=== PATIENT | male | born 1960 | race Caucasian/White ===

== ENCOUNTER → 2019-07-14 | Outpatient (CLI) | payer MEDICARE ==
[~2019-07-14] MED LIST: ACET325T38 PO; CALC667C; DIAZ1KIT4 RC; DIAZ5SOL3 PO; DIPH25TA82; DIVA-20; DIVA250T2; DVL250TEC; FERR-57; FLUT16SP22 NSEACH; LACO100T2 PO; LACO150T2 PO; LACO200T2 PO; LACO50TA2 PO; LAMO100T69 PO; LAMO150T2 PO; LAMO150T3 PO; LEVE100015 PO; LEVE500T6; LEVE500T6 PO; LEVE500T99; LMT25T; LMT25T PO; LORA1TAB PO; MIRT15TA6 PO; MULT1CAP27 PO; ND-PRIM50T; OMEP10CA2
== END | disposition home or self-care (01) ==
LOC: PREOP 05:35
PROVIDERS: ATTEND Surgery
DX: Z01.818 Encounter for other preprocedural examination (principal)

== ENCOUNTER 2019-08-28 08:24 | Outpatient (RCR) | payer MEDICARE ==
[~2019-08-28] VITALS: Ht 180 cm; Wt 79.5 kg
[~2019-08-28 08:24] MED LIST changes: +DOCU-238 PO; +LEVE500T99 PO
== END 2019-08-28 16:25 | disposition home or self-care (01) ==
LOC: PREOP 08:24
PROVIDERS: ATTEND Surgery
DX: Z01.818 Encounter for other preprocedural examination (principal); Z01.812 Encounter for preprocedural laboratory examination; Z12.11 Encounter for screening for malignant neoplasm of colon
CPT/HCPCS: 87635

== ENCOUNTER 2019-09-01 08:22 | Day surgery (SDC) | payer MEDICARE ==
[2019-09-01] VITALS (7 sets, daily range): BP systolic 100–116; BP diastolic 61–84
[~2019-09-01] VITALS: Ht 180 cm; Wt 73.1 kg
[2019-09-01] MEDS ORDERED: LACTATED RINGERS 1,000 ML IV ONE (08:28)
[2019-09-01] MEDS ORDERED: LACTATED RINGERS 1,000 ML IV STA (08:31)
[2019-09-01] MEDS ORDERED: MIDAZOLAM 2 MG/2 ML (VERSED) VIAL ONE (09:50)
[2019-09-01] MEDS ORDERED: PROPOFOL INJECTION 50 ML IV ONE (09:50)
[2019-09-01] MEDS ORDERED: proPOfol 200 MG/20 ML (DIPRIVAN) VIAL IV ONE (10:17)
--- NOTE | 2019-09-01 10:41 | Progress Note-Post Operative ---
Post-Operative Progess Note Surgeon (s)/Brine Maker (s) Surgeon RIKKI BOOTHE DO Brine Maker: none Pre-Operative Diagnosis +Cologuard Post-Operative Diagnosis Colon polyps internal hemorrhoids Procedure & Operative Findings Date of Procedure 09/01/19 Procedure Performed/Findings colon with snare Anesthesia Type IV sedation by CORE WINDER MACHINE OPERATOR Estimated Blood Loss Estimated blood loss (mL): scant Specimens/Packing Specimens Removed transverse cecum descending colon RIKKI BOOTHE DO September 01, 2019 10:41
--- NOTE | 2019-09-01 10:42 | Endoscopy Discharge Instruct ---
Endo Procedure/Findings Findings 1.: Polyp 2.: Internal Hemorrhoids Discharge Instructions - Activity: You might feel a little sleepy until tomorrow. This is due to the medicine you received to relax you. Until tomorrow, you should: NOT drive a car, operate machinery or power tools. NOT drink any alcoholic beverages. NOT make any important decisions or sign importortant papers. Do not return to work until tomorrow, unless otherwise instructed. Resume previous activities tomorrow. Diet: Start by taking liquids. If you tolerate liquids, advance to solid food. make an appointment for one week 1.: Colonoscopy in 1 year Notify Physician - If you experience excessive bleeding, unusual abdominal pain, fever, or chest pain, contact your doctor immediately. RIKKI BOOTHE DO September 01, 2019 10:42
--- NOTE | 2019-09-01 14:00 | Anesthesia-General Post-Op ---
MAC Patient Condition Mental Status/LOC: Same as Preop Cardiovascular: Satisfactory Nausea/Vomiting: Absent Respiratory: Satisfactory Pain: Controlled Complications: Absent Post Op Complications Complications None Follow Up Care/Instructions Patient Instructions None needed. Anesthesiology Discharge Order Discharge Order Patient is doing well, no complaints, stable vital signs, no apparent adverse anesthesia problems. No complications reported per nursing. TAVON MEIER CRNA September 01, 2019 14:00
--- NOTE | 2019-09-01 19:43 | OPERATIVE REPORT ---
DATE OF SERVICE: 09/01/2019 PREOPERATIVE DIAGNOSIS: Positive Cologuard. POSTOPERATIVE DIAGNOSES: Colon polyps and internal hemorrhoids. PROCEDURE: Colonoscopy with snare polypectomy. SURGEON: Noman Khalil DO LEATHER CASE FINISHER: None. ANESTHESIA: IV sedation by the MANAGER RELATIONSHIP. SPECIMEN: Polyps from the transverse colon, cecum and descending colon. BLOOD LOSS: Scant. FLUIDS: Per anesthesia. POSTOPERATIVE CONDITION: Stable. INDICATION FOR PROCEDURE: The patient is a 59-year-old male who had a positive Cologuard and needed a workup. FINDINGS: The patient had multiple polyps, one in the transverse colon, one in the descending colon, but the largest one within the cecum. He also had some internal hemorrhoids. PROCEDURE NOTE: After informed consent was obtained, the patient was brought to the endoscopy suite, placed in bed in the left lateral decubitus position. He was administered IV sedation by the MANAGER RELATIONSHIP who then monitored his vitals the entire time, heart rate, blood pressure and pulse ox. Scope was inserted. On the way in, noted a polyp in the transverse colon, did snare polypectomy, continued all the way to the cecum, pushed in about 150 cm, able to visualize the appendiceal orifice and took a picture and then right next we saw a large polyp. Had to take this polyp in pieces to be able remove it. Able to suction some of these up and then got a Potter Net down there. Placed the polyp in the Potter Net and had to pull the scope all the way out to get the polyp and then placed the scope back in, all the way to the cecum and then slowly withdrew the scope insufflating to look circumferentially at the gutierrez looking the cecum, up the ascending colon to the hepatic flexure, then down the transverse colon, the splenic flexure, into the descending colon, saw another flat polyp, did another snare polypectomy of this and then continued down in the sigmoid and finally into the rectum, retroflexed in rectal vault, saw some minimal internal hemorrhoids, took a picture of these and then removed the scope. The patient tolerated the procedure and he was recovered in endoscopy suite. Job ID: [id number] DocumentID: [id number] Dictated Date: 09/01/2019 15:13:03 Insurance Claims Examiner Date: 09/01/2019 19:42:41 Dictated By: NOMAN KHALIL DO
== END 2019-09-01 11:35 | disposition home or self-care (01) ==
LOC: ENDO 08:22
PROVIDERS: ATTEND Surgery
DX: C18.0 Malignant neoplasm of cecum (principal); D12.3 Benign neoplasm of transverse colon; K63.89 Other specified diseases of intestine; K64.8 Other hemorrhoids; G40.909 Epilepsy, unspecified, not intractable, without status epilepticus; K21.9 Gastro-esophageal reflux disease without esophagitis; Z79.899 Other long term (current) drug therapy

== ENCOUNTER 2019-09-11 08:35 | Outpatient (RCR) | payer MEDICARE ==
[~2019-09-11] VITALS: Ht 180 cm; Wt 73.1 kg
[2019-09-11 08:13] VITALS: BP 121/75
[2019-09-11 08:59] LABS: BASOPHILS % (AUTO) 0 % (0-10); EOSINOPHILS # (AUTO) 0.1 10^3/uL (0.0-0.3); EOSINOPHILS % (AUTO) 1 % (0-10); HEMATOCRIT 45 % (40-54); HEMOGLOBIN 15.6 G/DL (13.3-17.7); LYMPHOCYTES # (AUTO) 1.2 X 10^3 (1.0-4.0); LYMPHOCYTES % (AUTO) 25 % (12-44); MEAN CORPUSCULAR HEMOGLOBIN 30 PG (25-34); MEAN CORPUSCULAR HGB CONC 35 G/DL (32-36); MEAN CORPUSCULAR VOLUME 88 FL (80-99); MEAN PLATELET VOLUME 9.5 FL (7.4-10.4); MONOCYTES # (AUTO) 0.5 X 10^3 (0.0-1.0); MONOCYTES % (AUTO) 9 % (0-12); NEUTROPHILS # (AUTO) 3.1 X 10^3 (1.8-7.8); NEUTROPHILS % (AUTO) 64 % (42-75); PLATELET COUNT 238 10^3/uL (130-400); RED CELL DISTRIBUTION WIDTH 12.5 % (10.0-14.5); WHITE BLOOD COUNT 4.9 10^3/uL (4.3-11.0)
[2019-09-19] MEDS ORDERED: HYDR-4226 PO (11:59)
== END 2019-09-12 14:33 | disposition home or self-care (01) ==
LOC: PREOP 08:35
PROVIDERS: ATTEND Surgery
DX: Z01.812 Encounter for preprocedural laboratory examination (principal); Z11.59 Encounter for screening for other viral diseases; C18.9 Malignant neoplasm of colon, unspecified
CPT/HCPCS: 85025; 86850; 86900; 86901; 87081; U0002; 36415; 87635

== ENCOUNTER 2019-09-17 07:33 | Inpatient (IN) | payer MEDICARE ==
[2019-09-17] VITALS (12 sets, daily range): BP systolic 105–126; BP diastolic 63–83
[~2019-09-17] VITALS: Ht 180 cm; Wt 73.1 kg
[2019-09-17] MEDS ORDERED: ceFAZolin 2 GM IV Premixed 50 ML IV ONE (07:45)
[2019-09-17] MEDS ORDERED: CATHETER FLUSH 10 ML SYR IV PRN (08:00)
--- NOTE | 2019-09-17 08:05 | Progress Note-Pre Operative ---
Pre-Operative Progress Note H&P Reviewed The H&P was reviewed, patient examined and no changes noted. Time Seen by Provider: 08:00 Date H&P Reviewed: Sep 17, 2019 Time H&P Reviewed: 08:01 Pre-Operative Diagnosis: Colon Cancer - Cecum RIKKI BOOTHE DO Sep 17, 2019 08:05
[2019-09-17] MEDS: LACTATED RINGERS 1,000 ML IV PRN ×2 (08:07→09:37)
[2019-09-17] MEDS ORDERED: MIDAZOLAM 2 MG/2 ML (VERSED) VIAL ONE ×2 (08:09→08:33)
[2019-09-17] MEDS ORDERED: MIDAZOLAM 2 MG/2 ML (VERSED) VIAL IV ONE (08:15)
[2019-09-17] MEDS ORDERED: proPOfol 200 MG/20 ML (DIPRIVAN) VIAL IV ONE (08:33)
[2019-09-17] MEDS ORDERED: LIDOCAINE PF 2% 5 ML (XYLOCAINE) VIAL ONE (08:33)
[2019-09-17] MEDS ORDERED: SEVOFLURANE (ULTANE) 15 ML INHAL SOLN ONE ×5 (08:33→10:47)
[2019-09-17] MEDS ORDERED: fentaNYL INJECTION 100 MCG/2 ML AMP ONE ×2 (08:33→10:45)
[2019-09-17] MEDS ORDERED: ROCURONIUM 10 MG/ML 5 ML SYRINGE IV ONE (08:33)
[2019-09-17] MEDS ORDERED: ONDANSETRON 4 MG/2 ML (SDV) Z0FRAN ONE (08:34)
[2019-09-17] MEDS ORDERED: BUPIVACAINE 0.5% 30 ML (SENSORCAINE) VIAL ONE (08:34)
[2019-09-17] MEDS ORDERED: DEXAMETHASONE 10 MG/ML (DECADRON) 1 ML VIAL ONE (08:34)
[2019-09-17] MEDS ORDERED: BUP/EPI 0.5% 1:200,000 (SENSORCAINE) 30 ML VIAL ONE (09:12)
--- NOTE | 2019-09-17 10:33 | Progress Note-Post Operative ---
Post-Operative Progess Note Surgeon (s)/Continuous Mining Machine Coal Miner (s) Surgeon RIKKI BOOTHE DO Continuous Mining Machine Coal Miner: Servando Pre-Operative Diagnosis Colon Cancer - Cecum Post-Operative Diagnosis same pending path Procedure & Operative Findings Date of Procedure 09/17/19 Procedure Performed/Findings Lap hand assisted Right colon resection with primary enterocolonic anastomosis Anesthesia Type GET Estimated Blood Loss Estimated blood loss (mL): minimal Specimens/Packing Specimens Removed portion of TI, appy and right colon RIKKI BOOTHE DO Sep 17, 2019 10:33
[2019-09-17] MEDS ORDERED: ONDANSETRON 4 MG/2 ML (SDV) Z0FRAN IVP PRN ×2 (10:45→11:00)
[2019-09-17] MEDS ORDERED: NON-FORMULARY MEDICATION 1 EA EA (Mirtazapine 15 MG) PO PRN (10:45)
[2019-09-17] MEDS ORDERED: PATIENT MAY USE OWN MEDS, ALL MC SCH (11:00)
[2019-09-17] MEDS ORDERED: morphine INJ 10 MG/ML 1ML (SYR OR VIAL) IVP ONE (11:00)
[2019-09-17] MEDS ORDERED: MEPERIDINE (DEMEROL) INJ 50 MG/ML IVP ONE (11:00)
[2019-09-17] MEDS ORDERED: HYDROmorphone 2 MG/ML VIAL (DILAUDID) IV ONE (11:00)
[2019-09-17] MEDS ORDERED: KETOROLAC 30 MG/ML VIAL ONE (11:07)
[2019-09-17] MEDS: KETOROLAC 30 MG/ML VIAL IVP SCH ×3 (11:09→23:29)
--- NOTE | 2019-09-17 11:55 | NUR ---
CUAUHTEMOC MARY admitted to room 427, with an admitting diagnosis of COLON RESECTION, on 09/17/19 from via BED, accompanied by STAFF. CUAUHTEMOC MARY introduced to surroundings, call light, bed controls, phone, TV, temperature control, lights, meal times, smoking policy, visitor policy, side rail policy, bathrooms and showers. Patient Rights given to patient in the handbook. CUAUHTEMOC MARY verbalizes understanding that [facility] is not responsible for the loss or damage to any personal effects or valuables that are kept in the patients posession during their hospitalization. CUAUHTEMOC MARY verbalizes understanding of Interdisciplinary Patient Education. Patient and/or family were informed about the Rapid Response Team and its purpose.
--- NOTE | 2019-09-17 11:55 | NUR ---
REPORT RECEIVED FROM JOSEFINA LÓPEZ
[2019-09-17] MEDS: LACTATED RINGERS 1,000 ML IV SCH ×2 (12:45→18:23)
--- NOTE | 2019-09-17 13:39 | NUR ---
PT'S WILL BRING HOME MEDS THIS AFTERNOON
--- NOTE | 2019-09-17 13:57 | NUR ---
DR BOOTHE NOTIFIED FOR PRN PAIN MEDS
[2019-09-17] MEDS: ACETAMINOPHEN 500 MG TAB (TYLENOL) PO SCH ×2 (14:06→19:42)
--- NOTE | 2019-09-17 15:04 | OPERATIVE REPORT ---
DATE OF SERVICE: PREOPERATIVE DIAGNOSIS: Cecal cancer. POSTOPERATIVE DIAGNOSIS: Cecal cancer, pending pathology. PROCEDURE: Laparoscopic hand-assisted right colon resection. SURGEON: Noman Khalil DO CANVAS BASTER JUMPBASTING: Stalin Al DO ANESTHESIA: General endotracheal tube. SPECIMEN: Portion of terminal ileum, appendix and the right colon. BLOOD LOSS: Less than 20 mL. FLUIDS: Basically minimal. FLUIDS: Per anesthesia. POSTOPERATIVE CONDITION: Stable. INDICATION FOR PROCEDURE: The patient is a 59-year-old male who had a colonoscopy with biopsy performed and polyp removed, which turned out to have adenocarcinoma and it needed a colon resection. FINDINGS: The patient had a right colon resection. All sent to pathology. PROCEDURE NOTE: After informed consent was obtained, the patient was brought to the operating room, placed on the table in supine position, sterilely prepped and draped in normal fashion. I made the incision with #15 blade from just above the umbilicus to just below it. Approximately 6 cm incision, carried down through the skin into subcutaneous tissue, then deepened down to subcutaneous tissue with Bovie electrocautery, going through the fascia, and then bluntly entered and placed in the hand and then protecting the bowel and then opening this incision superiorly and inferiorly protecting with the hand. I then placed a 5 mm port in the subxiphoid area with local lidocaine, 11 blade for stab incision and VersaStep system, all done under direct visualization, placed the GelPort and then placed another port in the midline just suprapubically using again local lidocaine, 11 blade for stab incision and Versed system, all done under direct visualization, pneumoperitoneum was created. There were some adhesions. These were carefully taken down with Bovie electrocautery, then came along the pericolic gutter with the Bovie electrocautery along the white line of Toldt, freeing this up, so that we could pull the colon medial, going all the way up to the hepatic flexure, coming across to bring this medially and this was easily brought medially with hand dissection, took some of the omentum down from the liver to get it out of the way. There are also some adhesions down in the terminal ileum. These were taken down so that I could bring all the intestine into the midline. Once this was done, then pulled the colon and terminal ileum through the midline incision, used a MARTA-75 to clamp across the terminal ileum, clamped and fired, thereby transecting. Then used the LigaSure to come across the mesentery and then freed up the right colon, then made a defect in the right colon with Bovie electrocautery, placed a MARTA through here and then made a defect in the antimesenteric border of the terminal ileum. Pushed in the other side of the MARTA in here, clamped them together and then held for 30 seconds, then fired, then used another MARTA to come across the bottom to close this enterocolotomy, clamped and then transected thereby removing this portion and then coming across the mesentery in a stepwise fashion, clamping, coagulating and transecting with the LigaSure to remove this portion of colon. Once this was removed, passed off the table. I went below, I went to the table and opened this, could see the old scar from polypectomy site, everything looked good, this was passed off and then sent to pathology. At this point, copiously irrigated with normal saline, suctioned this out and then elected to close the midline incision with #1 double stranded PDS suture running from the inferior portioto the superior portion tying to itself, recreated pneumoperitoneum and looked inside, everything looked good. I had suctioned out all the fluid. At this point, the patient who had been slightly rotated to the left, was placed supine and then removed all ports and allowed pneumoperitoneum to escape and then closed the two small 5 mm incisions with urszula. I then closed the midline incision with urszula. Area was cleaned and dried, dressing placed. The patient tolerated the procedure. Sponge, instrument and needle counts correct at the end of the case. Dr. Al assisted in this case helping to make incisions, close incisions as well as help identify anatomy and hold anatomy out of the way. Job ID: [id number] DocumentID: [id number] Dictated Date: 09/17/2019 10:52:59 Home Care Consultant Date: 09/17/2019 15:04:18 Dictated By: DO MARBIN BURCH
[2019-09-17] MEDS: ceFAZolin 2 GM IV Premixed 50 ML IV SCH (17:59)
[2019-09-17] MEDS: metroNIDAZOLE 500MG/100ML IVPB 100 ML IV SCH ×2 (18:02→19:42)
[2019-09-17] MEDS ORDERED: MIRTAZAPINE 15 MG (REMERON) TAB PO PRN (18:15)
[2019-09-17] MEDS: LEVETIRACETAM 500 MG (KEPPRA) TAB PO SCH (20:32)
[2019-09-17] MEDS: VIMPAT 50 MG PO SCH (20:33)
[2019-09-17] MEDS: VIMPAT 200 MG TABLET PO SCH (20:34)
[2019-09-17] MEDS: LAMICTAL 150 MG PO SCH (20:35)
--- NOTE | 2019-09-17 23:35 | NUR ---
2333-pt requesting prn Remeron from insomnia-medication given see mar
[2019-09-18] MEDS: ceFAZolin 2 GM IV Premixed 50 ML IV SCH (01:23)
--- NOTE | 2019-09-18 01:57 | NUR ---
0045-pt informs this rn that he feels like he is not urinating enough bladder scan preformed resulting 746ml 0054-this rn contacted dr. lopez prn straight cath order obtained (straight cath for bladder scan greater than 500ml) 0100-straight cath preformed using aseptic technique-pt tolerated well-700ml of clear yellow urine pt stated "That feels better. I think I can rest now."
[2019-09-18 04:11] VITALS: BP 111/71
[2019-09-18] MEDS: ACETAMINOPHEN 500 MG TAB (TYLENOL) PO SCH ×3 (04:28→18:26)
[2019-09-18] MEDS: KETOROLAC 30 MG/ML VIAL IVP SCH ×4 (04:29→21:54)
[2019-09-18 08:00] VITALS: BP 116/76
[2019-09-18] MEDS: LAMICTAL 150 MG PO SCH ×2 (09:23→21:52)
[2019-09-18] MEDS: LEVETIRACETAM 500 MG (KEPPRA) TAB PO SCH ×2 (09:25→21:54)
[2019-09-18] MEDS: VIMPAT 200 MG TABLET PO SCH ×2 (09:25→21:53)
[2019-09-18] MEDS: VIMPAT 50 MG PO SCH ×2 (09:26→21:52)
[2019-09-18] MEDS: ENOXAPARIN 40 MG/0.4 ML (LOVENOX) SYR SC SCH (09:27)
[2019-09-18] MEDS: PANTOPRAZOLE 40 MG (PROTONIX) VIAL IVP SCH (09:34)
[2019-09-18 11:00] VITALS: BP 110/71
--- NOTE | 2019-09-18 12:23 | Progress Note - Surgery ---
Subjective Time Seen by a Provider: 12:11 Subjective/Events-last exam Pt seen and examined, states he had 9 out of 10 pain this am; but after walking it is a 6 and tolerable. He is having trouble urinating. Denies flatus or BM. Review of Systems Pulmonary: No Dyspnea, No Cough Cardiovascular: No: Chest Pain, Palpitations Gastrointestinal: Abdominal Pain; No: Nausea, Vomiting Objective Exam Vital Signs Date Time Temp Pulse Resp B/P (MAP) Pulse Ox O2 Delivery O2 Flow Rate FiO2 09/18/19 11:00 36.6 65 16 110/71 (84) 97 Room Air 09/18/19 09:00 100 Room Air 2.00 09/18/19 08:00 36.6 64 16 116/76 (89) 100 Room Air 09/18/19 04:11 37.0 68 18 111/71 (84) 99 Room Air 09/17/19 23:32 37.2 71 20 121/74 (90) 98 Room Air 09/17/19 20:30 Room Air 09/17/19 20:12 36.5 87 18 126/69 (88) 100 Room Air 09/17/19 15:30 36.8 66 18 111/70 (84) 98 Room Air 09/17/19 14:54 96 Room Air I & O 09/18/19 07:00 Intake Total 3570 ml Output Total 1200 ml Balance 2370 ml Capillary Refill : NONE General Appearance: No Apparent Distress, WD/WN Respiratory: Lungs Clear, Normal Breath Sounds, No Accessory Muscle Use, No Respiratory Distress Cardiovascular: Regular Rate, Rhythm, No Murmur Gastrointestinal: soft; No distended; tenderness (at incisions), other (inc c/d/i) Results Lab Laboratory Tests 09/18/19 08:05: Creatinine 1.09 Assessment/Plan Assessment/Plan Assessment/Plan S/P Right Colon Resection Urinary Retention Pt encouraged to ambulate more and use IS. He had to be straight cathed twice, but finally is starting to urinate; will start some Flomax. Continue pain meds as needed. Clinical Quality Measures DVT/VTE Risk/Contraindication: Risk Factor Score Per Nursin RFS Level Per Nursing on Admit: 4+=Very High RIKKI BOOTHE DO Sep 18, 2019 12:22
--- NOTE | 2019-09-18 12:35 | Anesthesia-General Post-Op ---
General Patient Condition Mental Status/LOC: Same as Preop Cardiovascular: Satisfactory Nausea/Vomiting: Absent Respiratory: Satisfactory Pain: Controlled Complications: Absent Post Op Complications Complications None Follow Up Care/Instructions Patient Instructions None needed. Anesthesia/Patient Condition Patient Condition Patient is doing well, no complaints, stable vital signs, no apparent adverse anesthesia problems. No complications reported per nursing. CRISSY WAGNER CRNA Sep 18, 2019 12:35
--- NOTE | 2019-09-18 14:04 | NUR ---
MR. MARY UP IN HALLS WALKING WITHOUT ANY ASSISTANCE, PATIENT WAS ALSO TAKEN TO THE STAIR CASE AND WAS ABLE TO GO UP AND DOWN THE STAIRS WITH MINIMAL DIFFICULTIES. PATIENT WILL RETURN TO ROOM AND AND TAKEN TO TOILET AND WILL TRY TO VOID AND THEN PCT'S WILL BLADDER SCAN AT THIS TIME. SEE INTERVENTIONS FOR DETAILS.
--- NOTE | 2019-09-18 14:05 | NUR ---
THROUGHOUT THE DAY THIS PATIENT HAS BEEN TAKEN TO THE TOILET TO VOID AND AFTER EACH VOID THE PATIENT WAS BLADDER SCANNED. EACH TIME HE WAS BLADDER SCAN HE FAILED TO HAVE >500 MLS IN HIS BLADDER AFTER VOIDING. THIS RN WILL CONT. TO MONITOR THIS PATIENT FOR URINE RETENTION WITH EACH AND EVERY TIME HE TOILETS. FIRST BLADDER SCAN READ >222 MLS. SECOND TIME HE WAS BLADDER SCANNED HIS RESIDUAL AFTER VOIDING WAS [address] BOOTHE NOTIFIED OF THIS, NO NEW ORDERS TO PLACE [facility] CATH AT THIS TIME.
--- NOTE | 2019-09-18 14:09 | NUR ---
NEW ORDERS RECEIVED TO START COLACE 100 MG PO NOW THEN DAILY. SEE EMAR FOR DETAILS.
--- NOTE | 2019-09-18 14:10 | NUR ---
PATIENT HAD NO DIFFICULTIES WHILE CLIMBING STAIR WITH STAFF.
[2019-09-18] MEDS ORDERED: DOCUSATE SODIUM 100 MG (COLACE) CAP PO PRN (14:15)
--- NOTE | 2019-09-18 15:40 | NUR ---
Pastoral care visit.
[2019-09-18 16:00] VITALS: BP 126/85
[2019-09-18] MEDS ORDERED: DOCUSATE SODIUM 100 MG (COLACE) CAP PO NR (16:00)
[2019-09-18] MEDS: TAMSULOSIN 0.4 MG (FLOMAX) CAP PO SCH (17:47)
[2019-09-18 20:00] VITALS: BP 122/72
[2019-09-19 00:45] VITALS: BP 114/60
[2019-09-19] MEDS: ACETAMINOPHEN 500 MG TAB (TYLENOL) PO SCH ×3 (03:34→18:19)
[2019-09-19 04:00] VITALS: BP 108/53
[2019-09-19] MEDS: KETOROLAC 30 MG/ML VIAL IVP SCH ×4 (04:12→23:29)
[2019-09-19] MEDS: LAMICTAL 150 MG PO SCH ×2 (07:53→21:02)
[2019-09-19] MEDS: PANTOPRAZOLE 40 MG (PROTONIX) VIAL IVP SCH (07:53)
[2019-09-19] MEDS: VIMPAT 200 MG TABLET PO SCH ×2 (07:54→21:03)
[2019-09-19] MEDS: VIMPAT 50 MG PO SCH ×2 (07:55→21:03)
[2019-09-19] MEDS: LEVETIRACETAM 500 MG (KEPPRA) TAB PO SCH ×2 (07:55→21:00)
[2019-09-19] MEDS: ENOXAPARIN 40 MG/0.4 ML (LOVENOX) SYR SC SCH (07:59)
[2019-09-19 08:30] VITALS: BP 159/62
--- NOTE | 2019-09-19 11:57 | Progress Note - Surgery ---
Subjective Time Seen by a Provider: 10:53 Subjective/Events-last exam Pt seen and examined, states his pain was great this am but got a little worse after he walked. He did have a BM, but states he isn't eating much; I get full quick. He is worried about pain control when he gets home. States he is urinating better. Review of Systems General: No Chills, No Night Sweats Pulmonary: No Dyspnea, No Cough Cardiovascular: No: Chest Pain, Palpitations Gastrointestinal: Abdominal Pain; No: Nausea, Vomiting Objective Exam Vital Signs Date Time Temp Pulse Resp B/P (MAP) Pulse Ox O2 Delivery O2 Flow Rate FiO2 09/19/19 08:49 Room Air 09/19/19 08:30 36.3 76 19 159/62 (94) 96 Room Air 09/19/19 04:00 37.0 64 18 108/53 (71) 95 Room Air 09/19/19 00:45 36.4 63 17 114/60 (78) 92 Room Air 09/18/19 21:00 Room Air 09/18/19 20:00 36.8 67 18 122/72 (89) 99 Room Air 09/18/19 16:00 36.6 63 20 126/85 (99) 97 Room Air I & O 09/19/19 07:00 Intake Total 1968 ml Output Total 650 ml Balance 1318 ml Capillary Refill : NONE General Appearance: No Apparent Distress, WD/WN Respiratory: Lungs Clear, Normal Breath Sounds, No Accessory Muscle Use, No Respiratory Distress Cardiovascular: Regular Rate, Rhythm, No Murmur Gastrointestinal: soft, tenderness, other (inc c/d/i) Assessment/Plan Assessment/Plan Assessment/Plan S/P Right Colon Resection Urinary Retention -resolved Pt told he has to ambulate 5-6 times today and use IS 10 times every hour while awake. Will continue Flomax. Plan to d/c home tomorrow. Clinical Quality Measures DVT/VTE Risk/Contraindication: Risk Factor Score Per Nursin RFS Level Per Nursing on Admit: 4+=Very High RIKKI BOOTHE DO Sep 19, 2019 11:57
[2019-09-19] MEDS ORDERED: HYDR-4226 PO (11:59)
--- NOTE | 2019-09-19 12:00 | Discharge Inst-Surgical ---
Discharge Inst-Surgical Depart Medication/Instructions New, Converted or Re-Newed RX: RX Given to Pt/Family Patient Instructions Follow up Appt: Make appointment for 1 week. [phone] Instructions: No lifting greater than 20 pounds. No strenuous activity. May shower in 24 hours, no tub bath or soaking. Use incentive spirometer at home as directed. No Smoking Skin/Wound Care: May remove bandages in am. You need to leave the urszula in place and come to the clinic to have them removed. Symptoms to Report: Appetite Changes, Extremity Discoloration, Numbness/Tingling, Swelling Increased, Bleeding Excessive, Eyesight Changes, Pain Increased, Urine Color Change, Constipation(Persistent), Fever over 101 degree F, Pain/Pressure in chest, Urinating Difficulty, Cough Up/Vomit Blood, Heart Beat Irreg/Pounding, Pain/Pressure in jaw, Cramps in feet or legs, Lightheadedness, Pain/Pressure in shoulder, Diarrhea(Persistent), Memory Changes Suddenly, Questions/Concerns, Weight gain consecutive days, Dizziness/Fainting, Nausea/Vomiting, Shortness of Breath, Weight gain over 2 pounds If questions or concerns contact your physician Or seek help at emergency department. Activity Activity as Tolerated: Yes Activity Instructions: Avoid Stress to Incision Driving Instructions: No Driving/Refer to Dr. Mercer Discharge Diet: No Restrictions Diet After 24 Hours: Clear Liquid if Nauseous If Any Problems/Questions/Issu: Contact Your Physician, Go to Emergency Room Skin/Wound Care Infection Signs and Symptoms: Increased Redness, Foul Odor of Wound, Increased Drainage, Skin Itchy or Has a Rash, Increased Swelling, Temperature Above 101 F Bathing Instructions: Shower Stitches/[place]/Dermabond Dis: Care of RIKKI [place] DO Sep 19, 2019 12:00
[2019-09-19 12:59] VITALS: BP 119/74
--- NOTE | 2019-09-19 13:55 | NUR ---
"RD ASSESSMENT PMHx: s/p colon resection; GERD; chronic constipation; seizure disorder PT INTERACTION: Pt was awake and pleasant during nutrition assessment. Pt states current appetite is not good, and has been this way for a few days. Note avg PO intake 67% x2d, per chart review. Pt states following a regular diet at home, and has some issues with swallowing food. Pt states no recent issues with nausea or vomiting. Pt states some issues with diarrhea. Note last BM was 6/5, and pt currently on bowel regimen of colace PRN, per chart review. Pt states some recent wt changes, with a recent wt of 175#, per pt's . did not recall timeframe of this wt loss. Note current wt of 161#, per chart review. ABNORMAL NUTRITION-RELATED LAB VALUES No labs drawn at this time Est. kcal needs: 8257-1936 kcal | 25-30 kcal/kg Est. Pro needs: 88-120 g Pro | 0.8-1.0 g Pro/kg PES STATEMENT: Inadequate oral intake (NI-2.1) related to loss of appetite | diarrhea as evidenced by pt interview | avg PO intake 67% x2d Inadequate protein intake (NI-5.6.1) related to increased protein needs as evidenced by pt s/p colon resection INTERVENTION: Continue with current diet order of DYS2 Mechanically Altered diet. Would recommend diet advancement when medically able and as tolerated. Add Ensure HP (vary) to meals TID, for increased protein and kcal intake. Provides 160 kcal and 16 g Pro per serving. Will continue to follow and reassess as pt needs, intake, and status change. MONITOR/EVALUATE: PO Intake; Plan of Care; Hydration Status; Weight Status; Lab Values Marium Angel, MS, RD, LD"
[2019-09-19 16:15] VITALS: BP 104/71
[2019-09-19] MEDS: TAMSULOSIN 0.4 MG (FLOMAX) CAP PO SCH (18:05)
[2019-09-19 19:44] VITALS: BP 111/74
[2019-09-20] VITALS: BP 128/78
[2019-09-20] MEDS: ACETAMINOPHEN 500 MG TAB (TYLENOL) PO SCH ×2 (03:01→11:09)
[2019-09-20 04:00] VITALS: BP 125/79
[2019-09-20] MEDS: KETOROLAC 30 MG/ML VIAL IVP SCH ×2 (05:02→11:09)
[2019-09-20 08:00] VITALS: BP 124/74
[2019-09-20] MEDS: PANTOPRAZOLE 40 MG (PROTONIX) VIAL IVP SCH (08:19)
[2019-09-20] MEDS: VIMPAT 50 MG PO SCH (08:20)
[2019-09-20] MEDS: ENOXAPARIN 40 MG/0.4 ML (LOVENOX) SYR SC SCH (08:20)
[2019-09-20] MEDS: VIMPAT 200 MG TABLET PO SCH (08:21)
[2019-09-20] MEDS: LAMICTAL 150 MG PO SCH (08:21)
[2019-09-20] MEDS: LEVETIRACETAM 500 MG (KEPPRA) TAB PO SCH (08:22)
--- NOTE | 2019-09-20 11:47 | NUR ---
DR BOOTHE PUT IN D/C ORDERS YESTERDAY AND DR HYDE OFFICIALLY DISCHARGED PT THIS AM. PCT STAFF TOOK PT VIA W/C TO PRIVATE VEHICLE. PT HAD ALL PERSONAL BELONGINGS, DISCHARGE PAPERS, SCRIPT FOR LORTAB AND MEDICATION HE BROUGHT WITH HIM.
--- NOTE | 2019-09-20 15:55 | Progress Note - Surgery ---
Subjective Date Seen by a Provider: Sep 20, 2019 Time Seen by a Provider: 10:08 Subjective/Events-last exam Patient feeling good. Pain control. Passing flatus and having bowel movement. Tolerating diet. Wanting to go home. Denies nausea vomiting fever sweats chills shortness of breath or chest pain. Objective Exam Vital Signs Date Time Temp Pulse Resp B/P (MAP) Pulse Ox O2 Delivery O2 Flow Rate FiO2 09/20/19 08:41 98 Room Air 09/20/19 08:00 36.6 72 16 124/74 (91) 98 Room Air 09/20/19 04:00 36.8 61 20 125/79 (94) 97 Room Air 09/20/19 00:00 36.7 61 19 128/78 (95) 98 Room Air 09/19/19 21:00 98 Room Air 09/19/19 19:44 36.7 72 16 111/74 (86) 99 Room Air 09/19/19 16:15 36.6 66 18 104/71 (82) 98 Room Air I & O 09/20/19 07:00 Intake Total 2330 ml Output Total 1150 ml Balance 1180 ml Capillary Refill : NONE General Appearance: No Apparent Distress, WD/WN HEENT: PERRL/EOMI Respiratory: Chest Non Tender, No Accessory Muscle Use, No Respiratory Distress Cardiovascular: Regular Rate, Rhythm, No Edema Gastrointestinal: soft, tenderness (Minimal incisional), other (inc c/d/i) Extremity: Non Tender Neurologic/Psychiatric: Alert, Oriented x3 Skin: Normal Color, Warm/Dry Lymphatic: No Adenopathy Assessment/Plan Assessment/Plan Assessment/Plan S/P Right Colon Resection Urinary Retention -resolved Pt told he has to ambulate 5-6 times today and use IS 10 times every hour while awake. Okay to DC home as patient is wanting to be discharged home as well. Clinical Quality Measures DVT/VTE Risk/Contraindication: Risk Factor Score Per Nursin RFS Level Per Nursing on Admit: 4+=Very High SRINIVASA HYDE DO Sep 20, 2019 15:55
== END 2019-09-20 11:56 | disposition home or self-care (01) | DRG 331 ==
LOC: 4TH 07:33 → SURG 07:34 → 4TH 12:00
PROVIDERS: ADMIT Surgery; ATTEND Surgery
PROC: 0DTF0ZZ Resection of Right Large Intestine, Open Approach (ICD-10-PCS; principal; 2019-09-17 09:06)
DX: C18.0 Malignant neoplasm of cecum (principal); K64.0 First degree hemorrhoids; R56.9 Unspecified convulsions; R33.9 Retention of urine, unspecified
CPT/HCPCS: 36415; 82565; 86850; 86900; 86901; 94664

== ENCOUNTER 2019-09-30 13:49 | Inpatient (IN) | payer MEDICARE ==
[~2019-09-30] VITALS: Ht 180 cm; Wt 78.9 kg
[~2019-09-30 13:49] MED LIST changes: +HYDR-4226 PO
[2019-09-30] MEDS ORDERED: LACTATED RINGERS 1,000 ML IV ONE (14:00)
[2019-09-30] MEDS ORDERED: ONDANSETRON 4 MG/2 ML (SDV) Z0FRAN IVP ONE (14:00)
--- NOTE | 2019-09-30 14:14 | ED General ---
General Chief Complaint: Neurological Problems Stated Complaint: SEIZURE;VOMITING Nursing Triage Note: pt brought in by [facility] from home with compalint of seizure adn vomting. pt had a colon resection for colon cancer on september 16. pt states he has had a cough since then. denies fever or soa. Nursing Sepsis Screen: No Definite Risk Source of Information: Patient, EMS History of Present Illness Date Seen by Provider: Sep 30, 2019 Time Seen by Provider: 13:58 Initial Comments PT ARRIVES VIA EMS FROM HOME NO TREATMENT BY EMS PT HAS LONGSTANDING HISTORY OF SEIZURES SINCE CHILDHOOD THINKS LAST SEIZURE WAS ABOUT 6 MONTHS AGO--TAKES KEPPRA, VIMPAT, LAMICTAL. DENIES ANY MISSED OR CHANGED DOSES STATES HE HAD AN UNWITNESSED SEIZURE THIS MORNING BETWEEN 10 AND 11 AM. STATES HE WAS LAYING ON THE COUCH WHEN HE HAD THE SEIZURE AND WAS STILL ON THE COUCH WHEN HE WOKE UP PT DENIES ANY INJURIES PT HAS HAD VOMITING SINCE THE SEIZURE, WHICH IS NORMAL FOR HIM, BUT USUALLY DOES NOT LAST THIS LONG PT STATES HE HAS HAD A CONSTANT COUGH AND SOME SHORTNESS OF BREATH SINCE HE WOKE UP FROM THE SEIZURE PT IS ADAMANT THAT HE DID NOT HAVE ANY COUGH OR DIFFICULTY BREATHING PRIOR TO THE SEIZURE--ONLY SINCE HE FIRST WOKE UP FROM THE SEIZURE STATES HE FELT FINE PRIOR TO THE SEIZURE PT HAD RIGHT HEMICOLECTOMY BY DR. BOOTHE 09/17/19 FOR CANCER PT HAD AN APPOINTMENT TODAY FOR FOLLOW UP, BUT CAME HERE INSTEAD NO CHEST PAIN NO FEVER PCP: TIFF-Mary Allergies and Home Medications Allergies Coded Allergies: No Known Drug Allergies (Unverified , 09/11/19) Home Medications Diazepam 1 Each Kit, 1 EACH RC PRN PRN for SEIZURE ACTIVITY Prescribed by: AGUILAR PERES on 09/30/19 1840 Docusate Sodium 100 Mg Capsule, 100 MG PO DAILY, (Reported) Lacosamide 200 Mg Tablet, 200 MG PO BID, (Reported) Lacosamide 50 Mg Tablet, 50 MG PO BID, (Reported) Lamotrigine 150 Mg Tablet, 150 MG PO DAILY, (Reported) Lamotrigine 150 Mg Tablet, 225 MG PO HS, (Reported) Levetiracetam 500 Mg Tablet, 1,500 MG PO BID, (Reported) Mirtazapine 15 Mg Tablet, 15 MG PO HS PRN for INSOMNIA, (Reported) Patient Home Medication List Home Medication List Reviewed: Yes Review of Systems Review of Systems Constitutional: malaise, weakness EENTM: no symptoms reported Respiratory: see HPI, cough, short of breath Cardiovascular: no symptoms reported; No chest pain Gastrointestinal: see HPI; No abdominal pain; nausea, vomiting Genitourinary: no symptoms reported Musculoskeletal: no symptoms reported Skin: no symptoms reported Psychiatric/Neurological: See HPI, Seizure Hematologic/Lymphatic: No Symptoms Reported Immunological/Allergic: no symptoms reported Past Lvgtcul-Pnrwzu-Zwuvxg Hx Past Med/Social Hx: Reviewed and Corrections made Patient Social History Alcohol Use: Denies Use Recreational Drug Use: No Smoking Status: Never a Smoker 2nd Hand Smoke Exposure: No Recent Foreign Travel: No Contact w/Someone Who Travel: No Recent Infectious Disease Expo: No Recent Hopitalizations: No Immunizations Up To Date Tetanus Booster (TDap): Unknown PED Vaccines UTD: Yes Date of Pneumonia Vaccine: Apr 16, 2010 Date of Influenza Vaccine: Jan 20, 2019 Seasonal Allergies Seasonal Allergies: No Past Medical History Surgeries: Yes (LEFT TEMPORAL LOBECTOMY-2010; COLONOSCOPY; RIGHT HEMICOLECTOMY 09/17/19) Abdominal, Bowel Surgery, Neurological, Tonsillectomy Respiratory: No Currently Using CPAP: No Currently Using BIPAP: No Cardiac: No Neurological: Yes Seizure Disorder Reproductive Disorders: No Sexually Transmitted Disease: No HIV/AIDS: No Genitourinary: No Gastrointestinal: Yes (MILD REFLUX; DX COLON CANCER 09/17/19--S/P RIGHT HEMICOLECTOMY) Gastroesophageal Reflux, Chronic Constipation Musculoskeletal: No Endocrine: No HEENT: Yes (READING GLASSES) Loss of Vision: Denies Hearing Impairment: Denies Cancer: Yes (COLON CANCER -RIGHT HEMICOLECTOMY 09/17/19) Colon Did You Recieve Any Treatments: Yes What Type of Treatment Did You: Surgical Intervention Psychosocial: Yes Sleep Difficulties, Anxiety Integumentary: No Blood Disorders: No Adverse Reaction/Blood Tranf: No (N/A) Family Medical History Cardiovascular disease 19 MOTHER Cataracts 19 MOTHER Completed stroke 19 FATHER Dementia 19 MOTHER Hypertension 19 MOTHER Seizure disorder (cousin) Physical Exam Vital Signs Vital Signs - First Documented 09/30/19 13:50 Temp 36.3 Pulse 79 Resp 20 B/P (MAP) 115/69 (84) Pulse Ox 92 O2 Delivery Room Air Capillary Refill : Less Than 3 Seconds Height, Weight, BMI Height: 5'10" Weight: 180lbs. 2.0oz. 81.998843ca; 23.00 BMI Method:Actual General Appearance: No Apparent Distress, WD/WN, Other (NO VOMITIUS NOTED ON PT. PT FREQUENTLY CLEARING THROAT AND LIGHT UPPER AIRWAY COUGH; SOMEWHAT LETHARGIC, KEEPS EYES CLOSED. ) HEENT: PERRL/EOMI, Other (POOR DENTITION) Neck: Normal Inspection Respiratory: Normal Breath Sounds, No Accessory Muscle Use, No Respiratory Distress, Other (VERY MILDLY DYSPNEIC--RESPIRATIONS MILDLY SHALLOW AND MILDLY ELEVATED RATE. ) Cardiovascular: Regular Rate, Rhythm, No Edema, No JVD, No Murmur, Normal Peripheral Pulses Gastrointestinal: Non Tender, Soft, Other (MID ABDOMINAL INCISION IS CLEAN/DRY/INTACT WITH NO SIGNS OF INFECTION) Back: No CVA Tenderness Extremity: Normal Capillary Refill, Normal Inspection, Normal Range of Motion, Non Tender, No Calf Tenderness, No Pedal Edema Neurologic/Psychiatric: Alert, Oriented x3, No Motor/Sensory Deficits, credit card associate II- XII Norm as Tested Skin: Normal Color, Warm/Dry Progress/Results/Core Measures Suspected Sepsis Recent Fever Within 48 Hours: No Infection Criteria Present: None New/Unexplained Altered Menta: No Sepsis Screen: No Definite Risk SIRS Temperature: Pulse: 79 Respiratory Rate: 20 Laboratory Tests 09/30/19 14:15: White Blood Count 3.8L Blood Pressure 115 /69 Mean: 84 Laboratory Tests 09/30/19 14:15: INR Comment 0.9, Platelet Count 279 Results/Orders Lab Results Laboratory Tests Test 09/30/19 14:15 Range/Units White Blood Count 3.8 L 4.3-11.0 10^3/uL Red Blood Count 5.14 4.35-5.85 10^6/uL Hemoglobin 15.6 13.3-17.7 G/DL Hematocrit 46 40-54 % Mean Corpuscular Volume 90 80-99 FL Mean Corpuscular Hemoglobin 30 25-34 PG Mean Corpuscular Hemoglobin Concent 34 32-36 G/DL Red Cell Distribution Width 13.2 10.0-14.5 % Platelet Count 279 130-400 10^3/uL Mean Platelet Volume 8.6 7.4-10.4 FL Neutrophils (%) (Auto) 78 H 42-75 % Lymphocytes (%) (Auto) 12 12-44 % Monocytes (%) (Auto) 10 0-12 % Eosinophils (%) (Auto) 0 0-10 % Basophils (%) (Auto) 0 0-10 % Neutrophils # (Auto) 2.9 1.8-7.8 X 10^3 Lymphocytes # (Auto) 0.5 L 1.0-4.0 X 10^3 Monocytes # (Auto) 0.4 0.0-1.0 X 10^3 Eosinophils # (Auto) 0.0 0.0-0.3 10^3/uL Basophils # (Auto) 0.0 0.0-0.1 10^3/uL Prothrombin Time 12.7 12.2-14.7 SEC INR Comment 0.9 0.8-1.4 Activated Partial Thromboplast Time 25 24-35 SEC My Orders Orders - ARTHUR TOURE DO Ed Iv/Invasive Line Start (09/30/19 14:00) Monitor-Rhythm Ecg Trace Only (09/30/19 14:00) Cbc With Automated Diff (09/30/19 14:00) Comprehensive Metabolic Panel (09/30/19 14:00) Creatine Kinase (09/30/19 14:00) Creatine Kinase Mb (09/30/19 14:00) Magnesium (09/30/19 14:00) Protime With Inr (09/30/19 14:00) Partial Thromboplastin Time (09/30/19 14:00) Ua Culture If Indicated (09/30/19 14:00) Myoglobin Serum (09/30/19 14:00) Ed Iv/Invasive Line Start (09/30/19 14:00) Lactated Ringers (Lr 1000 Ml Iv Solution (09/30/19 14:00) Ondansetron Injection (Zofran Injectio (09/30/19 14:00) Chest 1 View, Ap/Pa Only (09/30/19 14:04) Alcohol (09/30/19 14:04) Drug Screen Stat (Urine) (09/30/19 14:04) Medications Given in ED Current Medications Medications Dose Ordered Sig/Josiah Route Start Time Stop Time Status Last Admin Dose Admin Lactated Ringer's 1,000 ml @ 0 mls/hr Q0M ONCE IV 09/30/19 14:00 09/30/19 14:01 DC 09/30/19 14:08 1,000 MLS/HR Ondansetron HCl 4 mg ONCE ONCE IVP 09/30/19 14:00 09/30/19 14:01 DC 09/30/19 14:08 4 MG Vital Signs/I&O 09/30/19 13:50 Temp 36.3 Pulse 79 Resp 20 B/P (MAP) 115/69 (84) Pulse Ox 92 O2 Delivery Room Air Capillary Refill : Less Than 3 Seconds Blood Pressure Mean: 84 Progress Note : Progress Note NO DETERIORATION IN PT'S CONDITION DURING ER STAY PT STATES HE FEELS BETTER AT TIME OF ADMIT--NO LONGER NAUSEATED, BREATHING EASIER, COUGHING LESS Diagnostic Imaging Comments CXR--PER RADIOLOGIST REPORT AT 1442 IMPRESSION: Development of acute infiltrate, consistent with pneumonia, in the right lower lobe. Reviewed: Reviewed by Me Departure Communication (Admissions) Family Conversation 1500--SPOKE WITH PT'S AND INFORMED HER OF PT'S CONDITION AND NEED FOR ADMIT. 1447--SPOKE WITH DR. GARSIA, ACCEPTS PT FOR ADMIT 1452--SPOKE WITH [facility], PULMONARY CONSULT 1503--SPOKE WITH DR. BOOTHE AND INFORMED HIM THAT PT CAME HERE INSTEAD OF HIS OFFICE APPOINTMENT Impression Primary Impression: RLL PNEUMONIA--SUSPECTED ASPIRATION Additional Impressions: Seizure disorder POST SEIZURE VOMITING S/P RECENT RIGHT HEMICOLECTOMY FOR CANCER Disposition: ADMITTED INPATIENT Condition: Improved Admissions Decision to Admit Reason: Admit from ER (General) Decision to Admit/Date: Sep 30, 2019 Time/Decision to Admit Time: 14:45 Departure-Patient Inst. Referrals: [facility] (PCP/Family) Primary Care Physician Scripts Diazepam (Diastat Acudial) 1 Each Kit 1 EACH RC PRN PRN for SEIZURE ACTIVITY for 30 Days, #1 KIT Prov: BRICE GARSIA DO 09/30/19 ARTHUR TOURE DO Sep 30, 2019 14:14
[2019-09-30 14:23] LABS: BASOPHILS % (AUTO) 0 % (0-10); EOSINOPHILS % (AUTO) 0 % (0-10); HEMATOCRIT 46 % (40-54); HEMOGLOBIN 15.6 G/DL (13.3-17.7); LYMPHOCYTES # (AUTO) 0.5 X 10^3 (1.0-4.0); LYMPHOCYTES % (AUTO) 12 % (12-44); MEAN CORPUSCULAR HEMOGLOBIN 30 PG (25-34); MEAN CORPUSCULAR HGB CONC 34 G/DL (32-36); MEAN CORPUSCULAR VOLUME 90 FL (80-99); MEAN PLATELET VOLUME 8.6 FL (7.4-10.4); MONOCYTES # (AUTO) 0.4 X 10^3 (0.0-1.0); MONOCYTES % (AUTO) 10 % (0-12); NEUTROPHILS # (AUTO) 2.9 X 10^3 (1.8-7.8); NEUTROPHILS % (AUTO) 78 % (42-75); PLATELET COUNT 279 10^3/uL (130-400); RED CELL DISTRIBUTION WIDTH 13.2 % (10.0-14.5); WHITE BLOOD COUNT 3.8 10^3/uL (4.3-11.0)
--- NOTE | 2019-09-30 14:37 | Diagnostic Imaging Report ---
INDICATION: Seizure. Vomiting. History of colon resection for colon cancer September 16. Cough and fever. COMPARISON: 02/02/2011. FINDINGS: There is alveolar infiltrate that has developed medially in the right lower lung. The right upper lung is clear. The left lung is well-aerated and clear. The heart is not enlarged. No pneumothorax or pleural effusion. No bony abnormalities. IMPRESSION: Development of acute infiltrate, consistent with pneumonia, in the right lower lobe. Dictated by: Dictated on workstation # [id number]
[2019-09-30 14:39] LABS: INR 0.9 (0.8-1.4); PROTHROMBIN TIME PATIENT 12.7 SEC (12.2-14.7)
[2019-09-30 14:48] LABS: ALANINE AMINOTRANSFERASE 70 U/L (0-55); ALBUMIN 4.2 GM/DL (3.2-4.5); ALKALINE PHOSPHATASE 72 U/L (40-136); BILIRUBIN,TOTAL 0.2 MG/DL (0.1-1.0); BUN/CREATININE RATIO 20; CALCIUM 10.1 MG/DL (8.5-10.1); CARBON DIOXIDE 23 MMOL/L (21-32); CHLORIDE 105 MMOL/L (98-107); CREATINE KINASE 186 U/L (30-200); CREATININE SERUM 1.67 MG/DL (0.60-1.30); GFR ESTIMATED 42; GLUCOSE 119 MG/DL (70-105); MAGNESIUM 2.4 MG/DL (1.6-2.4); POTASSIUM 5.1 MMOL/L (3.6-5.0); SODIUM 140 MMOL/L (135-145); TOTAL PROTEIN 6.9 GM/DL (6.4-8.2)
[2019-09-30 14:55] LABS: CREATINE KINASE MB 2.7 NG/ML (<6.6)
[2019-09-30] MEDS ORDERED: PIPERACILLIN SODIUM/TAZOBACTAM 4.5 GM in NS (IVPB) 100 ML IV ONE (15:00)
--- NOTE | 2019-09-30 15:12 | NUR ---
2.[address] TOURE
[2019-09-30] MEDS: VANCOMYCIN INJECTION 750 MG in NS (IVPB) 250 ML IV SCH ×2 (15:16→18:48)
[2019-09-30] MEDS ORDERED: NS IV 1000 ML 1,000 ML IV SCH (15:20)
[2019-09-30 16:15] VITALS: BP 116/72
--- OUTSIDE RECORDS SUMMARY | 2019-09-30 16:18 | XMS REPORT | Encounter Summary ---
Author Author [facility] Address Unknown Phone Unavailable Care Team Providers Care Works Manager Name Role Phone PCP Unavailable Encounter Details Care Team Description Date Type Department [facility], Historical 05/01/2011 PracPart Note [facility] Social History Date Tobacco Use Types Packs/Day Years Used Never Assessed Sex Assigned at Date Recorded Not on file Industry Job Start Date Occupation Not on file Not on file Not on file Travel End Travel History Travel Start No recent travel history available. 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 :10:07AM .T:JEC RX DENIED - PT MUST MAKE A FOLLOW UP APPT FOR REFILLS - LAST FILLED 09/10/10 From: Ya Waller (SASHA) Originated by: Ya Waller (SASHA) Sent: 012 at 10:07AM To: Tamara Isbell ([place]) Type: RX Priority: 3 Attachment: INVALID LINK:Ilia Maldonado [id number].tif - [id number]|[id number]\\T:\\ppart\\Guero es\\[id number]\\LEVJ0 [id number]\\[id number]\\QOVE200\\ASFH012\\YNEV712\\BGFS339\\LEVT0 21\\[id number] Subject: JEC RX PHARMACY REFILL REQUEST Pharmacy Name: Pharmacy Phone: Pharmacy Fax: Please refill the following medication for the above named patient Current Medications: Rx: VIMPAT 150mg 1 twice daily The last visit information is Link of original fax request: documented in this encounter Plan of Treatment Not on filedocumented as of this encounter Visit Diagnoses Not on filedocumented in this encounter"
--- OUTSIDE RECORDS SUMMARY | 2019-09-30 16:18 | XMS REPORT | Clinical Summary ---
Author Author [facility] Organization [facility] Address Unknown Phone Unavailable Care Team Providers Care Trade Mark Examiner Name Role Phone PCP Unavailable Allergies Not on File Medications Not on file Active Problems Not on file Social History Date Tobacco Use Types Packs/Day Years Used Never Assessed Sex Assigned at Date Recorded Not on file Industry Job Start Date Occupation Not on file Not on file Not on file Travel End Travel History Travel Start No recent travel history available. Last Filed Vital Signs Not on file Plan of Treatment Not on file Results Not on filefrom Last 3 Months
--- OUTSIDE RECORDS SUMMARY | 2019-09-30 16:18 | XMS REPORT | Clinical Summary ---
Author Author [facility] Organization [facility] Address Unknown Phone Unavailable Care Team Providers Care Motion Picture Scene Builder Name Role Phone Self, Referral PCP Unavailable Anton Cruz MD Unavailable Unavailable Source Comments Some departments are not documenting in the electronic medical record. If you d o not see the information that you expected, contact Release of Information in [facility] [id number] Information Management department at [phone] for further assistan suraj in locating additional records.[facility] Allergies No Known Allergies Medications End Date Status Medication Sig Dispensed Refills Start Date Active clorazepate (TRANXENE) Take 1 Tab by 14 0 0 12/03/200 3.75 mg tablet mouth Twice 9 Daily. Active divalproex (DEPAKOTE) 250 Take 3 Tabs 180 1 12/03/200 mg tablet by mouth 9 Twice Daily. Active levetiracetam (KEPPRA) Take 2 Tabs 160 1 /200 750 mg tablet by mouth 9 Twice Daily. Active primidone (MYSOLINE) 50 Take 1 Tab by 90 1 12/03/200 mg tablet mouth Three 9 Times Daily. Active Problems Problem Noted Date Seizures 12/03/2008 Family History Medical History Relation Name Comments Other Father Stroke Father Heart Failure Mother Relation Name Status Comments Father Mother Social History Date Tobacco Use Types Packs/Day Years Used Never Smoker Drinks/Week oz/Week Comments Alcohol Use No Sex Assigned at Date Recorded Not on file Industry Job Start Date Occupation Not on file Not on file Not on file Travel End Travel History Travel Start No recent travel history available. Last Filed Vital Signs Reading Time Taken Comments Vital Sign 109/78 12/04/2008 7:00 AM CDT Blood Pressure 59 12/04/2008 7:00 AM CDT Pulse 36.1 C (97 F) 12/04/2008 7:00 AM CDT Temperature - - Respiratory Rate 98% 12/04/2008 7:00 AM CDT Oxygen Saturation - - Inhaled Oxygen Concentration 100.4 kg (221 lb 5.5 oz) 11/30/2008 6:54 PM CDT Weight 180.3 cm (5' 11") 11/30/2008 6:54 PM CDT Height 30.87 11/30/2008 6:54 PM CDT Body Mass Index Plan of Treatment Health Maintenance Due Date Last Done Comments HIV SCREENING 01/07/1976 DTAP/TDAP VACCINES (1 - 1979 Tdap) HEPATITIS C SCREENING 1979 PHYSICAL (COMPREHENSIVE) 1979 EXAM COLORECTAL CANCER 2011 SCREENING SHINGLES RECOMBINANT 2011 VACCINE (1 of 2) INFLUENZA VACCINE 01/15/2020 Results Not on filefrom Last 3 Months
--- OUTSIDE RECORDS SUMMARY | 2019-09-30 16:18 | XMS REPORT | Encounter Summary ---
Author Author [facility] Organization [facility] Address Unknown Phone Unavailable Care Team Providers Care Computer Engineering Technician Name Role Phone PCP Unavailable Encounter Details Care Team Description Date Type Department Randy Corcoran MD No Forwarding Address 06/28/2011 PracPart Note [facility] [address] [place] [address] Social History Date Tobacco Use Types Packs/Day Years Used Never Assessed Sex Assigned at Date Recorded Not on file Industry Job Start Date Occupation Not on file Not on file Not on file Travel End Travel History Travel Start No recent travel history available. documented as of this encounter Progress Notes * Randy Corcoran MD - 06/28/2011 1:39 PM CDT . :01:39PM .T:JEC AP Refilled with #180 no refills, needs an appt. before more refills [id number] jf From: Ya Waller (SASHA) Originated by: Ya Waller (SASHA) Sent: 012 at 01:39PM To: Tamara Isbell ([place]) Type: RX Priority: 3 Attachment: INVALID LINK:Ilia Maldonado [id number].tif - [id number]|[id number]\\T:\\ppart\\Guero es\\JYTH278\\[id number]\\[id number]\\CGTG614\\UPUB611\\VUIW900\\JSRF942\\KBXY493\\LEVJ0 01\\BHST160\\EJST594\\VYHE266\\JJPG444\\RZTP329\\RZUU842\\RGFX063\\WUSM136\\FEBL683\\LEVT1 23\\[id number].tif Subject: JEC AP PHARMACY REFILL REQUEST Pharmacy Name: Pharmacy Phone: Pharmacy Fax: Please refill the following medication for the above named patient Current Medications: Rx: KEPPRA 500mg 3 twice daily The last visit information is Link of original fax request: documented in this encounter Plan of Treatment Not on filedocumented as of this encounter Visit Diagnoses Not on filedocumented in this encounter"
--- OUTSIDE RECORDS SUMMARY | 2019-09-30 16:18 | XMS REPORT | Encounter Summary ---
Author Author [facility] Organization [facility] Address Unknown Phone Unavailable Care Team Providers Care Research Program Intern Name Role Phone PCP Unavailable Encounter Details Care Team Description Date Type Department [facility], Historical 03/27/2011 PracPart Note [facility] Social History Date Tobacco Use Types Packs/Day Years Used Never Assessed Sex Assigned at Date Recorded Not on file Industry Job Start Date Occupation Not on file Not on file Not on file Travel End Travel History Travel Start No recent travel history available. 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 :11:05AM .T:C RX denied- patient needs appt-co From: Ya Waller (SASHA) Originated by: Ya Waller (SASHA) Sent: 011 at 11:05AM To: Tamara Isbell ([place]) Type: RX Priority: 3 Attachment: INVALID LINK:Ilia Maldonado [id number].tif - [id number]|[id number]\\T:\\ppart\\Guero es\\BIPX954\\EQUA471\\[id number]\\JNTW988\\PHKP066\\GCXQ166\\ADRT674\\YXQE708\\EOSC588\\LEVJ0 01\\VFAN987\\YMSS678\\RLYD581\\[id number]\\QIYD911\\[id number]\\JFRZ653\\[id number]\\FXCD975\\LEVT4 66\\[id number].tif Subject: JEC RX PHARMACY REFILL REQUEST Pharmacy Name: Pharmacy Phone: Pharmacy Fax: Please refill the following medication for the above named patient Current Medications: Rx: VIMPAT 200mg 1 twice daily The last visit information is Link of original fax request: documented in this encounter Plan of Treatment Not on filedocumented as of this encounter Visit Diagnoses Not on filedocumented in this encounter"
--- OUTSIDE RECORDS SUMMARY | 2019-09-30 16:18 | XMS REPORT | Encounter Summary ---
Author Author [facility] Organization [facility] Address Unknown Phone Unavailable Care Team Providers Care Quality Engineer Name Role Phone PCP Unavailable Encounter Details Care Team Description Date Type Department [facility], Historical 05/08/2011 PracPart Note [facility] Social History Date Tobacco Use Types Packs/Day Years Used Never Assessed Sex Assigned at Date Recorded Not on file Industry Job Start Date Occupation Not on file Not on file Not on file Travel End Travel History Travel Start No recent travel history available. 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 :09:12AM .T:Message denied- see previous msg-co From: Ya Waller (SASHA) Originated by: Ya Waller (SASHA) Sent: 012 at 09:12AM To: Tamara Isbell ([place]) Type: RX Priority: 3 Attachment: INVALID LINK:Ilia Maldonado [id number].tif - [id number]|[id number]\\T:\\ppart\\Guero es\\GNXG073\\VWQH957\\RCNC304\\VBWK086\\ZLEV555\\GTLQ154\\YQEJ840\\ZTHY048\\QRWC449\\LEVJ0 01\\WWLP701\\ZHXF141\\CHMK255\\BWAO751\\HODU446\\WDWC063\\ZTDC318\\ICBC697\\QCFN418\\LEVT0 32\\[id number].tif Subject: PHARMACY REFILL REQUEST Pharmacy Name: Pharmacy Phone: Pharmacy Fax: Please refill the following medication for the above named patient Current Medications: Rx: VIMPAT The last visit information is Link of original fax request: documented in this encounter Plan of Treatment Not on filedocumented as of this encounter Visit Diagnoses Not on filedocumented in this encounter"
--- OUTSIDE RECORDS SUMMARY | 2019-09-30 16:19 | XMS REPORT | Encounter Summary ---
Author Author [facility] Organization [facility] Address Unknown Phone Unavailable Care Team Providers Care Research Geologist Name Role Phone PCP Unavailable Encounter Details Care Team Description Date Type Department [facility], Historical 07/28/2010 PracPart Note [facility] Social History Date Tobacco Use Types Packs/Day Years Used Never Assessed Sex Assigned at Date Recorded Not on file Industry Job Start Date Occupation Not on file Not on file Not on file Travel End Travel History Travel Start No recent travel history available. documented as of this encounter Progress Notes * [facility], Historical - 07/28/2010 10:03 AM CDT . :10:03AM .T:RKF Rx zetafaxed rx-co From: Katja Wilson ([place]) Originated by: Katja Wilson ([place]) Sent: 07/28/2010 at 10:03 AM To: Tamara Isbell ([place]) Type: RX Priority: 3 Attachment: INVALID LINK:Ilia Maldonado [id number].tif - [id number]|[id number]\\M:\\ppart\\Guero es\\XBBQ729\\IAZK872\\XTAG136\\FHHT717\\VWDY204\\MSFR481\\JEUJ289\\GZRG396\\NHAL058\\LEVJ0 01\\XNUW631\\FTXW135\\AXCR272\\QHFP119\\AHLX876\\IVUJ994\\YUSK075\\DMRN668\\VEWW919\\LEVT0 58\\[id number].tif Subject: RKF Rx PHARMACY REFILL REQUEST Pharmacy Name: Pharmacy Phone: Pharmacy Fax: Please refill the following medication for the above named patient Current Medications: Rx: VIMPAT 275 twice daily The last visit information is Link of original fax request: documented in this encounter Plan of Treatment Not on filedocumented as of this encounter Visit Diagnoses Not on filedocumented in this encounter"
--- OUTSIDE RECORDS SUMMARY | 2019-09-30 16:19 | XMS REPORT | Encounter Summary ---
Author Author [facility] Organization [facility] Address Unknown Phone Unavailable Care Team Providers Care Assembly Machine Tool Setter Name Role Phone PCP Unavailable Encounter Details Care Team Description Date Type Department [facility] Provider, MD Yesenia 05/02/2010 [facility] [place] C Social History Date Tobacco Use Types Packs/Day Years Used Never Assessed Sex Assigned at Date Recorded Not on file Industry Job Start Date Occupation Not on file Not on file Not on file Travel End Travel History Travel Start No recent travel history available. documented as of this encounter Plan of Treatment Not on filedocumented as of this encounter Procedures Comments Procedure Name Priority Date/Time Associated Diag nosis ECHO EJECTION FRACTION Routine 05/02/2010 HISTORICAL 8:27 AM WAIST FITTER documented in this encounter Results * Echo Ejection Fraction historical (05/02/2010 8:27 AM WAIST FITTER) Ejection 60Comment: Echo PROSOLV Fraction Specimen Performing Organization Address City/State/Zipcosd Ph one Number PROSOLV documented in this encounter Visit Diagnoses Not on filedocumented in this encounter
--- OUTSIDE RECORDS SUMMARY | 2019-09-30 16:19 | XMS REPORT | Encounter Summary ---
Author Author [facility] Address Unknown Phone Unavailable Care Team Providers Care Business Account Specialist Name Role Phone PCP Unavailable Encounter Details Care Team Description Date Type Department Nikos Florian MD [address] [place] [address] [phone] 07/12/2010 PracPart Note [facility] Neurol o[facility] [address] [place] [address] Social History Date Tobacco Use Types Packs/Day Years Used Never Assessed Sex Assigned at Date Recorded Not on file Industry Job Start Date Occupation Not on file Not on file Not on file Travel End Travel History Travel Start No recent travel history available. documented as of this encounter Progress Notes * Nikos Florian MD - 07/12/2010 2:40 PM CDT . : 02:40pm .T: called [id number] Miguelina called. Patient is wanting to change from taking Lamictal 4 25 mg tabs bid at a time to 1 100mg tab bid. I sent changed srcipt to [facility] per her request. MA for [place] documented in this encounter Plan of Treatment Not on filedocumented as of this encounter Visit Diagnoses Not on filedocumented in this encounter
--- OUTSIDE RECORDS SUMMARY | 2019-09-30 16:19 | XMS REPORT | Encounter Summary ---
Author Author [facility] Address Unknown Phone Unavailable Care Team Providers Care Box Loader Name Role Phone PCP Unavailable Encounter Details Care Team Description Date Type Department Nikos Florian MD [address] [place] [address] [phone] 09/15/2010 PracPart Note [facility] Neurol o[facility] [address] [place] [address] Social History Date Tobacco Use Types Packs/Day Years Used Never Assessed Sex Assigned at Date Recorded Not on file Industry Job Start Date Occupation Not on file Not on file Not on file Travel End Travel History Travel Start No recent travel history available. documented as of this encounter Progress Notes * Nikos Florian MD - 09/15/2010 9:33 AM CDT . :09:33AM .T:patient call From: Nikos Florian ([facility]) Originated by: Nikos Florian ([facility]) Sent: 09/15/2010 at 09:33AM To: Lizeth Isbell () Type: CHART Priority: 3 Subject: patient call relayed [facility] response to the patient - po PLease have him increase the Lamictal to 150 mg bid. Nikos Richardson Original Message: From: PO To: [facility] Subject: patient call Priority: 3 Date: 09/14/2010 Nurse Note: PO Providers: : Physician Response: Patient Last Visit 06/28/10 Next Visit 10/04/10 Reason for Call: of this 50 year old male reported yesterday by phone that the patient had a cluster of seizures Sunday into Sunday that led him to the [facility] ED. She states he felt as if "waves were going through his head". He had tonic clonic mo vements that lasted 30 seconds to a minute occuring every 15 minutes. Your last dictation states that if he has additional seizures he was to increase Vimpat fr om 275mg b.i.d. to 300mg b.i.d. which he did last night and this morning. His wi fe had [facility] send the ED records which are linked to chart but became v gerald tearful that the increase "may not be enough and this whole thing is very sc norma". I spoke to the patient and he is quite frustrated as they are to go on a f amily vacation on September 23 to the [facility] that his kids planned for them and would really like his seizures to be under better control. Any thoughts? - po 06/28/10 Baldo Garces MD [address] [place] [address] RE: Ilia Maldonado : [address] Garces, I had the pleasure today of seeing Ilia Maldonado in our [facility] for follow-up of his refractory epilepsy. As you know, he is a 50-year-old right-handed man with a history of refractory epilepsy since 15 years of age. He also has a history of febrile seizures. MRIs and EEGs in the past have been apparently unremarkable. His seizures can typically be triggered by certain vis ual stimuli particularly of the color purple. He will then stare and have a vis ual hallucination where he will see some pages from a nursery rhyme book that he read when he was a child. This lasts just a few seconds. He can then have loss of awareness and can have some associated anxiety and fear that can last up to one day. In the past, these episodes could occur approximately 2 or 3 times per month. He has undergone inpatient video EEG monitoring in October, to characterize hi s seizures in better detail. In addition, because he was having some side effec ts to his regimen, I instituted a medication adjustment. We tapered him off of his anticonvulsant medication and captured several seizures that appeared to hav e a possible left temporal focus. Unfortunately, he went into status epilepticu s. He was admitted to our neuro- ICU for a few days. We were able to discontin ue permanently the Depakote and the primidone and added Vimpat instead. Since his last visit with me on April 05, 2010, he had been doing quite well overall but unfortunately had a cluster of 5 to 6 generalized tonic-clonic seizu res on a single day on April 30 that appeared to be related to stress from a n auction relating to his father's estate. When he was in the hospital, his Vim pat was increased from 200 mg p.o. b.i.d. to 250 mg p.o. b.i.d. His Lamictal wa s increased from 75 mg p.o. b.i.d. to 100 mg p.o. b.i.d. After his discharge fr om the hospital, he has done quite well but did have a mild complex partial seiz ure on Sunday. His Vimpat was increased to 275 mg p.o. b.i.d. He is tolerati ng his currentregimen without any significant side effects and is otherwise doin g well. Allergies: No known drug allergies Medications: 1. Vimpat 275 mg p.o. b.i.d. 2. Lamictal 100 mg p.o. b.i.d. 3. Keppra 1500 mg p.o. b.i.d. He has not been able to tolerate higher doses in the past 4. Calcium with vitamin D 5. Aspirin 81 mg p.o. once daily 6. Protonix 40 mg p.o. once daily On examination, he was well-appearing andin no acute distress. His speech was f luent and articulate. He was alert and able to relate reasonable details of his interval medical history. His pupils were equal round and reactive to light and his extraocular movements were full with no significant nystagmus. His face mo abigail symmetrically. His palate elevated symmetrically and his tongue was midline . He had no drift and no asterixis. His xfunvh-xn-mxme, mezm-xi-amkf, and rapi d alternating movements were intact. His gait was normal and narrow based with a n intact tandem gait. The majority of this 25 minute visit was spent counseling the patient. 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 His seizures appear to have a left temporal focus that is seen in a fairly broad fashion as confirmed by video EEG monitoring. He is now on higher doses of Vimpat and Lamictal due to a recent epi sode of status epilepticus in April. If he has additional seizures in the fut ure, he will increase the Vimpat from 275 mg p.o. b.i.d. to a maximum dose of 30 0 mg p.o. b.i.d. If he continues to have seizures after that, then we will try to increase his Lamictal. If this is ineffective, then we may need to consider if he might be a candidate for resective surgery although I am suspicious that aniceto moran may have a posterior temporal focus and this may not be as amenable to surgica l resection. Alternatively, we could consider implantation of a vagal nerve sti mulator. I would like to see him back in 3 months to see how he is doing but he knows that if any issues should arise, he should contact my office to schedule a sooner appointment. In the meantime, if you have any questions or concerns, luci figueredo do not hesitate to contact me. Sincerely, Nikos Florian M.D., Ph.D. Director, [facility] [place], [place] documented in this encounter Plan of Treatment Not on filedocumented as of this encounter Visit Diagnoses Not on filedocumented in this encounter
--- OUTSIDE RECORDS SUMMARY | 2019-09-30 16:19 | XMS REPORT | Encounter Summary ---
Author Author [facility] Address Unknown Phone Unavailable Care Team Providers Care Cable Systems Installer Name Role Phone PCP Unavailable Encounter Details Care Team Description Date Type Department Nikos Florian MD [address] [place] [address] [phone] 10/25/2010 PracPart Note [facility] Neurol ogy [address] [place] [address] Social History Date Tobacco Use Types Packs/Day Years Used Never Assessed Sex Assigned at Date Recorded Not on file Industry Job Start Date Occupation Not on file Not on file Not on file Travel End Travel History Travel Start No recent travel history available. documented as of this encounter Progress Notes * Nikos Florian MD - 10/25/2010 9:38 AM CDT . :09:38AM .T:Phone call from patient From: Nikos Florian ([facility]) Originated by: Nikos Florian ([facility]) Sent: 10/25/2010 at 09:38AM To: Nan Churchill () Type: CHART Priority: 3 Subject: Phone call from patient It probably is his medicince. Since his seizures are better, If he can tolerate it, let's continue for now and see if it settles down with time. Nikos Richardson 10/25/10 9:53am I spoke with Ilia and gave him the above message. He will call if he has any further questions or concerns. Nan mooney Original Message: From: To: [facility] Subject: Phone call from patient Priority: 3 Date: 10/25/2010 Nurse Note: 10/25/10 Providers: : Physician Response: Reason for Call: Next Visit: 01/06/11 - This 50 years old male reports by phone for several weeks he has had a feeling as if someone has hit him on the back of his head but does n't feel pain on the outside of his head, just kind of feels like his brain or t he inside of his head is going forward. He is also having dizziness when he move s his head to one side or the other and feels like his brain lags behind. This a lways happens about an hour after he takes his medicine and last for about an ho ur. Ilia feels this is starting to get worse. He is not sure if it's from the increased medicine but since he has been doing so well hopes this is not the jacob e as he has been reluctant to report it. He also reports one episode about one month ago of severe double vision while driving but stated this only occurred on e time. Ilia just wants to make sure this is not something he shouldn't be over ly concerned about. Please advise. Thanks! Nan t Call this patient at Home yes Cell __[phone] yes Other Contact Name and Number 10/04/10 Baldo Garces MD [address] [place] [address] RE: Ilia Maldonado : [address] [...] epilepticu s. He was admitted to our neuroICU for a few days. We were able to discontinue permanently the Depakote and the primidone and added Vimpat instead. Since his last visit with me on June 28, 2010, he reports that he has done well overall but did have a cluster of 5 generalized seizures on September 11. After that, his Vimpat was increased from 275 mg p.o. b.i.d. to 300 mg p.o. b.i.d. Shortly thereafter, he noticed increasing auras but no seizures. He called my office and we increased his Lamictal from 100 mg p.o. b.i.d. to 150 mg p.o. b.i.d. Sin ce then, he has not had any significant seizures and no significant clusters of auras. He is tolerating his current regimen without any significant side effect s that he may be near maximal tolerable doses. Allergies: No known drug allergies Medications: 1. Vimpat 300 mg p.o. b.i.d. 2. Lamictal 150 mg p.o. b.i.d. 3. Keppra 1500 mg p.o. b.i.d. He has not been able to tolerate higher doses in the past 4. Calcium with vitamin D 5. Aspirin 81 mg p.o. once daily 6. Protonix 40 mg p.o. once daily On examination, he was well-appearing and in no acute distress. His speech was fluent and articulate. He was alert and able to relate reasonable details of his interval medical history. His pupils were equal round and reactive to light and his extraocular movements were full with no significant nystagmus. His face m micheal symmetrically. His palate elevated symmetrically and his tongue was midlin e. He had no drift and no asterixis. His bzsnpu-rs-xabi, hcqw-mo-ezeb, and rap id alternating movements were intact. His gait was normal and narrow based with an intact tandem gait. The majority of this 25 minute visit was spent counselin g the patient. 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 His seizures appear to have a left temporal focus that is seen in a fairly broad fashion as confirmed by video EEG monitoring. He is now on higher doses of Vimpat and Lamictal which he is tolerat ing well but he may be near maximal tolerable doses. For now he will continue h is current regimen without any changes. If he has additional seizures, we will try to increase his Lamictal further if he is able to tolerate it. Iwould like to see him back in 3 months to see how he is doing. In the meantime, if you have any questions or concerns, please do not hesitate to contact me. Sincerely, Nikos Florian M.D., Ph.D. Director, [facility] Stroke [place], [place] documented in this encounter Plan of Treatment Not on filedocumented as of this encounter Visit Diagnoses Not on filedocumented in this encounter
--- OUTSIDE RECORDS SUMMARY | 2019-09-30 16:19 | XMS REPORT | Encounter Summary ---
Author Author [facility] Organization [facility] Address Unknown Phone Unavailable Care Team Providers Care Welt Rander Name Role Phone PCP Unavailable Encounter Details Care Team Description Date Type Department [facility], Historical 10/24/2010 PracPart Note [facility] Social History Date Tobacco Use Types Packs/Day Years Used Never Assessed Sex Assigned at Date Recorded Not on file Industry Job Start Date Occupation Not on file Not on file Not on file Travel End Travel History Travel Start No recent travel history available. documented as of this encounter Progress Notes * [facility], Historical - 10/24/2010 2:33 PM CDT . : 02:33pm .T: Chart Note Mr. Maldonado left a message on the after hours voicemail on October 23 stati ng for several weeks he has had a feeling as if someone has hit him on the back of his head but doesn't feel pain on the outside of his head just kind of feeli ng like his brain or the inside of his head is going forward. He is also having dizziness when he moves his head to one side or the other and feels like his bra in lags behind. This always happens after he takes his medicine and last for abo ut an hour. He is not sure if it's from the increased medicine but since he has been doing so well hopes this is not the case. He also reports one episode abou t one month ago of severe double vision while driving but stated this only occur red one time. I have tried to call him back to couple of times and there is no a nswer or answering machine. Callback number: [phone] Nan mooney documented in this encounter Plan of Treatment Not on filedocumented as of this encounter Visit Diagnoses Not on filedocumented in this encounter
--- OUTSIDE RECORDS SUMMARY | 2019-09-30 16:19 | XMS REPORT | Encounter Summary ---
Author Author [facility] Address Unknown Phone Unavailable Care Team Providers Care Mortgage Loan Reviewer Name Role Phone PCP Unavailable Encounter Details Care Team Description Date Type Department Judy Kaur MD [address] [place] [address] [phone] 05/01/2010 PracPart Note [facility] Neurol ogy [address] [place] [address] Social History Date Tobacco Use Types Packs/Day Years Used Never Assessed Sex Assigned at Date Recorded Not on file Industry Job Start Date Occupation Not on file Not on file Not on file Travel End Travel History Travel Start No recent travel history available. documented as of this encounter Progress Notes * Judy Kaur MD - 05/01/2010 6:45 AM MERCHANT BANKER . : 06:45am .T: DX CHEST SINGLE VIEW .PV: MALLORIE REPORT Patient: CUAUHTEMOC MALDONADO Phone #: [facility] Rec#: [id number] Sex: M : 1960 Júnior#: [id number] Location: [place] [address] Check-in#: [id number] Procedure Requested: [id number] DX CHEST SINGLE VIEW Reason For Exam: PNEUMONIA Exam Ordered: 05/01/2010 0800 Exam Date/Time: 05/01/2010 0650 Check-in Date/Time: 05/01/2010 0404 Attendin JUDY KAUR Requestin JUDY KAUR Referrin SHANT, REFERRING Primary Care: [id number] JUDY KING These images and this report have been reviewed and edited by the Staff Radiologist. DX CHEST SINGLE VIEW INDICATION: Pneumonia. Respiratory failure. DATE: May 01, 2010 06:50:00 AM COMPARISON STUDY: April 30, 2010 at 1848 hours. FINDINGS: Life Support Devices: Life-support devices are stable. Lungs: Stable lung volume. Slightly progressed right basilar airspace disease. Stable pulmonary vasculature. Pleura: No pleural effusion or pneumothorax. Heart and Mediastinum: The cardiomediastinal silhouette and great vessels are stable. IMPRESSION: 1. Life-support devices are stable. 2. Progressed right basilar airspace disease, suspicious for aspiration. Signed (Authenticated, Released) Date-Time: 05/01/2010 1054 Eight Arm Operator- COLEEN FINNEY D.O., Radiologist Dictated By- BENOIT GOMEZ D.O., Resident Staff Physician- COLEEN FINNEY D.O., Radiologist Authenticated By- COLEEN FINNEY D.O., Radiologist -- RELEASED BY [id number] Accession Number: [id number] Ordering Physician: JUDY KAUR # SIGNED BY Judy Kaur MD ([facility]) 05/04/2010 02:21PM HANT BANKER documented in this encounter Plan of Treatment Not on filedocumented as of this encounter Visit Diagnoses Not on filedocumented in this encounter
--- OUTSIDE RECORDS SUMMARY | 2019-09-30 16:19 | XMS REPORT | Encounter Summary ---
Author Author [facility] Address Unknown Phone Unavailable Care Team Providers Care Turntable Worker Name Role Phone PCP Unavailable Encounter Details Care Team Description Date Type Department Nikos Florian MD [address] [facility] [address] [place] [address] [phone] 10/04/2010 Hist-Visit [facility] Social History Date Tobacco Use Types Packs/Day Years Used Never Assessed Sex Assigned at Date Recorded Not on file Industry Job Start Date Occupation Not on file Not on file Not on file Travel End Travel History Travel Start No recent travel history available. documented as of this encounter Progress Notes * Nikos Florian MD - 10/04/2010 1:00 PM CDT . : 01:00pm .T: Return Patient [facility] Rachel Corcoran M.D. [address] [facility] Randy Corcoran M.D. [address] [place] [address] [place], [place] [address] [address] [place] [address] [place] [address] Candida Spencer M.D. Cammie Ross D.O. Elayne Michael M.D. Mae Calvetr M.D. F ax: Jd Meehan D.O. Dudley Luna M.D. [facility] Nikos Florian M.D., Ph.D. Jas Graham M.D. 10/04/10 Baldo Garces MD [address] [facility] [address] [place] [address] RE: Ilia Maldonado : [address] [...] had no drift and no asterixis. His jkzcek-hv-kimr, mpxg-fa-somq, and rap id alternating movements were intact. His gait was normal and narrow based with an intact tandem gait. The majority of this 25 minute visit was spent counselin g the patient. 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 His seizures appear to have a leftt emporal focus that is seen in a fairly broad fashion as confirmed by video EEG m onitoring. He is now on higher doses of Vimpat and Lamictal which he is tolerati ng well but he may be near maximal tolerable doses. For now he will continue hi s current regimen without any changes. If he has additional seizures, we will t ry to increase his Lamictal further if he is able to tolerate it. I would like to see him back in 3 months to see how he is doing. In the meantime, if you have any questions or concerns, please do not hesitate to contact me. Sincerely, Nikos Florian M.D., Ph.D. Director, Comprehensive Ep[facility]psy [facility] St[facility] [place], [place] # SIGNED BY Nikos Florian MD Phd ([facility]) 10/04/2010 01:07PM documented in this encounter Plan of Treatment Not on filedocumented as of this encounter Visit Diagnoses Not on filedocumented in this encounter
--- OUTSIDE RECORDS SUMMARY | 2019-09-30 16:19 | XMS REPORT | Encounter Summary ---
Author Author [facility] Address Unknown Phone Unavailable Care Team Providers Care Council Member Name Role Phone PCP Unavailable Encounter Details Care Team Description Date Type Department Jas Graham MD [address] [facility] [address] [place] [address] [phone] 12/12/2010 PracPart Note [facility] Neurol ogy [address] [place] [address] Social History Date Tobacco Use Types Packs/Day Years Used Never Assessed Sex Assigned at Date Recorded Not on file Industry Job Start Date Occupation Not on file Not on file Not on file Travel End Travel History Travel Start No recent travel history available. documented as of this encounter Progress Notes * Jas Graham MD - 12/12/2010 1:12 PM CDT . : 01:12pm .T: prescription request e-faxed rx for Keppra to [facility] per electronic request-co documented in this encounter Plan of Treatment Not on filedocumented as of this encounter Visit Diagnoses Not on filedocumented in this encounter
--- OUTSIDE RECORDS SUMMARY | 2019-09-30 16:19 | XMS REPORT | Encounter Summary ---
Author Author [facility] Address Unknown Phone Unavailable Care Team Providers Care Direct Care Provider Name Role Phone PCP Unavailable Encounter Details Care Team Description Date Type Department Judy Kaur MD [address] [place] [address] [phone] 05/04/2010 PracPart Note [facility] Neurol ogy [address] [place] [address] Social History Date Tobacco Use Types Packs/Day Years Used Never Assessed Sex Assigned at Date Recorded Not on file Industry Job Start Date Occupation Not on file Not on file Not on file Travel End Travel History Travel Start No recent travel history available. documented as of this encounter Progress Notes * Judy Kaur MD - 05/04/2010 8:55 AM [employer]AT ASSEMBLER . : 08:55am .T: DX CHEST 2 VIEWS .PV: [place] REPORT Patient: CUAUHTEMOC MALDONADO Phone #: [facility] Rec#: [id number] Sex: M : 1960 Júnior#: [id number] Location: [place] [address] Check-in#: [id number] Procedure Requested: [id number] DX CHEST 2 VIEWS Reason For Exam: SOB Exam Ordered: 05/04/2010 0700 Exam Date/Time: 05/04/2010 0403 Check-in Date/Time: 05/04/2010 040 Attendin JUDY KAUR Requestin JUDY KAUR Referrin SHANT, REFERRING Primary Care: [id number] JUDY KING These images and this report have been reviewed and edited by the Staff Radiologist. DX CHEST 2 VIEWS INDICATION: SOB. COMPARISON STUDY: May 02, 2010. FINDINGS: Lateral radiograph is compromised by superimposition of the upper extremities over the anterior chest. Lungs: Normal lung volume. Significantly improving right lower lobe airspace disease. No new consolidation. Pleura: No pleural effusion or pneumothorax. Heart and Mediastinum: The cardiomediastinal silhouette is normal. The great vessels of the thorax are normal. Bones: The skeletal structures are within normal limits. IMPRESSION: Significantly improving right lower lobe airspace disease. No new consolidation. Signed (Authenticated, Released) Date-Time: 05/04/2010923 Crabbing Machine Operator- COLEEN FINNEY D.O., Radiologist Dictated By- COLEEN FINNEY D.O., Radiologist Staff Physician- COLEEN FINNEY D.O., Radiologist Authenticated By- COLEEN FINNEY D.O., Radiologist -- RELEASED BY [id number] Accession Number: [id number] Ordering Physician: JUDY KAUR # SIGNED BY Judy Kaur MD (RKF) 05/06/2010 09:52AM ASSEMBLER documented in this encounter Plan of Treatment Not on filedocumented as of this encounter Visit Diagnoses Not on filedocumented in this encounter
--- OUTSIDE RECORDS SUMMARY | 2019-09-30 16:19 | XMS REPORT | Encounter Summary ---
Author Author [facility] Organization [facility] Address Unknown Phone Unavailable Care Team Providers Care Door To Door Salesperson Name Role Phone PCP Unavailable Encounter Details Care Team Description Date Type Department Judy Kaur MD [address] [facility] [address] [place] [address] [phone] Epileptic grand mal status (HCC) 04/30/2010 [facility] - Encounter 05/05/2010 Social History Date Tobacco Use Types Packs/Day Years Used Never Assessed Sex Assigned at Date Recorded Not on file Industry Job Start Date Occupation Not on file Not on file Not on file Travel End Travel History Travel Start No recent travel history available. documented as of this encounter Discharge Summaries * Gagan Stearns, - 06/14/2013 3:05 AM FLOW MACHINE OPERATOR REPORT Name: CUAUHTEMOC MALDONADO MRN/Unit #: [id number] Attending Physician: JUDY KAUR Date of : 1960 DATE OF ADMISSION: 04/30/2010 DATE OF DISCHARGE: PRIMARY CARE PHYSICIAN: Dr. Judy Davis. FINAL DIAGNOSES: 1. Status epilepticus. 2. Mechanical ventilation secondary to airway protection given status epilepticus. 3. Methicillin-resistant Staphylococcus aureus pneumonia. 4. Hypertension. HOSPITAL COURSE: 1. Status epilepticus. The patient was intubated for airway protection and did quite well on the mechanical ventilator. He was followed by the epilepsy team here at [facility]. We have increased his Lamictal dose and his Vimpat dose. We kept his Keppra at the same dose. He also had video EEG monitoring while he was in the ICU and he did quite well. It should be noted that he had an echocardiogram done that was done on May 02, 2010, which showed an ejection fraction of 60% with normal valvular structure and function. The patient was extubated on May 02, 2010. He was seizure-free for more than 48 hours. The patient was transferred to the floor and did quite well with Physical Therapy. He was briefly on tube feeds for nutrition and tolerated his diet. He was evaluated for swallow and passed and did not show any signs of dysphagia. 2. MRSA pneumonia. On the chest films, he had a right lower lobe infiltrate, which responded well to IV vancomycin. Sputum culture came back positive for MRSA that was sensitive to clindamycin and doxycyline. He will be discharged to home on doxycycline to complete a 14-day course. He has 11 more days of treatment. 3. Hypertension. He was started on metoprolol p.o He has been tolerating this medication well. DISCHARGE MEDICATIONS: 1. Aspirin 81 mg p.o. daily. 2. Ativan 1 mg p.o. as needed. 3. Keppra 1,500 mg p.o. twice daily. 4. Lamictal 100 mg p.o. twice daily. This is an increase from 75 mg. 5. Vimpat 250 mg p.o. twice daily. This is a dose increase. The patient used to take 200 mg in the morning and 250 mg at night. 6. Metoprolol 12.5 mg p.o. twice daily. This is a new medication for the patient. 7. Doxycycline 100 mg p.o. twice daily for the next 100 days. FOLLOW-UP: The patient is to follow up with primary care physician in 1 weeks' time. I am discharging him with home health and physical therapy and occupational therapy to ensure that he is safe at home. He is also to follow up with Angeles Pratt MD in about 3 weeks to 4 weeks. I have spoken with the seizure team prior to discharge and also Pulmonology are all okay with this discharge. CONSULTATIONS: 1. Pulmonology. 2. Epilepsy Team. DISCHARGE DIET: Simply healthy diet. ACTIVITY: Is as tolerated. No driving for the next 4 weeks to 6 weeks. Discharge planning took 40 minutes. Gagan Stearns DO Dictated By: cc: MD Judy Guzman MD Authenticated and Edited by Gagan Stearns DO On 05/06/10 1:02:40 PM MACHINE OPERATOR documented in this encounter H&P Notes * Carolyn Beasley MD - 06/14/2013 3:08 AM FLOW MACHINE OPERATOR REPORT Name: CUAUHTEMOC MALDONADO MRN/Unit #: [id number] Attending Physician: JUDY KAUR Date of : 1960 DATE OF ADMISSION: 04/30/2010 ADMISSION HISTORY AND PHYSICAL EXAMINATION DATE OF ADMISSION: 04/30/2010. PRIMARY CARE PHYSICIAN: Alexus King M.D. REASON FOR ADMISSION: Transfer from [facility] emergency room for status epilepticus. HISTORY OF PRESENT ILLNESS: The history is obtained from Dr. Kaur as the patient is intubated. Previous records in the computer have also been reviewed. The patient is a 50-year-old right-handed male with onset of epilepsy at age 15. He was hospitalized at [facility] in October 2009. Since that time he has had one complex partial seizure approximately per month. The patient had been under some increased stress, but was doing well until approximately 1:30 p.m. today when he had a 30-second generalized tonic-clonic seizure without any warning. He has 3 more subsequent seizures en route to the hospital and 1 or 2 more at [facility] emergency room. The patient received diazepam 5 mg and lorazepam 2 mg and required intubation for airway protection. There may have been some component of aspiration. Apparently some light soliman to brownish color secretions have been suctioned from the endotracheal tube. PAST MEDICAL HISTORY: 1. Epilepsy. 2. Type 2 demand ischemia with elevated troponin in October 2009. Echocardiogram at that time showed LVef 55%. PAST SURGICAL HISTORY: None. MEDICATION ALLERGIES: NONE. HOME MEDICATIONS: 1. Vimpat 200 mg q.a.m. and 250 mg q.p.m. 2. Lamictal 75 mg b.i.d. 3. Keppra 1500 mg b.i.d. SOCIAL HISTORY: The patient is . He is disabled. No tobacco, alcohol or illicit drug use. FAMILY HISTORY: Noncontributory to present illness. REVIEW OF SYSTEMS: Not obtainable. PHYSICAL EXAMINATION: GENERAL: Well-nourished middle-aged male who is intubated and on propofol. VITAL SIGNS: Temperature 97.7, blood pressure 160/111, heart rate 117, respiratory rate 14. SKIN: Warm and dry. There are occasional telangiectasias. HEENT: Sclerae are anicteric. Endotracheal tube and orogastric tube are in place. LUNGS: Coarse breath sounds with scattered rhonchi. CARDIOVASCULAR: Tachycardic. Normal S1, S2. ABDOMEN: Moderately distended. Hypoactive bowel sounds. No organomegaly or mass appreciated. GENITOURINARY: Hobbs catheter in place. EXTREMITIES: No clubbing, cyanosis, or edema. LABORATORY STUDIES: Initial laboratory studies - WBC 17.3, hemoglobin 17.7, hematocrit 50, platelet count 401,000, MCV 86. Serum sodium 139, potassium 5.1, chloride 105, CO2 7, BUN 22, creatinine 1.5 (baseline 1.0), calcium 9.3, glucose 175, AST 57, ALT 46. ABG - initial pH 7.18, pCO2 47, pO2 80 on 100% FiO2. Followup ABG performed at 1820 on 100% FiO2 pH 7.33, pCO2 41, pO2 396. Lactate 4.8, ionized calcium 4.8. IMPRESSIONS: 1. Status epilepticus in patient with epilepsy. 2. Mechanical ventilation for airway protection. 3. Leukocytosis likely secondary to demargination. (See addendum below.) 4. Probable hemoconcentration with hemoglobin 17.7. PLAN: 1. The patient is being admitted to the neurosurgical intensive care unit. 2. Dr. Thomas aKur has been consulted. He plans to perform video electroencephalogram (EEG) to assess for nonconvulsive status. Lamictal has been increased to 100 mg b.i.d., Keppra to 1500 mg b.i.d. and Vimpat 250 mg b.i.d. 3. Seizure precautions. 4. Ativan 1 mg IV every 5 minutes up to 5 mg in 24 hours p.r.n. breakthrough seizures. 5. Obtain KUB for tube placement. 6. culture with leukocytosis. 7. 12-lead electrocardiogram. 8. Famotidine 40 mg IV daily for gastrointestinal prophylaxis. 9. Sequential compression devices (SCDs) for deep venous thrombosis prophylaxis. 10. D5 half-normal saline at 120 mL per hour hydration. 11. Consult pulmonary critical care medicine for ventilator management. 12. Followup CBC and basic metabolic profile in the morning. ADDENDUM DICTATED BY CAROLYN BEASLEY MD, ON 04/30/2010 Review of repeat chest x-ray shows significant right-sided infiltrate which may represent either the upper segment of the lower lobe or lower segment of the upper lobe. Given this is most likely aspiration, we will treat him with ceftriaxone and moxifloxacin according to the severe community-acquired pneumonia protocol for now until initial cultures are back or per pulmonary recommendations. Carolyn Beasley MD Dictated By: cc: Alexus King M.D. Addendum/#[id number]/[email or web address]/de Authenticated and Edited by Carolyn Beasley MD On 05/03/10 7:52:47 AM MACHINE OPERATOR documented in this encounter Procedure Notes * Judy Kaur MD - 06/14/2013 3:08 AM FLOW MACHINE OPERATOR Associated Order(s): EEG ROUTINE (UP TO 40 MIN) [id number]Unit #: [id number] Attending Physician: JUDY KAUR Date of : 1960 AGE: 50Y DATE OF ADMISSION: 04/30/2010 FOUR-HOUR VIDEO EEG TELEMETRY DATE OF STUDY: 04/30/2010 ATTENDING PHYSICIAN: Carolyn Beasley MD INTERPRETING PHYSICIAN: Judy Kaur MD OBJECT: A 50-year-old man with a history of intractable epilepsy, admitted with status epilepticus. Evaluate for seizures. FINDINGS: At the start of the recording, the background rhythm is slow with superimposed intermittent 12 Hz alpha frequency rhythm. Occasional generalized 0.5 Hz delta frequency slowing is seen. Occasional sharp waves are seen across the right frontocentral region (F4/C4). Occasional sharp theta frequency activity is also seen over the left anterior quadrant. At times, this activity is in an alpha frequency range. No clear seizures are identified in the recording. TUCKING MACHINE OPERATOR: Shows a generally regular rhythm. IMPRESSION: This is a 4 hour video EEG telemetry from 04/30/2010 with no pushbutton activations and no electrographic evidence of seizure. Occasional sharp waves are seen over the right frontocentral region and slowing is noted over the left anterior quadrant at times with sharp features. Judy Kaur MD Dictated By: cc: MACHINE OPERATOR * Judy Kaur MD - 06/14/2013 3:06 AM FLOW MACHINE OPERATOR Associated Order(s): EEG ROUTINE (UP TO 40 MIN) REPORT Name: CUAUHTEMOC MALDONADO MRN/Unit #: [id number] Attending Physician: JUDY KAUR Date of : 1960 AGE: 50Y 24-HOUR VIDEO EEG DATE OF STUDY: 05/01/2010 ATTENDING PHYSICIAN: Carolyn Beasley MD INTERPRETING PHYSICIAN: Judy Kaur MD OBJECT: A 50-year-old man with a history of intractable epilepsy presenting with status epilepticus. Evaluate for seizures. FINDINGS: No pushbutton activations occurred in the recording. The record shows predominantly sleep morphologies with scattered beta frequency activity and low amplitude slowing. Higher amplitude slowing is also noted across the midline. Occasionally, bifrontally predominant theta frequency activity with sharp features is seen, more so over the left anterior quadrant. No clear seizures are identified in the recording. There is little change to the recording to suggest arousal. TUCKING MACHINE OPERATOR: Shows a generally regular rhythm. IMPRESSION: This is a 24-hour video EEG telemetry from 05/01/2010 with no pushbutton activations and no electrographic evidence of seizure. The majority of the recording shows slow background rhythm with sleep morphologies that likely represents excessive drowsiness from encephalopathy. Occasional mild slowing with sharp features were noted bifrontally, more so to the left. No clear epileptiform discharges or seizure activity is identified in the recording. Judy Kaur MD Dictated By: cc: Carolyn Beasley MD MACHINE OPERATOR * Judy Kaur MD - 06/14/2013 3:06 AM FLOW MACHINE OPERATOR Associated Order(s): EEG ROUTINE (UP TO 40 MIN) REPORT Name: CUAUHTEMOC MALDONADO MRN/Unit #: [id number] Attending Physician: JUDY KAUR Date of : 1960 AGE: 50Y DATE OF ADMISSION: 04/30/2010 STUDY: A 13-hour video EEG telemetry. DATE OF STUDY: 05/02/2010 ATTENDING PHYSICIAN: Dr. Beasley. INTERPRETING PHYSICIAN: Judy Kaur MD OBJECT: A 50-year-old man with a history of intractable epilepsy and recent status epilepticus. Evaluate for seizures. FINDINGS: No push button activations occurred in the recording. The record shows generalized mixed frequency slowing with superimposed beta frequency activity. Occasional bifrontally predominant alpha frequency activity is seen more so to the left. Towards the end of the recording, occasional delta frequency slowing appears as more prominent over the left hemisphere. Acid Tank Cleaner: Shows a generally regular rhythm. IMPRESSION: This is a 13-hour video EEG telemetry from May 02, 2010 with no push button activations and electrographic evidence of seizure. Portions of the recording do show an increase in mixed frequency slowing over the left hemisphere. This finding suggests subcortical dysfunction involving this region. Other aspects of the recording continue to show generalized mixed frequency slowing to suggest deep, midline subcortical dysfunction that likely corresponds to encephalopathy. No clear seizures are identified in the recording. Judy Kaur MD Dictated By: cc: MACHINE OPERATOR documented in this encounter Consult Notes * Judy Kaur MD - 06/14/2013 3:08 AM FLOW MACHINE OPERATOR REPORT Name: CUAUHTEMOC MALDONADO MRN/Unit #: [id number] Attending Physician: JUDY KAUR Consulting Physician: Judy Kaur MD Date of : 1960 DATE OF CONSULTATION: 04/30/2010 ATTENDING PHYSICIAN: Dr. Carolyn Beasley. CHIEF COMPLAINT: Status epilepticus. HISTORY: History was provided by the records and the patient's . The patient is a 50-year-old right-handed man with a history of epilepsy since age 15 who is followed by my colleague, Dr. rPatt. His seizures tend to be simple partial seizures with secondary generalization, often triggered by visual stimuli such as the color purple. Occasionally, he will still have generalized tonic-clonic seizures without warning. He typically has approximately one simpler complex partial seizure per month. He has a history of status epilepticus when he underwent Phase I video EEG telemetry in October of this year, and his medications were tapered. According to his , he has been under increased stress. His mother has had worsening health and has moved to assisted living, and today they were having an auction to sell her belongings. His brother is in town from the [facility], and there has been increased tension regarding the sale of her belongings. He also had awoken early this morning to travel to the auction. He awake at approximately 4 to 5 a.m. He was doing well today until approximately 1:30 p.m. when he had a 30-second generalized tonic-clonic seizure without warning. He began to arouse from this, and approximately 30 minutes later had a second seizure followed by a third. His called 911, and en route to the hospital, he had a fourth seizure. Once arriving at [facility] Emergency Room, he had one or two additional seizures. Valium 5 mg and Ativan 2 mg were given. He was developing worsened pulmonary status and also began having episodes of eye deviation towards one side, which his described as occurring with some of his seizures. He required intubation and was transferred for further care. He has not had any additional obvious clinical seizures at this point. With regard to his antiseizure medication regimen, he has taken Depakote, primidone, and possibly Tegretol in the past. Prior to the hospitalization, he was taking Vimpat 200 mg in the morning, 250 mg in the evening, Lamictal 75 mg twice daily, and Keppra 1500 mg twice daily. Prior records indicated that he had been intolerant to increases in Keppra, but according to his , this occurred while he was taking Depakote and primidone, and they were unsure if it was related to one of the other medications. He has not tried higher doses of Vimpat or Lamictal. PAST MEDICAL HISTORY: Epilepsy with prior status epilepticus, November 02, 2009, as above. ALLERGIES: None. MEDICATIONS: Seizure medications, as above. SOCIAL HISTORY: He is . He does not drink alcohol, smoke cigarettes or abuse drugs. He is disabled because of epilepsy. FAMILY HISTORY: There is no history of seizures. REVIEW OF SYSTEMS: The patient is unable to provide a review of systems, but according to his , he had been feeling well. PHYSICAL EXAMINATION: VITAL SIGNS: Blood pressure 124/91, pulse 92, respirations 14, temperature 97.7, oxygen saturation 95% on room air. GENERAL: The patient is intubated and sedated (propofol GTT). He coughs spontaneously. HEENT: Sclerae are white and oropharynx appears clear but intubated. No obvious lesions or bleeding. His neck is supple, and there are no carotid bruits. LUNGS: Clear to auscultation with vented breath sounds bilaterally. HEART: Heart sounds are regular without murmurs, gallops, or rubs. ABDOMEN: His abdomen is distended but soft, nontender, and decreased bowel sounds. EXTREMITIES: Show no clubbing, cyanosis, or edema. NEUROLOGICAL: On neurological examination, the patient does not open his eyes to stimulation but does grimace and cough intermittently. With his eyes held open, his gaze is forward, but he will occasionally look towards either side briefly. Pupils are equal and reactive directly and consensually. The face appears symmetric. He spontaneously moves the lower extremities easily against gravity. He is in wrist restraints currently but grimaces and localizes pain briskly in all four extremities. He does not open his eyes to stimulation. Reflexes are normal and symmetric in the upper and lower extremities. The plantar response on the right is extensor. The left is flexor. STUDIES: ABG at the outside facility was 7.18 pH, CO2 of 47, O2 of 80. The chemistries were significant for a creatinine of 1.5, glucose 175, AST 57 with normal ALT of 46. WBC is elevated at 17.3, and platelets are elevated at 401,000. My review of the head CT showed no acute abnormalities, but there is evidence of cerebellar atrophy. Chest x-ray appears normal. Official reports are pending. IMPRESSION: 1. A patient with a history of partial onset seizures with secondary generalization who presented with status epilepticus and is now intubated for respiratory failure and airway production and who has been transferred for continued management of status epilepticus. Currently, the patient does not appear to be actively seizing based on his neurological exam. However, he did receive paralytics for intubation. 2. Status epilepticus, video EEG to help explore the possibility of non-convulsive status epilepticus. Increase his Lamictal to 100 mg twice daily and continue Keppra 1500 mg twice daily. If he continues to have seizures, further increases in Lamictal and Keppra will be considered. Also, increase Vimpat to 250 mg twice daily. Seizure precautions are warranted. Ativan 1 mg as needed for breakthrough seizures. Judy Kaur MD Dictated By: cc: MACHINE OPERATOR * Kimberley Small MD - 06/14/2013 3:08 AM FLOW MACHINE OPERATOR REPORT Name: CUAUHTEMOC MALDONADO [facility] #: [id number] MRN/Unit #: [id number] Attending Physician: JUDY KAUR Consulting Physician: Kimberley Small MD Date of : 1960 DATE OF CONSULTATION: April 30, 2010 REQUESTING PHYSICIAN: Judy Kaur MD REASON FOR CONSULTATION: Respiratory failure for ventilator management. HISTORY OF PRESENT ILLNESS: This is a 50-year-old male who has a known history of epilepsy. The patient is currently intubated and sedated on the ventilator, so history is not obtainable. His current History of the Present Illness was obtained from records. Per records, he has been under some stress today and was doing fine until 1:30 p.m. when he had generalized tonic-clonic seizure that lasted around 30 seconds. He was sent to [facility] emergency room and during that transportation he had a few more episodes of generalized tonic-clonic seizures followed by two more episodes at the emergency room. He received doses of diazepam and lorazepam to suppress his seizure and was intubated and ventilated to support his breathing. He is currently sedated on a propofol drip as well. PAST MEDICAL HISTORY: 1. Epilepsy. 2. Type 2 demand ischemia with elevated troponin in October 2009. PAST SURGICAL HISTORY: None, per records. ALLERGIES: None per records. SOCIAL HISTORY: He is and disabled due to his uncontrolled epilepsy. No tobacco, alcohol, or illicit drugs per past records. FAMILY HISTORY: Noncontributory. REVIEW OF SYSTEMS: Unobtainable. CURRENT MEDICATIONS: 1. Keppra 1500 mg IV q.12 h. 2. Lamictal 100 mg per NG twice daily. 3. Vimpat 250 mg per NG twice daily. 4. Pepcid 40 mg IV daily. 5. Propofol drip. 6. Rocephin 2 gram IV daily. 7. Avelox 400 mg IV daily. PHYSICAL EXAMINATION: VITAL SIGNS: Temperature 99.9 degrees, heart rate 120, respiratory rate 16, blood pressure 138/106, saturation 99% on the ventilator. GENERAL: The patient is intubated on the ventilator. HEENT: Sclerae are not icteric. Normal conjunctivae. NECK: No JVD. No palpable lymphadenopathy. Thyroid not palpable. CHEST: Coarse breath sounds bilaterally. CARDIOVASCULAR: Tachycardia with no murmur. ABDOMEN: Nontender. Positive bowel sounds. Obese abdomen. EXTREMITIES: No clubbing, cyanosis or edema bilaterally. NEURO: sedated DIAGNOSTIC DATA: White blood cell count 12.13, hemoglobin 18.7, hematocrit 51, platelets 246. Sodium 137, potassium 4.3, chloride 102, bicarbonate 24, BUN 24, creatinine 1.7, glucose 119. Arterial blood gas shows pH 7.35, PCO2 33, PO2 123, bicarbonate 18, base excess -6.1. The patient was done with the patient on the current settings which are AC mode, with respiratory rate 14, tidal volume 650, FiO2 40%, and PEEP 5. Chest x-ray shows right lower lobe infiltrate. ASSESSMENT: 1. Respiratory failure type 4. The patient is currently sedated on the ventilator. We would recommend continuing ventilatory support until his SHEEP STICKER insults resolve. Based on his current arterial blood gas, we would recommend decreasing his FiO2 to 35% and repeating arterial blood gas as well as chest x-ray in the morning. 2. Aspiration pneumonia. We would recommend discontinuing Rocephin and continue Avelox 400 mg IV daily. We would repeat another chest x-ray in the morning. Thank you for the consultation and allowing us to participate in this patient's care. We will continue to follow the patient. Kimberley Small MD Dictated By: Ian Soliz MD cc: Authenticated and Edited by Kimberley Small MD On 05/03/10 10:00:51 AM MACHINE OPERATOR documented in this encounter Plan of Treatment Not on filedocumented as of this encounter Procedures Comments Procedure Name Priority Date/Time Associated Diag nosis MAGNESIUM Routine 05/05/2010 12:44 AM FLOW MACHINE OPERATOR XR CHEST 2 VIEWS (PA AND Routine 05/04/2010 LATERAL) 8:55 AM FLOW MACHINE OPERATOR VANCOMYCIN TROUGH Routine 05/04/2010 6:33 AM FLOW MACHINE OPERATOR MAGNESIUM Routine 05/04/2010 12:27 AM FLOW MACHINE OPERATOR COMPLETE BLOOD COUNT Routine 05/04/2010 12:27 AM FLOW MACHINE OPERATOR EEG ROUTINE (UP TO 40 05/03/2010 MIN) 4:00 PM FLOW MACHINE OPERATOR EEG ROUTINE (UP TO 40 05/03/2010 MIN) 3:47 PM FLOW MACHINE OPERATOR PHOSPHORUS Routine 05/03/2010 12:34 AM FLOW MACHINE OPERATOR MAGNESIUM Routine 05/03/2010 12:34 AM FLOW MACHINE OPERATOR COMPREHENSIVE METABOLIC Routine 05/03/2010 PANEL 12:34 AM FLOW MACHINE OPERATOR COMPLETE BLOOD COUNT Routine 05/03/2010 12:34 AM FLOW MACHINE OPERATOR GLUCOSE POINT OF CARE Routine 05/02/2010 12:03 PM FLOW MACHINE OPERATOR ARTERIAL BLOOD GAS Routine 05/02/2010 9:30 AM FLOW MACHINE OPERATOR ECHO TRANSTHORACIC Routine 05/02/2010 8:27 AM FLOW MACHINE OPERATOR XR CHEST SINGLE VIEW Routine 05/02/2010 FRONTAL 6:35 AM FLOW MACHINE OPERATOR GLUCOSE POINT OF CARE Routine 05/02/2010 5:36 AM FLOW MACHINE OPERATOR ARTERIAL BLOOD GAS Routine 05/02/2010 2:30 AM FLOW MACHINE OPERATOR CULTURE, SPUTUM WITH GRAM Routine 05/02/2010 STAIN 1:47 AM FLOW MACHINE OPERATOR HEMOGLOBIN A1C Routine 05/02/2010 1:00 AM FLOW MACHINE OPERATOR COMPLETE BLOOD COUNT Routine 05/02/2010 1:00 AM FLOW MACHINE OPERATOR BASIC METABOLIC PANEL Routine 05/02/2010 1:00 AM FLOW MACHINE OPERATOR GLUCOSE POINT OF CARE Routine 05/01/2010 11:49 PM FLOW MACHINE OPERATOR GLUCOSE POINT OF CARE Routine 05/01/2010 6:12 PM FLOW MACHINE OPERATOR EEG ROUTINE (UP TO 40 05/01/2010 MIN) 12:54 PM FLOW MACHINE OPERATOR GLUCOSE POINT OF CARE Routine 05/01/2010 11:37 AM FLOW MACHINE OPERATOR XR CHEST SINGLE VIEW Routine 05/01/2010 FRONTAL 6:45 AM FLOW MACHINE OPERATOR GLUCOSE POINT OF CARE Routine 05/01/2010 6:22 AM FLOW MACHINE OPERATOR ARTERIAL BLOOD GAS Routine 05/01/2010 5:05 AM FLOW MACHINE OPERATOR COMPLETE BLOOD COUNT Routine 05/01/2010 3:10 AM FLOW MACHINE OPERATOR BASIC METABOLIC PANEL Routine 05/01/2010 3:10 AM FLOW MACHINE OPERATOR ARTERIAL BLOOD GAS Routine 05/01/2010 12:05 AM FLOW MACHINE OPERATOR CULTURE, BLOOD Routine 04/30/2010 8:21 PM FLOW MACHINE OPERATOR URINE NITRITE Routine 04/30/2010 8:20 PM FLOW MACHINE OPERATOR URINALYSIS MICROSCOPIC Routine 04/30/2010 ONLY 8:20 PM FLOW MACHINE OPERATOR URINALYSIS (INCLUDES Routine 04/30/2010 MICROSCOPIC REVIEW, IF 8:20 PM FLOW MACHINE OPERATOR INDICATED) CULTURE, URINE Routine 04/30/2010 8:20 PM FLOW MACHINE OPERATOR CULTURE, SPUTUM WITH GRAM Routine 04/30/2010 STAIN 8:20 PM FLOW MACHINE OPERATOR CULTURE, BLOOD Routine 04/30/2010 8:20 PM FLOW MACHINE OPERATOR CBC AND DIFF (MANUAL DIFF Routine 04/30/2010 IF NECESSARY) 8:20 PM FLOW MACHINE OPERATOR BASIC METABOLIC PANEL Routine 04/30/2010 8:20 PM FLOW MACHINE OPERATOR XR CHEST SINGLE VIEW Routine 04/30/2010 FRONTAL 6:35 PM FLOW MACHINE OPERATOR XR ABDOMEN SINGLE VIEW AP Routine 04/30/2010 6:35 PM FLOW MACHINE OPERATOR SHOCK PROFILE, ARTERIAL Routine 04/30/2010 6:20 PM FLOW MACHINE OPERATOR documented in this encounter Results * Magnesium (05/05/2010 12:44 AM FLOW MACHINE OPERATOR) Only the most recent of 3 results within the time period is included. Magnesium 1.7 1.4 - 2.0 MEQ/L SUNQUEST Specimen Blood Performing Organization Address City/State/[facility] Ph one Number [address]RL [id number] [place], [place] [address] SUNQUEST * XR Chest 2 views (PA and lateral) (05/04/2010 8:55 AM FLOW MACHINE OPERATOR) Specimen Narrative Performed At [facility] Patient: CUAUHTEMOC MALDONADO Phone #: Med Rec#: [id number] Sex: M : 1960 Júnior#: [id number] Location: [place] [address] Check-in#: [id number] Procedure Requested: [id number] DX CHEST 2 V IEWS Reason For Exam: SOB Exam Ordered: 05/04/2010 070 0 Exam Date/Time: 05/04/2010402 Check-in Date/Time: 05/04/2010402 Attendin JUDY KAUR Requestin JUDY KAUR Referrin NO, REFERRING DR Primary Care: [id number] JUDY KING These images and this report have been reviewed and edited by the Staff Radiologist. DX CHEST 2 VIEWS INDICATION: SOB. COMPARISON STUDY: May 02, 2010. FINDINGS: Lateral radiograph is comprom ised by superimposition of the upper extremities over the anterior liz[address] st. Lungs: Normal lung volume. Significantl y improving right lower lobe airspace disease. No new consolidation. Pleura: No pleural effusion or pneumoth orax. Heart and Mediastinum: The cardiomedias tinal silhouette is normal. The great vessels of the thorax are normal. Bones: The skeletal structures are with in normal limits. IMPRESSION: Significantly improving r ight lower lobe airspace disease. No new consolidation. Signed (Authenticated, Released) Date-T malia: 05/04/2010923 Head Of Art- COLEEN FINNEY D.O., Radiologist Dictated By- COLEEN Recinos, Radiologist Staff Physician- COLEEN FINNEY D.O., Radiologist Authenticated By- COLEEN FINNEY D.O., Radiologist Procedure Note Interface, Rad Conversion - 06/14/2013 5:33 PM FLOW MACHINE OPERATOR REPORT Patient: CUAUHTEMOC MALDONADO Phone #: Med Rec#: [id number] Sex: M : 1960 Júnior#: [id number] Location: [place] [address] Check-in#: [id number] Procedure Requested: [id number] DX CHEST 2 VIEWS Reason For Exam: SOB Exam Ordered: 05/04/2010 0700 Exam Date/Time: 05/04/2010402 Check-in Date/Time: 05/04/2010402 Attendin JUDY KAUR Requestin JUDY KAUR Referrin NO, REFERRING DR Primary Care: [id number] JUDY KING These images and this report [...] No new consolidation. Signed (Authenticated, Released) Date-Time: 05/04/2010 0924 Head Of Art- COLEEN FINNEY D.O., Radiologist Dictated By- COLEEN FINNEY D.O., Radiologist Staff Physician- COLEEN FINNEY D.O., Radiologist Authenticated By- COLEEN FINNEY D.O., Radiologist Performing Organization Address City/[facility] Ph one Number [email or web address] * Vancomycin Trough (05/04/2010 6:33 AM FLOW MACHINE OPERATOR) VANCOMYCIN 13 10 - 20 UG/ML SUNQUEST TROUGH Specimen Blood Performing Organization Address [facility] Ph one Number [address]RL [id number] [place], [place] [address] SUNQUEST * Complete Blood Count (05/04/2010 12:27 AM FLOW MACHINE OPERATOR) Only the most recent of 4 results within the time period is included. WBC 8.04 4.00 - 11.00 TH/UL SUNQUEST RBC 4.65 4.31 - 5.84 MIL/UL SUNQUEST Hemoglobin 14.1 13.0 - 17.0 G/DL SUNQUEST Hematocrit 40 40 - 50 % SUNQUEST MCV 87 80 - 99 FL SUNQUEST MCH 30 27 - 34 PG SUNQUEST MCHC 35 32 - 36 % SUNQUEST RDW 12.1 9.0 - 14.5 % SUNQUEST Platelet Count 220 140 - 400 TH/UL SUNQUEST MPV 10.2 9.4 - 12.3 FL SUNQUEST Specimen Blood Performing Organization Address City/State/Zipcode Ph one Number [address]RL [address] [place], [place] [address] SUNQUEST * EEG ROUTINE (UP TO 40 MIN) (05/03/2010 4:00 PM FLOW MACHINE OPERATOR) Specimen Transcriptions Judy Kaur MD - 06/14/2013 3:06 AM FLOW MACHINE OPERATOR REPORT Name: CUAUHTEMOC MALDONADO MRN/Unit #: [id number] Attending Physician: JUDY KAUR Date of : 1960 AGE: 50Y DATE OF ADMISSION: 04/30/2010 STUDY: A 13-hour video EEG telemetry. DATE OF STUDY: 05/02/2010 ATTENDING PHYSICIAN: Dr. Beasley. INTERPRETING PHYSICIAN: Judy Kaur MD OBJECT: A 50-year-old man with a history of intractable epilepsy and recent status epilepticus. Evaluate for seizures. FINDINGS: No push button activations occurred in the recording. The record shows generalized mixed frequency slowing with superimposed beta frequency activity. Occasional bifrontally predominant alpha frequency activity is seen more so to the left. Towards the end of the recording, occasional delta frequency slowing appears as more prominent over the left hemisphere. Acid Tank Cleaner: Shows a generally regular rhythm. IMPRESSION: This is a 13-hour video EEG telemetry from May 02, 2010 with no push button activations and electrographic evidence of seizure. Portions of the recording do show an increase in mixed frequency slowing over the left hemisphere. This finding suggests subcortical dysfunction involving this region. Other aspects of the recording continue to show generalized mixed frequency slowing to suggest deep, midline subcortical dysfunction that likely corresponds to encephalopathy. No clear seizures are identified in the recording. Judy Kaur MD Dictated By: cc: * EEG ROUTINE (UP TO 40 MIN) (05/03/2010 3:47 PM FLOW MACHINE OPERATOR) Specimen Transcriptions Judy Kaur MD - 06/14/2013 3:06 AM FLOW MACHINE OPERATOR REPORT Name: CUAUHTEMOC MALDONADO [facility] #: [id number] MRN/Unit #: [id number] Attending Physician: JUDY KAUR Date of : 1960 AGE: 50Y 24-HOUR VIDEO EEG DATE OF STUDY: 05/01/2010 ATTENDING PHYSICIAN: Carolyn Beasley MD INTERPRETING PHYSICIAN: Judy Kaur MD OBJECT: A 50-year-old man with a history of intractable epilepsy presenting with status epilepticus. Evaluate for seizures. FINDINGS: No pushbutton activations occurred in the recording. The record shows predominantly sleep morphologies with scattered beta frequency activity and low amplitude slowing. Higher amplitude slowing is also noted across the midline. Occasionally, bifrontally predominant theta frequency activity with sharp features is seen, more so over the left anterior quadrant. No clear seizures are identified in the recording. There is little change to the recording to suggest arousal. TUCKING MACHINE OPERATOR: Shows a generally regular rhythm. IMPRESSION: This is a 24-hour video EEG telemetry from 05/01/2010 with no pushbutton activations and no electrographic evidence of seizure. The majority of the recording shows slow background rhythm with sleep morphologies that likely represents excessive drowsiness from encephalopathy. Occasional mild slowing with sharp features were noted bifrontally, more so to the left. No clear epileptiform discharges or seizure activity is identified in the recording. Judy Kaur MD Dictated By: cc: Carolyn Beasley MD * Comprehensive Metabolic Panel (05/03/2010 12:34 AM FLOW MACHINE OPERATOR) Albumin 3.0 (L) 3.5 - 5.0 G/DL SUNQUEST Aspartate 20 15 - 41 IU/L SUNQUEST Aminotransferas e Bilirubin Total 1.7 (H) 0.3 - 1.4 MG/DL SUNQUEST Protein Total 5.0 (L) 6.0 - 8.0 G/DL SUNQUEST Serum Calcium 8.2 (L) 8.8 - 10.5 MG/DL SUNQUEST Creatinine 1.1 0.6 - 1.3 MG/DL SUNQUEST Glucose 77 65 - 100 MG/DL SUNQUEST Alkaline 58 42 - 128 IU/L SUNQUEST Phosphatase Sodium 139 134 - 144 MEQ/L SUNQUEST Potassium 3.9 3.5 - 5.1 MEQ/L SUNQUEST Chloride 107 101 - 111 MEQ/L SUNQUEST Carbon Dioxide 25 23 - 32 MEQ/L SUNQUEST Blood Urea 13 8 - 26 MG/DL SUNQUEST Nitrogen Anion Gap 7 3 - 15 SUNQUEST Alanine 26 14 - 63 IU/L SUNQUEST Aminotransferas e eGFR Male 71 SUNQUEST Non-AA Comment: Chronic Kidney Disease less than 60 mL/min/1.73 sq.m Kidney failure less than 15 mL/min/1.73 sq.m eGFR Male AA 86 SUNQUEST Comment: Chronic Kidney Disease less than 60 mL/min/1.73 sq.m Kidney failure less than 15 mL/min/1.73 sq.m Specimen Blood Performing Organization Address [facility] one Number [address] [place] [phone] SUNQUEST * Phosphorus (05/03/2010 12:34 AM FLOW MACHINE OPERATOR) Phosphorus 3.8 2.5 - 4.5 MG/DL SUNQUEST Specimen Blood Performing Organization Address [facility] [place] Ph one Number [address]RL [id number] [place] [phone] SUNQUEST * Glucose Point of Care (05/02/2010 12:03 PM FLOW MACHINE OPERATOR) Only the most recent of 6 results within the time period is included. Glucose 99 65 - 100 MG/DL SUNQUEST Specimen Blood Performing Organization Address [facility] Ph one Number [address] [place] [phone] SUNQUEST * Arterial Blood Gas (05/02/2010 9:30 AM FLOW MACHINE OPERATOR) Only the most recent of 4 results within the time period is included. pH Arterial 7.39 7.35 - 7.45 UNITS SUNQUEST pCO2 Arterial 38 35 - 45 MM HG SUNQUEST PO2 Arterial 95 75 - 100 MM HG SUNQUEST Base Excess -1.3 -3.0 - 3.0 MEQ/L SUNQUEST Bicarbonate 22.8 19.0 - 29.0 MEQ/L SUNQUEST Patient Temp 37.0 C SUNQUEST Celsius Sample Site Radial right SUNQUEST Device CPAP SUNQUEST Fraction of 0.30 SUNQUEST Inspired Oxygen PEEP/CPAP 5.0 CMH20 SUNQUEST PSV/PIP 5.0 CMH20 SUNQUEST Specimen Arterial Performing Organization Address City/State/Zipcode Ph one Number [address]RL [address] [place], [place] [address] SUNQUEST * ECHO TRANSTHORACIC (05/02/2010 8:27 AM FLOW MACHINE OPERATOR) Specimen Narrative Performed At [facility] RAD ECHOCARDIOGRAM REPORT [facility] Name: CUAUHTEMOC MALDONADO Date: 05/02/2010 08:27 Chart #: [id number] : 1960 Location: [facility] Sono: johan Age: 50 Gender: M Referring: JUDY KAUR Room #: NSICU-11 Indication Murmur BP: 124 / 85 HR: 84 Ht: 71 Wt: 211 BSA: 2.2 2D ECHO MEASUREMENTS LV Diastolic Diameter Bas 4.2 cm 3.6-5.4 LVPW Diastolic Thickness 0.81 cm 0.6-1.1 LV Systolic Diameter Base 2.5 cm 2.3-4.0 Aorta at Sinuses Diameter 3.4 cm 2.1-3.5 LA Systolic Diameter LX 2.5 cm 2.3-3.8 Ascending Aorta Diameter 2.5 cm 2.1-3.4 IVS Diastolic Thickness 0.91 cm 0.6-1.1 AORTIC VALVE DOPPLER AV Peak Velocity 139 cm/ s LVOT AV Jose Ratio 0.77 AV Peak Gradient 7.7 mmH g MITRAL VALVE DOPPLER Mitral E Point Velocity 86 cm/s Mitral E to A Ratio 1.3 Mitral A Point Velocity 66.9 cm/s MV Deceleration Time 202 ms WALL SEGMENT ANALYSIS: ROUTINE LVSI : 1 %FM : 100 LAD : 1 LCX : 1 RCA : 1 FINDINGS LV Ejection Fraction: 60 Technically difficult echo study. Normal left ventricular systolic functi on, with an estimated ejection fraction of 60%. Normal wall thickness. Normal wall motion. Normal left ventricular chamber dimensi ons. Normal right ventricular size and systo lic function. Normal right and left atrial size. Normal diastolic function. Aortic valve is suboptimally visualized , but Doppler data are normal without regurgitation. Normal mitral valve with trivial regurg itation. Normal pulmonic valve with trivial regu rgitation. Normal tricuspid valve with trivial reg urgitation. Unable to accurately estimate pulmonary artery pressure No pericardial effusion. IVC is not responsive to inspiration th ough patient is mechanically ventilated. Normal ascending aorta. No obvious intracardiac masses or throm bi. PV Acceleration time 160 ms CONCLUSIONS: 1. Poor acoustic windows in a mechani jurgen ventilated patient, but overall, normal LV & RV size and systolic functi on. 2. Normal diastolic function. 3. No significant valvular abnormalit ies. 4. IVC unresponsive with ventilation, but tissue Doppler suggests low-normal LAP. 5. Inadequate TR jet to quantify syst olic PA pressures, but PV acceleration time suggests that mean PAP is normal Dr Vanita Soliz (Electronically Signed) Final Date: 02 May 2010 09:41 Procedure Note Interface, Rad Conversion - 06/24/2013 1:42 PM CDT RESULT ECHOCARDIOGRAM REPORT [facility] Name: CUAUHTEMOC MALDONADO Date: 05/02/2010 08:27 Chart #: [id number] : 1960 Location: [facility] Sono: johan Age: 50 Gender: M Referring: JUDY KAUR Room #: NSICU-11 Indication Murmur BP: 124 / 85 HR: 84 Ht: 71 Wt: 211 BSA: 2.2 2D ECHO MEASUREMENTS LV Diastolic Diameter Bas 4.2 cm 3.6-5.4 LVPW Diastolic Thickness 0.81 cm 0.6-1.1 LV Systolic Diameter Base 2.5 cm 2.3-4.0 Aorta at Sinuses Diameter 3.4 cm 2.1-3.5 LA Systolic Diameter LX 2.5 cm 2.3-3.8 Ascending Aorta Diameter 2.5 cm 2.1-3.4 IVS Diastolic Thickness 0.91 cm 0.6-1.1 AORTIC VALVE DOPPLER AV Peak Velocity 139 cm/s LVOT AV Jose Ratio 0.77 AV Peak Gradient 7.7 mmHg MITRAL VALVE DOPPLER Mitral E Point Velocity 86 cm/s Mitral E to A Ratio 1.3 Mitral A Point Velocity 66.9 cm/s MV Deceleration Time 202 ms WALL SEGMENT ANALYSIS: ROUTINE LVSI : 1 %FM : 100 LAD : 1 LCX : 1 RCA : 1 FINDINGS LV Ejection Fraction: 60 Technically difficult echo study. Normal left ventricular systolic function, with an estimated ejection fraction of 60%. Normal wall thickness. Normal wall motion. Normal left ventricular chamber dimensions. Normal right ventricular size and systolic function. Normal right and left atrial size. Normal diastolic function. Aortic valve is suboptimally visualized, but Doppler data are normal without regurgitation. Normal mitral valve with trivial regurgitation. Normal pulmonic valve with trivial regurgitation. Normal tricuspid valve with trivial regurgitation. Unable to accurately estimate pulmonary artery pressure No pericardial effusion. IVC is not responsive to inspiration though patient is mechanically ventilated. Normal ascending aorta. No obvious intracardiac masses or thrombi. PV Acceleration time 160 ms CONCLUSIONS: 1. Poor acoustic windows in a mechanica lly ventilated patient, but overall, normal LV & RV size and systolic function. 2. Normal diastolic function. 3. No significant valvular abnormalitie s. 4. IVC unresponsive with ventilation, b ut tissue Doppler suggests low-normal LAP. 5. Inadequate TR jet to quantify systol ic PA pressures, but PV acceleration time suggests that mean PAP is normal Dr Vanita Soliz (Electronically Signed) Final Date: 02 May 2010 09:41 Performing Organization Address City/State/Zipcode Ph one Number [facility] RAD [address] [place] [address] * XR Chest single view frontal (05/02/2010 6:35 AM FLOW MACHINE OPERATOR) Only the most recent of 3 results within the time period is included. Specimen Narrative Performed At [facility] [place] Patient: CUAUHTEMOC MALDONADO Phone #: [facility] Rec#: [id number] Sex: M : 1960 Júnior#: [id number] Location: [place] [address] Check-in#: [id number] Procedure Requested: [id number] DX CHEST SIN GLE VIEW Reason For Exam: RESPIRATORY FAIL URE Exam Ordered: 05/02/2010 060 0 Exam Date/Time: 05/02/2010 0640 Check-in Date/Time: 05/02/2010 0426 Attendin JUDY KAUR Requestin KIMBERLEY SMALL Referrin NO, REFERRING Primary Care: [id number] JUDY KING These images and this report have been reviewed and edited by the Staff Radiologist. DX CHEST SINGLE VIEW INDICATION: RESPIRATORY FAILURE. COMPARISON STUDY: 05/01/2010. FINDINGS: Life Support Devices: life support d evices are stable>]. Lungs: Decreasing right lung volume. Un changed right lower lobe airspace disease. Normal pulmonary vasculature. Pleura: No pleural effusion or pneumoth orax. Heart and Mediastinum: The cardiomedias tinal silhouette and great vessels are stable. IMPRESSION: 1. Unchanged right lower lobe airspace disease. This could represent aspiration pneumonitis or pneumonia . Signed (Authenticated, Released) Date-T malia: 05/02/2010 0954 Head Of Art- ARGELIA BRISENO M.D., Staff Radiologist Dictated By- DENIA COPELAND M.D., Resid ent Staff Physician- ARGELIA BRISENO M.D., Staff Radiologist Authenticated By- ARGELIA BRISENO M.D., Staff Radiologist Procedure Note Interface, Rad Conversion - 06/14/2013 5:37 PM FLOW MACHINE OPERATOR REPORT Patient: CUAUHTEMOC MALDONADO Phone #: Med Rec#: [id number] Sex: M : 1960 Júnior#: [id number] Location: [place] [address] Check-in#: [id number] Procedure Requested: [id number] DX CHEST SINGLE VIEW Reason For Exam: RESPIRATORY FAILURE Exam Ordered: 05/02/2010 0600 Exam Date/Time: 05/02/2010 0640 Check-in Date/Time: 05/02/2010 0426 Attendin JUDY KAUR Requestin KIMBERLEY SMALL Referrin NO, REFERRING DR Primary Care: [id number] JUDY KING These images and this report have been reviewed and edited by the Staff Radiologist. DX CHEST SINGLE VIEW INDICATION: RESPIRATORY FAILURE. COMPARISON STUDY: 05/01/2010. FINDINGS: Life Support Devices: life support devices are stable>]. Lungs: Decreasing right lung volume. Unchanged right lower lobe airspace disease. Normal pulmonary vasculature. Pleura: No pleural effusion or pneumothorax. Heart and Mediastinum: The cardiomediastinal silhouette and great vessels are stable. IMPRESSION: 1. Unchanged right lower lobe airspace d isease. This could represent aspiration pneumonitis or pneumonia . Signed (Authenticated, Released) Date-Time: 05/02/2010 0954 Head Of Art- ARGELIA BRISENO M.D., Staff Radiologist Dictated By- DENIA COPELAND M.D., Resident Staff Physician- ARGELIA BRISENO M.D., Staff Radiologist Authenticated By- ARGELIA BRISENO M.D., Staff Radiologist Performing Organization Address [facility] one Number [email or web address] * Culture, Sputum with Gram Stain (05/02/2010 1:47 AM FLOW MACHINE OPERATOR) Only the most recent of 2 results within the time period is included. Specimen Sputum Narrative Performed At [facility] Specimen/Source: SPUTUM/SPUTUM Collected: 05/02/2010 01:47 Status: Final Last Updated: 10:15 Gram Stain (Final) Greater than 25 WBC per low power field Less than 10 epithelial cells per low power field Rare Gram Positive Cocci In Pairs Rare Yeast Culture result (Final) Few mixed upper respiratory emanuel isolated Isolate 1 (Final) Methicillin Resistant Staphylococc us aureus If this is an inpatient, contact p recautions until hospital discharge are required with this organism. Refer to previously reported chelsea ptibility Source: SPUTUM Date: 04/30/2010 Performing Organization Address [facility] one Number SLRL [address] [place], [place] [address] [facility] * Basic Metabolic Panel (05/02/2010 1:00 AM FLOW MACHINE OPERATOR) Only the most recent of 3 results within the time period is included. Sodium 139 134 - 144 MEQ/L SUNQUEST Potassium 4.3 3.5 - 5.1 MEQ/L SUNQUEST Chloride 110 101 - 111 MEQ/L SUNQUEST Carbon Dioxide 24 23 - 32 MEQ/L SUNQUEST Anion Gap 5 3 - 15 SUNQUEST Creatinine 1.4 (H) 0.6 - 1.3 MG/DL SUNQUEST Blood Urea 15 8 - 26 MG/DL SUNQUEST Nitrogen Glucose 124 (H) 65 - 100 MG/DL SUNQUEST Calcium 8.5 (L) 8.8 - 10.5 MG/DL SUNQUEST eGFR Male 54 SUNQUEST Non-AA Comment: Chronic Kidney Disease less than 60 mL/min/1.73 sq.m Kidney failure less than 15 mL/min/1.73 sq.m eGFR Male AA 65 SUNQUEST Comment: Chronic Kidney Disease less than 60 mL/min/1.73 sq.m Kidney failure less than 15 mL/min/1.73 sq.m Specimen Blood Performing Organization Address [facility] one Number [address] [place] [address] SUNQUEST * Hemoglobin A1C (05/02/2010 1:00 AM FLOW MACHINE OPERATOR) HEMOGLOBIN A1C 5.3 % SUNQUEST Comment: Non-diabetic: 4.0 - 6.0 % Very Good Control: < 7.0 % Suboptimal Control: 7.1 - 8.0 % Poor Control: >8.0 % Specimen Blood Performing Organization Address [facility] one Number [address] [place] [address] SUNQUEST * EEG ROUTINE (UP TO 40 MIN) (05/01/2010 12:54 PM FLOW MACHINE OPERATOR) Specimen Transcriptions Judy Kaur MD - 06/14/2013 3:08 AM FLOW MACHINE OPERATOR REPORT Name: CUAUHTEMOC MALDONADO MRN/Unit #: [id number] Attending Physician: JUDY KAUR Date of : 1960 AGE: 50Y DATE OF ADMISSION: 04/30/2010 FOUR-HOUR VIDEO EEG TELEMETRY DATE OF STUDY: 04/30/2010 ATTENDING PHYSICIAN: Carolyn Beasley MD INTERPRETING PHYSICIAN: Judy Kaur MD OBJECT: A 50-year-old man with a history of intractable epilepsy, admitted with status epilepticus. Evaluate for seizures. FINDINGS: At the start of the recording, the background rhythm is slow with superimposed intermittent 12 Hz alpha frequency rhythm. Occasional generalized 0.5 Hz delta frequency slowing is seen. Occasional sharp waves are seen across the right frontocentral region (F4/C4). Occasional sharp theta frequency activity is also seen over the left anterior quadrant. At times, this activity is in an alpha frequency range. No clear seizures are identified in the recording. TUCKING MACHINE OPERATOR: Shows a generally regular rhythm. IMPRESSION: This is a 4 hour video EEG telemetry from 04/30/2010 with no pushbutton activations and no electrographic evidence of seizure. Occasional sharp waves are seen over the right frontocentral region and slowing is noted over the left anterior quadrant at times with sharp features. Judy Kaur MD Dictated By: cc: * Culture, Blood (04/30/2010 8:21 PM FLOW MACHINE OPERATOR) Only the most recent of 2 results within the time period is included. Specimen Blood Narrative Performed At [facility] Specimen/Source: BLOOD/BLOOD Collected: 04/30/2010 20:20 Status: Final Last Updated: 23:14 Culture result (Final) No Growth at 5 days Performing Organization Address [facility] Ph one Number [facility]RL [address] [place] [phone] [facility] * Culture, Urine (04/30/2010 8:20 PM FLOW MACHINE OPERATOR) Specimen Urine Narrative Performed At [facility] Specimen/Source: URINE/CATHETER URINE Collected: 04/30/2010 20:20 Status: Final Last Updated: 22:47 Culture result (Final) No growth at 1 day Performing Organization Address [facility] one Number [address] [place] [phone] [facility] * CBC and Diff (manual diff if necessary) (04/30/2010 8:20 PM FLOW MACHINE OPERATOR) WBC 12.13 (H) 4.00 - 11.00 TH/UL SUNQUEST RBC 6.04 (H) 4.31 - 5.84 MIL/UL SUNQUEST Hemoglobin 18.7 (H) 13.0 - 17.0 G/DL SUNQUEST Hematocrit 51 (H) 40 - 50 % SUNQUEST MCV 84 80 - 99 FL SUNQUEST MCH 31 27 - 34 PG SUNQUEST MCHC 37 (H) 32 - 36 % SUNQUEST RDW 12.6 9.0 - 14.5 % SUNQUEST Platelet Count 246 140 - 400 TH/UL SUNQUEST MPV 10.3 9.4 - 12.3 FL SUNQUEST % Neutrophils 88 (H) 45 - 78 % SUNQUEST %Lymphocytes 6 (L) 15 - 47 % SUNQUEST %Monocytes 6 0 - 12 % SUNQUEST %Eosinophils 0 0 - 7 % SUNQUEST # Basophils 0.01 0.00 - 0.10 TH/UL SUNQUEST # Eosinophils 0.01 0.00 - 0.40 TH/UL SUNQUEST %Basophils 0 0 - 2 % SUNQUEST # Monocytes 0.75 0.20 - 0.90 TH/UL SUNQUEST # Lymphocytes 0.74 (L) 1.00 - 3.30 TH/UL SUNQUEST # Granulocytes 10.62 (H) 1.70 - 6.80 TH/UL SUNQUEST Specimen Blood Performing Organization Address [facility] one Number SLRL [id number] [place] [phone] SUNQUEST * Urine Nitrite (04/30/2010 8:20 PM FLOW MACHINE OPERATOR) Nitrite Urine Negative Negative SUNQUEST Specimen Urine Performing Organization Address [facility] one Number SLRL [id number] [phone] SUNQUEST * Urinalysis (04/30/2010 8:20 PM FLOW MACHINE OPERATOR) Appearance, Yellow SUNQUEST Urine Specific 1.015 1.001 - 1.030 SUNQUEST [place], UA PH Urine 6.0 5.0 - 8.0 SUNQUEST Hemoglobin Trace (A) Negative SUNQUEST Urine Ketones Urine Negative Negative SUNQUEST Glucose Urine Negative Negative SUNQUEST Protein Urine 30 (A) Negative SUNQUEST Qual Leukocyte Negative Negative SUNQUEST Esterase Urobilinogen Negative Negative SUNQUEST Urine Bilirubin Urine Negative Negative SUNQUEST Specimen Urine Performing Organization [facility] one Number [facility]RL [address] [place] [phone] SUNQUEST * Urinalysis Microscopic Only (04/30/2010 8:20 PM FLOW MACHINE OPERATOR) MICROSCOPIC Done SUNQUEST Mucus Small (A) Absent SUNQUEST Microscopic RBC 6 - 10 (A) 1 - 5 SUNQUEST Urine Specimen Urine Performing Organization Address [facility] one Number SLRL [address] [place], [place] [address] SUNQUEST * XR Abdomen single view AP (04/30/2010 6:35 PM FLOW MACHINE OPERATOR) Specimen Narrative Performed At [facility] Patient: CUAUHTEMOC MALDONADO Phone #: [employer] Rec#: [id number] Sex: M : 1960 Júnior#: [id number] Location: [address] 11 Check-in#: [id number] Procedure Requested: [id number] DX ABDOMEN S MADHAVI VIEW Reason For Exam: TUBE PLACEMENT Exam Ordered: 04/30/2010 185 0 Exam Date/Time: 04/30/2010 1850 Check-in Date/Time: 04/30/2010 185 Attendin JUDY KAUR Requestin JUDY KAUR Referrin NO, REFERRING DR Primary Care: [id number] JUDY KING These images and this report have been reviewed and edited by the Staff Radiologist. DX ABDOMEN SINGLE VIEW Apr 30, 2010 06:50:00 PM Reason for exam: TUBE PLACEMENT Comparison study: Abdominal radiograp h from October 25, 2009. Findings: Single view of the abdomen was obtained . The lower abdomen is excluded from this exam. An enteric tube is seen terminating wit hin the mid stomach. Right basilar airspace disease. No gaseous distention or signs of obstruction are noted. Impression: 1. Enteric tube terminates within the m id stomach. 2. Right basilar airspace disease. Signed (Authenticated, Released) Date-T malia: 05/01/2010 0854 Head Of Art- COLEEN FINNEY D.O., Radiologist Dictated By- ALEJANDRO HERRERA M.D., Res ident Staff Physician- COLEEN FINNEY D.O., Radiologist Authenticated By- COLEEN FINNEY D.O., Radiologist Procedure Note Interface, Rad Conversion - 06/14/2013 5:38 PM FLOW MACHINE OPERATOR REPORT Patient: CUAUHTEMOC MALDONADO Phone #: [facility] Rec#: [id number] Sex: M : 1960 Júnior#: [id number] Location: [place] [address] 11 Check-in#: [id number] Procedure Requested: [id number] DX ABDOMEN SINGLE VIEW Reason For Exam: TUBE PLACEMENT Exam Ordered: 04/30/20101849 Exam Date/Time: 04/30/20101849 Check-in Date/Time: 04/30/20101850 Attendin JUDY KAUR Requestin JUDY KAUR Referrin NO, REFERRING DR Primary Care: [id number] JUDY KING These images and this report have been reviewed and edited by the Staff Radiologist. DX ABDOMEN SINGLE VIEW Apr 30, 2010 06:50:00 PM Reason for exam: TUBE PLACEMENT Comparison study: Abdominal radiograph from October 25, 2009. Findings: Single view of the abdomen was obtained. The lower abdomen is excluded from this exam. An enteric tube is seen terminating within the mid stomach. Right basilar airspace disease. No gaseous distention or signs of obstruction are noted. Impression: 1. Enteric tube terminates within the mi d stomach. 2. Right basilar airspace disease. Signed (Authenticated, Released) Date-Time: 05/01/2010 0854 Head Of Art- COLEEN FINNEY D.O., Radiologist Dictated By- ALEJANDRO HERRERA M.D., Resident Staff Physician- COLEEN FINNEY D.O., Radiologist Authenticated By- COLEEN FINNEY D.O., Radiologist Performing Organization Address City/State/Zipcode Ph one Number [place] * Shock Profile (04/30/2010 6:20 PM FLOW MACHINE OPERATOR) pH Arterial 7.33 (L) 7.35 - 7.45 UNITS SUNQUEST pCO2 Arterial 41 35 - 45 MM HG SUNQUEST PO2 Arterial 396 (H) 75 - 100 MM HG SUNQUEST Base Excess -4.1 (L) -3.0 - 3.0 MEQ/L SUNQUEST Bicarbonate 21.3 19.0 - 29.0 MEQ/L SUNQUEST Hemoglobin 19.4 (H) 13.0 - 17.0 G/DL SUNQUEST Whole Blood Carboxyhemoglob 0.2 0.0 - 1.5 % THB SUNQUEST in Oxyhemoglobin 98.5 95.0 - 100.0 % THB SUNQUEST Methemoglobin 1.0 0.0 - 1.5 % THB SUNQUEST O2 Content 27.7 17.0 - 100.0 ML/DL SUNQUEST Arterial Patient Temp 37.0 C SUNQUEST Celsius Sample Site Radial left SUNQUEST Device A/C SUNQUEST Mode MV SUNQUEST Fraction of 1.00 SUNQUEST Inspired Oxygen Tidal Volume 650.0 ML SUNQUEST Set Rate 14 BPM SUNQUEST Total Rate 25 BPM SUNQUEST PEEP/CPAP 5.0 CMH20 SUNQUEST Sodium 134 134 - 144 MEQ/L SUNQUEST Potassium 4.0 3.5 - 5.2 MEQ/L SUNQUEST Chloride 110 (H) 98 - 107 MEQ/L SUNQUEST Ionized Calcium 4.8 4.5 - 5.3 MG/DL SUNQUEST Glucose 149 (H) 65 - 100 MG/DL SUNQUEST Lactate 2.3 (H) 0.0 - 0.8 MMOL/L SUNQUEST Arterial Specimen Arterial Performing Organization Address City/State/Zipcode Ph one Number SLRL [address] [place], [place] [address] SUNQUEST documented in this encounter Visit Diagnoses Diagnosis Epileptic grand mal status (HCC) Epileptic grand mal status documented in this encounter
--- OUTSIDE RECORDS SUMMARY | 2019-09-30 16:19 | XMS REPORT | Encounter Summary ---
Author Author [facility] Address Unknown Phone Unavailable Care Team Providers Care Slaughterer Religious Ritual Name Role Phone PCP Unavailable Encounter Details Care Team Description Date Type Department Nikos Florian MD [address] [place] [address] [phone] 08/18/2010 PracPart Note [facility] [address] [place] [address] Social History Date Tobacco Use Types Packs/Day Years Used Never Assessed Sex Assigned at Date Recorded Not on file Industry Job Start Date Occupation Not on file Not on file Not on file Travel End Travel History Travel Start No recent travel history available. documented as of this encounter Progress Notes * Nikos Florian MD - 08/18/2010 9:08 AM CDT . : 09:08am .T: refill request [facility] rx for Vimpat 150mg - 1/2 tab bid per patient's request. Insurance danni l not cover Vimpat 50mg 1 & 1/2 tabs bid-co documented in this encounter Plan of Treatment Not on filedocumented as of this encounter Visit Diagnoses Not on filedocumented in this encounter
--- OUTSIDE RECORDS SUMMARY | 2019-09-30 16:19 | XMS REPORT | Encounter Summary ---
Author Author [facility] Organization [facility] Address Unknown Phone Unavailable Care Team Providers Care Mini Shifter Name Role Phone PCP Unavailable Encounter Details Care Team Description Date Type Department Judy Kaur MD [address] [place] [address] [phone] 05/02/2010 PracPart Note [facility] Neurol [facility] [address] [place] [address] Social History Date Tobacco Use Types Packs/Day Years Used Never Assessed Sex Assigned at Date Recorded Not on file Industry Job Start Date Occupation Not on file Not on file Not on file Travel End Travel History Travel Start No recent travel history available. documented as of this encounter Progress Notes * Judy Kaur MD - 05/02/2010 6:35 AM MOMD TEACHER . : 06:35am .T: DX CHEST SINGLE VIEW .PV: M[place]ORIE REPORT Patient: CUAUHTEMOC MALDONADO Phone #: [facility] Rec#: [id number] Sex: M : 1960 Júnior#: [id number] Location: [place] [address] Check-in#: [id number] Procedure Requested: [id number] DX CHEST SINGLE VIEW Reason For Exam: RESPIRATORY FAILURE Exam Ordered: 05/02/2010 0600 Exam Date/Time: 05/02/2010 0640 Check-in Date/Time: 05/02/2010 0426 Attendin JUDY KAUR Requestin KIMBERLEY ALEXANDRA Referrin NO, REFERRING DR Primary Care: [id number] JUDY KING * PRELIMINARY PRELIMINARY PRELIMINARY * DX CHEST SINGLE VIEW INDICATION: RESPIRATORY FAILURE. [...] could represent aspiration pneumonitis or pneumonia . * PRELIMINARY PRELIMINARY PRELIMINARY * * This is an unsigned PRELIMINARY REPORT, and does not reflect * * corrections, additions, and/or subtractions to the information * * contained in this report. * Signed (Authenticated, Released) Date-Time: // Auto Wash Buffer- ARGELIA BRISENO M.D., Staff Radiologist Dictated By- DENIA COPELAND M.D., Resident Staff Physician- ARGELIA BRISENO M.D., Staff Radiologist Authenticated By- ARGELIA BRISENO M.D., Staff Radiologist -- RELEASED BY [id number] Accession Number: [id number] Ordering Physician: JUDY KAUR # SIGNED BY Judy Kaur MD ([facility]) 05/04/2010 02:21PM TEACHER documented in this encounter Plan of Treatment Not on filedocumented as of this encounter Visit Diagnoses Not on filedocumented in this encounter
--- OUTSIDE RECORDS SUMMARY | 2019-09-30 16:19 | XMS REPORT | Encounter Summary ---
Author Author [facility] Address Unknown Phone Unavailable Care Team Providers Care Concrete Conveyor Operator Name Role Phone PCP Unavailable Encounter Details Care Team Description Date Type Department [facility] ProviderYesenia MD 05/02/2010 [facility]Hist [facility] HISTORIC CLINI C Result Social History Date Tobacco Use Types Packs/Day [...] Name Priority Date/Time Associated Diag nosis ECHO HISTORICAL Routine 05/02/2010 documented in this encounter Results * Echo historical (05/02/2010) Specimen Narrative Performed At Procedure Category: ECHO NEXTGEN Procedure: Echocardiogram Procedure Summary: 1. Poor acoustic w indows in a mechanically ventilated patient, but overall, normal LV & RV si ze and systolic function. 2. Normal diastolic function. 3. No significant valvular abnormalit ies. 4. IVC unresponsive with ventilation, but tissue Doppler suggests low-normal LAP. 5. Inadequate TR jet to quantify syst olic PA pressures, but PV acceleration time suggests that mean PAP is normal Procedure Note Interface, Rad Conversion - 11/04/2014 12:44 AM CDT Procedure Category: ECHO Procedure: Echocardiogram Procedure Summary: 1. Poor acoustic windows in a mechanically ventilated patient, but overall, normal LV & RV size and systolic function. 2. Normal diastolic function. 3. No significant valvular abnormalitie s. 4. IVC unresponsive with ventilation, b ut tissue Doppler suggests low-normal LAP. 5. Inadequate TR jet to quantify systol ic PA pressures, but PV acceleration time suggests that mean PAP is normal Performing Organization Address City/State/Zipcode Ph one Number NEXTGEN documented in this encounter Visit Diagnoses Not on filedocumented in this encounter
--- OUTSIDE RECORDS SUMMARY | 2019-09-30 16:19 | XMS REPORT | Encounter Summary ---
Author Author [facility] Address Unknown Phone Unavailable Care Team Providers Care Wanigan Clerk Name Role Phone PCP Unavailable Encounter Details Care Team Description Date Type Department Nikos Florian MD [address] [facility] [address] [place] [address] [phone] 06/28/2010 Hist-Visit [facility] Social History Date Tobacco Use Types Packs/Day Years Used Never Assessed Sex Assigned at Date Recorded Not on file Industry Job Start Date Occupation Not on file Not on file Not on file Travel End Travel History Travel Start No recent travel history available. documented as of this encounter Progress Notes * Nikos Florian MD - 06/28/2010 1:05 PM CDT . : 01:05pm .T: Return Patient [facility] Rachel Corcoran M.D. [address] [facility] Randy Corcoran M.D. [address] [place] [address] [place], [place] [address] [place] [address] [place] [address] Candida Spencer M.D. Cammie Ross D.O. Elayne Michael M.D. Mae Calvert M.D. F ax: Jd Meehan D.O. Dudley Luna M.D. [facility] Nikos Florian M.D., Ph.D. Jas Graham M.D. 06/28/[address] [facility] [address] [place] [address] RE: Ilia Maldonado : [address] [...] p.o. b.i.d. He is tolerati ng his current regimen without any significant side effects and is otherwise doi ng well. Allergies: No known drug allergies Medications: [...] had no drift and no asterixis. His wtporm-ih-dqhg, swkx-ys-mahq, and rap id alternating movements were intact. [...] Florian M.D., Ph.D. Director, [facility] [place], [place] # SIGNED BY Nikos Florian MD Phd ([facility]) 06/28/2010 01:11PM documented in this encounter Plan of Treatment Not on filedocumented as of this encounter Visit Diagnoses Not on filedocumented in this encounter
--- OUTSIDE RECORDS SUMMARY | 2019-09-30 16:19 | XMS REPORT | Encounter Summary ---
Author Author [facility] Address Unknown Phone Unavailable Care Team Providers Care Charter School Executive Director Name Role Phone PCP Unavailable Encounter Details Care Team Description Date Type Department [facility], Historical 08/22/2010 PracPart Note [facility] Social History Date Tobacco Use Types Packs/Day Years Used Never Assessed Sex Assigned at Date Recorded Not on file Industry Job Start Date Occupation Not on file Not on file Not on file Travel End Travel History Travel Start No recent travel history available. documented as of this encounter Progress Notes * [facility], Historical - 08/22/2010 9:05 AM CDT . :09:05AM .T:[facility] Rx--PA Denied PA no longer needed. Vimpat rx for 150mg was sent to pharmacy instead of the 50m g. Patient picked up the 150mg tabs on 08/19/10 and 200mg tabs on 08/21/10 per Catina at [facility]-co From: Marcela Isbell ([place]) Originated by: Marcela Isbell ([place]) Sent: 08/22/2010 at 09:05AM To: Tamara Isbell ([place]) Type: RX Priority: 3 Attachment: INVALID LINK:Ilia Maldonado [id number] HO.tif - [id number]|[id number]\\M:\\ppart\\Guero es\\YWHC265\\NWFD570\\OUSS794\\KRRY504\\WBND704\\POUM049\\IIYI437\\BHKU087\\BKGX246\\LEVJ0 01\\YAMF803\\JAPQ138\\LYLT010\\WEOJ807\\OMUH368\\FDGK924\\ZDXK122\\LHZJ722\\SEGE167\\LEVT1 00\\[id number] INVALID LINK:Ilia Maldonado [id number] HO--2.tif - [id number]|[id number]\\M:\\ppart\\ Files\\KZQJ407\\RODE245\\COPA409\\SHEP182\\ZQRW482\\PRAP209\\KFWD473\\ZWXA860\\NDND067\\LE VJ001\\GDQN127\\QNSL377\\GHCZ388\\GUHM841\\GOZH926\\ZLRZ926\\YWMQ517\\WARU542\\AJHO597\\LE VT100\\[id number].tif Subject: [facility] Rx--PA Denied Rx:VIMPAT documented in this encounter Plan of Treatment Not on filedocumented as of this encounter Visit Diagnoses Not on filedocumented in this encounter"
--- OUTSIDE RECORDS SUMMARY | 2019-09-30 16:19 | XMS REPORT | Encounter Summary ---
Author Author [facility] Address Unknown Phone Unavailable Care Team Providers Care Registered Pharmacy Technician Name Role Phone PCP Unavailable Encounter Details Care Team Description Date Type Department Judy Kaur MD [address] [place] [address] [phone] 05/01/2010 PracPart Note [facility]rol [facility] [address] [place] [address] Social History Date Tobacco Use Types Packs/Day Years Used Never Assessed Sex Assigned at Date Recorded Not on file Industry Job Start Date Occupation Not on file Not on file Not on file Travel End Travel History Travel Start No recent travel history available. documented as of this encounter Progress Notes * Judy Kaur MD - 05/01/2010 12:54 PM PAYROLL SUPERVISOR . : 12:54pm .T: 4 hr VEEG 04/30/10 .PV: RKF Name: MALDONADOCUAUHTEMOC MRN/Unit #: [id number] Attending Physician: JUDY KAUR Date of : [...] clear seizures are identified in the recording. VINEYARDIST: Shows a generally regular rhythm. IMPRESSION: This is a 4 hour video EEG telemetry from 04/30/2010 with no pushbutton activations and no electrographic evidence of seizure. Occasional sharp waves are seen over the right frontocentral region and slowing is noted over the left anterior quadrant at times with sharp features. Judy Kaur MD Dictated By: cc: Ordering Physician: JUDY KING # SIGNED BY Judy Kaur MD ([facility]) 05/06/2010 01:15PM OLL SUPERVISOR documented in this encounter Plan of Treatment Not on filedocumented as of this encounter Visit Diagnoses Not on filedocumented in this encounter
--- OUTSIDE RECORDS SUMMARY | 2019-09-30 16:19 | XMS REPORT | Encounter Summary ---
Author Author [facility] Address Unknown Phone Unavailable Care Team Providers Care Radiological Defense Officer Name Role Phone PCP Unavailable Encounter Details Care Team Description Date Type Department Judy Kaur MD [address] [place] [address] [phone] 05/03/2010 PracPart Note [facility] Neurol [facility] [address] [place] [address] Social History Date Tobacco Use Types Packs/Day Years Used Never Assessed Sex Assigned at Date Recorded Not on file Industry Job Start Date Occupation Not on file Not on file Not on file Travel End Travel History Travel Start No recent travel history available. documented as of this encounter Progress Notes * Judy Kaur MD - 05/03/2010 3:47 PM CAISSON WORKER . : 3:47pm .T: 24 hr Veeg 05/01/10 .PV: RKF Name: TYRACUAUHTEMOC MRN/Unit #: [id number] Attending Physician: JUDY KAUR Date of : [...] change to the recording to suggest arousal. ROAD FREIGHT CONDUCTOR: Shows a generally regular rhythm. IMPRESSION: This [...] MD Dictated By: cc: Carolyn Beasley MD Ordering Physician: JUDY KING # SIGNED BY Judy Kaur MD ([facility]) 05/06/2010 09:52AM SON WORKER documented in this encounter Plan of Treatment Not on filedocumented as of this encounter Visit Diagnoses Not on filedocumented in this encounter
--- OUTSIDE RECORDS SUMMARY | 2019-09-30 16:20 | XMS REPORT | Encounter Summary ---
Author Author [facility] Organization [facility] Address Unknown Phone Unavailable Care Team Providers Care Machine Set Up Technician Name Role Phone PCP Unavailable Encounter Details Care Team Description Date Type Department [facility], Historical 11/16/2009 PracPart Note [facility] Social History Date Tobacco Use Types Packs/Day Years Used Never Assessed Sex Assigned at Date Recorded Not on file Industry Job Start Date Occupation Not on file Not on file Not on file Travel End Travel History Travel Start No recent travel history available. documented as of this encounter Progress Notes * [facility], Historical - 11/16/2009 9:14 AM CDT . :09:14AM .T:[facility] Rx From: Ida Hodge ([place]) Originated by: Ida Hodge ([place]) Sent: 11/16 at 09:14AM To: Thea Salmon (DAVID) Type: RX Priority: 3 Attachment: INVALID LINK:Ilia Maldonado [id number] mp.tif - [id number]|[id number]\\M:\\ppart\\Guero es\\DHFQ727\\WCTE200\\HEXT705\\GASH611\\YIBA406\\OUYL963\\NUWM541\\DRBI508\\HPVF022\\LEVJ0 01\\YBHJ771\\PKOJ359\\DNRK603\\WZEL076\\DEGN397\\ROWL763\\NOWJ102\\ZLJR682\\VRHR477\\LEVT1 35\\[id number].tif Subject: [facility] Rx PHARMACY REFILL REQUEST Pharmacy Name: Pharmacy [...]
--- OUTSIDE RECORDS SUMMARY | 2019-09-30 16:20 | XMS REPORT | Encounter Summary ---
Author Author [facility] Address Unknown Phone Unavailable Care Team Providers Care Sheet Cutter Name Role Phone PCP Unavailable Encounter Details Care Team Description Date Type Department Nikos Florian MD [address] [place] [address] [phone] 11/10/2009 PracPart Note [facility]rol [facility] [address] [place] [address] Social History Date Tobacco Use Types Packs/Day Years Used Never Assessed Sex Assigned at Date Recorded Not on file Industry Job Start Date Occupation Not on file Not on file Not on file Travel End Travel History Travel Start No recent travel history available. documented as of this encounter Progress Notes * Nikos Florian MD - 11/10/2009 10:56 AM CDT . : 10:56am .T: Return call back to Mrs. Maldonado from her message she left at 9:01 a.m. on regarding a seizure patient had. Message asking she return my call. SG documented in this encounter Plan of Treatment Not on filedocumented as of this encounter Visit Diagnoses Not on filedocumented in this encounter
--- OUTSIDE RECORDS SUMMARY | 2019-09-30 16:20 | XMS REPORT | Encounter Summary ---
Author Author [facility] Address Unknown Phone Unavailable Care Team Providers Care Security Infrastructure Engineer Name Role Phone PCP Unavailable Encounter Details Care Team Description Date Type Department Nikos Florian MD [address] [place] [address] [phone] 01/20/2010 PracPart Note [facility] [address] [place] [address] Social History Date Tobacco Use Types Packs/Day Years Used Never Assessed Sex Assigned at Date Recorded Not on file Industry Job Start Date Occupation Not on file Not on file Not on file Travel End Travel History Travel Start No recent travel history available. documented as of this encounter Progress Notes * Nikos Florian MD - 01/20/2010 9:18 AM CDT . :09:18AM .T:Had a petit mal From: Nikos Florian ([facility]) Originated by: Nikos Florian ([facility]) Sent: 01/20/2010 at 09:18AM To: Thea Salmon ([facility]) Type: CHART Priority: 3 Subject: Had a petit mal Let's leave things alone for now and see how he does as he recovers from the col dNikos Dial Original Message: From: DAVID To: [facility] Subject: Had a petit mal Priority: 3 Date: 01/20/2010 Patient had a petit mal seizure, on Sunday morning, and a recurrence on evening going into postictal state for a few hours. Ativan was administere d. However maybe this a causative factor from a cold with fever. For the cold patient has used benadryl and acetaminophen. Patient has an appt with his primary care physician today Patient is on vimpat 200 mg b.i.d. Lamictal 75 mg p.o. b.i.d. Keppra 1500 mg p. o. b.i.d. Are you wanting to make med adjustments at this time, or have him see if PCP sina st? sg 12/30/09 Baldo Garces MD [address] [place] [address] RE: Ilia Maldonado : [address] Garces, I had the pleasure today of seeing Ilia Maldonado in our [facility] for follow-up of his refractory epilepsy. As you know, he is a 49-year-old right-handed man with a history of refractory [...] have some associated anxiety and fear that canlast up to one day. In the past, [...] a few days. We were able to control h is seizures and he was discharged home. At discharge, we were able to discontin ue permanently the Depakote and the primidone. We added Vimpat instead. Since his last visit with me on December 07, he has noticed that his cognition and speec h has improved. Therefore these cognitive symptoms seem to be related to side e ffects from the Depakote and the permit done. With the Vimpat he has been doing better. He has only had two seizures since December 07 with one of the seizures occurring in the setting of medication noncompliance. However, he did have a se izure approximately 2 days ago. He had been compliant with his medicine recentl y. Both of his seizures were generalized tonic-clonic seizures preceded by an a ura of fear. He is otherwise doing well and reports no other new symptoms. Allergies: No known drug allergies Medications: 1. Vimpat 150 mg p.o. b.i.d. 2. Lamictal 75 mg p.o. b.i.d. 3. Keppra 1500 mg p.o. b.i.d. He has not been able to tolerate higher doses in the past 4. Calcium with vitamin D 5. Aspirin 81 mg p.o. once daily 6. Protonic 40 mg p.o. once daily On examination, [...] had no drift and no asterixis. His bcpdtv-uz-fgkv, wvip-uv-ebys, and rap id alternating movements were intact. His gait was normal and narrow based with an intact tandem gait. The majority of this 25 minute visit was spent counselin g the patient. 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 His seizures appear to have a left temporal focus that is seen in a fairly broad fashion as confirmed by video EEG monitoring. He is doing much better from a side effect standpoint now that he is off of Depakote and primidone. His seizure frequency seems to be improving with the increased dose of Vimpat but he did have a recent seizure two days ago. T herefore I recommended that he increase the Vimpat to 150/200 mg p.o. b.i.d. If after one week he has an additional seizure then he will increase further to 200 mg p.o. b.i.d. He will observe for side effects and if this occurs he will then decrease his medication back to the last tolerable dose. Now that he has a c lear aura preceding his seizures I recommended that he try taking either one or 2 mg of Ativan when he has an aura to see if this can abort the generalized qi c-clonic seizure. I would like to see him back in 3 months to see how he is doi ng. In the meantime, if you have any questions or concerns, please do not hesita te to contact me. Sincerely, Nikos Florian M.D., Ph.D. Director, [facility] [place], [place] # SIGNED BY Nikos Florian MD Phd ([facility]) 12/30/2009 10:21AM documented in this encounter Plan of Treatment Not on filedocumented as of this encounter Visit Diagnoses Not on filedocumented in this encounter
--- OUTSIDE RECORDS SUMMARY | 2019-09-30 16:20 | XMS REPORT | Encounter Summary ---
Author Author [facility] Address Unknown Phone Unavailable Care Team Providers Care Blood Bank Assistant Name Role Phone PCP Unavailable Encounter Details Care Team Description Date Type Department Elayne Michael MD [address] [place] [address] [phone] 12/03/2009 PracPart Note [facility] [address] [place] [address] Social History Date Tobacco Use Types Packs/Day Years Used Never Assessed Sex Assigned at Date Recorded Not on file Industry Job Start Date Occupation Not on file Not on file Not on file Travel End Travel History Travel Start No recent travel history available. documented as of this encounter Progress Notes * Elayne Michael MD - 12/03/2009 10:37 AM CDT .D:10:10:37AM .T:Message From: Nikos Florian ([facility]) Originated by: Nikos Florian ([facility]) Sent: 12/03/2009 at 10:27AM To: Thea Salmon ([facility]) Type: CHART Priority: 3 Subject: Nikos Richardson Original Message: From: DAVID To: Cc: [facility] Subject: Priority: 3 Date: 12/03/2009 Patient admitted to [facility] in [place] for seizures. Patient is s table and would be coming in for a follow-up appt on 12/07. Thank you, DAVID 09/28/09 Baldo Garces MD [address] [place] [address] RE: Ilia Joel : [address] Garces, Thank you for requesting me to see your patient, Ilia Maldonado, in our [facility] for consultation regarding his history of epilepsy. As you know, he is a 49-year-old right-handed man who has had a history of epilepsy sin ce 15 years of age but he does also have a history of febrile seizures. Over years, MRIs and EEGs have been done but he thinks that these have been unremar kable. His seizures typically can be triggered by certain visual stimuli partic ularly of the color purple. He will then stare off and have a visual hallucinat ion where he will see some pages from a nursery rhyme book that he read when he was a child. This will last just a few seconds. He can have some loss of aware ness and can have associated anxiety and fear that can last for up to one day. In the past, these episodes occurred occur two or 3 times per month. But more r ecently Lamictal has been added to his regimen and these episodes have resolved. However, despite being on Lamictal, he had 4 generalized tonic-clonic seizures in one day in July. These were the first generalized tonic-clonic convulsions that he has had since 2002. In the past, he has tried Dilantin and Tegretol. On review of systems, he reports that he has a tremor due to the Depakote. He a lso reports some insomnia. His review of systems is otherwise per patient quest ionnaire placed in the office chart which I reviewed. Past medical history: None other than described above. Allergies: No known drug allergies Medications: 1. Keppra 1500 mg p.o. b.i.d. 2. Depakote 750 mg p.o. b.i.d. 3. Lamictal 75 mg p.o. b.i.d. 4. Primidone 50 mg p.o. t.i.d. Family history: There is no family history of seizures. Social history: He lives in [place], [place] with his . He does not smoke cigarettes, drink alcohol, or use illicit drugs. 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 On examination, he was well-appearing and in no acute distress. His blood press ure was 118/84 with a pulse of 84 beats per minute and a respiratory rate of 18 breaths per minute. His lungs were clear bilaterally and his heart demonstrated a regular rhythm without murmurs. On neurological examination, his speech was f luent and articulate. He was alert and oriented and was able to give good detai ls of the history. His pupils were equal round and reactive to light and the dis cs were sharp bilaterally. His visual mccoy were full to confrontation and his extraocular movements were full with no nystagmus. His face moved symmetrically and his facial sensation was intact to light touch and temperature. His palate elevated symmetrically and his tongue protruded in the midline. There was no dr ift and no asterixis but he did have a prominent postural tremor present. He corbett d 5/5 strength throughout all major muscle groups. Tone was normal. Sensation was intact to light touch and temperature throughout. Hudyra-cy-yhzt, heel-to-s hin, and rapid alternating movements were intact. The reflexes were 1-2+ and sy mmetrical with downgoing toes bilaterally. His gait was normal and narrow based with a fairly intact tandem gait. In summary, Ilia Maldonado is a 49-year-old right-handed man with a long history o f refractory epilepsy. Since the addition of Lamictal, he has noticed an improv ement in his seizure frequency but still had 4 generalized tonic-clonic seizures in a single day in July which is the first generalized tonic clonic seizures t hat he has had since 2002. The seizures typically consist of complex partial se izures. Given that he continues to have some seizures on his current regimen an d has side effects particularly with tremulousness which is a side effect of Dep akote, I recommended that he undergo inpatient video EEG monitoring to see if we can characterize and localize the seizure focus in better detail to see if he m ight be a candidate for surgical resection. While he is in the hospital, I will also see if we can adjust his medications to try to limit his side effect profi le. I will try to get him off of the Depakote and primidone to see if he will t olerate the combination of Keppra and Lamictal better than his current regimen. I anticipate that we may need to increase his dose of Lamictal further to make up for the fact that the Depakote and primidone will be discontinued. We will p nisa on admitting him in October. Thank you again for allowing me the opportunity to participate in Ilia Maldonado's neurological care and please do not hesitate to contact me if you have any ques tions or concerns. Sincerely, Nikos Florian M.D., Ph.D. Director, [facility] [place] [facility], [place] # SIGNED BY Nikos Florian MD Phd ([facility]) 09/28/2009 02:11PM documented in this encounter Plan of Treatment Not on filedocumented as of this encounter Visit Diagnoses Not on filedocumented in this encounter
--- OUTSIDE RECORDS SUMMARY | 2019-09-30 16:20 | XMS REPORT | Encounter Summary ---
Author Author [facility] Address Unknown Phone Unavailable Care Team Providers Care Watch Parts Grinder Name Role Phone PCP Unavailable Encounter Details Care Team Description Date Type Department Nikos Florian MD [address] [place] [address] [phone] 11/16/2009 PracPart Note [facility] o[facility] [address] [place] [address] Social History Date Tobacco Use Types Packs/Day Years Used Never Assessed Sex Assigned at Date Recorded Not on file Industry Job Start Date Occupation Not on file Not on file Not on file Travel End Travel History Travel Start No recent travel history available. documented as of this encounter Progress Notes * Nikos Florian MD - 11/16/2009 10:15 AM CDT .D:10:10:15AM .T:[facility] Rx [id number] sent refills MA for SG From: Ida Hodge () Originated by: Ida Hodge ([facility]) Sent: 11/16 at 09:14AM To: Thea Salmon ([facility]) Type: RX Priority: 3 Attachment: INVALID LINK:Ilia Maldonado [id number] .tif - [id number]|[id number]\\M:\\ppart\\Guero [id number]\\[id number]\\[id number]\\[id number]\\[id number]\\[id number]\\[id number]\\[id number]\\[id number]\\[id number]\\[id number]\\[id number]\\[id number]\\[id number]\\[id number]\\[id number]\\[id number]\\[id number]\\[id number] Subject: [facility] Rx PHARMACY REFILL REQUEST Pharmacy Name: Pharmacy [...]
--- OUTSIDE RECORDS SUMMARY | 2019-09-30 16:20 | XMS REPORT | Encounter Summary ---
Author Author [facility] Address Unknown Phone Unavailable Care Team Providers Care Perfect Binder Operator Name Role Phone PCP Unavailable Encounter Details Care Team Description Date Type Department Nikos Florian MD [address] [facility] [address] [place] [address] [phone] 04/05/2010 Hist-Visit [facility] Social History Date Tobacco Use Types Packs/Day Years Used Never Assessed Sex Assigned at Date Recorded Not on file Industry Job Start Date Occupation Not on file Not on file Not on file Travel End Travel History Travel Start No recent travel history available. documented as of this encounter Progress Notes * Nikos Florian MD - 04/05/2010 3:51 PM BAR HOST/HOSTESS . : 03:51pm .T: Return Patient [facility] Rachel Corcoran M.D. [address] [facility] Randy Corcoran M.D. [address] [place] [address] [place], [place] [address] [place] [address] [place] [address] Candida Spencer M.D. Cammie Ross D.O. Elayne Michael M.D. Mae Calvert M.D. F ax: Jd Meehan D.O. Dudley Luna M.D. [facility] Nikos Florian M.D., Ph.D. Jas Graham M.D. 04/05/10 Baldo Garces MD [place] [facility] [address] [place] [address] RE: Ilia Maldonado : [address] [...] his last visit with me on December 30, 2009, he has had one generalized tonic-c lonic seizure and one complex partial seizure. He has increased his dose of Vim pat to 200 mg p.o. b.i.d. He is tolerating this medication without any signific ant side effects. He is noticing some occasional auras that are somewhat prolon ged and this is causing him some distress. He is otherwise doing well reports n o other new symptoms. Allergies: No known drug allergies Medications: 1. Vimpat 200 mg p.o. b.i.d. 2. Lamictal 75 mg [...] had no drift and no asterixis. His xaajqg-as-mvpc, uemq-mo-bcbp, and rap id alternating movements were intact. His gait was normal and narrow based with an intact tandem gait. The majority of this 45 minute visit was spent counselin g the [...] the increased dose of Vimpat but he continues to have occasional seizures as w ell as auras. He seems to be tolerating the Vimpat well so I recommended that h e gradually increase it by 50 mg every one to two weeks until his seizures are b yulisa or until he reaches a maximum dose of 300 mg p.o. b.i.d. I would like to see him back in 3 months to see how he is doing. I provided him with prescripti on refills for the Vimpat and lorazepam. If he is continuing to have seizures t hen we made consider trying to increase the Lamictal to see if this helps with h is seizure frequency. In the meantime, if you have any questions or concerns, pl ease do not hesitate to contact me. Sincerely, Nikos Florian M.D., Ph.D. Director, [facility] [place], [place] # SIGNED BY Nikos Florian MD Phd ([facility]) 04/05/2010 03:53PM # REVISED BY Nikos Florian MD Phd ([facility]) 04/05/2010 03:54PM HOST/HOSTESS documented in this encounter Plan of Treatment Not on filedocumented as of this encounter Visit Diagnoses Not on filedocumented in this encounter
--- OUTSIDE RECORDS SUMMARY | 2019-09-30 16:20 | XMS REPORT | Encounter Summary ---
Author Author [facility] Address Unknown Phone Unavailable Care Team Providers Care Operator Command Support Systems Name Role Phone PCP Unavailable Encounter Details Care Team Description Date Type Department Oswaldo Massey MD [address] [facility] Emergency Dept [place], [place] [id number] Emergency, PhysicianMD Unspecified epilepsy without mention of intractable epilepsy (HCC) 04/30/2010 [facility] [address] [place] [address] Social History Date Tobacco Use Types Packs/Day [...] Procedure Name Priority Date/Time Associated Diag nosis CT HEAD WO CONTRAST Routine 04/30/2010 4:10 PM GREIGE GOODS INSPECTOR ARTERIAL BLOOD GAS Routine 04/30/2010 4:00 PM GREIGE GOODS INSPECTOR XR CHEST SINGLE VIEW Routine 04/30/2010 FRONTAL 3:51 PM GREIGE GOODS INSPECTOR XR CHEST SINGLE VIEW Routine 04/30/2010 FRONTAL 3:30 PM GREIGE GOODS INSPECTOR COMPREHENSIVE METABOLIC Routine 04/30/2010 PANEL 3:05 PM GREIGE GOODS INSPECTOR CBC AND DIFF (MANUAL DIFF Routine 04/30/2010 IF NECESSARY) 3:05 PM GREIGE GOODS INSPECTOR documented in this encounter Results * CT Head wo contrast (04/30/2010 4:10 PM GREIGE GOODS INSPECTOR) Specimen Narrative Performed At [facility] Patient: CUAUHTEMOC MALDONADO Phone #: Med Rec#: [id number] Sex: M : 1960 Júnior#: [id number] Location: ES Check-in#: [id number] Procedure Requested: [id number] CT HEAD WO C ONTRAST Reason For Exam: MENTAL STATUS CH JOSHUA Exam Ordered: 04/30/2010 152 8 Exam Date/Time: 04/30/2010 1613 Check-in Date/Time: 04/30/2010 1528 Attendin EMERGENCY, PHYSI NELY "" Requestin OSWALDO MASSEY Referrin NO, REFERRING DR Primary Care: [id number] JUDY KING These images and this report have been reviewed and edited by the Staff Radiologist. CT of the head w/o contrast: Apr 30, 2010 04:13:09 PM Clinical Indication: Multiple Seizures. Comparison: None 5 mm axial tomographic images were obta ined to the head without contrast. These were viewed on brain an d bone windows. Findings: Mild cerebellar atrophy. There is no mi dline shift. No intra or extra-axial mass or hemorrhage is ident ified. The coley-white matter junction is normal. The ventricles are normal in size shape and location. Prominent anterior dural base d calcifications. No soft tissue abnormality seen. Bilate ral maxillary sinus mucosal retention cysts. Other visible sinuses are normal. The bilateral mastoid air cells are well pneumatized. Impression: 1. No evidence of intracranial hemorrha ge or mass. 2. Mild ethmoid sinus disease. Bilatera l maxillary sinus mucosal retention cysts. Signed (Authenticated, Released) Date-T malia: 05/01/2010 1031 Mill Set Up- RADHA BRITTON M.D., Staff Radiologist Dictated By- ALEJANDRO HERRERA M.D., Res ident Staff Physician- RADHA Rodriguez, Staff Radiologist Authenticated By- RADHA BRITTON M.D., Staff Radiologist Procedure Note Interface, Rad Conversion - 06/14/2013 5:38 PM GREIGE GOODS INSPECTOR REPORT Patient: CUAUHTEMOC MALDONADO Phone #: [facility] Rec#: [id number] Sex: M : 1960 [facility]#: [id number] Location: Check-in#: [id number] Procedure Requested: [id number] CT HEAD WO CONTRAST Reason For Exam: MENTAL STATUS CHANGE Exam Ordered: 04/30/2010 1528 Exam Date/Time: 04/30/2010 1613 Check-in Date/Time: 04/30/2010 1528 Attendin EMERGENCY, PHYSICIAN "" Requestin OSWALDO MASSEY Referrin SHANT, REFERRING DR Primary Care: [id number] JUDY KING These images and this report have been reviewed and edited by the Staff Radiologist. CT of the head w/o contrast: Apr 30, 2010 04:13:09 PM Clinical Indication: Multiple Seizures. Comparison: None 5 mm axial tomographic images were obtai gideon to the head without contrast. These were viewed on brain and bone windows. Findings: Mild cerebellar atrophy. There is no midline shift. No intra or extra-axial mass or hemorrhage is identified. The coley-white matter junction is normal. The ventricles are normal in size shape and location. Prominent anterior dural based calcifications. No soft tissue abnormality seen. Bilateral maxillary sinus mucosal retention cysts. Other visible sinuses are normal. The bilateral mastoid air cells are well pneumatized. Impression: 1. No evidence of intracranial hemorrhag e or mass. 2. Mild ethmoid sinus disease. Bilateral maxillary sinus mucosal retention cysts. Signed (Authenticated, Released) Date-Time: 05/01/2010 1031 Mill Set Up- RADHA BRITTON M.D., Staff Radiologist Dictated By- ALEJANDRO HERRERA M.D., Resident Staff Physician- RADHA BRITTON M.D., Staff Radiologist Authenticated By- RADHA BRITTON M.D., Staff Radiologist Performing Organization Address City/State/[facility] Ph one Number [facility] * Arterial Blood Gas (04/30/2010 4:00 PM GREIGE GOODS INSPECTOR) pH Arterial 7.18 (AA) 7.35 - 7.45 UNITS SUNQUEST pCO2 Arterial 47 (H) 35 - 45 MM HG SUNQUEST PO2 Arterial 80 75 - 100 MM HG SUNQUEST Base Excess -12.0 (L) -3.0 - 3.0 MEQ/L SUNQUEST Bicarbonate 16.8 (L) 19.0 - 29.0 MEQ/L SUNQUEST Sample Site Radial left SUNQUEST Device CMV SUNQUEST Mode MV SUNQUEST Fraction of 1.00 SUNQUEST Inspired Oxygen Tidal Volume 550.0 ML SUNQUEST Set Rate 12 BPM SUNQUEST Total Rate 18 BPM SUNQUEST PEEP/CPAP 5.0 CMH20 SUNQUEST Specimen Arterial Performing Organization Address City/State/[facility] Ph one Number SLRL [address] [place], [place] [address] SUNQUEST * XR Chest single view frontal (04/30/2010 3:51 PM GREIGE GOODS INSPECTOR) Only the most recent of 2 results within the time period is included. Specimen Narrative Performed At REPORT MAGALIS Patient: CUAUHTEMOC MALDONADO Phone #: Med Rec#: [id number] Sex: M : 1960 Júnior#: [id number] Location: Check-in#: [id number] Procedure Requested: [id number] DX CHEST SIN GLE VIEW Reason For Exam: INTUBATION Exam Ordered: 04/30/2010 155 2 Exam Date/Time: 04/30/2010 1556 Check-in Date/Time: 04/30/2010 1552 Attendin EMERGENCY, PHYSI NELY "" Requestin OSWALDO MASSEY Referrin NO, REFERRING Primary Care: [id number] JUDY KING These images and this report have been reviewed and edited by the Staff Radiologist. DX CHEST SINGLE VIEW INDICATION: INTUBATION. COMPARISON STUDY: Portable chest radiog raph from 20 minutes prior. FINDINGS: Life Support Devices: Interval placemen t of an endotracheal tube with tip terminating 4 cm proximal to the ca cameron. Lungs: Stable lung volume. No focal air space disease. Stable pulmonary vasculature. Pleura: No pleural effusion or pneumoth orax. Heart and Mediastinum: The cardiomedias tinal silhouette and great vessels are stable. IMPRESSION: 1. Interval placement of endotracheal t ube with tip 4 cm proximal to the husam. 2. No consolidation. Signed (Authenticated, Released) Date-T malia: 05/01/2010 0854 Mill Set Up- COLEEN FINNEY D.O., Radiologist Dictated By- ALEJANDRO HERRERA M.D., Res ident Staff Physician- COLEEN FINNEY D.O., Radiologist Authenticated By- COLEEN FINNEY D.O., Radiologist Procedure Note Interface, Rad Conversion - 06/14/2013 5:38 PM GREIGE GOODS INSPECTOR REPORT Patient: CUAUHTEMOC MALDONADO Phone #: Med Rec#: [id number] Sex: M : 1960 Júnior#: [id number] Location: Check-in#: [id number] Procedure Requested: [id number] DX CHEST SINGLE VIEW Reason For Exam: INTUBATION Exam Ordered: 04/30/2010 1552 Exam Date/Time: 04/30/2010 1556 Check-in Date/Time: 04/30/2010 155 Attendin EMERGENCY, PHYSICIAN "" Requestin OSWALDO MASSEY Referrin NO, REFERRING Primary Care: [id number] JUDY KING These images and this report have been reviewed and edited by the Staff Radiologist. DX CHEST SINGLE VIEW INDICATION: INTUBATION. COMPARISON STUDY: Portable chest radiograph from 20 minutes prior. FINDINGS: Life Support Devices: Interval placement of an endotracheal tube with tip terminating 4 cm proximal to the husam. Lungs: Stable lung volume. No focal airspace disease. Stable pulmonary vasculature. Pleura: No pleural effusion or pneumothorax. Heart and Mediastinum: The cardiomediastinal silhouette and great vessels are stable. IMPRESSION: 1. Interval placement of endotracheal tu be with tip 4 cm proximal to the husam. 2. No consolidation. Signed (Authenticated, Released) Date-Time: 05/01/2010 0854 Mill Set Up- COLEEN FINNEY D.O., Radiologist Dictated By- ALEJANDRO HERRERA M.D., Resident Staff Physician- COLEEN FINNEY D.O., Radiologist Authenticated By- COLEEN FINNEY D.O., Radiologist Performing Organization Address [facility] one Number MCKESSON * CBC and Diff (manual diff if necessary) (04/30/2010 3:05 PM GREIGE GOODS INSPECTOR) WBC 17.25 (H) 4.00 - 11.00 TH/UL SUNQUEST RBC 5.84 4.31 - 5.84 MIL/UL SUNQUEST Hemoglobin 17.7 (H) 13.0 - 17.0 G/DL SUNQUEST Hematocrit 50 40 - 50 % SUNQUEST MCV 86 80 - 99 FL SUNQUEST MCH 30 27 - 34 PG SUNQUEST MCHC 35 32 - 36 % SUNQUEST RDW 12.6 9.0 - 14.5 % SUNQUEST Platelet Count 401 (H) 140 - 400 TH/UL SUNQUEST MPV 10.4 9.4 - 12.3 FL SUNQUEST % Neutrophils 64 45 - 78 % SUNQUEST %Lymphocytes 24 15 - 47 % SUNQUEST %Monocytes 10 0 - 12 % SUNQUEST %Eosinophils 0 0 - 7 % SUNQUEST %Basophils 1 0 - 2 % SUNQUEST # Granulocytes 11.04 (H) 1.7 - 6.8 TH/UL SUNQUEST # Lymphocytes 4.14 (H) 1.0 - 3.3 TH/UL SUNQUEST # Monocytes 1.73 (H) 0.2 - 0.9 TH/UL SUNQUEST # Eosinophils 0.05 0.0 - 0.4 TH/UL SUNQUEST # Basophils 0.17 (H) 0.0 - 0.1 TH/UL SUNQUEST RBC Morphology Normal Normal SUNQUEST Specimen Blood Performing Organization Address [facility]/Zipcode Ph one Number SLRL [address] [place], [place] [address] SUNQUEST * Comprehensive Metabolic Panel (04/30/2010 3:05 PM GREIGE GOODS INSPECTOR) Albumin 5.0 3.5 - 5.0 G/DL SUNQUEST Aspartate 57 (H) 15 - 41 IU/L SUNQUEST Aminotransferas e Alanine 46 14 - 63 IU/L SUNQUEST Aminotransferas e Bilirubin Total 0.8 0.3 - 1.4 MG/DL SUNQUEST Protein Total 7.8 6.0 - 8.0 G/DL SUNQUEST Serum Calcium 9.3 8.8 - 10.5 MG/DL SUNQUEST Creatinine 1.5 (H) 0.6 - 1.3 MG/DL SUNQUEST Glucose 175 (H) 65 - 100 MG/DL SUNQUEST Alkaline 92 42 - 128 IU/L SUNQUEST Phosphatase Sodium 139 134 - 144 MEQ/L SUNQUEST Potassium 5.1 3.5 - 5.1 MEQ/L SUNQUEST Chloride 105 101 - 111 MEQ/L SUNQUEST Carbon Dioxide 7 (AA) 23 - 32 MEQ/L SUNQUEST Anion Gap 27 (H) 3 - 15 SUNQUEST Blood Urea 22 8 - 26 MG/DL SUNQUEST Nitrogen eGFR Male AA 60 SUNQUEST Comment: Chronic Kidney Disease less than 60 mL/min/1.73 sq.m Kidney failure less than 15 mL/min/1.73 sq.m eGFR Male 50 SUNQUEST Non-AA Comment: Chronic Kidney Disease less than 60 mL/min/1.73 sq.m Kidney failure less than 15 mL/min/1.73 sq.m Specimen Blood Performing Organization Address City/State/[facility] Ph one Number SLRL [address] [place], [place] [address] SUNQUEST documented in this encounter Visit Diagnoses Diagnosis Unspecified epilepsy without mention of intractable epilepsy documented in this encounter
--- OUTSIDE RECORDS SUMMARY | 2019-09-30 16:20 | XMS REPORT | Encounter Summary ---
Author Author [facility] Address Unknown Phone Unavailable Care Team Providers Care Director Of Global Talent Name Role Phone PCP Unavailable Encounter Details Care Team Description Date Type Department Nikos Florian MD [address] [facility] [address] [place] [address] [phone] 12/30/2009 Hist-Visit [facility] Social History Date Tobacco Use Types Packs/Day Years Used Never Assessed Sex Assigned at Date Recorded Not on file Industry Job Start Date Occupation Not on file Not on file Not on file Travel End Travel History Travel Start No recent travel history available. documented as of this encounter Progress Notes * Nikos Florian MD - 12/30/2009 10:10 AM CDT . : 10:10am .T: Return Patient [facility] Rachel Corcoran M.D. [address] [facility] Randy Corcoran M.D. [address] [place] [address] [place], [place] [address] [place] [address] [place] [address] Candida Spencer M.D. Cammie Ross D.O. Elayne Michael M.D. Mae Calvert M.D. F ax: Jd Meehan D.O. Dudley Luna M.D. [facility] Nikos Florian M.D., Ph.D. Jas Graham M.D. 12/30/09 Baldo Garces MD [facility] [address] [place] [address] RE: Ilia Maldonado : [address] [...] had no drift and no asterixis. His rugstq-ki-xjtr, mvoz-bq-xygb, and rap id alternating movements were intact. [...] Florian M.D., Ph.D. Director, Comprehensive Epilepsy Center [facility] Stroke [facility], [place] # SIGNED BY Nikos Florian MD Phd ([facility]) 12/30/2009 10:21AM documented in this encounter Plan of Treatment Not on filedocumented as of this encounter Visit Diagnoses Not on filedocumented in this encounter
--- OUTSIDE RECORDS SUMMARY | 2019-09-30 16:20 | XMS REPORT | Encounter Summary ---
Author Author [facility] Address Unknown Phone Unavailable Care Team Providers Care Conveyancer Name Role Phone PCP Unavailable Encounter Details Care Team Description Date Type Department Judy Kaur MD [address] [place] [address] [phone] 04/30/2010 PracPart Note [facility] Neurol ogy [address] [place] [address] Social History Date Tobacco Use Types Packs/Day Years Used Never Assessed Sex Assigned at Date Recorded Not on file Industry Job Start Date Occupation Not on file Not on file Not on file Travel End Travel History Travel Start No recent travel history available. documented as of this encounter Progress Notes * Judy Kaur MD - 04/30/2010 6:35 PM AIRCRAFT PARTS ASSEMBLER . : 6:35pm .T: DX CHEST SINGLE VIEW .PV: MALLORIE REPORT Patient: CUAUHTEMOC MALDONADO Phone #: [facility] Rec#: [id number] Sex: M : 1960 Júnior#: [id number] Location: [place] [address] Check-in#: [id number] Procedure Requested: [id number] DX CHEST SINGLE VIEW Reason For Exam: LINE PLACEMENT Exam Ordered: 04/30/2010 1830 Exam Date/Time: 04/30/2010 1850 Check-in Date/Time: 04/30/2010 183 Attendin JUDY KAUR Requestin JUDY KAUR Referrin NO, REFERRING Primary Care: [id number] JUDY KING These images and this report have been reviewed and edited by the Staff Radiologist. DX CHEST SINGLE VIEW INDICATION: LINE PLACEMENT. COMPARISON STUDY: Portable chest radiograph from 3 hours prior. FINDINGS: Life Support Devices: Endotracheal tube is stable. Interval placement of an enteric tube seen coursing towards the stomach and off the peege-pm-oujm. Lungs: Stable lung volume. Increasing right basilar airspace disease. Stable pulmonary vasculature. Pleura: No pleural effusion or pneumothorax. Heart and Mediastinum: The cardiomediastinal silhouette and great vessels are stable. IMPRESSION: 1. Interval placement of an enteric tube seen coursing towards the stomach and off the fkcut-nu-jhre. Endotracheal tube is stable. 2. Increasing right basilar airspace disease. Signed (Authenticated, Released) Date-Time: 05/01/2010 0854 Artificial Stone Applicator- COLEEN FINNEY D.O., Radiologist Dictated By- ALEJANDRO HERRERA M.D., Resident Staff Physician- COLEEN FINNEY D.O., Radiologist Authenticated By- COLEEN FINNEY D.O., Radiologist -- RELEASED BY [id number] Accession Number: [id number] Ordering Physician: JUDY KAUR # SIGNED BY Judy Kaur MD (RKF) 05/04/2010 02:21PM RAFT PARTS ASSEMBLER documented in this encounter Plan of Treatment Not on filedocumented as of this encounter Visit Diagnoses Not on filedocumented in this encounter
--- OUTSIDE RECORDS SUMMARY | 2019-09-30 16:20 | XMS REPORT | Encounter Summary ---
Author Author [facility] Address Unknown Phone Unavailable Care Team Providers Care Police And Fire Dispatcher Name Role Phone PCP Unavailable Encounter Details Care Team Description Date Type Department Judy Kaur MD [address] [place] [address] [phone] 04/30/2010 PracPart Note [facility] Neurol ogy [address] [place] [address] Social History Date Tobacco Use Types Packs/Day Years Used Never Assessed Sex Assigned at Date Recorded Not on file Industry Job Start Date Occupation Not on file Not on file Not on file Travel End Travel History Travel Start No recent travel history available. documented as of this encounter Progress Notes * Judy Kaur MD - 04/30/2010 6:35 PM MASH PREPARATORY OPERATOR . : 6:35pm .T: DX ABDOMEN SINGLE VIEW .PV: MALLORIE REPORT Patient: CUAUHTEMOC MALDONADO Phone #: [facility] Rec#: [id number] Sex: M : 1960 Júnior#: [id number] Location: [place] [address] Check-in#: [id number] Procedure Requested: [id number] DX ABDOMEN SINGLE VIEW Reason For Exam: TUBE PLACEMENT Exam Ordered: 04/30/2010 1850 Exam Date/Time: 04/30/2010 185 Check-in Date/Time: 04/30/2010 185 Attendin JUDY KAUR Requestin JUDY KAUR Referrin NO, REFERRING Primary Care: [id number] JUDY KING These images and this report [...] Impression: 1. Enteric tube terminates within the mid stomach. 2. Right basilar airspace disease. Signed (Authenticated, Released) Date-Time: 05/01/2010 0854 Gathering Machine Setter- COLEEN FINNEY D.O., Radiologist Dictated By- ALEJANDRO HERRERA M.D., Resident Staff Physician- COLEEN FINNEY D.O., Radiologist Authenticated By- COLEEN FINNEY D.O., Radiologist -- RELEASED BY [id number] Accession Number: [id number] Ordering Physician: JUDY KAUR # SIGNED BY Judy Kaur MD (RKF) 05/04/2010 02:21PM PREPARATORY OPERATOR documented in this encounter Plan of Treatment Not on filedocumented as of this encounter Visit Diagnoses Not on filedocumented in this encounter
--- OUTSIDE RECORDS SUMMARY | 2019-09-30 16:20 | XMS REPORT | Encounter Summary ---
Author Author [facility] Address Unknown Phone Unavailable Care Team Providers Care Press Feeder Name Role Phone PCP Unavailable Encounter Details Care Team Description Date Type Department Jas Graham MD [address] [place] [address] [phone] 12/08/2009 PracPart Note [facility] ogy [address] [place] [address] Social History Date Tobacco Use Types Packs/Day Years Used Never Assessed Sex Assigned at Date Recorded Not on file Industry Job Start Date Occupation Not on file Not on file Not on file Travel End Travel History Travel Start No recent travel history available. documented as of this encounter Progress Notes * Jas Graham MD - 12/08/2009 10:03 AM CDT .D:10:10:03AM .T:SHAYNEC Rx CELINE Renee, with prescription solutions has taken the claim, and would submit an usman roval determination via fax to our office. SG From: Ida Hodge (BROOKE) Originated by: Ida Hodge (BROOKE) Sent: 12/07 at 03:41PM To: Thea Salmon (DAVID) Type: RX Priority: 3 Attachment: INVALID LINK:Ilia Maldonado [id number] .tif - [id number].tif|[id number]\\M:\\ppart\\Guero es\\LLVQ109\\[id number]\\JNMQ546\\YIVY798\\JLKH690\\JSRR609\\RZYT093\\WVGS332\\UHNL317\\LEVJ0 01\\DJUJ658\\IEWQ886\\PYVI943\\MSDD080\\FIGA090\\FOUJ287\\GEVP524\\POED619\\LMFF656\\LEVT1 75\\[id number].tif Subject: JEC Rx PA VIMPAT documented in this encounter Plan of Treatment Not on filedocumented as of this encounter Visit Diagnoses Not on filedocumented in this encounter"
--- OUTSIDE RECORDS SUMMARY | 2019-09-30 16:20 | XMS REPORT | Encounter Summary ---
Author Author [facility] Address Unknown Phone Unavailable Care Team Providers Care Concrete Laborer Name Role Phone PCP Unavailable Encounter Details Care Team Description Date Type Department Elayne Michael MD [address] [place] [address] [phone] 12/28/2009 PracPart Note [facility] Neurol ogy [address] [place] [address] Social History Date Tobacco Use Types Packs/Day Years Used Never Assessed Sex Assigned at Date Recorded Not on file Industry Job Start Date Occupation Not on file Not on file Not on file Travel End Travel History Travel Start No recent travel history available. documented as of this encounter Progress Notes * Elayne Michael MD - 12/28/2009 10:36 AM CDT .D:10:10:36AM .T:Message From: Marina Boggs () Originated by: Marina Boggs () Sent: 0 at 10:36AM To: Nikos Florian ([facility]) Type: Priority: 3 Subject: ok, that's what I thought. Thanks I will call her now- Original Message:Time 10:47 a.m. Marie Eddy called for an appt today. I did let nurse know, Dr. Flroian would like patient seen at the office on his next evaristo ilable day which is 01/17 at 3:30 p.m[address] on the pla. She will let family know t his appt day. sg 12-28-09 Time 11:[address] Florian ok to see patient on 12/30 at 9:30 [address] the plaza. Called Marina, to let her know which she will call the family. sg From: [facility] To: Subject: Priority: 3 Date: 12/28/2009 No, I said that he should make a f/u but nothing was said about today. Let's heber ng him in at my next f/u opening whenever that is. ThanksNikos Original Message: From: MINI To: MINA Subject: Priority: 3 Date: 12/28/2009 Pt called today stating the pt is in the hospital due to a seizure and that you had spoken with the sanitation manager dr about working him in today? Did you want him worked in today and if so what time? Let me know and I will call the [facility] at the hospital # -thanks CALL EVELYN @ [phone] documented in this encounter Plan of Treatment Not on filedocumented as of this encounter Visit Diagnoses Not on filedocumented in this encounter
--- OUTSIDE RECORDS SUMMARY | 2019-09-30 16:20 | XMS REPORT | Encounter Summary ---
Author Author [facility] Address Unknown Phone Unavailable Care Team Providers Care Food Or Baggage Handling Rampman Name Role Phone PCP Unavailable Encounter Details Care Team Description Date Type Department Nikos Florian MD [address] [place] [address] [phone] 01/20/2010 PracPart Note [facility] Neurol ogy [address] [place] [address] Social History Date Tobacco Use Types Packs/Day Years Used Never Assessed Sex Assigned at Date Recorded Not on file Industry Job Start Date Occupation Not on file Not on file Not on file Travel End Travel History Travel Start No recent travel history available. documented as of this encounter Progress Notes * Nikos Florian MD - 01/20/2010 9:20 AM CDT . :09:20AM .T:Had a petit mal From: Nikos Florian ([facility]) Originated by: Nikos Florian ([facility]) Sent: 01/20/2010 at 09:18AM To: Thea Salmon (DAVID) Type: CHART Priority: 3 Subject: Had a petit mal Let's leave things alone for now and see how he does as he recovers from the col dNikos Dial Original Message: Dr. Pinzon relayed to Mr. Maldonado From: To: [facility] Subject: Had a petit mal Priority: 3 [...] time, or have him see if PCP fir st? sg 12/30/09 Baldo Garces MD [address] [place] [address] RE: Ilia Maldonado : [address] [...] have loss of awareness and can have someassociated anxiety and fear that can last up [...] had no drift and no asterixis. His zsrqth-en-ahoa, gnla-rv-mgxa, and rap id alternating movements were intact. [...] Florian M.D., Ph.D. Director, Comprehensive Epilepsy Center [facility] Brain [facility] St[facility], [place] # SIGNED BY Nikos Florian MD Phd ([facility]) 12/30/2009 10:21AM documented in this encounter Plan of Treatment Not on filedocumented as of this encounter Visit Diagnoses Not on filedocumented in this encounter
--- OUTSIDE RECORDS SUMMARY | 2019-09-30 16:20 | XMS REPORT | Encounter Summary ---
Author Author [facility] Address Unknown Phone Unavailable Care Team Providers Care Rail Detector Car Operator Name Role Phone PCP Unavailable Encounter Details Care Team Description Date Type Department Nikos Florian MD [address] [facility] [address] [place] [address] [phone] 12/07/2009 Hist-Visit [facility] Social History Date Tobacco Use Types Packs/Day Years Used Never Assessed Sex Assigned at Date Recorded Not on file Industry Job Start Date Occupation Not on file Not on file Not on file Travel End Travel History Travel Start No recent travel history available. documented as of this encounter Progress Notes * Nikos Florian MD - 12/07/2009 3:07 PM CDT . : 03:07pm .T: Return Patient [facility], [facility] Rachel Corcoran M.D. [address] 20 [facility] Randy Corcoran M.D. [address] [place] [address] [place], [place] [address] [address] [place] [address] [place] [address] Candida Spencer M.D. Cammie Ross D.O. Elayne Michael M.D. Mae Calvert M.D. F ax: Jd Meehan D.O. Dudley Luna M.D. [facility] Ep[facility]psy Center Nikos Florian M.D., Ph.D. Jas Graham M.D. 12/07/09 Baldo Garces MD [facility] [place] [address] [place] [address] RE: Ilia Maldonado : [address] [...] approximately 2 or 3 times per month. After his first visit with nm on September 28, he underwent inpatient [facility] to characterize his seizures in better detail. In addition, because he wa s having some side effects to his regimen, I instituted a medication adjustment. We tapered him off of his anticonvulsant medication and captured several seizu res that appeared to have a possible left temporal focus. Unfortunately, he anita t into status epilepticus. He was admitted to our neuro- ICU for a few days. W e were able to control his seizures and he was discharged home. At discharge, w e were able to discontinue permanently the Depakote and the primidone. We added Vimpat instead. Since his hospitalization, he notes that he is much clearer in his thinking and less tired and these are improvements since he got off of the Depakote and primidone. His seizure frequency also seems better overall but he did have a mild complex partial seizure on November 09 and had a cluster of mild com plex partial seizures approximately 1 week ago. He is otherwise doing well and reports no other new symptoms and has completely recovered from his recent hospi talization. Allergies: No known drug allergies Medications: 1. Vimpat 100 mg p.o. b.i.d. 2. Lamictal 75 mg p.o. b.i.d. 3. Keppra 1500 mg p.o. b.i.d. He has not been able to tolerate higher doses in the past 4. Calcium with vitamin D 5. Aspirin 81 mg p.o. once daily 6. Protonic 40 mg p.o. once daily On examination, she was well-appearing and in no acute distress. Her speech was fluent and articulate. She was alert and able to relate reasonable details of h er interval medical history. Her pupils were equal round and reactive to light and her extraocular movements were full with no significant nystagmus. Her face moved symmetrically. Her palate elevated symmetrically and her tongue was midl ine. She had no drift and no asterixis. Her aikjjn-fc-axgc, tefs-ox-bfqa, and rapid alternating movements were intact. Her gait was normal and narrow based wi th an intact tandem gait. The majority of this 25 minute visit was spent counse ling the patient. 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 His seizures appear to have a left temporal focus that is seen in a fairly broad fashion as confirmed by video EEG monitoring. He is doing much better from a side effect standpoint now that he is off of Depakote and primidone. However, he continues to have some seizures. T herefore I recommended that he gradually increase his Vimpat to 150 mg p.o. b.i. d. If he continues to have seizures then I will gradually increase the Vimpat u p to 200 mg p.o. b.i.d. if he is able to tolerate this dose. At that point, if he continues to have seizures then I will try to increase the Lamictal further. He has never been on higher doses of Lamictal but was on Depakote in the past w hich does boost the Lamictal level. If these changes do not work, given that it appears that he has a focal onset to his seizures, we could then consider possi ble surgical resection. I would like to see him back in two months to see how aniceto moran is doing. In the meantime, if you have any questions or concerns, please do n ot hesitate to contact me. Sincerely, Nikos Florian M.D., Ph.D. Director, [facility] Brain and Stroke [place], [place] # SIGNED BY Nikos Florian MD Phd ([facility]) 12/07/2009 03:16PM documented in this encounter Plan of Treatment Not on filedocumented as of this encounter Visit Diagnoses Not on filedocumented in this encounter
--- OUTSIDE RECORDS SUMMARY | 2019-09-30 16:20 | XMS REPORT | Encounter Summary ---
Author Author [facility] Address Unknown Phone Unavailable Care Team Providers Care Package Delivery Driver Name Role Phone PCP Unavailable Encounter Details Care Team Description Date Type Department Jd Meehan DO [address] [place] [address] [phone] 12/03/2009 PracPart Note [facility] Neurol ogy [address] [place] [address] Social History Date Tobacco Use Types Packs/Day Years Used Never Assessed Sex Assigned at Date Recorded Not on file Industry Job Start Date Occupation Not on file Not on file Not on file Travel End Travel History Travel Start No recent travel history available. documented as of this encounter Progress Notes * Jd Meehan DO - 12/03/2009 10:15 AM CDT . :10:15AM .T:Message From: Thea Salmon () Originated by: Thea Salmon () Sent: 12/03/2009 at 10:14AM To: Thea Salmon ([facility]) Nikos Florian ([facility]) Type: CHART Priority: 3 Subject: Patient admitted to [facility] in [place] for seizures. Patient is s table and would be coming in for a follow-up appt on 12/07. Thank you, SG 09/28/09 Baldo Garces MD [address] [place] [address] RE: Ilia Maldonado : [address] Garces, Thank you for requesting me to see your patient, Ilia Maldonado, in our [facility] Epilepsy Center for consultation regarding his history of epilepsy. As you know, he is a 49-year-old right-handed man who has had a history of epilepsy sin ce 15 years of age but he does also have a history of febrile seizures. Over th e years, MRIs and EEGs have been done [...] of systems is otherwise per patient quest anastasiya placed in the office chart which I reviewed. Past medical history: None other than described above. Allergies: No known drug allergies Medications: 1. Keppra 1500 mg p.o. b.i.d. 2. Depakote 750 mg p.o. b.i.d. 3. Lamictal 75 mg p.o. b.i.d. 4. Primidone 50 mg p.o. t.i.d. Family history: There is no family history of seizures. Social history: He lives in [place], [place] with his . He does not smoke cigarettes, drink alcohol, or use illicit drugs. 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 Vvmcpg-vs-jyad, heel-to-s hin, and rapid alternating movements were [...] Florian M.D., Ph.D. Director, [facility] Brain and Stroke [place], [place] # SIGNED BY Nikos Florian MD Phd ([facility]) 09/28/2009 02:11PM documented in this encounter Plan of Treatment Not on filedocumented as of this encounter Visit Diagnoses Not on filedocumented in this encounter
--- OUTSIDE RECORDS SUMMARY | 2019-09-30 16:20 | XMS REPORT | Encounter Summary ---
Author Author [facility] Address Unknown Phone Unavailable Care Team Providers Care Enamel Drier Name Role Phone PCP Unavailable Encounter Details Care Team Description Date Type Department Elayne Michael MD [address] [place] [address] [phone] 12/28/2009 PracPart Note [facility] Neurol ogy [address] [place] [address] Social History Date Tobacco Use Types Packs/Day Years Used Never Assessed Sex Assigned at Date Recorded Not on file Industry Job Start Date Occupation Not on file Not on file Not on file Travel End Travel History Travel Start No recent travel history available. documented as of this encounter Progress Notes * Elayne Michael MD - 12/28/2009 9:39 AM CDT . :09:39AM .T:Message From: Marina Boggs () Originated by: Marina Boggs () Sent: 0 at 09:39AM To: Nikos Florian ([facility]) Type: Priority: 3 Subject: Pt called today stating the pt is in the hospital due to a seizure and that you had spoken with the front office coordinator dr about working him in today? Did you want him worked in today and if so what time? Let me know and I will call the [facility] # -thanks CALL EVELYN @ [phone] RM 480 documented in this encounter Plan of Treatment Not on filedocumented as of this encounter Visit Diagnoses Not on filedocumented in this encounter
--- OUTSIDE RECORDS SUMMARY | 2019-09-30 16:21 | XMS REPORT | Encounter Summary ---
Author Author [facility] Organization [facility] Address Unknown Phone Unavailable Care Team Providers Care Emt Name Role Phone PCP Unavailable Encounter Details Care Team Description Date Type Department 10/26/2009 [facility] Visit Social History Date Tobacco Use Types Packs/Day [...]
--- OUTSIDE RECORDS SUMMARY | 2019-09-30 16:21 | XMS REPORT | Encounter Summary ---
Author Author [facility] Organization [facility] Address Unknown Phone Unavailable Care Team Providers Care Special Inspector Name Role Phone PCP Unavailable Encounter Details Care Team Description Date Type Department Nikos Florian MD [address] [facility] [address] [place] [address] [phone] 09/28/2009 Hist-Visit [facility]IST [facility] Social History Date Tobacco Use Types Packs/Day Years Used Never Assessed Sex Assigned at Date Recorded Not on file Industry Job Start Date Occupation Not on file Not on file Not on file Travel End Travel History Travel Start No recent travel history available. documented as of this encounter Progress Notes * Nikos Florian MD - 09/28/2009 2:01 PM CDT . : 02:01pm .T: New Patient [facility], [facility] Rachel Corcoran M.D. [address] 20 [facility] Randy Corcoran M.D. [address] [place] [address] [place], [place] [address] [address] [place] [address] [place] [address] Candida Spencer M.D. Cammie Ross D.O. Elayne Michael M.D. Mae Calvert M.D. F ax: Jd Meehan D.O. Dudley Luna M.D. [facility] Epilepsy Center Nikos Florian M.D., Ph.D. Jas Graham M.D. . 09/28/09 Baldo Garces MD [address] [place] [address] RE: Ilia Maldonado : [address] Garces, Thank you for requesting me to see your patient, Ilia Maldonado, in our [facility] Epilepsy Center for consultation regarding his [...] of seizures. Social history: He lives in [place], [place] with his . He does not smoke cigarettes, drink alcohol, or use illicit drugs. 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 His visual graham were full to confrontation and his extraocular [...] intact to light touch and temperature throughout. Lxlhaq-cz-ndjy, heel-to-s hin, and rapid alternating movements were [...] to try to limit his side effect adina larkin. I will try to get him off [...] Florian M.D., Ph.D. Director, Comprehensive Ep[facility]psy [facility] Brain and Stroke [facility], [place] # SIGNED BY Nikos Florian MD Phd ([facility]) 09/28/2009 02:11PM documented in this encounter Plan of Treatment Not on filedocumented as of this encounter Visit Diagnoses Not on filedocumented in this encounter
--- OUTSIDE RECORDS SUMMARY | 2019-09-30 16:21 | XMS REPORT | Encounter Summary ---
Author Author [facility] Address Unknown Phone Unavailable Care Team Providers Care Dam Tender Assistant Name Role Phone PCP Unavailable Encounter Details Care Team Description Date Type Department [facility], Historical 09/28/2009 PracPart Note [facility] Social History Date Tobacco Use Types Packs/Day Years Used Never Assessed Sex Assigned at Date Recorded Not on file Industry Job Start Date Occupation Not on file Not on file Not on file Travel End Travel History Travel Start No recent travel history available. documented as of this encounter Progress Notes * [facility], Historical - 09/28/2009 11:58 AM CDT . 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 no where now was joints & eyes Staying the same or getting worse? Same What do you take for the pain? did nothing Skin-0 Eyes / Ears / Sinuses Loss of vision no Wear Glass yes reading Cataracts no Glaucoma no Lost hearing no Ringing in your ears no Sinus trouble yes Nosebleeds no Mouth / Neck Dental problems yes Wear Dentures no Swollen glands no Laryngitis no Hoarseness no Lungs-0 Heart / Blood Vessels -0 Gastrointestinal Loss appetite no Recent weight change no Excess saliva no Swallowing Problems no Heartburn yes under control Ulcer no Endoscopy no Nausea Vomiting no Vomiting Blood no Diarrhea no Upset Stomach no Constipation yes Black Bowel Movements no Bloody bowel movements no Yellow or jaundiced no Hepatitis no Gall bladder problems no Cirrhosis no Neurological and Spine Back Dominant Left Hand no Dominant Right Hand no Headaches no Seizure yes Double Vision no Blurred Vision no Weakness in extremity no Numbness no Stroke no Migraine headaches no Forgetfulness yes Confusion yes Arthritis no Back pain no broken bones no Swollen joints no Endocrine / Glands-0 Input flaker operator LM INVALID LINK:[id number]\Ilia Maldonado updated x [id number] INVALID LINK:[id number]\Ilia Maldonado updated x [id number] INVALID LINK:[id number]\Ilia Maldonado R x [id number] documented in this encounter Plan of Treatment Not on filedocumented as of this encounter Visit Diagnoses Not on filedocumented in this encounter
--- OUTSIDE RECORDS SUMMARY | 2019-09-30 16:21 | XMS REPORT | Encounter Summary ---
Author Author [facility] Organization [facility] Address Unknown Phone Unavailable Care Team Providers Care Sliver Cutter Name Role Phone PCP Unavailable Encounter Details Care Team Description Date Type Department [facility], Historical 09/28/2009 PracPart Note [facility] Social History Date Tobacco Use Types Packs/Day Years Used Never Assessed Sex Assigned at Date Recorded Not on file Industry Job Start Date Occupation Not on file Not on file Not on file Travel End Travel History Travel Start No recent travel history available. documented as of this encounter Progress Notes * [facility], Historical - 09/28/2009 12:02 PM CDT . 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 documented in this encounter Plan of Treatment Not on filedocumented as of this encounter Visit Diagnoses Not on filedocumented in this encounter
--- OUTSIDE RECORDS SUMMARY | 2019-09-30 16:21 | XMS REPORT | Encounter Summary ---
Author Author [facility] Address Unknown Phone Unavailable Care Team Providers Care Landscape Manager Name Role Phone PCP Unavailable Encounter Details Care Team Description Date Type Department Samson Florian MD [address] [facility] [address] [place] [address] [phone] Part epil w imp consc [facility] Social History Date Tobacco Use Types Packs/Day Years Used Never Assessed Sex Assigned at Date Recorded Not on file Industry Job Start Date Occupation Not on file Not on file Not on file Travel End Travel History Travel Start No recent travel history available. documented as of this encounter Discharge Summaries * Samson Florian MD - 06/14/2013 4:53 AM DEVELOPMENT EDUCATOR REPORT Name: CUAUHTEMOC MALDONADO MRN/Unit #: [id number] Attending Physician: SAMSON FLORIAN Date of : 1960 DATE OF ADMISSION: 10/21/2009 DATE OF DISCHARGE: 11/03/2009 DISCHARGE DIAGNOSIS: Partial onset intractable epilepsy. SECONDARY DIAGNOSES: 1. Status epilepticus. 2. Aspiration pneumonia. PROCEDURE PERFORMED: Continuous video EEG telemetry - CPT code 74495 - on 10/21/2009 through 11/03/2009. CONSULTS: 1. Pulmonary. 2. Cardiology. HISTORY: For complete details of the patient's history, please see the H&P dictated for this admission. In summary, Cuauhtemoc Maldonado is a 41-year-old right-handed man with a long history of refractory epilepsy. He was admitted for video EEG telemetry to try to localize his seizure focus and in the process try to simplify his anti-epileptic medication regimen as he had seen an improvement in his seizure frequency with the addition of Lamictal. However, he was also on Depakote and primidone and we hoped to work on getting him off of the Depakote and primidone to see if he could tolerate a higher dose of the Lamictal in the hopes that this would result in an improvement in his side effects without a sacrifice in his level of seizure control. HOSPITAL COURSE: Mr. Maldonado was maintained with continuous video EEG telemetry throughout his stay. We initially tapered his anticonvulsants gradually over a period of days without any symptoms of seizure initially. He did not experience any auras, complex partial seizures or convulsions and interictally his EEGs showed no epileptiform abnormality. On October 25, the patient experienced six generalized tonic-clonic seizures over a 1-1/2 hour period. These seizures lasted 1 to 2 minutes each, but the patient did not regain baseline in between the seizures. He was given 4 mg of Ativan and his oxygen desaturated, so he was intubated and transferred to medical intensive care. Keppra 1500 mg b.i.d. was restarted and Vimpat 100 mg b.i.d. was restarted and Vimpat 100 mg b.i.d. was added for seizure control. He did develop pneumonia thought likely secondary to aspiration which occurred during the repetitive seizures. He was followed by Pulmonary, who treated him with vancomycin and a course of Augmentin. He additionally was treated with steroids, aerosol treatments and a Combivent inhaler which was discontinued because it was thought to be contributing to throat pain after extubation. Cardiology was consulted to evaluate the patient for elevated troponins and tachycardia. He had a cardiac echo and EKG. The echo was normal with an EF of 55%. EKG showed sinus tachycardia. There was no evidence of acute coronary syndrome and it was felt that his elevated troponins were likely related to demand ischemia in the face of recurrent seizures, hypoxia and tachycardia. The troponins were improved upon recheck and Cardiology recommended myocardial perfusion imaging as an outpatient and in the meantime continue aspirin and metoprolol until this outpatient evaluation. A CT angio of the chest was completed and found to be negative for pulmonary embolism. With regard to seizures, since the initial cluster of 6 seizures that resulted in the ICU admission, the patient had only 2 brief mild complex partial seizures on 10/29/2009. At this point we added Lamictal 75 mg b.i.d. which he had been on as an outpatient and since that time he has had no further auras, complex partial seizures or generalized tonic-clonic seizures. He has been tolerating these seizure medications without complaints of side effects and states that on this current regimen he and his both notice that he feels much brighter and his thinking is clear and his speech is clearer and quicker than on his previous outpatient regimen. We did discuss the findings of video EEG and per Dr. Florian's review, all of these seizures demonstrated the earliest electrographic changes over the left temporal region, seen in a relatively broad fashion. We will plan to continue the patient on his current dosage of Keppra 1500 mg p.o. b.i.d., Vimpat 100 mg p.o. b.i.d. and Lamictal 75 mg p.o. b.i.d. Additionally we will give the patient a prescription for lorazepam p.o. and Diastat rectal suppository that they can use in the event of a seizure emergency at home. We did discuss at length the emergency plan and they understand and agree with this plan. With regard to his pulmonary status, he has completed the course of antibiotics. He will continue a steroid taper as directed. He did have some bronchiolitic changes on his chest x-ray and Pulmonary would like for him to follow up with them in 6 weeks for a repeat followup CT scan. He did have a nocturnal oxygenation study overnight which was reviewed by Dr. Ramos. There was no evidence that the patient needed supplemental oxygen. With regard to his cardiovascular status, Cardiology did recommend that he follow up with them and they would recommend an MPI as an outpatient. DIET: As tolerated, Simply Healthy. ACTIVITY: As tolerated with seizure precautions to include no driving as per [place] and [facility] law. The patient understands he is not able to drive until he has been without seizures for a period of 6 months or greater. DISPOSITION: Home with outpatient physical therapy for strengthening. DISCHARGE CONDITION: Good. MEDICATIONS: 1. Aspirin 81 mg p.o. daily. 2. Calcium with D one p.o. daily. 3. Vimpat 100 mg p.o. b.i.d. 4. Lamictal 75 mg p.o. b.i.d. 5. Keppra 1500 mg p.o. b.i.d. 6. Lopressor 12.5 mg p.o. b.i.d. 7. Protonix 40 mg p.o. daily. 8. Prednisone 40 mg p.o. x1 more day, then 30 mg p.o. daily x3 days, then 20 mg p.o. daily x2 days, then 10 mg x1 day, then discontinue. 9. Calcium carbonate, Tums chews as needed. 10. Lorazepam 1 mg p.o. as needed for seizures. 11. Diastat rectal gel, 20 mg p.r. p.r.n. repetitive seizures. FOLLOWUP: The patient will follow up with Dr. Florian in 2 months, p.r.n. sooner, and will call [phone] to arrange for an appointment. He will follow up with Dr. Carolynn Ramos of [facility] in 6 weeks and will call for an appointment at [phone]. Additionally, we will make a followup appointment with Cardiology as an outpatient for MPI testing. Samson Florian MD Dictated By: Andreea Bosch OPERATIONS SCHEDULER-BC cc: Alexus King M.D. LOPMENT EDUCATOR documented in this encounter H&P Notes * Samson Florian MD - 06/14/2013 5:00 AM DEVELOPMENT EDUCATOR REPORT Name: CUAUHTEMOC MALDONADO MRN/Unit #: [id number] Attending Physician: SAMSON FLORIAN Date of : 1960 DATE OF ADMISSION: 10/21/2009 HISTORY OF PRESENT ILLNESS: Cuauhtemoc Maldonado is a 49-year-old right-handed man who has had a history of epilepsy since 15 years of age. He also has a history of febrile seizures when he was a child. Over the years, his workup has included MRIs and EEGs of the brain. He thinks that these have been unremarkable. His seizures typically can be triggered by certain visual stimuli particularly of the color purple. He will then stare off and have a visual hallucination where he will see some pages from a nursery rhyme book that he read when he was a child. This lasts just a few seconds. He can then have some loss of awareness and can have some associated anxiety and fear. These symptoms can last for up to one day afterwards. In the past, these episodes could occur 2 or 3 times per month. More recently, Lamictal has been added to his regimen and these episodes have improved. However, he then went on to have 4 generalized tonic-clonic seizures in one day in July. These were the first generalized tonic-clonic seizures that he has had since 2002. REVIEW OF SYSTEMS: On review of systems, he reports that he has a tremor that appears to be due to the Depakote. He also has some insomnia. His review of systems is otherwise unremarkable. PAST MEDICAL HISTORY: None other than described above. ALLERGIES: NO KNOWN DRUG ALLERGIES. MEDICATIONS: 1. Keppra 1500 mg p.o. b.i.d. 2. Depakote 750 mg p.o. b.i.d. 3. Lamictal 75 mg p.o. b.i.d. 4. Primidone 50 mg p.o. t.i.d. In the past, he has tried Dilantin and Tegretol. FAMILY HISTORY: There is no family history of epilepsy. SOCIAL HISTORY: He lives in [place], [place] with his . He does not smoke cigarettes, drink alcohol, or use illicit drugs. 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 PHYSICAL EXAMINATION: On examination, he was well-appearing and in no acute distress. His temperature was 97.7 with a pulse of 73 beats per minute and respiratory rate of 18 breaths per minute. His blood pressure was 121/82. His oxygen saturation was 94% on room air. His lungs were clear bilaterally and his heart demonstrated a regular rhythm without murmurs. On neurological examination, his speech was fluent and articulate. He was alert and oriented and was able to give good details of his medical history. His pupils were equal, round, and reactive to light. His visual mccoy were full to confrontation and his extraocular movements were full with no nystagmus. His face moved symmetrically and his facial sensation was intact to light touch. His palate elevated symmetrically and his tongue was midline. He had no drift and no asterixis but he did have a prominent postural tremor present. He had full strength throughout. His sensation was intact to light touch and temperature throughout. His grxybq-ga-vaib, twus-vf-txfv, and rapid alternating movements were intact. His reflexes were 1 to 2+ and symmetrical with downgoing toes bilaterally. His gait was normal and narrow based with intact tandem gait. IN SUMMARY: In summary, Cuauhtemoc Maldonado is a 41-year-old right-handed man with a long history of refractory epilepsy. Since the addition of Lamictal, there has been an improvement in his seizure frequency but he did have 4 generalized tonic-clonic seizures in a single day in July which is the first generalized tonic-clonic seizures that he has had since 2002. In addition, his anticonvulsant regimen has resulted in some side effects. He is being admitted for inpatient video EEG monitoring in order to characterize his epilepsy in better detail in order to clarify what his options might be for treatment in the future including possible surgical options. In addition, we will work on trying to get him off of the Depakote and primidone to see if he could then tolerate a higher dose of Lamictal. It is my hope that this would result in an improvement in his side effects without a sacrifice in his level of seizure control. He will be monitored with full seizure precautions and IV access will be obtained in the event that rescue medication needs to be given. Samson Florian MD Dictated By: cc: LOPMENT EDUCATOR documented in this encounter Procedure Notes * Samson Florian MD - 06/14/2013 5:00 AM DEVELOPMENT EDUCATOR Associated Order(s): EEG ROUTINE (UP TO 40 MIN) REPORT Name: CUAUHTEMOC MALDONADO [facility] #: [id number] MRN/Unit #: [id number] Attending Physician: SAMSON FLORIAN Date of : 1960 AGE: 49Y DATE OF ADMISSION: 10/21/2009 EEG NUMBER: [id number] DATE OF STUDY: 10/21/2009. OBJECT: Evaluate for epilepsy using 19-channel continuous video EEG monitoring. FINDINGS: The background consisted of a normal symmetric posterior predominant alpha frequency rhythm seen symmetrically during wakefulness. There was progression into sleep with normal symmetric sleep morphologies. 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 PUSH BUTTON EVENTS: There were no push button events recorded. IMPRESSION: This video EEG telemetry was recorded for approximately 13 hours and captured no push button events and no electrographic seizures. There were no clear focal or epileptiform features seen. Samson Florian MD Dictated By: cc: LOPMENT EDUCATOR * Samson Florian MD - 06/14/2013 4:59 AM DEVELOPMENT EDUCATOR Associated Order(s): EEG ROUTINE (UP TO 40 MIN) REPORT Name: CUAUHTEMOC MALDONADO MRN/Unit #: [id number] Attending Physician: SAMSON FLORIAN Date of : 1960 AGE: 49Y DATE OF ADMISSION: 10/21/2009 VIDEO ELECTROENCEPHALOGRAM REPORT EEG #: [id number] DATE OF THE STUDY October 22, 2009 OBJECT Evaluate for epilepsy using 19-channel continuous video EEG monitoring. FINDINGS The background consisted of a normal symmetric posterior predominant alpha frequency rhythm seen symmetrically during wakefulness. There was progression into sleep with normal symmetric sleep morphology. 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 PUSH BUTTON EVENTS: There were no push button events recorded. IMPRESSION This 24-hour video EEG telemetry captured no push button events and no electrographic seizures. There were no clear focal or epileptiform features seen. Samson Florian MD Dictated By: cc: LOPMENT EDUCATOR * Samson Florian MD - 06/14/2013 4:59 AM DEVELOPMENT EDUCATOR Associated Order(s): EEG ROUTINE (UP TO 40 MIN) REPORT Name: CUAUHTEMOC MALDONADO MRN/Unit #: [id number] Attending Physician: SAMSON FLORIAN Date of : 1960 AGE: 49Y DATE OF ADMISSION: 10/21/2009 VIDEO ELECTROENCEPHALOGRAM REPORT EEG #: [id number] DATE OF THE STUDY October 23, 2009 OBJECT Evaluate for epilepsy using 19-channel continuous video EEG monitoring. FINDINGS The background consisted of a normal symmetric posterior predominant alpha frequency rhythm seen symmetrically during wakefulness. There was progression into sleep with normal symmetric sleep morphologies. 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 PUSH BUTTON EVENTS: There was one push button event recorded at approximately 6:30 p.m. The patient could be heard talking to his that he felt strange. The nurse came in to check on him. There was no clear clinical behavioral change noted and the patient could be heard talking to the nurse and stating that he felt somewhat shaky and a little nervous. He specifically states that this is not his typical aura. There were no clear electrographic changes seen with this push button event. IMPRESSION This 24-hour video EEG telemetry captured one push button event for a sensation where the patient felt somewhat nervous and tremulous. There was no obvious outward clinical behavioral change noted with this push button event and the patient specifically states on video with that this is not his typical aura. This appeared to be nonepileptic in nature given that there were no changes seen on the EEG. Interictally, there were no clear focal or epileptiform features seen. Samson Florian MD Dictated By: cc: LOPMENT EDUCATOR * Samson Florian MD - 06/14/2013 4:59 AM DEVELOPMENT EDUCATOR Associated Order(s): EEG ROUTINE (UP TO 40 MIN) REPORT Name: CUAUHTEMOC MALDONADO MRN/Unit #: [id number] Attending Physician: SAMSON FLORIAN Date of : 1960 AGE: 49Y DATE OF ADMISSION: 10/21/2009 PROCEDURE: Video EEG. EEG NUMBER: [id number] DATE OF STUDY: 10/24/2009 OBJECT: Evaluate for epilepsy using 19-channel continuous video EEG monitoring. FINDINGS: The background consisted of a normal, symmetric, posterior predominant, alpha frequency rhythm seen symmetrically during wakefulness. There was progression into sleep with normal symmetric sleep morphologies. 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 Push-button events: There were no push-button events recorded. IMPRESSION: This 24-hour video EEG telemetry captured no push-button events and no electrographic seizures. There were no clear focal or epileptiform features seen. Samson Florian MD Dictated By: cc: LOPMENT EDUCATOR * Samson Florian MD - 06/14/2013 4:58 AM DEVELOPMENT EDUCATOR Associated Order(s): EEG ROUTINE (UP TO 40 MIN) REPORT Name: CUAUHTEMOC MALDONADO MRN/Unit #: [id number] Attending Physician: SAMSON FLORIAN Date of : 1960 AGE: 49Y DATE OF ADMISSION: 10/21/2009 PROCEDURE PERFORMED: Video EEG number [id number] DATE OF STUDY: 10/25/2009 OBJECT: Evaluate for epilepsy using 19-channel continuous video EEG monitoring. FINDINGS: The background consisted of a normal symmetric posterior predominant alpha frequency rhythm seen symmetrically during wakefulness. There was progression into sleep with normal symmetric sleep morphologies. 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 PUSHBUTTON EVENTS: There were a total of 5 electrographic seizures recorded over the course of 2 hours in the early evening. All of these seizures demonstrated the earliest electrographic changes over the left temporal region seen in a relatively broad fashion. This consisted of high-voltage semi rhythmic theta frequency slowing. The patient would then demonstrate head deviation towards the right. There would then be some low amplitude clonic movements particularly of the arms. The EEG would generally show high-voltage rhythmic slowing in a fairly generalized fashion, but this was typically most prominent over the left hemisphere. At the cessation of the seizure, generalized delta frequency slowing could be seen afterwards. With the fourth and fifth seizure recorded, these were longer in duration than the early seizures which lasted no more than 1 minute. The last 2 seizures lasted several minutes. IMPRESSION: This 24-hour video EEG telemetry captured 5 electrographic seizures as described above. These seizures appeared to have a left temporal onset. There was evidence for status epilepticus during this recording given that the patient's seizures became progressively longer and he had 5 electrographic seizures within a 2 hour period with no clear return to his baseline during the seizures. The medical team was aware of these findings at the time that they occurred. Samson Florian MD Dictated By: cc: LOPMENT EDUCATOR * Samson Florian MD - 06/14/2013 4:57 AM DEVELOPMENT EDUCATOR Associated Order(s): EEG ROUTINE (UP TO 40 MIN) REPORT Name: CUAUHTEMOC MALDONADO MRN/Unit #: [id number] Attending Physician: SAMSON FLORIAN Date of : 1960 AGE: 49Y DATE OF ADMISSION: 10/21/2009 EEG #: [id number]. DATE OF STUDY: 10/26/2009. OBJECT: Evaluate for epilepsy using 19-channel continuous video EEG monitoring. FINDINGS: The background consisted typically of a low voltage fast frequency rhythm with generalized delta frequency slowing seen. There were no clear wake or sleep stages observed. 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 PUSH BUTTON EVENTS: There were no push button events recorded. IMPRESSION: This video EEG telemetry was recorded for approximately 24 hours and captured no push button events and no electrographic seizures. The background was slow with no evidence for wake or sleep stages with superimposed fast frequency activity. This indicates widespread cortical dysfunction as can be seen with encephalopathy. The fast activity indicates that at least part of this effect is due to medication effect and is consistent with the patient's history of being sedated in the intensive care unit. There were no clear focal or epileptiform features seen. Samson Florian MD Dictated By: cc: LOPMENT EDUCATOR * Samson Florian MD - 06/14/2013 4:57 AM DEVELOPMENT EDUCATOR Associated Order(s): EEG ROUTINE (UP TO 40 MIN) REPORT Name: CUAUHTEMOC MALDONADO MRN/Unit #: [id number] Attending Physician: SAMSON FLORIAN Date of : 1960 AGE: 49Y DATE OF ADMISSION: 10/21/2009 PROCEDURE PERFORMED: Video EEG number [id number]. DATE OF STUDY: 10/27/2009 OBJECT: Evaluate for epilepsy and subclinical seizure activity using 19-channel continuous video EEG monitoring. FINDINGS: The background consisted of a fast frequency rhythm with superimposed mixed theta and delta frequency slowing. There were no discernible wake or sleep transitions seen during this recording. 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 PUSHBUTTON EVENTS: There were no pushbutton events recorded. IMPRESSION: This 24-hour video EEG telemetry captured no pushbutton events and no electrographic seizures. The background frequency consisted of admixed fast frequency activity with theta and delta frequency slowing. This indicates widespread cortical dysfunction as can be seen with an encephalopathy. Due to the presence of the fast frequency activity, this suggests that at least part of this encephalopathy is due to a medication effect. There was no evidence for status epilepticus during this recording period. Samson Florian MD Dictated By: cc: LOPMENT EDUCATOR * Samson Florian MD - 06/14/2013 4:56 AM DEVELOPMENT EDUCATOR Associated Order(s): EEG ROUTINE (UP TO 40 MIN) REPORT Name: CUAUHTEMOC MALDONADO MRN/Unit #: [id number] Attending Physician: SAMSON FLORIAN Date of : 1960 AGE: 49Y DATE OF ADMISSION: 10/21/2009 PROCEDURE: Video EEG. EEG NUMBER: [id number] DATE OF STUDY: 10/28/2009 OBJECT: Evaluate for epilepsy using 19-channel continuous video EEG monitoring. FINDINGS: The background consisted of a theta frequency rhythm seen symmetrically. As the day progressed, there was more alpha frequency rhythm seen. There were wake and sleep transitions noted. 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 Push-button events: There were no push-button events recorded. IMPRESSION: This 24-hour video EEG telemetry captured no push-button events and no electrographic seizures. The background was mildly slow, particularly in the early stages of this recording, but there was some improvement as the day progressed. This indicates widespread cortical dysfunction as can be seen with an encephalopathy. There appeared to be some improvement as the day progressed and this is consistent with the patient's history that his sedation was decreased. Samson Florian MD Dictated By: cc: LOPMENT EDUCATOR * Samson Florian MD - 06/14/2013 4:56 AM DEVELOPMENT EDUCATOR Associated Order(s): EEG ROUTINE (UP TO 40 MIN) REPORT Name: CUAUHTEMOC MALDONADO MRN/Unit #: [id number] Attending Physician: SAMSON FLORIAN Date of : 1960 AGE: 49Y DATE OF ADMISSION: 10/21/2009 DATE OF STUDY: 10/29/2009 TYPE OF EEG: Video EEG. EEG #: [id number] INTERPRETING DOCTOR: Dr. Samson Florian OBJECTIVE: Evaluate for epilepsy using 19-channel continuous video EEG monitoring. FINDINGS: BACKGROUND: The background consisted of a normal symmetric posterior predominant alpha frequency rhythm seen symmetrically during wakefulness. There was progression to sleep with normal symmetric sleep morphologies. 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 PUSHBUTTON EVENTS: There were 2 pushbutton events recorded in the early afternoon. Both of these captured very brief and mild complex partial seizures. One of the pushbutton events, the patient had some mild head deviation towards the right. The other pushbutton event, the patient seemed to have some confusion and was not able to converse with his normally. These episodes lasted approximately 20 seconds. There was some buildup of disorganized high voltage theta frequency rhythm that was somewhat sharp in appearance, seen primarily over the left temporal region but was seen fairly broadly over all of the electrodes. IMPRESSION: This is 24-hour video EEG telemetry captured 2 mild complex partial seizures that appeared to have a left temporal onset, but the electrographic changes were somewhat broad, so this localization is not definitive. Interictally, there were no clear focal or epileptiform features seen. Samson Florian MD Dictated By: cc: LOPMENT EDUCATOR * Samson Florian MD - 06/14/2013 4:56 AM DEVELOPMENT EDUCATOR Associated Order(s): EEG ROUTINE (UP TO 40 MIN) REPORT Name: CUAUHTEMOC MALDONADO MRN/Unit #: [id number] Attending Physician: SAMSON FLORIAN Date of : 1960 AGE: 49Y DATE OF ADMISSION: 10/21/2009 VIDEO ELECTROENCEPHALOGRAM EEG #: [id number] DATE OF STUDY: 10/30/2009 OBJECTIVE: Evaluate for epilepsy using 19-channel continuous video EEG monitoring. FINDINGS: The background consisted of a normal symmetric posterior predominant alpha frequency rhythm seen symmetrically during wakefulness. There was progression into sleep with normal symmetric sleep morphologies. 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 PUSHBUTTON EVENTS: There were two accidental pushbutton events recorded that were not associated with any clinical behavioral change or any electrographic changes. IMPRESSION: This 24-hour video EEG telemetry captured two accidental pushbutton events but there were no electrographic seizures recorded. Interictally, there were no clear focal or epileptiform features seen. Samson Florian MD Dictated By: cc: LOPMENT EDUCATOR * Samson Florian MD - 06/14/2013 4:55 AM DEVELOPMENT EDUCATOR Associated Order(s): EEG ROUTINE (UP TO 40 MIN) REPORT Name: CUAUHTEMOC MALDONADO [facility] #: [id number] MRN/Unit #: [id number] Attending Physician: SAMSON FLORIAN Date of : 1960 AGE: 49Y DATE OF ADMISSION: 10/21/2009 EEG #: [id number] DATE OF STUDY: 10/31/2009 OBJECT: Evaluate for epilepsy using 19 channel continuous video EEG monitoring. FINDINGS: The background consisted of a normal symmetric posterior predominant, alpha frequency rhythm seen symmetrically during wakefulness. There was progression into sleep with normal symmetric sleep morphologies. 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 PUSH-BUTTON EVENTS: There were two push-button events recorded but these appear to be accidental with no clear electrocardiographic or clinical behavioral changes noted. . IMPRESSION: This 24 hour video electroencephalographic telemetry captured two accidental push-button events that were not associated any electrocardiographic or clinical behavioral changes. Interictally, there were no clear focal or epileptiform features seen. Samson Florian MD cc: LOPMENT EDUCATOR * Samson Florian MD - 06/14/2013 4:54 AM DEVELOPMENT EDUCATOR Associated Order(s): EEG ROUTINE (UP TO 40 MIN) REPORT Name: CUAUHTEMOC MALDONADO #: [id number] MRN/Unit #: [id number] Attending Physician: SAMSON FLORIAN Date of : 1960 AGE: 49Y DATE OF ADMISSION: 10/21/2009 EEG NUMBER: [id number] DATE OF STUDY: 11/01/2009 OBJECT: Evaluate for epilepsy using 19-channel continuous video EEG monitoring. FINDINGS: The background consisted of a normal, symmetric, posterior predominant, alpha frequency rhythm seem symmetrically during wakefulness. There was progression into sleep with normal symmetric sleep morphologies. 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 Push-button events: There were no push-button events recorded. IMPRESSION: This 24-hour video EEG telemetry captured no push-button events and no electrographic seizures. There were no clear focal or epileptiform features seen. Samson Florian MD Dictated By: cc: LOPMENT EDUCATOR * Samson Florian MD - 06/14/2013 4:54 AM DEVELOPMENT EDUCATOR Associated Order(s): EEG ROUTINE (UP TO 40 MIN) REPORT Name: CUAUHTEMOC MALDONADO MRN/Unit #: [id number] Attending Physician: SAMSON FLORIAN Date of : 1960 AGE: 49Y DATE OF ADMISSION: 10/21/2009 EEG NUMBER: [id number] DATE OF STUDY: 11/02/2009 OBJECT: Evaluate for epilepsy using 19-channel continuous video EEG monitoring. FINDINGS: The background consisted of a normal, symmetric, posterior predominant, alpha frequency rhythm seem symmetrically during wakefulness. There was some progression into sleep with normal symmetric sleep morphologies. 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 Push-button events: There were no push-button events recorded. IMPRESSION: This 24-hour video EEG telemetry captured no push-button events and no electrographic seizures. There were no clear focal or epileptiform features seen. Samson Florian MD Dictated By: cc: LOPMENT EDUCATOR * Samson Florian MD - 06/14/2013 4:53 AM DEVELOPMENT EDUCATOR Associated Order(s): EEG ROUTINE (UP TO 40 MIN) REPORT Name: CUAUHTEMOC MALDONADO MRN/Unit #: [id number] Attending Physician: SAMSON FLORIAN Date of : 1960 AGE: 49Y DATE OF ADMISSION: 10/21/2009 DATE OF STUDY: 11/03/2009 EEG#: [id number] OBJECT: Evaluate for epilepsy and subclinical seizure activity using 19 channel continuous video EEG monitoring. FINDINGS: The background consisted of a normal symmetric posterior predominant alpha frequency rhythm seen symmetrically during wakefulness. There was progression into sleep with normal symmetric sleep morphologies. 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 PUSH-BUTTON EVENTS: There were 2 accidental push-button events recorded within 1 minute of each other. There were no electrographic or clinical behavioral changes noted with these push-button events. IMPRESSION: This video EEG telemetry was recorded for nearly 15 hours and captured 2 accidental push-button events that were not associated with any clinical behavioral or electrographic changes. Interictally, there were no clear focal or epileptiform features seen. Samson Florian MD Dictated By: cc: LOPMENT EDUCATOR documented in this encounter Consult Notes * Boom Jones MD - 06/14/2013 4:58 AM DEVELOPMENT EDUCATOR REPORT Name: CUAUHTEMOC MALDONADO MRN/Unit #: [id number] Attending Physician: SAMSON FLORIAN Consulting Physician: Boom Jones MD Date of : 1960 DATE OF CONSULTATION: REQUESTING PHYSICIAN: Samson Florian MD TYPE OF REPORT: Stat pulmonary consult. REASON FOR CONSULTATION: Hypoxia, respiratory failure, ventilator management. HISTORY OF PRESENT ILLNESS: Mr. Maldonado is a 49-year-old right-handed gentleman with a long history of refractory epilepsy diagnosed 14 years ago. The patient usually gets generalized tonic-clonic convulsions precipitated by visual stimulations. The patient had recent breakthrough seizure control and admitted by Dr. Florian (neurologist) for inpatient video electroencephalogram to adjust seizure medications. He apparently developed some side effects secondary to seizure medications. The patient was admitted to the hospital on 10/21 for inpatient video electroencephalogram and to observe his seizure and gradually seizure medications started to taper down until today when he was off all of his seizure medications. Around 1700, he developed generalized tonic-clonic convulsions followed by the presence of 7 to 8 seizures without regaining consciousness in between. The patient has received a couple milligrams of Ativan and was unable to maintain his airway. The patient's oxygen saturations started to drop (oxygen saturation in the 80s). Rapid response team called and the patient was intubated for airway protection and was transferred to the intensive care unit. PAST MEDICAL HISTORY: Seizure. PAST SURGICAL HISTORY: None. MEDICATIONS: 1. Keppra. At home, he was on Keppra 1500 mg p.o. b.i.d. 2. Depakote 50 mg p.o. b.i.d. 3. Lamictal 75 mg p.o. b.i.d. 4. Primidone 50 mg p.o. t.i.d. FAMILY HISTORY: No family history of seizure. SOCIAL HISTORY: The patient lives in [place]. No smoking, alcohol, or drug abuse. REVIEW OF SYSTEMS: A 10-point review of systems was negative at the time of admission. PHYSICAL EXAMINATION: GENERAL: The patient is currently intubated and sedated, arousable to stimulation. VITAL SIGNS: Stable. Temperature 97, respiratory rate 14, blood pressure 130/80, heart rate 100, oxygen saturation 100% on FIO2 of 80. PEEP of 8, tidal volume of 600. CARDIOVASCULAR: S1, S2. No S3, S4, or murmur. CHEST: Equal bilateral air entry. No crepitation. No wheeze. ABDOMEN: Soft and laxed. Positive bowel sounds. No organomegaly. No superficial or deep tenderness. LOWER LIMBS: Palpable pulses bilaterally. NEUROLOGIC: The patient is currently sedated. LABORATORY/PERTINENT DATA: Arterial blood gases pre intubation on nonrebreather showed pH of 7.11, pCO2 of 49, pO2 of 69. Arterial blood gases post intubation showed pH of 7.3, pCO2 of 48, and pO2 of 231 on FIO2 of 100 and tidal volume 600. Chest x-ray post intubation was negative for infiltrate. Endotracheal tube is 2 cm above the husam. ASSESSMENT/PLAN: A 49-year-old gentleman with a history of seizure status post status epilepticus. 1. Respiratory failure secondary to status epilepticus/intubated to maintain airway protection. We will plan to keep the patient on CMV mode, tidal volume 6 to 8 mL/kg, rate of 12 to 14 per minute, PEEP of 5, FIO2 of 100%, and try to decrease it to keep oxygen saturations more than 94%. We will keep the patient on propofol for sedation, target of 0 to 2 with fentanyl for analgesia. We will continue the patient on Keppra to control seizure. We will plan for a.m. arterial blood gases and chest x-ray and likely extubation tomorrow. 2. Status epilepticus. Management by primary team. Boom Jones MD Dictated By: Mattie Sanchez MD cc: LOPMENT EDUCATOR * Kale Riley MD - 06/14/2013 4:58 AM DEVELOPMENT EDUCATOR REPORT Name: CUAUHTEMOC MALDONADO [facility] #: [id number] MRN/Unit #: [id number] Attending Physician: SAMSON FLORIAN Consulting Physician: Kale Riley MD Date of : 1960 DATE OF CONSULTATION: 10/26/2009 REQUESTING PHYSICIAN: Dr. Norris Cook REASON FOR CONSULTATION: Tachycardia and elevated troponins. HISTORY OF PRESENT ILLNESS: Mr. Maldonado is a 49-year-old male with a lifelong history of epilepsy, who was admitted to the hospital on October 21 for EEG monitoring due to breakthrough seizures. Initially, he had no seizure activity during this monitoring. Eventually, his antiepileptic medications were stopped so that these seizures could be better characterized. Yesterday, his first day off all antiepileptic medications, he began having multiple seizures with minimal recovery in between. Per notes, he had approximately 6 seizures in a matter of 1-1/2 hours. He did receive 4 mg of Ativan for these seizures and then became hypoxic. He was eventually intubated for hypoxic respiratory failure and airway protection. Since his arrival in the Medical Intensive Care Unit, he has had tachycardia noted to the 140's. Additionally, troponins that were checked showed mild elevation. He has received a large amount of fluids due to presumed hypovolemia and continues to have heart rates in the low 100's. He did receive a one time dose of metoprolol 5 mg early this morning for his tachycardia. The patient is currently intubated and sedated. His is here with him, who denies any history of anginal type chest pain, dyspnea with routine activities, or other concerns outside of general fatigue, associated with his antiepileptic medications. He does also have a history of seizures as mentioned above. PAST MEDICAL/SURGICAL HISTORY: Epilepsy. CARDIOVASCULAR HISTORY: None. SOCIAL HISTORY: The patient is and lives in [place], [place] with his . He is a lifelong nonsmoker and does not use significant amounts of alcohol and has never been a substance abuser. FAMILY HISTORY: The patient's mother has had open heart surgery, reportedly having a valve replacement in her 70's. The patient's father from a stroke at the age of 78. There is no known family history of premature coronary disease. REVIEW OF SYSTEMS: Unobtainable. ALLERGIES: THE PATIENT HAS NO KNOWN DRUG ALLERGIES. MEDICATIONS: 1. NovoLog sliding scale insulin. 2. Propofol drip. 3. Os-Tony 500 +D, one tablet daily. 4. Keppra 1500 mg twice daily (has not been started yet). 5. Electrolyte replacement protocol. PHYSICAL EXAMINATION: GENERAL: The patient is currently intubated and sedated. VITAL SIGNS: Maximum temperature overnight was 101.6. This is also his current temperature. Heart rate is currently 115, but has gone as high as mid 140's. Respiratory rate in the mid 20's. Blood pressure is 107/74. Oxygen saturation is 95% on 50% FIO2 on the ventilator. He has a PEEP of 5. HEENT: Pupils are equal. Sclerae nonicteric. Nasal and oral mucosal membranes are pink and moist. NECK: Supple and soft with no jugular venous distention, thyromegaly or lymphadenopathy. HEART: Tachycardic with a regular rhythm and no murmurs appreciated. LUNGS: Noted to have bilateral rhonchi that clear with suctioning. ABDOMEN: Soft and with hypoactive bowel sounds. EXTREMITIES: Warm and well-perfused. No clubbing, cyanosis or edema is noted. The patient is noted to have 2+ pulses in all extremities. NEUROLOGIC: The patient is currently sedated. LABORATORY AND RADIOLOGY: EKG shows sinus tachycardia with possible evidence of right string pattern. Chest x-ray shows minimal bilateral interstitial opacities. INR is 1. Troponin is currently 0.25, up from 0.06 on initial check. CB-MB is 17.6, up from 8.4 on initial check. Total CK is 4664. Sodium is 140, potassium 4.5, chloride 104, CO2 26, BUN 28, creatinine 1.7, glucose 123, calcium 8.3 with an ionized calcium of 4.2 and magnesium of 1.9. White blood cell count is 9.77 with hemoglobin of 16.8, down from 19.1 on admission last night. His platelet count is 155. Lactate from last evening is 4. Current arterial blood gas shows pH of 7.35, with pCO2 of 43 and pO2 of 78. ASSESSMENT AND PLAN: 1. Elevated troponins. Nothing to show evidence of an acute coronary syndrome. This is likely secondary to demand ischemia in light of the patient's tachycardia and hypoxia related to his seizures. We will continue to follow troponins and follow their decreasing. In the interim, we will start aspirin 325 mg daily and metoprolol 12.5 mg twice daily. Additionally, echocardiogram has been ordered and is pending. We will follow this. 2. Sinus tachycardia. As mentioned above, there may be mild right string pattern on the EKG, but this is possibly due to lead placement based upon its appearance. We will repeat 12-lead EKG this afternoon. Also, agree with evaluation for pulmonary embolus as directed by the pulmonary service. I would not proceed with any other therapy at this time, as the patient's sinus tachycardia is likely related to his current underlying medical condition. Kale Riley MD Dictated By: Gina Kumar DO cc: LOPMENT EDUCATOR documented in this encounter Plan of Treatment Not on filedocumented as of this encounter Procedures Comments Procedure Name Priority Date/Time Associated Diag nosis EEG ROUTINE (UP TO 40 11/04/2009 MIN) 1:31 PM CDT EEG ROUTINE (UP TO 40 11/03/2009 MIN) 1:14 PM CDT GLUCOSE POINT OF CARE Routine 11/03/2009 12:19 PM CDT GLUCOSE POINT OF CARE Routine 11/03/2009 8:52 AM CDT GLUCOSE POINT OF CARE Routine 11/02/2009 9:09 PM CDT GLUCOSE POINT OF CARE Routine 11/02/2009 5:13 PM CDT EEG ROUTINE (UP TO 40 11/02/2009 MIN) 1:50 PM CDT GLUCOSE POINT OF CARE Routine 11/02/2009 12:08 PM CDT GLUCOSE POINT OF CARE Routine 11/02/2009 8:14 AM CDT XR CHEST SINGLE VIEW Routine 11/02/2009 FRONTAL 7:55 AM CDT GLUCOSE POINT OF CARE Routine 11/01/2009 8:32 PM CDT GLUCOSE POINT OF CARE Routine 11/01/2009 5:10 PM CDT EEG ROUTINE (UP TO 40 11/01/2009 MIN) 2:37 PM CDT GLUCOSE POINT OF CARE Routine 11/01/2009 1:06 PM CDT GLUCOSE POINT OF CARE Routine 11/01/2009 8:37 AM CDT GLUCOSE POINT OF CARE Routine 10/31/2009 8:58 PM CDT GLUCOSE POINT OF CARE Routine 10/31/2009 5:50 PM CDT GLUCOSE POINT OF CARE Routine 10/31/2009 12:53 PM CDT EEG ROUTINE (UP TO 40 10/31/2009 MIN) 10:04 AM CDT GLUCOSE POINT OF CARE Routine 10/31/2009 7:58 AM CDT GLUCOSE POINT OF CARE Routine 10/30/2009 9:22 PM CDT GLUCOSE POINT OF CARE Routine 10/30/2009 5:16 PM CDT EEG ROUTINE (UP TO 40 10/30/2009 MIN) 9:47 AM CDT XR CHEST SINGLE VIEW Routine 10/30/2009 FRONTAL 7:05 AM CDT GLUCOSE POINT OF CARE Routine 10/30/2009 5:54 AM CDT GLUCOSE POINT OF CARE Routine 10/29/2009 6:13 PM CDT EEG ROUTINE (UP TO 40 10/29/2009 MIN) 1:18 PM CDT GLUCOSE POINT OF CARE Routine 10/29/2009 12:04 PM CDT XR CHEST SINGLE VIEW Routine 10/29/2009 FRONTAL 8:10 AM CDT GLUCOSE POINT OF CARE Routine 10/29/2009 5:59 AM CDT CREATINE KINASE Routine 10/29/2009 12:14 AM CDT COMPLETE BLOOD COUNT Routine 10/29/2009 12:14 AM CDT BASIC METABOLIC PANEL Routine 10/29/2009 12:14 AM CDT GLUCOSE POINT OF CARE Routine 10/29/2009 12:13 AM CDT GLUCOSE POINT OF CARE Routine 10/28/2009 5:42 PM CDT EEG ROUTINE (UP TO 40 10/28/2009 MIN) 1:40 PM CDT GLUCOSE POINT OF CARE Routine 10/28/2009 11:47 AM CDT ARTERIAL BLOOD GAS Routine 10/28/2009 11:20 AM CDT XR CHEST SINGLE VIEW Routine 10/28/2009 FRONTAL 6:55 AM CDT GLUCOSE POINT OF CARE Routine 10/28/2009 6:50 AM CDT PHOSPHORUS Routine 10/28/2009 2:45 AM CDT MAGNESIUM Routine 10/28/2009 2:45 AM CDT CREATINE KINASE Routine 10/28/2009 2:45 AM CDT COMPREHENSIVE METABOLIC Routine 10/28/2009 PANEL 2:45 AM CDT CBC AND DIFF (MANUAL DIFF Routine 10/28/2009 IF NECESSARY) 2:45 AM CDT ARTERIAL BLOOD GAS Routine 10/28/2009 2:06 AM CDT GLUCOSE POINT OF CARE Routine 10/27/2009 11:29 PM CDT GLUCOSE POINT OF CARE Routine 10/27/2009 5:43 PM CDT EEG ROUTINE (UP TO 40 10/27/2009 MIN) 1:14 PM CDT US RETROPERITONEAL ORGANS Routine 10/27/2009 COMPLETE 12:45 PM CDT LACTATE Routine 10/27/2009 12:10 PM CDT CREATINE KINASE Routine 10/27/2009 12:10 PM CDT BASIC METABOLIC PANEL Routine 10/27/2009 12:10 PM CDT GLUCOSE POINT OF CARE Routine 10/27/2009 12:04 PM CDT XR CHEST SINGLE VIEW Routine 10/27/2009 FRONTAL 7:50 AM CDT GLUCOSE POINT OF CARE Routine 10/27/2009 6:01 AM CDT ARTERIAL BLOOD GAS Routine 10/27/2009 1:54 AM CDT PHOSPHORUS Routine 10/27/2009 12:30 AM CDT MAGNESIUM Routine 10/27/2009 12:30 AM CDT HEPATIC FUNCTION PANEL Routine 10/27/2009 12:30 AM CDT CREATINE KINASE Routine 10/27/2009 12:30 AM CDT COMPLETE BLOOD COUNT Routine 10/27/2009 12:30 AM CDT BASIC METABOLIC PANEL Routine 10/27/2009 12:30 AM CDT GLUCOSE POINT OF CARE Routine 10/27/2009 12:26 AM CDT XR CHEST POST PICC Routine 10/26/2009 PLACEMENT RPO 15 DEG 1 5:41 PM CDT VIEW GLUCOSE POINT OF CARE Routine 10/26/2009 5:40 PM CDT XR CHEST POST PICC Routine 10/26/2009 PLACEMENT RPO 15 DEG 1 5:16 PM CDT VIEW XR CHEST POST PICC Routine 10/26/2009 PLACEMENT RPO 15 DEG 1 4:49 PM CDT VIEW ECHO TRANSTHORACIC Routine 10/26/2009 3:21 PM CDT EEG ROUTINE (UP TO 40 10/26/2009 MIN) 2:[address] ANGIO CHEST Routine 10/26/2009 2:10 PM CDT BASIC METABOLIC PANEL Routine 10/26/2009 1:50 PM CDT US VENOUS DUPLEX LOWER Routine 10/26/2009 EXTREMITY BILAT 1:00 PM CDT ARTERIAL BLOOD GAS Routine 10/26/2009 12:45 PM CDT GLUCOSE POINT OF CARE Routine 10/26/2009 12:11 PM CDT CULTURE, SPUTUM WITH GRAM Routine 10/26/2009 STAIN 12:10 PM CDT TROPONIN Routine 10/26/2009 11:25 AM CDT LACTATE Routine 10/26/2009 11:25 AM CDT CK-MB Routine 10/26/2009 11:25 AM CDT IONIZED CALCIUM Routine 10/26/2009 10:45 AM CDT XR CHEST SINGLE VIEW Routine 10/26/2009 FRONTAL 7:15 AM CDT PHOSPHORUS Routine 10/26/2009 5:30 AM CDT MAGNESIUM Routine 10/26/2009 5:30 AM CDT IONIZED CALCIUM Routine 10/26/2009 5:30 AM CDT CREATINE KINASE Routine 10/26/2009 5:30 AM CDT COMPLETE BLOOD COUNT Routine 10/26/2009 5:30 AM CDT BASIC METABOLIC PANEL Routine 10/26/2009 5:30 AM CDT ALBUMIN Routine 10/26/2009 5:30 AM CDT TROPONIN Routine 10/26/2009 4:40 AM CDT CK-MB Routine 10/26/2009 4:40 AM CDT GLUCOSE POINT OF CARE Routine 10/26/2009 4:39 AM CDT TROPONIN Routine 10/26/2009 12:30 AM CDT CK-MB Routine 10/26/2009 12:30 AM CDT GLUCOSE POINT OF CARE Routine 10/26/2009 12:30 AM CDT ARTERIAL BLOOD GAS Routine 10/26/2009 12:19 AM CDT CULTURE, BLOOD WITH [place]ADISON Routine 10/26/2009 12:16 AM CDT CULTURE, BLOOD WITH MADISON Routine 10/26/2009 12:15 AM CDT CBC AND DIFF (MANUAL DIFF Routine 10/25/2009 IF NECESSARY) 10:19 PM CDT COAGULATION SCREEN Routine 10/25/2009 10:00 PM CDT CULTURE, URINE Routine 10/25/2009 10:00 PM CDT TROPONIN Routine 10/25/2009 10:00 PM CDT PHOSPHORUS Routine 10/25/2009 10:00 PM CDT MAGNESIUM Routine 10/25/2009 10:00 PM CDT IONIZED CALCIUM Routine 10/25/2009 10:00 PM CDT COMPREHENSIVE METABOLIC Routine 10/25/2009 PANEL 10:00 PM CDT CK-MB Routine 10/25/2009 10:00 PM CDT LACTATE ARTERIAL WB Routine 10/25/2009 9:14 PM CDT ARTERIAL BLOOD GAS Routine 10/25/2009 9:14 PM CDT XR CHEST SINGLE VIEW Routine 10/25/2009 FRONTAL 8:30 PM CDT XR ABDOMEN SINGLE VIEW AP Routine 10/25/2009 8:29 PM CDT SHOCK PROFILE, ARTERIAL Routine 10/25/2009 7:40 PM CDT EEG ROUTINE (UP TO 40 10/25/2009 MIN) 2:21 PM CDT EEG ROUTINE (UP TO 40 10/24/2009 MIN) 10:22 AM CDT EEG ROUTINE (UP TO 40 10/23/2009 MIN) 10:02 AM CDT EEG ROUTINE (UP TO 40 10/22/2009 MIN) 2:21 PM CDT documented in this encounter Results * EEG ROUTINE (UP TO 40 MIN) (11/04/2009 1:31 PM CDT) Specimen Transcriptions Samson Florian MD - 06/14/2013 4:53 AM DEVELOPMENT EDUCATOR REPORT Name: CUAUHTEMOC MALDONADO MRN/Unit #: [id number] Attending Physician: SAMSON FLORIAN Date of : 1960 AGE: 49Y DATE OF ADMISSION: 10/21/2009 DATE OF STUDY: 11/03/2009 EEG#: [id number] OBJECT: Evaluate for epilepsy and subclinical seizure activity using 19 channel continuous video EEG monitoring. FINDINGS: The background consisted of a normal symmetric posterior predominant alpha frequency rhythm seen symmetrically during wakefulness. There was progression into sleep with normal symmetric sleep morphologies. 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 PUSH-BUTTON EVENTS: There were 2 accidental push-button events recorded within 1 minute of each other. There were no electrographic or clinical behavioral changes noted with these push-button events. IMPRESSION: This video EEG telemetry was recorded for nearly 15 hours and captured 2 accidental push-button events that were not associated with any clinical behavioral or electrographic changes. Interictally, there were no clear focal or epileptiform features seen. Samson Florian MD Dictated By: cc: * EEG ROUTINE (UP TO 40 MIN) (11/03/2009 1:14 PM CDT) Specimen Transcriptions Samson Florian MD - 06/14/2013 4:54 AM DEVELOPMENT EDUCATOR REPORT Name: CUAUHTEMOC MALDONADO MRN/Unit #: [id number] Attending Physician: SAMSON FLORIAN Date of : 1960 AGE: 49Y DATE OF ADMISSION: 10/21/2009 EEG NUMBER: [id number] DATE OF STUDY: 11/02/2009 OBJECT: Evaluate for epilepsy using 19-channel continuous video EEG monitoring. FINDINGS: The background consisted of a normal, symmetric, posterior predominant, alpha frequency rhythm seem symmetrically during wakefulness. There was some progression into sleep with normal symmetric sleep morphologies. 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 Push-button events: There were no push-button events recorded. IMPRESSION: This 24-hour video EEG telemetry captured no push-button events and no electrographic seizures. There were no clear focal or epileptiform features seen. Samson Florian MD Dictated By: cc: * Glucose Point of Care (11/03/2009 12:19 PM CDT) Only the most recent of 33 results within the time period is included. Glucose 168 (H) 65 - 100 MG/DL [facility] Specimen Blood Performing Organization Address City/State/[facility] Ph one Number [id number] [address] [facility] * EEG ROUTINE (UP TO 40 MIN) (11/02/2009 1:50 PM CDT) Specimen Transcriptions Samson Florian MD - 06/14/2013 4:54 AM DEVELOPMENT EDUCATOR REPORT Name: CUAUHTEMOC MALDONADO Jeronimo MRN/Unit #: [id number] Attending Physician: SAMSON FLORIAN Date of : 1960 AGE: 49Y DATE OF ADMISSION: 10/21/2009 EEG NUMBER: [id number] DATE OF STUDY: 11/01/2009 OBJECT: Evaluate for epilepsy using 19-channel continuous video EEG monitoring. FINDINGS: The background consisted of a normal, symmetric, posterior predominant, alpha frequency rhythm seem symmetrically during wakefulness. There was progression into sleep with normal symmetric sleep morphologies. 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 Push-button events: There were no push-button events recorded. IMPRESSION: This 24-hour video EEG telemetry captured no push-button events and no electrographic seizures. There were no clear focal or epileptiform features seen. Samson Florian MD Dictated By: cc: * XR Chest single view frontal (11/02/2009 7:55 AM CDT) Only the most recent of 7 results within the time period is included. Specimen Narrative Performed At [facility] Patient: CUAUHTEMOC MALDONADO Phone #: Med Rec#: [id number] Sex: M : 1960 Júnior#: [id number] Location: [place] [address] 01 Check-in#: [id number] Procedure Requested: [id number] DX CHEST SIN GLE VIEW Reason For Exam: BREATHING DIFFIC ULTY Exam Ordered: 11/02/2009 070 0 Exam Date/Time: 11/02/2009 0800 Check-in Date/Time: 11/02/2009 0402 AttendinSAMSON TALBERT Requestin SAMSON FLORIAN Referrin NO, REFERRING DR Primary Care: [id number] JUDY KING These images and this report have been reviewed and edited by the Staff Radiologist. DX CHEST SINGLE VIEW INDICATION: BREATHING DIFFICULTY. COMPARISON STUDY: October 30, 2009. FINDINGS: Life Support Devices: The life support devices are stable. Lungs: Persistent low lung volumes. Imp roved interstitial edema, pulmonary venous hypertension. Pleura: No pleural effusion or pneumoth orax. Heart and Mediastinum: The cardiomedias tinal silhouette and great vessels are stable. IMPRESSION: Improved interstitial david ma and pulmonary venous hypertension. Signed (Authenticated, Released) Date-T malia: 11/02/2009 1209 Market Analysis Director- SYLWIA HIDALGO M.D., Staff Radiologist Dictated By- COLEEN Recinos Radiologist Staff Physician- SYLWIA GREEN M.D., Staff Radiologist Authenticated By- SYLWIA HIDALGO M.D., Staff Radiologist Procedure Note Interface, Rad Conversion - 06/14/2013 10:03 PM DEVELOPMENT EDUCATOR REPORT Patient: CUAUHTEMOC MALDONADO Phone #: Med Rec#: [id number] Sex: M : 1960 Júnior#: [id number] Location: [place] [address] Check-in#: [id number] Procedure Requested: [id number] DX CHEST SINGLE VIEW Reason For Exam: BREATHING DIFFICULTY Exam Ordered: 11/02/2009 07 Exam Date/Time: 11/02/2009799 Check-in Date/Time: 11/02/2009 0402 AttendinSAMSON FLOWER RequestinSAMSON TALBERT Referrin SHANT, REFERRING Primary Care: [id number] JUDY KING These images and this report have been reviewed and edited by the Staff Radiologist. DX CHEST SINGLE VIEW INDICATION: BREATHING DIFFICULTY. COMPARISON STUDY: October 30, 2009. FINDINGS: Life Support Devices: The life support devices are stable. Lungs: Persistent low lung volumes. Improved interstitial edema, pulmonary venous hypertension. Pleura: No pleural effusion or pneumothorax. Heart and Mediastinum: The cardiomediastinal silhouette and great vessels are stable. IMPRESSION: Improved interstitial edema and pulmonary venous hypertension. Signed (Authenticated, Released) Date-Time: 11/02/2009 1209 Market Analysis Director- SYLWIA SKINNER M.D., Staff Radiologist Dictated By- COLEEN FINNEY D.O. Radiologist Staff Physician- SYLWIA SKINNER M.D., Staff Radiologist Authenticated By- SYLWIA SKINNER M.D., Staff Radiologist Performing Organization Address City/State/Zipcode Ph one Number [place] * EEG ROUTINE (UP TO 40 MIN) (11/01/2009 2:37 PM CDT) Specimen Transcriptions Samson Florian MD - 06/14/2013 4:55 AM DEVELOPMENT EDUCATOR REPORT Name: CUAUHTEMOC MALDONADO [facility] #: [id number] MRN/Unit #: [id number] Attending Physician: SAMSON FLORIAN Date of : 1960 AGE: 49Y DATE OF ADMISSION: 10/21/2009 EEG #: [id number] DATE OF STUDY: 10/31/2009 OBJECT: Evaluate for epilepsy using 19 channel continuous video EEG monitoring. FINDINGS: The background consisted of a normal symmetric posterior predominant, alpha frequency rhythm seen symmetrically during wakefulness. There was progression into sleep with normal symmetric sleep morphologies. 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 PUSH-BUTTON EVENTS: There were two push-button events recorded but these appear to be accidental with no clear electrocardiographic or clinical behavioral changes noted. . IMPRESSION: This 24 hour video electroencephalographic telemetry captured two accidental push-button events that were not associated any electrocardiographic or clinical behavioral changes. Interictally, there were no clear focal or epileptiform features seen. Samson Florian MD cc: * EEG ROUTINE (UP TO 40 MIN) (10/31/2009 10:04 AM CDT) Specimen Transcriptions Samson Florian MD - 06/14/2013 4:56 AM DEVELOPMENT EDUCATOR REPORT Name: TYRACUAUHTEMOC [facility] #: [id number] MRN/Unit #: [id number] Attending Physician: SAMSON FLORIAN Date of : 1960 AGE: 49Y DATE OF ADMISSION: 10/21/2009 VIDEO ELECTROENCEPHALOGRAM EEG #: [id number] DATE OF STUDY: 10/30/2009 OBJECTIVE: Evaluate for epilepsy using 19-channel continuous video EEG monitoring. FINDINGS: The background consisted of a normal symmetric posterior predominant alpha frequency rhythm seen symmetrically during wakefulness. There was progression into sleep with normal symmetric sleep morphologies. 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 PUSHBUTTON EVENTS: There were two accidental pushbutton events recorded that were not associated with any clinical behavioral change or any electrographic changes. IMPRESSION: This 24-hour video EEG telemetry captured two accidental pushbutton events but there were no electrographic seizures recorded. Interictally, there were no clear focal or epileptiform features seen. Samson Florian MD Dictated By: cc: * EEG ROUTINE (UP TO 40 MIN) (10/30/2009 9:47 AM CDT) Specimen Transcriptions Samson Florian MD - 06/14/2013 4:56 AM DEVELOPMENT EDUCATOR REPORT Name: CUAUHTEMOC MALDONADO MRN/Unit #: [id number] Attending Physician: SAMSON FLORIAN Date of : 1960 AGE: 49Y DATE OF ADMISSION: 10/21/2009 DATE OF STUDY: 10/29/2009 TYPE OF EEG: Video EEG. EEG #: [id number] INTERPRETING DOCTOR: Dr. Samson Florian OBJECTIVE: Evaluate for epilepsy using 19-channel continuous video EEG monitoring. FINDINGS: BACKGROUND: The background consisted of a normal symmetric posterior predominant alpha frequency rhythm seen symmetrically during wakefulness. There was progression to sleep with normal symmetric sleep morphologies. 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 PUSHBUTTON EVENTS: There were 2 pushbutton events recorded in the early afternoon. Both of these captured very brief and mild complex partial seizures. One of the pushbutton events, the patient had some mild head deviation towards the right. The other pushbutton event, the patient seemed to have some confusion and was not able to converse with his normally. These episodes lasted approximately 20 seconds. There was some buildup of disorganized high voltage theta frequency rhythm that was somewhat sharp in appearance, seen primarily over the left temporal region but was seen fairly broadly over all of the electrodes. IMPRESSION: This is 24-hour video EEG telemetry captured 2 mild complex partial seizures that appeared to have a left temporal onset, but the electrographic changes were somewhat broad, so this localization is not definitive. Interictally, there were no clear focal or epileptiform features seen. Samson Florian MD Dictated By: cc: * EEG ROUTINE (UP TO 40 MIN) (10/29/2009 1:18 PM CDT) Specimen Transcriptions Samson Florian MD - 06/14/2013 4:56 AM DEVELOPMENT EDUCATOR REPORT Name: CUAUHTEMOC MALDONADO MRN/Unit #: [id number] Attending Physician: SAMSON FLORIAN Date of : 1960 AGE: 49Y DATE OF ADMISSION: 10/21/2009 PROCEDURE: Video EEG. EEG NUMBER: [id number] DATE OF STUDY: 10/28/2009 OBJECT: Evaluate for epilepsy using 19-channel continuous video EEG monitoring. FINDINGS: The background consisted of a theta frequency rhythm seen symmetrically. As the day progressed, there was more alpha frequency rhythm seen. There were wake and sleep transitions noted. 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 Push-button events: There were no push-button events recorded. IMPRESSION: This 24-hour video EEG telemetry captured no push-button events and no electrographic seizures. The background was mildly slow, particularly in the early stages of this recording, but there was some improvement as the day progressed. This indicates widespread cortical dysfunction as can be seen with an encephalopathy. There appeared to be some improvement as the day progressed and this is consistent with the patient's history that his sedation was decreased. Samson Florian MD Dictated By: cc: * Complete Blood Count (10/29/2009 12:14 AM CDT) Only the most recent of 3 results within the time period is included. WBC 6.60 4.00 - 11.00 TH/UL SUNQUEST RBC 3.62 (L) 4.31 - 5.84 MIL/UL SUNQUEST Hemoglobin 11.6 (L) 13.0 - 17.0 G/DL SUNQUEST Hematocrit 33 (L) 40 - 50 % SUNQUEST MCV 91 80 - 99 FL SUNQUEST MCH 32 27 - 34 PG SUNQUEST MCHC 35 32 - 36 % SUNQUEST RDW 12.0 9.0 - 14.5 % SUNQUEST Platelet Count 139 (L) 140 - 400 TH/UL SUNQUEST MPV 10.0 9.4 - 12.3 FL SUNQUEST Specimen Blood Performing Organization Address [facility] one Number [facility] [address] [place] [phone] SUNQUEST * Basic Metabolic Panel (10/29/2009 12:14 AM CDT) Only the most recent of 5 results within the time period is included. Sodium 139 134 - 144 MEQ/L SUNQUEST Potassium 3.8 3.5 - 5.1 MEQ/L SUNQUEST Chloride 107 101 - 111 MEQ/L SUNQUEST Carbon Dioxide 26 23 - 32 MEQ/L SUNQUEST Anion Gap 6 3 - 15 SUNQUEST Creatinine 1.0 0.6 - 1.3 MG/DL SUNQUEST Blood Urea 18 8 - 26 MG/DL SUNQUEST Nitrogen Glucose 160 (H) 65 - 100 MG/DL SUNQUEST Calcium 8.1 (L) 8.8 - 10.5 MG/DL SUNQUEST eGFR Male 80 SUNQUEST Non-AA Comment: Chronic Kidney Disease less than 60 mL/min/1.73 sq.m Kidney failure less than 15 mL/min/1.73 sq.m eGFR Male AA 97 SUNQUEST Comment: Chronic Kidney Disease less than 60 mL/min/1.73 sq.m Kidney failure less than 15 mL/min/1.73 sq.m Specimen Blood Performing Organization Address [facility] one Number [facility] [address] [place] [phone] SUNQUEST * Creatine Kinase (10/29/2009 12:14 AM CDT) Only the most recent of 5 results within the time period is included. Creatine Kinase 2,095 IU/L SUNQUEST Comment: White Female: 30 - 160 IU/L Black Female: 30 - 430 IU/L White Male: 40 - 425 IU/L Black Male: 50 - 850 IU/L Specimen Blood Performing Organization Address [facility] one Number [facility] [address] [place] [phone] SUNQUEST * EEG ROUTINE (UP TO 40 MIN) (10/28/2009 1:40 PM CDT) Specimen Transcriptions Samson Florian MD - 06/14/2013 4:57 AM DEVELOPMENT EDUCATOR REPORT Name: CUAUHTEMOC MALDONADO [facility] #: [id number] MRN/Unit #: [id number] Attending Physician: SAMSON FLORIAN Date of : 1960 AGE: 49Y DATE OF ADMISSION: 10/21/2009 PROCEDURE PERFORMED: Video EEG number [id number]. DATE OF STUDY: 10/27/2009 OBJECT: Evaluate for epilepsy and subclinical seizure activity using 19-channel continuous video EEG monitoring. FINDINGS: The background consisted of a fast frequency rhythm with superimposed mixed theta and delta frequency slowing. There were no discernible wake or sleep transitions seen during this recording. 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 PUSHBUTTON EVENTS: There were no pushbutton events recorded. IMPRESSION: This 24-hour video EEG telemetry captured no pushbutton events and no electrographic seizures. The background frequency consisted of admixed fast frequency activity with theta and delta frequency slowing. This indicates widespread cortical dysfunction as can be seen with an encephalopathy. Due to the presence of the fast frequency activity, this suggests that at least part of this encephalopathy is due to a medication effect. There was no evidence for status epilepticus during this recording period. Smason Florian MD Dictated By: cc: * Arterial Blood Gas (10/28/2009 11:20 AM CDT) Only the most recent of 6 results within the time period is included. pH Arterial 7.37 (L) 7.38 - 7.44 UNITS SUNQUEST pCO2 Arterial 40 35 - 45 MM HG SUNQUEST PO2 Arterial 90 75 - 100 MM HG SUNQUEST Base Excess -1.6 -3.0 - 3.0 MEQ/L SUNQUEST Bicarbonate 22.8 21.0 - 28.0 MEQ/L SUNQUEST Patient Temp 37.0 C SUNQUEST Celsius Sample Site Radial left SUNQUEST Device CPAP SUNQUEST Mode MV SUNQUEST Fraction of 0.40 SUNQUEST Inspired Oxygen PEEP/CPAP 5.0 CMH20 SUNQUEST Total Rate 31 BPM SUNQUEST Specimen Arterial Performing Organization Address City/State/Zipcode Ph one Number [facility] [address] [place], [place] [address] SUNQUEST * Comprehensive Metabolic Panel (10/28/2009 2:45 AM CDT) Only the most recent of 2 results within the time period is included. Albumin 2.3 (L) 3.5 - 5.0 G/DL SUNQUEST Aspartate 98 (H) 15 - 41 IU/L SUNQUEST Aminotransferas e Bilirubin Total 0.9 0.3 - 1.4 MG/DL SUNQUEST Protein Total 4.4 (L) 6.0 - 8.0 G/DL SUNQUEST Serum Calcium 7.7 (L) 8.8 - 10.5 MG/DL SUNQUEST Creatinine 1.0 0.6 - 1.3 MG/DL SUNQUEST Glucose 116 (H) 65 - 100 MG/DL SUNQUEST Alkaline 47 42 - 128 IU/L SUNQUEST Phosphatase Sodium 141 134 - 144 MEQ/L SUNQUEST Potassium 4.5 3.5 - 5.1 MEQ/L SUNQUEST Chloride 112 (H) 101 - 111 MEQ/L SUNQUEST Carbon Dioxide 25 23 - 32 MEQ/L SUNQUEST Blood Urea 17 8 - 26 MG/DL SUNQUEST Nitrogen Anion Gap 4 3 - 15 SUNQUEST Alanine 48 14 - 63 IU/L SUNQUEST Aminotransferas e eGFR Male 80 SUNQUEST Non-AA Comment: Chronic Kidney Disease less than 60 mL/min/1.73 sq.m Kidney failure less than 15 mL/min/1.73 sq.m eGFR Male AA 97 SUNQUEST Comment: Chronic Kidney Disease less than 60 mL/min/1.73 sq.m Kidney failure less than 15 mL/min/1.73 sq.m Specimen Blood Performing Organization Address [facility] Ph one Number [facility] [address] [place], [place] [address] SUNQUEST * Magnesium (10/28/2009 2:45 AM CDT) Only the most recent of 4 results within the time period is included. Magnesium 1.7 1.4 - 2.0 MEQ/L SUNQUEST Specimen Blood Performing Organization Address [facility] Ph one Number [facility] [address] [place], [place] [address] SUNQUEST * Phosphorus (10/28/2009 2:45 AM CDT) Only the most recent of 4 results within the time period is included. Phosphorus 2.6 2.5 - 4.5 MG/DL SUNQUEST Specimen Blood Performing Organization Address [facility] one Number [facility] [address] [place] [phone] SUNQUEST * CBC and Diff (manual diff if necessary) (10/28/2009 2:45 AM CDT) Only the most recent of 2 results within the time period is included. WBC 7.04 4.00 - 11.00 TH/UL SUNQUEST RBC 3.53 (L) 4.31 - 5.84 MIL/UL SUNQUEST Hemoglobin 11.1 (L) 13.0 - 17.0 G/DL SUNQUEST Hematocrit 32 (L) 40 - 50 % SUNQUEST MCV 91 80 - 99 FL SUNQUEST MCH 31 27 - 34 PG SUNQUEST MCHC 35 32 - 36 % SUNQUEST RDW 12.5 9.0 - 14.5 % SUNQUEST Platelet Count 117 (L) 140 - 400 TH/UL SUNQUEST MPV 10.1 9.4 - 12.3 FL SUNQUEST % Neutrophils 77 45 - 78 % SUNQUEST %Lymphocytes 10 (L) 15 - 47 % SUNQUEST %Monocytes 11 0 - 12 % SUNQUEST %Eosinophils 2 0 - 7 % SUNQUEST Left Shift Present (A) Absent SUNQUEST # Basophils 0.01 0.00 - 0.10 TH/UL SUNQUEST # Eosinophils 0.14 0.00 - 0.40 TH/UL SUNQUEST %Basophils 0 0 - 2 % SUNQUEST # Monocytes 0.77 0.20 - 0.90 TH/UL SUNQUEST # Lymphocytes 0.70 (L) 1.00 - 3.30 TH/UL SUNQUEST # Granulocytes 5.42 1.70 - 6.80 TH/UL SUNQUEST Specimen Blood Performing Organization Address [facility] Ph one Number [facility] [address] [place] [phone] SUNQUEST * EEG ROUTINE (UP TO 40 MIN) (10/27/2009 1:14 PM CDT) Specimen Transcriptions Samson Florian MD - 06/14/2013 4:57 AM DEVELOPMENT EDUCATOR REPORT Name: CUAUHTEMOC MALDONADO MRN/Unit #: [id number] Attending Physician: SAMSON FLORIAN Date of : 1960 AGE: 49Y DATE OF ADMISSION: 10/21/2009 EEG #: [id number]. DATE OF STUDY: 10/26/2009. OBJECT: Evaluate for epilepsy using 19-channel continuous video EEG monitoring. FINDINGS: The background consisted typically of a low voltage fast frequency rhythm with generalized delta frequency slowing seen. There were no clear wake or sleep stages observed. 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 PUSH BUTTON EVENTS: There were no push button events recorded. IMPRESSION: This video EEG telemetry was recorded for approximately 24 hours and captured no push button events and no electrographic seizures. The background was slow with no evidence for wake or sleep stages with superimposed fast frequency activity. This indicates widespread cortical dysfunction as can be seen with encephalopathy. The fast activity indicates that at least part of this effect is due to medication effect and is consistent with the patient's history of being sedated in the intensive care unit. There were no clear focal or epileptiform features seen. Samson Florian MD Dictated By: cc: * US Retroperitoneal organs complete (10/27/2009 12:45 PM CDT) Specimen Narrative Performed At [facility] Patient: CUAUHTEMOC MALDONADO Phone #: Med Rec#: [id number] Sex: M : 1960 Júnior#: [id number] Location: [place] [address] Check-in#: [id number] Procedure Requested: [id number] US RETROPERI TONEAL ORGANS COMPLET Reason For Exam: ARF Exam Ordered: 10/27/2009 081 2 Exam Date/Time: 10/27/2009 1315 Check-in Date/Time: 10/27/2009 0825 Attendin SAMSON FLORIAN Requestin MICH CLEARY "" Referrin NO, REFERRING Primary Care: [id number] JUDY KING These images and this report have been reviewed and edited by the Staff Radiologist. US RETROPERITONEAL ORGANS COMPLETE DATE: Oct 27, 2009 2:09:34 PM COMPARISON: None REASON FOR EXAM: Acute renal failure TECHNIQUE: Limited real-time transverse longitudinal grayscale images of the kidneys and urinary bladder with co william Doppler duplex was performed. FINDINGS: The kidneys are normal in size and echo genicity. Right kidney measures 13.1 cm. Left kid rylan measures 12.3 cm. No hydronephrosis, shadowing calculi or suspicious masses seen on either side. No ascites or fluid collections. Urinary bladder is decompressed with th e Hobbs catheter in place. The visualized aorta and IVC are normal in caliber. The aorta measures 1.9 cm. The bilateral common iliac suzie deepthi are not well visualized due to overlying bowel gas. IMPRESSION: Normal ultrasound appearance of the bladimir neys bilaterally. Signed (Authenticated, Released) Date-T malia: 10/27/2009 1622 Market Analysis Director- NAYA PATEL M.D., Staff Radiologist Dictated By- NILSA CHA M.D., Re sident Staff Physician- NAYA PATEL M.D., S [facility] Radiologist Authenticated By- NAYA PATEL M.D., Staff Radiologist Procedure Note Interface, Rad Conversion - 06/14/2013 10:11 PM DEVELOPMENT EDUCATOR REPORT Patient: CUAUHTEMOC MALDONADO Phone #: Med Rec#: [id number] Sex: M : 1960 Júnior#: [id number] [facility] Check-in#: [id number] Procedure Requested: [id number] US RETROPERITONEAL ORGANS COMPLET Reason For Exam: ARF Exam Ordered: 10/27/2009 0812 Exam Date/Time: 10/27/2009 1315 Check-in Date/Time: 10/27/2009 08 Attendin SAMSON FLORIAN Requestin MICH CLEARY "" Referrin NO, REFERRING DR Primary Care: [id number] JUDY KING These images and this report have been reviewed and edited by the Staff Radiologist. US RETROPERITONEAL ORGANS COMPLETE DATE: Oct 27, 2009 2:09:34 PM COMPARISON: None REASON FOR EXAM: Acute renal failure TECHNIQUE: Limited real-time transverse longitudinal grayscale images of the kidneys and urinary bladder with color Doppler duplex was performed. FINDINGS: The kidneys are normal in size and echogenicity. Right kidney measures 13.1 cm. Left kidney measures 12.3 cm. No hydronephrosis, shadowing calculi or suspicious masses seen on either side. No ascites or fluid collections. Urinary bladder is decompressed with the Hobbs catheter in place. The visualized aorta and IVC are normal in caliber. The aorta measures 1.9 cm. The bilateral common iliac arter ies are not well visualized due to overlying bowel gas. IMPRESSION: Normal ultrasound appearance of the kidneys bilaterally. Signed (Authenticated, Released) Date-Time: 10/27/2009 1622 Market Analysis Director- NAYA PATEL M.D., Staff Radiologist Dictated By- NISLA CHA M.D., Resident Staff Physician- NAYA PATEL M.D., Staff Radiologist Authenticated By- NAYA PATEL M.D., Staff Radiologist Performing Organization Address City/[facility] Ph one Number [facility] * Lactate (10/27/2009 12:10 PM CDT) Only the most recent of 2 results within the time period is included. Lactate 1.5 0.5 - 2.2 MEQ/L SUNQUEST Specimen Blood Performing Organization Address [facility] Ph one Number [facility] [address] [place], [place] [address] SUNQUEST * Hepatic Function Panel (10/27/2009 12:30 AM CDT) Albumin 2.9 (L) 3.5 - 5.0 G/DL SUNQUEST Bilirubin 0.8 (H) 0.1 - 0.5 MG/DL SUNQUEST Direct Bilirubin Total 1.9 (H) 0.3 - 1.4 MG/DL SUNQUEST Alkaline 54 42 - 128 IU/L SUNQUEST Phosphatase Alanine 63 14 - 63 IU/L SUNQUEST Aminotransferas e Aspartate 165 (H) 15 - 41 IU/L SUNQUEST Aminotransferas e Protein Total 5.1 (L) 6.0 - 8.0 G/DL SUNQUEST Serum Specimen Blood Performing Organization Address City/State/Zipcode Ph one Number [facility] [address] [place], [place] [address] SUNQUEST * XR Chest post PICC placement RPO 15 deg 1 view (10/26/2009 5:41 PM CDT) Only the most recent of 3 results within the time period is included. Specimen Narrative Performed At [facility] Patient: CUAUHTEMOC MALDONADO Phone #: [employer] Rec#: [id number] Sex: M : 1960 Júnior#: [id number] Location: [place] [address] Check-in#: [id number] Procedure Requested: [id number] DX CHEST POS T PICC RPO 15 DEG 1V Reason For Exam: LINE PLACEMENT Exam Ordered: 10/26/2009 172 8 Exam Date/Time: 10/26/2009 1747 Check-in Date/Time: 10/26/2009 1732 Attendin SAMSON FLORIAN Requestin SAMSON FLORIAN Referrin SHANT, REFERRING Primary Care: [id number] JUDY KING These images and this report have been reviewed and edited by the Staff Radiologist. DX CHEST POST PICC RPO 15 DEG 1V DATE: Oct 26, 2009 5:47:00 PM INDICATION: LINE PLACEMENT. COMPARISON STUDY: Earlier the same day at 1717 hours. FINDINGS: Readjustment of the right PIC C with the tip now terminating at the superior atriocaval junction. Remai rosa life-support devices are stable. Lungs: Stable lung volumes Persistent m ild reticulonodular opacities in both lung bases. Pulmonary vasculature is stable. Pleura: No pleural effusion or pneumoth orax. Heart and Mediastinum: The cardiomedias tinal silhouette and great vessels of the thorax are normal. . Bones: The skeletal structures are with in normal limits. IMPRESSION: 1. Readjustment of right PICC, now term inating at the superior atriocaval junction. 2. Otherwise, no significant interval c karishma. Signed (Authenticated, Released) Date-T malia: 10/27/2009 1219 Market Analysis Director- ARGELIA BRISENO M.D., Staff Radiologist Dictated By- RADHA ZAMORANO M.D., Resident Staff Physician- ARGELIA BRISENO M.D., Staff Radiologist Authenticated By- ARGELIA BRISENO M.D., Staff Radiologist Procedure Note Interface, Rad Conversion - 06/14/2013 10:12 PM DEVELOPMENT EDUCATOR REPORT Patient: CUAUHTEMOC MALDONADO Phone #: Med Rec#: [id number] Sex: M : 1960 Júnior#: [id number] Location: [place] [address] Check-in#: [id number] Procedure Requested: [id number] DX CHEST POST PICC RPO 15 DEG 1V Reason For Exam: LINE PLACEMENT Exam Ordered: 10/26/2009 1728 Exam Date/Time: 10/26/2009 1747 Check-in Date/Time: 10/26/2009 173 Attendin SAMSON FLORIAN Requestin SAMSON FLORIAN Referrin SHANT, REFERRING Primary Care: [id number] JUDY KING These images and this report have been reviewed and edited by the Staff Radiologist. DX CHEST POST PICC RPO 15 DEG 1V DATE: Oct 26, 2009 5:47:00 PM INDICATION: LINE PLACEMENT. COMPARISON STUDY: Earlier the same day at 1717 hours. FINDINGS: Readjustment of the right PICC with the tip now terminating at the superior atriocaval junction. Remaining life-support devices are stable. Lungs: Stable lung volumes Persistent mild reticulonodular opacities in both lung bases. Pulmonary vasculature is stable. Pleura: No pleural effusion or pneumothorax. Heart and Mediastinum: The cardiomediastinal silhouette and great vessels of the thorax are normal. . Bones: The skeletal structures are within normal limits. IMPRESSION: 1. Readjustment of right PICC, now laurii sam at the superior atriocaval junction. 2. Otherwise, no significant interval ch darby. Signed (Authenticated, Released) Date-Time: 10/27/2009 1219 Market Analysis Director- ARGELIA BRISENO M.D., Staff Radiologist Dictated By- RADHA ZAMORANO M.D., Resident Staff Physician- ARGELIA BRISENO M.D., Staff Radiologist Authenticated By- ARGELIA BRISENO M.D., Staff Radiologist Performing Organization Address City/State/[facility] Ph one Number [facility] * ECHO TRANSTHORACIC (10/26/2009 3:21 PM CDT) Specimen Narrative Performed At [facility] RAD ECHOCARDIOGRAM REPORT [facility] Name: CUAUHTEMOC MALDONADO Date: 10/26/2009 15:21 Chart #: [id number] : 1960 Location: [facility] IP Sono: [email or web address] Age: 49 Referring: SAMSON FLORIAN Room #: MICU-11 Indication Tachycardia BP: 106 / 71 HR: 95 Ht: 71 Wt: 211 BSA: 2.2 2D ECHO MEASUREMENTS LV Diastolic Diameter Bas 3.3 cm (3.6-5.4) IVS Diastolic Thickness 1 cm (0.6-1.1) LV Systolic Diameter Base 1.4 cm (2.3-4.0) LVPW Diastolic Thickness 1 cm (0.6-1.1) LA Systolic Diameter LX 3.4 cm (2.3-3.8) WALL SEGMENT ANALYSIS: ROUTINE LVSI : 1 %FM : 100 LAD : 1 LCX : 1 RCA : 1 FINDINGS LV Ejection Fraction: 65 Technically difficult study. Patient unable to sign consent for cont rast. Normal left ventricular systolic functi on, with an estimated ejection fraction of 65%. Normal wall thickness. Grossly normal wall motion. Normal left ventricular chamber dimensi ons. Normal right ventricular size and systo lic function. Normal right and left atrial size. Normal diastolic function. Aortic valve is not well visualized but Doppler data appears to be normal. Normal mitral valve without regurgitati on. Normal pulmonic valve with trivial regu rgitation. Normal tricuspid valve with trivial reg urgitation. Unable to accurately estimate pulmonary artery pressure. No pericardial effusion. IVC is dilated and not responsive to in spiration indicating markedly elevated RA pressure-patient mechanically ventil ated. Ascending aorta not well visualized. CONCLUSIONS: 1. Normal left ventricular systolic and diastolic function, estimated ejection fraction of 65%. 2. No significant valvular abnormalitie s. 3. No previous study available for blank brito. Reyes Cartwright M.D. Electronically Signed: Procedure Note Interface, Rad Conversion - 06/24/2013 2:12 PM CDT RESULT ECHOCARDIOGRAM REPORT [facility] Name: CUAUHTEMOC MALDONADO Date: 10/26/2009 15:21 Chart #: [id number] : 1960 Location: [facility] Sono: [email or web address] Age: 49 Referring: SAMSON FLORIAN Room #: MICU-11 Indication Tachycardia BP: 106 / 71 HR: 95 Ht: 71 Wt: 211 BSA: 2.2 2D ECHO MEASUREMENTS LV Diastolic Diameter Bas 3.3 cm (3.6-5.4) IVS Diastolic Thickness 1 cm (0.6-1.1) LV Systolic Diameter Base 1.4 cm (2.3-4.0) LVPW Diastolic Thickness 1 cm (0.6-1.1) LA Systolic Diameter LX 3.4 cm (2.3-3.8) WALL SEGMENT ANALYSIS: ROUTINE LVSI : 1 %FM : 100 LAD : 1 LCX : 1 RCA : 1 FINDINGS LV Ejection Fraction: 65 Technically difficult study. Patient unable to sign consent for contrast. Normal left ventricular systolic function, with an estimated ejection fraction of 65%. Normal wall thickness. Grossly normal wall motion. Normal left ventricular chamber dimensions. Normal right ventricular size and systolic function. Normal right and left atrial size. Normal diastolic function. Aortic valve is not well visualized but Doppler data appears to be normal. Normal mitral valve without regurgitation. Normal pulmonic valve with trivial regurgitation. Normal tricuspid valve with trivial regurgitation. Unable to accurately estimate pulmonary artery pressure. No pericardial effusion. IVC is dilated and not responsive to inspiration indicating markedly elevated RA pressure-patient mechanically ventilated. Ascending aorta not well visualized. CONCLUSIONS: 1. Normal left ventricular systolic and diastolic function, estimated ejection fraction of 65%. 2. No significant valvular abnormalities . 3. No previous study available for fred guaman. Reyes Cartwright M.D. Electronically Signed: Performing Organization Address City/State/Zipcode Ph one Number [facility] RAD [address] [place] [address] * EEG ROUTINE (UP TO 40 MIN) (10/26/2009 2:19 PM CDT) Specimen Transcriptions Samson Florian MD - 06/14/2013 4:58 AM DEVELOPMENT EDUCATOR REPORT Name: CUAUHTEMOC MALDONADO Jeronimo MRN/Unit #: [id number] Attending Physician: SAMSON FLORIAN Date of : 1960 AGE: 49Y DATE OF ADMISSION: 10/21/2009 PROCEDURE PERFORMED: Video EEG number [id number] DATE OF STUDY: 10/25/2009 OBJECT: Evaluate for epilepsy using 19-channel continuous video EEG monitoring. FINDINGS: The background consisted of a normal symmetric posterior predominant alpha frequency rhythm seen symmetrically during wakefulness. There was progression into sleep with normal symmetric sleep morphologies. 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 PUSHBUTTON EVENTS: There were a total of 5 electrographic seizures recorded over the course of 2 hours in the early evening. All of the se seizures demonstrated the earliest electrographic changes over the left temporal region seen in a relatively broad fashion. This consisted of high-voltage semi rhythmic theta frequency slowing. The patient would then demonstrate head deviation towards the right. There would then be some low amplitude clonic movements particularly of the arms. The EEG would generally show high-voltage rhythmic slowing in a fairly generalized fashion, but this was typically most prominent over the left hemisphere. At the cessation of the seizure, generalized delta frequency slowing could be seen afterwards. With the fourth and fifth seizure recorded, these were longer in duration than the early seizures which lasted no more than 1 minute. The last 2 seizures lasted several minutes. IMPRESSION: This 24-hour video EEG telemetry captured 5 electrographic seizures as described above. These seizures appeared to have a left temporal onset. There was evidence for status epilepticus during this recording given that the patient's seizures became progressively longer and he had 5 electrographic seizures within a 2 hour period with no clear return to his baseline during the seizures. The medical team was aware of these findings at the time that they occurred. Samson Florian MD Dictated By: cc: * CT Angio Chest (10/26/2009 2:10 PM CDT) Specimen Narrative Performed At [facility] Patient: CUAUHTEMOC MALDONADO Phone #: [facility] Rec#: [id number] Sex: M : 1960 Júnior#: [id number] Location: [place] [address] Check-in#: [id number] Procedure Requested: [id number] Reason For Exam: SOB Exam Ordered: 10/26/2009 131 7 Exam Date/Time: 10/26/2009 1420 Check-in Date/Time: 10/27/2009 0648 Attendin SAMSON FLORIAN Requestin MICH CLEARY "" Referrin NO, REFERRING DR Primary Care: [id number] JUDY KING These images and this report have been reviewed and edited by the Staff Radiologist. CT ANGIO CHEST. INDICATION: SOB. COMPARISON STUDY: None. TECHNIQUE: Following the uneventful a dministration of a bolus of intravenous contrast ( 100 cc Omnipaque 350 ), thin section axial CT images were obtained through the chest using the pulmonary embolus protocol. Bilateral oblique thin sectio n multiplanar reconstructions were obtained through the pulmonary art eries. Coronal MIP images were also obtained. FINDINGS: Endotracheal tube terminates above the husam. An enteric tube is visualized coursing into the stomach and off the [id number]. Pulmonary Arteries: No evidence of pulm onary thromboembolic disease. No pulmonary hypertension or right ventric ular strain. Heart and Mediastinum: The heart and pe ricardium are normal. The great vessels of the thorax are unremarkable. The visualized portions of the thyroid gland are of normal size and at tenuation. No axillary or supraclavicular lymphadenopathy. Mildly enlarged right paraesophageal lymph node measuring 17 x 9 mm on image 61, series 4. Mildly enlarged 10 x 13 mm right hilar lymph node on image 57, series 4. Lungs and Airways: Consolidation is vis ualized along the right bronchovascular bundles, particularly t he medial basal segment right lower lobe subsegmental bronchi. Multif ocal air space and ground glass within the basilar segments of the left lower lobe. Patchy groundglass opacities are also seen within the left upper lobe. Innumerable centrilobular nodules and tree-in-bud o pacities are seen throughout all lobes but are most numerous within the lower lobes. Multifocal bronchial wall thickening. Mucous plugging within a medial basal subsegmental bronchus of the right lower lobe on savannah ge 32, series 4. Pleura: The pleural spaces are normal. Abdomen: The visualized upper abdominal organs are unremarkable. Bones and soft tissues: Superior endpla te Schmorl's node deformity and mild loss of height of the T7 vertebral body. INCIDENTAL FINDINGS: 1. Schmorl's node deformity and mild lo ss of height of the T7 vertebral body. IMPRESSIONS: 1. No CT evidence of pulmonary thromboe mbolic disease, pulmonary hypertension, or right ventricular stra in. 2. Right perihilar and medial basal seg ment right lower lobe consolidation. Multifocal ground glass opacities and innumerable tree-in-bud opacities throughout all lo bes are most consistent with diffuse bronchiolitis. 3. Mucous plugging within a subsegmenta l right lower lobe bronchus. 4. Right hilar and mediastinal lymphade nopathy. Signed (Authenticated, Released) Date-T malia: 10/26/2009 1710 Market Analysis Director- ARGELIA BRISENO M.D., Staff Radiologist Dictated By- COLEEN Recinos Radiologist Staff Physician- ARGELIA BRISENO M.D., Staff Radiologist Authenticated By- ARGELIA BRISENO M.D., Staff Radiologist Procedure Note Interface, Rad Conversion - 06/14/2013 10:11 PM DEVELOPMENT EDUCATOR REPORT Patient: CUAUHTEMOC MALDONADO Phone #: [facility] Rec#: [id number] Sex: M : 1960 Júnior#: [id number] Location: [facility] 11 Check-in#: [id number] Procedure Requested: [id number] CT ANGIO CHEST. Reason For Exam: SOB Exam Ordered: 10/26/2009 1317 Exam Date/Time: 10/26/2009 1420 Check-in Date/Time: 10/27/2009 0648 Attendin SAMSON FLORIAN Requestin MICH CLEARY "" Referrin NO, REFERRING DR Primary Care: [id number] JUDY KING These images and this report have been reviewed and edited by the Staff Radiologist. CT ANGIO CHEST. INDICATION: SOB. COMPARISON STUDY: None. TECHNIQUE: Following the uneventful administration of a bolus of intravenous contrast ( 100 cc Omnipaque 350 ), thin section axial CT images were obtained through the chest using the pulmonary embolus protocol. Bilateral oblique thin section multiplanar reconstructions were obtained through the pulmonary arteries. Coronal MIP images were also obtained. FINDINGS: Endotracheal tube terminates above the husam. An enteric tube is visualized coursing into the stomach and off the [id number]. Pulmonary Arteries: No evidence of pulmonary thromboembolic disease. No pulmonary hypertension or right ventricular strain. Heart and Mediastinum: The heart and pericardium are normal. The great vessels of the thorax are unremarkable. The visualized portions of the thyroid gland are of normal size and attenuation. No axillary or supraclavicular lymphadenopathy. Mildly enlarged right paraesophageal lymph node measuring 17 x 9 mm on image 61, series 4. Mildly enlarged 10 x 13 mm right hilar lymph node on image 57, series 4. Lungs and Airways: Consolidation is visualized along the right bronchovascular bundles, particularly the medial basal segment right lower lobe subsegmental bronchi. Multifocal air space and ground glass within the basilar segments of the left lower lobe. Patchy groundglass opacities are also seen within the left upper lobe. Innumerable centrilobular nodules and tree-in-bud opacities are seen throughout all lobes but are most numerous within the lower lobes. Multifocal bronchial wall thickening. Mucous plugging within a medial basal subsegmental bronchus of the right lower lobe on image 32, series 4. Pleura: The pleural spaces are normal. Abdomen: The visualized upper abdominal organs are unremarkable. Bones and soft tissues: Superior endplate Schmorl's node deformity and mild loss of height of the T7 vertebral body. INCIDENTAL FINDINGS: 1. Schmorl's node deformity and mild los s of height of the T7 vertebral body. IMPRESSIONS: 1. No CT evidence of pulmonary thromboem bolic disease, pulmonary hypertension, or right ventricular strain. 2. Right perihilar and medial basal segm ent right lower lobe consolidation. Multifocal ground glass opacities and innumerable tree-in-bud opacities throughout all lobes are most consistent with diffuse bronchiolitis. 3. Mucous plugging within a subsegmental right lower lobe bronchus. 4. Right hilar and mediastinal lymphaden opathy. Signed (Authenticated, Released) Date-Time: 10/26/2009 1710 Market Analysis Director- ARGELIA BRISENO M.D., Staff Radiologist Dictated By- COLEEN FINNEY D.O., Radiologist Staff Physician- ARGELIA BRISENO M.D., Staff Radiologist Authenticated By- ARGELIA BRISENO M.D., Staff Radiologist Performing Organization Address City/State/Zipcode Ph one Number [facility] * US Venous Duplex Lower Extremity bilat (10/26/2009 1:00 PM CDT) Specimen Narrative Performed At REPORT [facility] Patient: CUAUHTEMOC MALDONADO Phone #: Med Rec#: [id number] Sex: M : 1960 Júnior#: [id number] Location: [facility] 11 Check-in#: [id number] Procedure Requested: [id number] US VENOUS DU PLEX BILAT LOWER EXT Reason For Exam: SWELLING OF LIMB Exam Ordered: 10/26/2009 063 0 Exam Date/Time: 10/26/2009 1330 Check-in Date/Time: 10/26/2009 0640 Attendin SAMSON FLORIAN Requestin [facility] "" Referrin NO, REFERRING DR Primary Care: [id number] JUDY KING These images and this report have been reviewed and edited by the Staff Radiologist. US VENOUS DUPLEX BILATERAL Indication: Pain Technique: Ultrasound duplex examinat ion of the bilateral lower extremity venous system was performed. Findings: All visualized segments of the common femoral, greater saphenous, superficial femoral, poplite al vein are patent with good compressibility and augmentation. The c care home veins are patent. Impression: No bilateral lower extremity DVT. Signed (Authenticated, Released) Date-T malia: 10/26/2009 1455 Market Analysis Director- NAYA PATLE M.D., Staff Radiologist Dictated By- NAYA PATEL M.D., Staff Radiologist Staff Physician- NAYA PATEL M.D., S krystal Radiologist Authenticated By- NAYA PATEL M.D., Staff Radiologist ADDENDUM-- Addendum: History: Limb Swelling. Duplex ultrasound of the bilateral lowe r extremity was obtained with visualization of the common femoral vei n, deep femoral vein, popliteal vein, and calf veins Signed (Authenticated, Released) Date-T malia: 11/09/2009 1010 Addendum Market Analysis Director- NAYA PATEL M.D., Staff Radiologist Addendum Dictated ByAyana Lindo, Staff Radiologist Addendum Staff Physician- NAYA PATEL M.D., Staff Radiologist Addendum Authenticated ByAyana PATEL M.D., Staff Radiologist Procedure Note Interface, Rad Conversion - 06/14/2013 9:54 PM DEVELOPMENT EDUCATOR REPORT Patient: CUAUHTEMOC MALDONADO Phone #: [facility] Rec#: [id number] Sex: M : 1960 Júnior#: [id number] Location: [facility] 11 Check-in#: [id number] Procedure Requested: [id number] US VENOUS DUPLEX BILAT LOWER EXT Reason For Exam: SWELLING OF LIMB Exam Ordered: 10/26/2009629 Exam Date/Time: 10/26/2009 1330 Check-in Date/Time: 10/26/2009 0640 Attendin SAMSON FLORIAN Requestin MATTIE SANCHEZ "" Referrin SHANT, REFERRING Primary Care: [id number] JUDY KING These images and this report have been reviewed and edited by the Staff Radiologist. US VENOUS DUPLEX BILATERAL Indication: Pain Technique: Ultrasound duplex examination of the bilateral lower extremity venous system was performed. Findings: All visualized segments of the common femoral, greater saphenous, superficial femoral, popliteal vein are patent with good compressibility and augmentation. The calf veins are patent. Impression: No bilateral lower extremity DVT. Signed (Authenticated, Released) Date-Time: 10/26/2009 0369 Market Analysis Director- NAYA PATEL M.D., Staff Radiologist Dictated By- NAYA PATEL M.D., Staff Radiologist Staff Physician- NAYA PATEL M.D., Staff Radiologist Authenticated By- NAYA PATEL M.D., Staff Radiologist ADDENDUM--- Addendum: History: Limb Swelling. Duplex ultrasound of the bilateral lower extremity was obtained with visualization of the common femoral vein, deep femoral vein, popliteal vein, and calf veins Signed (Authenticated, Released) Date-Time: 11/09/2009 1010 Addendum Market Analysis Director- NAYA PATEL M.D., Staff Radiologist Addendum Dictated By- NAYA PATEL M.D., Staff Radiologist Addendum Staff Physician- NAYA PATEL M.D., Staff Radiologist Addendum Authenticated By- NAYA PATEL M.D., Staff Radiologist Performing Organization Address [facility] one Number [facility] * Culture, Sputum with Gram Stain (10/26/2009 12:10 PM CDT) Specimen Sputum Narrative Performed At [facility] Specimen/Source: SPUTUM/SPUTUM Collected: 10/26/2009 12:10 Status: Final Last Updated: 11:56 Gram Stain (Final) Greater than 25 WBC per low power field Less than 10 epithelial cells per low power field Gram Positive Cocci In Pairs Culture result (Final) Few Mixed normal upper respiratory emanuel isolated Performing Organization Address [facility] one Number [facility] [address] [place], [place] [address] [facility] * CK-MB (10/26/2009 11:25 AM CDT) Only the most recent of 4 results within the time period is included. CK MB 32.6 (H) 0.0 - 6.3 NG/ML [facility] Specimen Blood Performing Organization Address [facility] one Number [facility] [address] [place] [phone] [facility] * Troponin (10/26/2009 11:25 AM CDT) Only the most recent of 4 results within the time period is included. Troponin 0.15 (H) 0.00 - 0.07 NG/ML [facility] Comment: Troponin Value Interpretation 0.00 - 0.07 Healthy 0.08 - 0.50 Increased Cardiac Risk >0.50 Myocardial Infarction Troponin may not become elevated until 6 to 8 hours after onset of symptoms. Specimen Blood Performing Organization Address [facility] Ph one Number [facility] [address] [place] [phone] [facility] * Ionized Calcium (10/26/2009 10:45 AM CDT) Only the most recent of 3 results within the time period is included. Ionized Calcium 4.2 (L) 4.5 - 5.3 MG/DL [facility] Specimen Blood Performing Organization [facility] Ph one Number [facility] [address] [place] [phone] [facility] * Albumin (10/26/2009 5:30 AM CDT) Albumin 3.8 3.5 - 5.0 G/DL [facility] Specimen Blood Performing Organization [facility] one Number [facility] [address] [place] [phone] [facility] * Culture, Blood with MADISON (10/26/2009 12:16 AM CDT) Only the most recent of 2 results within the time period is included. Specimen Blood Narrative Performed At [facility] Specimen/Source: BLOOD/BLOOD Collected: 10/26/2009 00:15 Status: Final Last Updated: 08:33 Culture result (Final) No Growth at 5 days Performing Organization Address [facility] Ph one Number [facility] [address] [place] [phone] [facility] * Culture, Urine (10/25/2009 10:00 PM CDT) Specimen Urine Narrative Performed At [facility] [employer] Specimen/Source: URINE/CATHETER URINE Collected: 10/25/2009 22:00 Status: Final Last Updated: 21:41 Culture result (Final) No growth at 1 day Performing Organization [facility] one Number [facility] [address] [place], [place] [address] [facility] * Coagulation Screen (10/25/2009 10:00 PM CDT) APTT 22 22 - 34 SEC [facility] Protime 13.1Comment: Protime reference 11.7 - 14.3 SEC [facility] range changed on 10/20/09. INR 1.0Comment: INR reference 0.9 - 1.1 SUNQ UEST range changed on 10/20/09. Platelet Count 193 140 - 400 TH/UL [facility] Fibrinogen 293 146 - 390 MG/DL [facility] Assay Specimen Blood Performing Organization Address [facility] Ph one Number [facility] [address] [place], [place] [address] [facility] * Lactate Arterial WB (10/25/2009 9:14 PM CDT) Lactate 4.0 (H) 0.0 - 0.8 MMOL/L [facility] Arterial Specimen Arterial Performing Organization Address [facility] Ph one Number [address] [place], [place] [address] [facility] * XR Abdomen single view AP (10/25/2009 8:29 PM CDT) Specimen Narrative Performed At [facility] Patient: CUAUHTEMOC MALDONADO Phone #: [facility] Rec#: [id number] Sex: M : 1960 Júnior#: [id number] Location: [place] [address] Check-in#: [id number] Procedure Requested: [id number] DX ABDOMEN S MADHAVI VIEW Reason For Exam: TUBE PLACEMENT Exam Ordered: 10/25/2009 201 6 Exam Date/Time: 10/25/20092033 Check-in Date/Time: 10/25/20092038 Attendin SAMSON FLORIAN Requestin NORRIS COOK Referrin NO, REFERRING DR Primary Care: [id number] JUDY KING These images and this report have been reviewed and edited by the Staff Radiologist. DX ABDOMEN SINGLE VIEW Indication: TUBE PLACEMENT Exam Date: Oct 25, 2009 8:34:00 PM Comparison: None. Findings: Limited supine view of the upper abdome n demonstrates an enteric tube tip overlying the expected location of the gastric body. No abnormally dilated loops of bowel ar e identified. No pneumoperitoneum on this limited supine view. There are no suspicious calcifications. Visualized osseous structures and the l floyd bases are unremarkable. Impression: Enteric tube tip terminates in the alejandra dayana body. Nonobstructive bowel gas pattern. Signed (Authenticated, Released) Date-T malia: 10/26/2009 0923 Market Analysis Director- MARVA COLÓN M.D. , Staff Radiologist Dictated By- RADHA ZAMORANO M.D., Resident Staff Physician- MARVA COLÓN M.D., Staff Radiologist Authenticated By- MARVA COLÓN M.D. , Staff Radiologist Procedure Note Interface, Rad Conversion - 06/14/2013 10:15 PM DEVELOPMENT EDUCATOR REPORT Patient: CUAUHTEMOC AMLDONADO Phone #: [facility] Rec#: [id number] Sex: M : 1960 Júnior#: [id number] Location: [facility] 11 Check-in#: [id number] Procedure Requested: [id number] DX ABDOMEN SINGLE VIEW Reason For Exam: TUBE PLACEMENT Exam Ordered: 10/25/20092015 Exam Date/Time: 10/25/20092033 Check-in Date/Time: 10/25/20092038 Attendin SAMSON FLORIAN Requestin NORRIS COOK Referrin SHANT, REFERRING Primary Care: [id number] JUDY KING These images and this report have been reviewed and edited by the Staff Radiologist. DX ABDOMEN SINGLE VIEW Indication: TUBE PLACEMENT Exam Date: Oct 25, 2009 8:34:00 PM Comparison: None. Findings: Limited supine view of the upper abdomen demonstrates an enteric tube tip overlying the expected location of the gastric body. No abnormally dilated loops of bowel are identified. No pneumoperitoneum on this limited supine view. There are no suspicious calcifications. Visualized osseous structures and the lung bases are unremarkable. Impression: Enteric tube tip terminates in the gastric body. Nonobstructive bowel gas pattern. Signed (Authenticated, Released) Date-Time: 10/26/2009922 Market Analysis Director- MARVA COLÓN M.D., Staff Radiologist Dictated By- RADHA ZAMORANO M.D., Resident Staff Physician- MARVA COLÓN M.D., Staff Radiologist Authenticated By- MARVA COLÓN M.D., Staff Radiologist Performing Organization Address [facility] Ph one Number MAGALIS * Shock Profile (10/25/2009 7:40 PM CDT) pH Arterial 7.11 (AA) 7.38 - 7.44 UNITS SUNQUEST pCO2 Arterial 49 (H) 35 - 45 MM HG SUNQUEST PO2 Arterial 69 (L) 75 - 100 MM HG SUNQUEST Base Excess -15.6 (L) -3.0 - 3.0 MEQ/L SUNQUEST Bicarbonate 14.7 (L) 21.0 - 28.0 MEQ/L SUNQUEST Hemoglobin 17.6 (H) 13.0 - 17.0 G/DL SUNQUEST Whole Blood Carboxyhemoglob 0.1 0.0 - 1.5 % THB SUNQUEST in Oxyhemoglobin 84.1 (L) 95.0 - 100.0 % THB SUNQUEST Methemoglobin 0.9 0.0 - 1.5 % THB SUNQUEST O2 Content 20.7 17.0 - 100.0 ML/DL SUNQUEST Arterial Patient Temp 37.0 C SUNQUEST Celsius Sample Site Radial right SUNQUEST Device NRB SUNQUEST LPM 15.00 L/MIN SUNQUEST Mode SV SUNQUEST Sodium 138 134 - 144 MEQ/L SUNQUEST Potassium 3.9 3.5 - 5.2 MEQ/L SUNQUEST Chloride 103 98 - 107 MEQ/L SUNQUEST Ionized Calcium 5.2 4.5 - 5.3 MG/DL SUNQUEST Glucose 221 (H) 65 - 100 MG/DL SUNQUEST Lactate 12.5 (H) 0.0 - 0.8 MMOL/L SUNQUEST Arterial Specimen Arterial Performing Organization Address [facility] Ph one Number [facility] [phone] [place], [place] [address] [place] [address] * EEG ROUTINE (UP TO 40 MIN) (10/25/2009 2:21 PM CDT) Specimen Transcriptions Samson Florian MD - 06/14/2013 4:59 AM DEVELOPMENT EDUCATOR REPORT Name: CUAUHTEMOC MALDONADO MRN/Unit #: [id number] Attending Physician: SAMSON FLORIAN Date of : 1960 AGE: 49Y DATE OF ADMISSION: 10/21/2009 PROCEDURE: Video EEG. EEG NUMBER: [id number] DATE OF STUDY: 10/24/2009 OBJECT: Evaluate for epilepsy using 19-channel continuous video EEG monitoring. FINDINGS: The background consisted of a normal, symmetric, posterior predominant, alpha frequency rhythm seen symmetrically during wakefulness. There was progression into sleep with normal symmetric sleep morphologies. 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 Push-button events: There were no push-button events recorded. IMPRESSION: This 24-hour video EEG telemetry captured no push-button events and no electrographic seizures. There were no clear focal or epileptiform features seen. Samson Florian MD Dictated By: cc: * EEG ROUTINE (UP TO 40 MIN) (10/24/2009 10:22 AM CDT) Specimen Transcriptions Samson Florian MD - 06/14/2013 4:59 AM DEVELOPMENT EDUCATOR REPORT Name: CUAUHTEMOC MALDONADO MRN/Unit #: [id number] Attending Physician: SAMSON FLORIAN Date of : 1960 AGE: 49Y DATE OF ADMISSION: 10/21/2009 VIDEO ELECTROENCEPHALOGRAM REPORT EEG #: [id number] DATE OF THE STUDY October 23, 2009 OBJECT Evaluate for epilepsy using 19-channel continuous video EEG monitoring. FINDINGS The background consisted of a normal symmetric posterior predominant alpha frequency rhythm seen symmetrically during wakefulness. There was progression into sleep with normal symmetric sleep morphologies. 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 PUSH BUTTON EVENTS: There was one push button event recorded at approximately 6:30 p.m. The patient could be heard talking to his that he felt strange. The nurse came in to check on him. There was no clear clinical behavioral change noted and the patient could be heard talking to the nurse and stating that he felt somewhat shaky and a little nervous. He specifically states that this is not his typical aura. There were no clear electrographic changes seen with this push button event. IMPRESSION This 24-hour video EEG telemetry captured one push button event for a sensation where the patient felt somewhat nervous and tremulous. There was no obvious outward clinical behavioral change noted with this push button event and the patient specifically states on video with that this is not his typical aura. This appeared to be nonepileptic in nature given that there were no changes seen on the EEG. Interictally, there were no clear focal or epileptiform features seen. Samson Florian MD Dictated By: cc: * EEG ROUTINE (UP TO 40 MIN) (10/23/2009 10:02 AM CDT) Specimen Transcriptions Samson Florian MD - 06/14/2013 4:59 AM DEVELOPMENT EDUCATOR REPORT Name: CUAUHTEMOC MALDONADO MRN/Unit #: [id number] Attending Physician: SAMSON FLORIAN Date of : 1960 AGE: 49Y DATE OF ADMISSION: 10/21/2009 VIDEO ELECTROENCEPHALOGRAM REPORT EEG #: [id number] DATE OF THE STUDY October 22, 2009 OBJECT Evaluate for epilepsy using 19-channel continuous video EEG monitoring. FINDINGS The background consisted of a normal symmetric posterior predominant alpha frequency rhythm seen symmetrically during wakefulness. There was progression into sleep with normal symmetric sleep morphology. 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 PUSH BUTTON EVENTS: There were no push button events recorded. IMPRESSION This 24-hour video EEG telemetry captured no push button events and no electrographic seizures. There were no clear focal or epileptiform features seen. Samson Florian MD Dictated By: cc: * EEG ROUTINE (UP TO 40 MIN) (10/22/2009 2:21 PM CDT) Specimen Transcriptions Samson Florian MD - 06/14/2013 5:00 AM DEVELOPMENT EDUCATOR REPORT Name: CUAUHTEMOC MALDONADO MRN/Unit #: [id number] Attending Physician: SAMSON FLORIAN Date of : 1960 AGE: 49Y DATE OF ADMISSION: 10/21/2009 EEG NUMBER: [id number] DATE OF STUDY: 10/21/2009. OBJECT: Evaluate for epilepsy using 19-channel continuous video EEG monitoring. FINDINGS: The background consisted of a normal symmetric posterior predominant alpha frequency rhythm seen symmetrically during wakefulness. There was progression into sleep with normal symmetric sleep morphologies. 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 PUSH BUTTON EVENTS: There were no push button events recorded. IMPRESSION: This video EEG telemetry was recorded for approximately 13 hours and captured no push button events and no electrographic seizures. There were no clear focal or epileptiform features seen. Samson Florian MD Dictated By: cc: documented in this encounter Visit Diagnoses Diagnosis Localization-related (focal) (partial) epilepsy and epileptic syndromes with complex partial seizures, with intractable epilepsy documented in this encounter
--- OUTSIDE RECORDS SUMMARY | 2019-09-30 16:21 | XMS REPORT | Encounter Summary ---
Author Author [facility] Organization [facility] Address Unknown Phone Unavailable Care Team Providers Care Shaft Sinker Name Role Phone PCP Unavailable Encounter Details Care Team Description Date Type Department [facility] Provider, MD Yesenia 10/26/2009 [facility] C Result Social [...] Date/Time Associated Diag nosis ECHO HISTORICAL Routine 10/26/2009 documented in this encounter Results * Echo historical (10/26/2009) Specimen Narrative Performed At Procedure Category: ECHO NEXTGEN Procedure: Echocardiogram Procedure Summary: 1. Normal left ventr icular systolic and diastolic function, estimated ejection fraction of 65%. 2. No significant valvular abnormalitie s. 3. No previous study available for comp alisha. Procedure Note Interface, Rad Conversion - 11/04/2014 2:19 AM CDT Procedure Category: ECHO Procedure: Echocardiogram Procedure Summary: 1. Normal left ventricular systolic and diastolic function, estimated ejection fraction of 65%. 2. No significant valvular abnormalities . 3. No previous study available for fredmariela guaman. Performing Organization Address City/State/Zipcode Ph one Number NEXTGEN documented in this encounter Visit Diagnoses Not on filedocumented in this encounter
--- OUTSIDE RECORDS SUMMARY | 2019-09-30 16:21 | XMS REPORT | Encounter Summary ---
Author Author [facility] Organization [facility] Address Unknown Phone Unavailable Care Team Providers Care Plastics Heat Welder Name Role Phone PCP Unavailable Encounter Details Care Team Description Date Type Department [facility], Historical 09/28/2009 PracPart Note [facility] Social History Date Tobacco Use Types Packs/Day Years Used Never Assessed Sex Assigned at Date Recorded Not on file Industry Job Start Date Occupation Not on file Not on file Not on file Travel End Travel History Travel Start No recent travel history available. documented as of this encounter Progress Notes * [facility], Historical - 09/28/2009 12:03 PM CDT . : 12:03pm Hypertension: no Hyperlipidemia: no Coronary heart disease: no Diabetes mellitus: no Migraines: no CVD / Stroke: yes father Cancer: no Parkinson Disease: no Multiple Sclerosis: no Alzheimers: no Alcoholism: no Epilepsy: no Mental illness: no Other: no documented in this encounter Plan of Treatment Not on filedocumented as of this encounter Visit Diagnoses Not on filedocumented in this encounter
--- OUTSIDE RECORDS SUMMARY | 2019-09-30 16:21 | XMS REPORT ---
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 [employer] [facility] [employer] [facility] [employer] Address [address] [address] Care Team Providers Care Heavy Equipment Supervisor Name Role Phone AGUILAR PHILLIPS Unavailable Unavailable SEGLIESABASYD R Unavailable SEGLELIA GABRIELLE R Unavailable RODRICK RUIZ Unavailable Unavailable CLARITA PICKARD Unavailable SHELBY SAHU Unavailable Unavailable TEE PICKARDNDA Unavailable Migration, Doctor Unavailable Unavailable Migration, Doctor Unavailable Unavailable Migration, Doctor Unavailable Unavailable Migration, Doctor Unavailable Unavailable CHRYSTAL VIVAS Unavailable SUZIE LEDEZMA Unavailable SARAH Brown Unavailable CLARITA PICKARD Unavailable Unavailable LETY DOHERTY MD Unavailable Unavailable GABRIELLE KING MD R Unavailable Unavailable REGULO AG DO Unavailable Unavailable RIKKI OBOTHE DO B Unavailable Unavailable SARAH Brown Unavailable Migration, Doctor Unavailable Unavailable RIKKI BOOTHE DO B Unavailable Unavailable ARTHUR TOURE DO K Unavailable Unavailable Unavailable Unavailable Unavailable Unavailable Unavailable Unavailable Unavailable Unavailable Unavailable Unavailable Allergies The data below is from unstructured sources Allergen Type Severity Reaction Status Last Updated No Known Drug Allergies Active 02/06/14 No Information Medications The data below is from unstructured sourcesNo Known Medications No Known Medications No Known Medications No Known Medications Unknown Medications Unknown Medications No Known Medications No Known Medications No Known Medications No Known Medications No Known Medications No Known Medications No Known Medications No Known Medications No Known Medications No Known Medications No Known Medications No Known Medications No Known Medications No Known Medications No Known Medications No Known Medications No Known Medications No Known Medications No Known Medications No Known Medications No Known Medications No Known Medications No Known Medications No Known Medications No Known Medications No Known Medications No Known Medications No Known Medications No Known Medications No Known Medications No Known Medications Problems Problem Normalized Date Last Normalized Normalized Provider Fa cility Classification Problem(s) Recorded Problem Problem Sta tus Duration Superficial Abrasion of 09-01-2019 - Episodic Active JOSE ODEN Via injury; other part of [facility] [place] contusion (4 head, initial Hospital - sources.) encounter [place] ([address]) External cause Bathroom of 09-01-2019 - Episodic Active JOSE HUNTER Via codes: Place single-family [facility] of occurrence (private) Hospital - (4 sources.) house as the [place] place of ([address]) occurrence of the external cause Other and Benign 09-04-2019 - Episodic Active JOSE BURCH Via unspecified neoplasm of [facility] benign transverse Hospital - neoplasm (5 colon [place] sources.) ([address]) Other Encounter for 09-01-2019 - Episodic Active [facility] screening for screening for [facility] [id number] [place] [address] suspected malignant (Other Phone: of [facility] conditions neoplasm of ) [place] ([address]) (not mental colon disorders or Translations: infectious [ - Screening disease) (6 for colon sources.) cancer Z12.11] Epilepsy; Epilepsy, 09-01-2019 - Chronic Active JOSE BOBO Via convulsions unspecified, [facility] (24 sources.) not Hospital - intractable, [place] without status ([address]) epilepticus Translations: [ GEN CONVULS EPILEPSY W/O MENT OF INTRACT, - Seizure disorder G40.909, - Epilepsy, unspecified, not intractable, without status epilepticus G40.909] External cause Fall on same 09-01-2019 - Episodic Active LETY DOHERTY VCPhuong Via codes: Fall (4 level from [facility] sources.) slipping, Hospital - tripping and [place] stumbling with ([address]18) subsequent striking against other object, initial encounter Esophageal Gastro-esophag 09-04-2019 - Chronic Active JOSE WRAY Via disorders (5 eal reflux [facility] sources.) disease Hospital - without [place] esophagitis (57648) Cancer of Malignant 09-04-2019 - Chronic Active JOSE BURCH Via colon (14 neoplasm of [facility] [place] sources.) cecum Hospital - Translations: [place] [ MALIGNANT (47347) NEOPLASM OF COLON, UNSPECIFIED] External cause Other external 09-01-2019 - Episodic Active FORTINO DOHERTY [facility] Via codes: cause status [facility] Unspecified (4 Hospital - sources.) [place] ([address]) Hemorrhoids Other 09-04-2019 - Episodic Active RIKKI BOOTHE , [facility] Via (11 sources.) hemorrhoids [facility] [place] Translations: Hospital - [ FIRST DEGREE [place] HEMORRHOIDS] (91284) Other Other long 09-01-2019 - Episodic Active LETY DOHERTY , [facility] Via aftercare (9 term (current) [facility] sources.) drug therapy Hospital - [place] ([address]) Other Other 09-04-2019 - Episodic Active RIKKI BOOTHE , [facility] Via gastrointestin specified [facility] al disorders diseases of Hospital - (5 sources.) intestine [place] (85323) Genitourinary Retention of 09-25-2019 - Episodic Active RIKKI SILVA [facility] Via symptoms and urine, [facility] ill-defined unspecified Hospital - conditions (6 [place] sources.) (64427) Other diseases Unspecified Episodic Active GABRIELLE CHRISTINE , [facility] Via of kidney and disorder of [facility] ureters (1 kidney and Hospital - source.) ureter [place] (14787) Procedures Procedure Normalized Procedure Procedure Result Performer Facility Date 09-17-2019 RESECTION OF RIGHT no information no name [facility] Via [place] LARGE INTESTINE, OPEN [facility] (28988) Immunizations Normalized Immunization Date Notes Care Provider [facility] Immunization influenza, 02-05-2018 no information CLARITALIANG PICKARD [address] [facility] injectable, [facility] quadrivalent, [place] (11721) preservative free influenza, seasonal, 01-20-2019 no information no name [facility] injectable [facility] (27677) influenza, seasonal, 02-05-2018 no information CLARITALIANG PICKARD 73016 [facility] injectable [facility] (29746) pneumococcal 05-19-2019 no information no name [facility] polysaccharide [facility] vaccine, 23 valent - [place] (48872) tetanus toxoid, 05-19-2019 no information no name [facility] reduced diphtheria [facility] toxoid, and - [place] (05054) acellular pertussis vaccine, adsorbed zoster vaccine 05-19-2019 no information no name [facility] [place] (96189) ADMN FLU VAC NO FEE 02-05-2018 - no information CLARITA PICKARD [id number] [facility] SAME DAY 02-05-2018 [facility] Translations: [ [place] ([address]65) FLULAVAL QUAD 0.5ML (6 MO ] SINGLE IMMUNIZATION 02-05-2018 no information CLARITA PICKARD [phone] [facility] ADMIN [facility] (94185) ADMN FLU VAC NO FEE 02-04-2013 no information Doctor Migration [facility] SAME DAY [facility] (95416) Results Test Name Value Interpretation Reference Range Date Time Fa cility (Normalized) (Normalized) (Medline Reference) laboratory on 2019-09-30 Albumin 4.2 g/dL (NEG) 3.4 - 5.4 g/dL 09-30-2019 PENDING LOCATION [Mass/Vol] 10:15-0 [facility] (96229) ALP [Catalytic 72 U/L (NEG) 44 - 147 U/L 09-30-2019 PEND ING LOCATION activity/Vol] 10:-0 [facility] (90978) ALT [Catalytic 70 U/L (H) 4 - 40 U/L 09-30-2019 PENDIN G LOCATION activity/Vol] 10:15-0 [facility] (39297) Anion gap 12 mmol/L (NEG) 3 - 11 mmol/L 09-30-2019 PENDING LOCATION [Moles/Vol] 10:-0 [facility] (39376) aPTT Coag (PPP) 25 s (NEG) 25 - 35 s 09-30-2019 PENDIN G LOCATION [Time] 10:-0400 [facility] (39041) AST [Catalytic 38 U/L (H) 10 - 34 U/L 09-30-2019 PENDI NG LOCATION activity/Vol] 10:15-0400 [facility] (60716) Basophils (Bld) 0.0 10*3/uL (NEG) 0 - 0.3 10*3/uL 09-30-2019 PENDING LOCATION [#/Vol] 10:0400 [facility] (55873) Basophils/100 0 % (NEG) 0.5 - 1 % 09-30-2019 PENDING LOCATION WBC (Bld) 10:-0 [facility] (92738) Bilirubin 0.2 mg/dL (NEG) 0.1 - 1.2 mg/dL 09-30-2019 PENDIN G LOCATION [Mass/Vol] 10:15-0400 [facility] (56394) Calcium 10.1 mg/dL (NEG) 8.5 - 10.2 mg/dL 09-30-2019 PEND ING LOCATION [Mass/Vol] 10:15-0400 [facility] (56937) Calcium 9.9 mg/dL (NEG) 8.5 - 10.2 mg/dL 09-30-2019 PENDI NG LOCATION [Mass/Vol] 10:15-0400 [facility] (50660) Chloride 105 mmol/L (NEG) 95 - 106 mmol/L 09-30-2019 PENDI NG LOCATION [Moles/Vol] 10:0400 [facility] (31110) CK [Catalytic 186 U/L (NEG) 09-30-2019 PENDING LOCA TION activity/Vol] 10:0400 [facility] (87725) CK.MB [Catalytic 2.7 (no code) 09-30-2019 PENDING L OCATION activity/Vol] 10:15-0400 [facility] (16043) CO2 [Moles/Vol] 23 mmol/L (NEG) 23 - 29 mmol/L 09-30-2019 P ENDING LOCATION 10:0400 [facility] (68133) Creatinine 1.67 mg/dL (H) 09-30-2019 PENDING LOCATI ON [Mass/Vol] 10:-0 [facility] (18044) Creatinine and 42 (no code) 09-30-2019 PENDING LOC ATION Glomerular 10:15-0400 [facility] (40726) filtration rate.predicted panel - Serum, Plasma or Blood Eosinophils 0.0 10*3/uL (NEG) 0.05 - 0.5 09-30-2019 PENDING LOCATION (Bld) [#/Vol] 10*3/uL 10:15-0400 [facility] (29565) Eosinophils/100 0 % (NEG) 1 - 4 % 09-30-2019 PENDIN G LOCATION WBC (Bld) 10:0 [facility] (66923) Erythrocyte 13.2 % (NEG) 11.6 - 14.6 % 09-30-2019 PENDIN G LOCATION distribution 10:15-0400 [facility] (07198) width (RBC) [Ratio] Ethanol mg/dL (NEG) 0 - 80 mg/dL 09-30-2019 PENDING L OCATION [Mass/Vol] 10:15-0400 [facility] (76999) Glucose 119 mg/dL (H) 60 - 125 mg/dL 09-30-2019 PENDING LOCATION [Mass/Vol] 10:15-0400 [facility] (47505) Hematocrit (Bld) 46 % (NEG) 36.1 - 50.3 % 09-30-2019 P ENDING LOCATION [Volume 10:15-0400 [facility] (14806) fraction] Hemoglobin (Bld) 15.6 g/dL (NEG) 12.1 - 17.2 g/dL 09-30-2019 PENDING LOCATION [Mass/Vol] 10:15-0400 [facility] (57465) INR Coag 0.9 (NEG) 09-30-2019 PENDING LOCATI ON (Platelet poor 10:15-0400 [facility] (56984) plasma or blood) [Relative time] Lactate 2.62 mmol/L (HH) 0.5 - 2.2 mmol/L 09-30-2019 PEN DING LOCATION [Moles/Vol] 10:15-0400 [facility] (45998) Lymphocytes 0.5 10*3/uL (L) 0.9 - 2.9 09-30-2019 PENDING LOCATION (Bld) [#/Vol] 10*3/uL 10:15-0400 [facility] (29919) Lymphocytes/100 12 % (NEG) 20 - 40 % 09-30-2019 PENDIN G LOCATION WBC (Bld) 10:15-0400 [facility] (08974) Magnesium 2.4 mg/dL (NEG) 1.7 - 2.2 mg/dL 09-30-2019 PENDIN G LOCATION [Mass/Vol] 10:15-0400 [facility] (52978) MCH (RBC) 30 pg (NEG) 27 - 31 pg 09-30-2019 PENDING LOC ATION [Entitic mass] 10:15-0400 [facility] (27911) MCHC (RBC) 34 g/dL (NEG) 32 - 36 g/dL 09-30-2019 PENDING LOCATION [Mass/Vol] 10:15-0400 [facility] (30535) MCV (RBC) 90 (NEG) 09-30-2019 PENDING LOCATI ON [Entitic vol] 10:15-0400 [facility] (28717) Monocytes (Bld) 0.4 10*3/uL (NEG) 0.3 - 0.9 09-30-2019 PEND ING LOCATION [#/Vol] 10*3/uL 10:15-0400 [facility] (65106) Monocytes/100 10 % (NEG) 2 - 8 % 09-30-2019 PENDING LOCATION WBC (Bld) 10:15-0400 [facility] (23322) Myoglobin 246.9 ng/mL (H) 09-30-2019 PENDING LOCATI ON [Mass/Vol] 10:15-0400 [facility] (97739) Neutrophils 2.9 10*3/uL (NEG) 1.7 - 7 10*3/uL 09-30-2019 PE NDING LOCATION (Bld) [#/Vol] 10:15-0400 [facility] (62961) Neutrophils/100 78 % (H) 40 - 60 % 09-30-2019 PENDIN G LOCATION WBC (Bld) 10:15-0400 [facility] (95692) Platelet mean 8.6 (NEG) 09-30-2019 PENDING LOCA TION volume (Bld) 10:15-0400 [facility] (03704) [Entitic vol] Platelets (Bld) 279 10*3/uL (NEG) 150 - 450 09-30-2019 PEND ING LOCATION [#/Vol] 10*3/uL 10:15-0400 [facility] (78123) Potassium 5.1 mmol/L (H) 3.7 - 5.2 mmol/L 09-30-2019 PEND ING LOCATION [Moles/Vol] 10:15-0400 [facility] (62686) Protein 6.9 g/dL (NEG) 6.4 - 8.3 g/dL 09-30-2019 PENDING LOCATION [Mass/Vol] 10:15-0400 [facility] (73972) PT Coag (PPP) 12.7 s (NEG) 9.4 - 12.5 s 09-30-2019 PENDI NG LOCATION [Time] 10:15-0400 [facility] (93863) RBC (Bld) 5.14 10*6/uL (NEG) 4.2 - 6.1 09-30-2019 PENDING L OCATION [#/Vol] 10*6/uL 10: [facility] (19129) Sodium 140 mmol/L (NEG) 135 - 145 mmol/L 09-30-2019 PEND ING LOCATION [Moles/Vol] 10: [facility] () Urea nitrogen 34 mg/dL (H) 7 - 20 mg/dL 09-30-2019 PENDI NG LOCATION [Mass/Vol] 10: [facility] () Urea 20 mg/mg (no code) 6 - 22 mg/mg 09-30-2019 PENDING L OCATION nitrogen/Creatin 10: [facility] () ine [Mass ratio] WBC (Bld) 3.8 10*3/uL (L) 3.5 - 10.5 09-30-2019 PENDING L OCATION [#/Vol] 10*3/uL 10: [facility] () not yet categorized on 2019-09-20 no information NAME: (no code) PENDING LOCATIO [facility] (19930) ~MED REC#: [id number] ~ ~PHYSICIAN: SRINIVASA HYDE DO ~Subjective ~Date Seen by a Provider: Sep 20, 2019 ~Time Seen by a Provider: 10:08 ~Subjective/Even ts-last exam ~Patient feeling good. Pain control. Passing flatus and having bowel movement. Tolerating diet. ~Wanting to go home. Denies nausea vomiting fever sweats chills shortness of breath or chest pain. ~ ~Objective ~Exam ~ ~Vital Signs ~ ~ ~ Date Time Temp Pulse Resp B/P (MAP) Pulse Ox O2 Delivery O2 Flow Rate FiO2 ~ ~09/20/19 08:41 98 Room Air ~ ~09/20/19 08:00 36.6 72 16 124/74 (91) 98 Room Air ~ ~09/20/19 04:00 36.8 61 20 125/79 (94) 97 Room Air ~ ~09/20/19 00:00 36.7 61 19 128/78 (95) 98 Room Air ~ ~09/19/19 21:00 98 Room Air ~ ~09/19/19 19:44 36.7 72 16 111/74 (86) 99 Room Air ~ ~09/19/19 16:15 36.6 66 18 104/71 (82) 98 Room Air ~ ~ ~ ~ ~I O ~ ~ 09/20/19 ~ ~ 07:00 ~ ~Intake Total 2330 ml ~ ~Output Total 1150 ml ~ ~Balance 1180 ml ~ ~Capillary Refill : NONE ~General Appearance: No Apparent Distress, WD/WN ~HEENT: PERRL/EOMI ~Respiratory: Chest Non Tender, No Accessory Muscle Use, No Respiratory Distress ~Cardiovascular: Regular Rate, Rhythm, No Edema ~Gastrointestina l: soft, tenderness (Minimal incisional), other (inc c/d/i) ~Extremity: Non Tender ~Neurologic/Psyc hiatric: Alert, Oriented x3 ~Skin: Normal Color, Warm/Dry ~Lymphatic: No Adenopathy ~ ~Assessment/Plan ~Assessment/Plan ~Assessment/Plan ~S/P Right Colon Resection ~Urinary Retention -resolved ~ ~Pt told he has to ambulate 5-6 times today and use IS 10 times every hour while awake. ~Okay to DC home as patient is wanting to be discharged home as well. ~ ~Clinical Quality Measures ~DVT/VTE Risk/Contraindic ation: ~Risk Factor Score Per Nursin ~RFS Level Per Nursing on Admit: 4+=Very High ~ ~ ~ ~SRINIVASA HYDE DO Sep 20, 2019 15:55 ~ ~ ~<Created by SRINIVASA HYDE DO> ~<Electronically signed by SRINIVASA HYDE DO> 09/20/19 5645 ~ ~ not yet categorized on 2019-09-19 no information NAME: (no code) PENDING LOCATIO [facility] ([id number]) ~MED REC#: [id number] ~ ~PHYSICIAN: RIKKI BOOTHE DO ~Subjective ~Time Seen by a Provider: 10:53 ~Subjective/Even ts-last exam ~Pt seen and examined, states his pain was great this am but got a little worse after he walked. He ~did have a BM, but states he isn't eating much; I get full quick. ~He is worried about pain control when he gets home. States he is urinating better. ~Review of Systems ~General: No Chills, No Night Sweats ~Pulmonary: No Dyspnea, No Cough ~Cardiovascular: No: Chest Pain, Palpitations ~Gastrointestina l: Abdominal Pain; No: Nausea, Vomiting ~ ~Objective ~Exam ~ ~Vital Signs ~ ~ ~ Date Time Temp Pulse Resp B/P (MAP) Pulse Ox O2 Delivery O2 Flow Rate FiO2 ~ ~09/19/19 08:49 Room Air ~ ~09/19/19 08:30 36.3 76 19 159/62 (94) 96 Room Air ~ ~09/19/19 04:00 37.0 64 18 108/53 (71) 95 Room Air ~ ~09/19/19 00:45 36.4 63 17 114/60 (78) 92 Room Air ~ ~09/18/19 21:00 Room Air ~ ~09/18/19 20:00 36.8 67 18 122/72 (89) 99 Room Air ~ ~09/18/19 16:00 36.6 63 20 126/85 (99) 97 Room Air ~ ~ ~ ~ ~I O ~ ~ 09/19/19 ~ ~ 07:00 ~ ~Intake Total 1968 ml ~ ~Output Total 650 ml ~ ~Balance 1318 ml ~ ~Capillary Refill : NONE ~General Appearance: No Apparent Distress, WD/WN ~Respiratory: Lungs Clear, Normal Breath Sounds, No Accessory Muscle Use, No Respiratory Distress ~Cardiovascular: Regular Rate, Rhythm, No Murmur ~Gastrointestina l: soft, tenderness, other (inc c/d/i) ~ ~Assessment/Plan ~Assessment/Plan ~Assessment/Plan ~S/P Right Colon Resection ~Urinary Retention -resolved ~ ~Pt told he has to ambulate 5-6 times today and use IS 10 times every hour while awake. Will ~continue Flomax. Plan to d/c home tomorrow. ~ ~Clinical Quality Measures ~DVT/VTE Risk/Contraindic ation: ~Risk Factor Score Per Nursin ~RFS Level Per Nursing on Admit: 4+=Very High ~ ~ ~ ~RIKKI BOOTHE DO Sep 19, 2019 11:57 ~ ~ ~<Created by RIKKI BOOTHE DO> ~<Electronically signed by RIKKI BOOTHE DO> 09/19/19 1157 ~ ~ not yet categorized on 2019-09-18 no information NAME: (no code) PENDING [facility] ([id number]) ~MED REC#: [id number] ~ ~PHYSICIAN: RIKKI BOOTHE DO ~Subjective ~Time Seen by a Provider: 12:11 ~Subjective/Even ts-last exam ~Pt seen and examined, states he had 9 out of 10 pain this am; but after walking it is a 6 and ~tolerable. He is having trouble urinating. Denies flatus or BM. ~Review of Systems ~Pulmonary: No Dyspnea, No Cough ~Cardiovascular: No: Chest Pain, Palpitations ~Gastrointestina l: Abdominal Pain; No: Nausea, Vomiting ~ ~Objective ~Exam ~ ~Vital Signs ~ ~ ~ Date Time Temp Pulse Resp B/P (MAP) Pulse Ox O2 Delivery O2 Flow Rate FiO2 ~ ~09/18/19 11:00 36.6 65 16 110/71 (84) 97 Room Air ~ ~09/18/19 09:00 100 Room Air 2.00 ~ ~09/18/19 08:00 36.6 64 16 116/76 (89) 100 Room Air ~ ~09/18/19 04:11 37.0 68 18 111/71 (84) 99 Room Air ~ ~09/17/19 23:32 37.2 71 20 121/74 (90) 98 Room Air ~ ~09/17/19 20:30 Room Air ~ ~09/17/19 20:12 36.5 87 18 126/69 (88) 100 Room Air ~ ~09/17/19 15:30 36.8 66 18 111/70 (84) 98 Room Air ~ ~09/17/19 14:54 96 Room Air ~ ~ ~ ~ ~I O ~ ~ 09/18/19 ~ ~ 07:00 ~ ~Intake Total 3570 ml ~ ~Output Total 1200 ml ~ ~Balance 2370 ml ~ ~Capillary Refill : NONE ~General Appearance: No Apparent Distress, WD/WN ~Respiratory: Lungs Clear, Normal Breath Sounds, No Accessory Muscle Use, No Respiratory Distress ~Cardiovascular: Regular Rate, Rhythm, No Murmur ~Gastrointestina l: soft; No distended; tenderness (at incisions), other (inc c/d/i) ~ ~Results ~Lab ~Laboratory Tests ~09/18/19 08:05: Creatinine 1.09 ~ ~Assessment/Plan ~Assessment/Plan ~Assessment/Plan ~S/P Right Colon Resection ~Urinary Retention ~ ~Pt encouraged to ambulate more and use IS. He had to be straight cathed twice, but finally is ~starting to urinate; will start some Flomax. Continue pain meds as needed. ~ ~Clinical Quality Measures ~DVT/VTE Risk/Contraindic ation: ~Risk Factor Score Per Nursin ~RFS Level Per Nursing on Admit: 4+=Very High ~ ~ ~ ~RIKKI BOOTHE DO Sep 18, 2019 12:22 ~ ~ ~<Created by RIKKI BOOTHE DO> ~<Electronically signed by RIKKI BOOTHE DO> 09/18/19 1223 ~ ~ no information NAME: (no code) PENDING [facility] ([id number]) ~MED REC#: [id number] ~ ~PHYSICIAN: CRISSY WAGNER CRNA ~General ~Patient Condition ~Mental Status/LOC: Same as Preop ~Cardiovascular: Satisfactory ~Nausea/Vomiting : Absent ~Respiratory: Satisfactory ~Pain: Controlled ~Complications: Absent ~ ~Post Op Complications ~Complications ~None ~ ~Follow Up Care/Instruction s ~Patient Instructions ~None needed. ~ ~Anesthesia/Madie ent Condition ~Patient Condition ~Patient is doing well, no complaints, stable vital signs, no apparent adverse anesthesia problems. ~ ~No complications reported per nursing. ~ ~ ~ ~CRISSY WAGNER CRNA Sep 18, 2019 12:35 ~ ~ ~<Created by CRISSY WAGNER CRNA> ~<Electronically signed by CRISSY WAGNER UNARMED SECURITY OFFICER> 09/18/19 1235 ~ ~ laboratory on 2019-09-18 Creatinine 1.09 mg/dL (NEG) 09-18-2019 PENDING LOCATI ON [Mass/Vol] 04:050400 [facility] (93918) not yet categorized on 2019-09-17 [employer] NUMBER [id number] (no code) 09-17-2019 PENDING L OCATION 04:38-0400 [facility] (93565) no information NAME: (no code) PENDING [facility] ([id number]) ~MED REC#: [id number] ~ ~PHYSICIAN: RIKKI BOOTHE DO ~Post-Operative Progess Note ~Surgeon (s)/Shower Enclosure Installer (s) ~Surgeon ~RIKKI BOOTHE DO ~Shower Enclosure Installer: Servando ~ ~Pre-Operative Diagnosis ~Colon Cancer - [facility] ~ ~Post-Operative Diagnosis ~ ~same pending path ~ ~Procedure Operative Findings ~Date of Procedure ~09/17/19 ~Procedure Performed/Findin gs ~Lap hand assisted Right colon resection with primary enterocolonic anastomosis ~Anesthesia Type ~GET ~ ~Estimated Blood Loss ~Estimated blood loss (mL): minimal ~ ~Specimens/Packi ng ~Specimens Removed ~portion of TI, appy and right colon ~ ~ ~ ~RIKKI BOOTHE DO Sep 17, 2019 10:33 ~ ~ ~<Created by RIKKI BOOTHE DO> ~<Electronically signed by RIKKI BOOTHE DO> 09/17/19 1033 ~ ~ laboratory on 2019-09-17 ABO and Rh group ABP (no code) 09-17-2019 PENDING L OCATION Nom (Bld) 04:54-0400 [facility] ([id number]) Blood group Negative (no code) 09-17-2019 PENDING LOCATI ON antibody screen 04:55-0400 [facility] ([id number]) Ql laboratory on 2019-09-12 Coronavirus Ab Negative (no code) 09-12-2019 PENDING LOC ATION Qn (S) 09:09-0400 [facility] ([id number]) laboratory on 2019-09-11 ABO and Rh group ABP (no code) 09-11-2019 PENDING L OCATION Nom (Bld) 05:26-0400 [facility] ([id number]) Basophils (Bld) 0.0 10*3/uL (NEG) 0 - 0.3 10*3/uL 09-11-2019 PENDING LOCATION [#/Vol] 04:40-0400 [facility] ([id number]) Basophils/100 0 % (NEG) 0.5 - 1 % 09-11-2019 PENDING LOCATION WBC (Bld) 04:40-0400 [facility] ([id number]) Blood group Negative (no code) 09-11-2019 PENDING LOCATI ON antibody screen 05:31-0400 [facility] ([id number]) Ql Eosinophils 0.1 10*3/uL (NEG) 0.05 - 0.5 09-11-2019 PENDING LOCATION (Bld) [#/Vol] 10*3/uL 04:40-0400 [facility] ([id number]) Eosinophils/100 1 % (NEG) 1 - 4 % 09-11-2019 [facility] LOCATION WBC (Bld) 04:40-0400 [facility] ([id number]) Erythrocyte 12.5 % (NEG) 11.6 - 14.6 % 09-11-2019 [facility] LOCATION distribution 04:40-0400 [facility] (64059) width (RBC) [Ratio] Hematocrit (Bld) 45 % (NEG) 36.1 - 50.3 % 09-11-2019 P ENDING LOCATION [Volume 04:40-0400 [facility] (03716) fraction] Hemoglobin (Bld) 15.6 g/dL (NEG) 12.1 - 17.2 g/dL 09-11-2019 PENDING LOCATION [Mass/Vol] 04:40-0400 [facility] (31842) Lymphocytes 1.2 10*3/uL (NEG) 0.9 - 2.9 09-11-2019 PENDING LOCATION (Bld) [#/Vol] 10*3/uL 04:40-0400 [facility] (36055) Lymphocytes/100 25 % (NEG) 20 - 40 % 09-11-2019 [facility] LOCATION WBC (Bld) 04:40-0400 [facility] (50332) MCH (RBC) 30 pg (NEG) 27 - 31 pg 09-11-2019 PENDING LOC ATION [Entitic mass] 04:40-0400 [facility] ([id number]) MCHC (RBC) 35 g/dL (NEG) 32 - 36 g/dL 09-11-2019 PENDING LOCATION [Mass/Vol] 04:40-0400 [facility] ([id number]) MCV (RBC) 88 (NEG) 09-11-2019 PENDING LOCATI ON [Entitic vol] 04:40-0400 [facility] ([id number]) Monocytes (Bld) 0.5 10*3/uL (NEG) 0.3 - 0.9 09-11-2019 PEND ING LOCATION [#/Vol] 10*3/uL 04:40-0400 [facility] ([id number]) Monocytes/100 9 % (NEG) 2 - 8 % 09-11-2019 PENDING LOCATION WBC (Bld) 04:40-0400 [facility] ([id number]) MRSA isol Org Negative (no code) 09-11-2019 PENDING LOCA TION specific cx Ql 04:40-0400 [facility] ([id number]) (Unsp spec) Neutrophils 3.1 10*3/uL (NEG) 1.7 - 7 10*3/uL 09-11-2019 [facility] LOCATION (Bld) [#/Vol] 04:40-0400 [facility] (69009) Neutrophils/100 64 % (NEG) 40 - 60 % 09-11-2019 PENDIN G LOCATION WBC (Bld) 04:40-0400 [facility] (72939) Platelet mean 9.5 (NEG) 09-11-2019 PENDING LOCA TION volume (Bld) 04:40-0400 [facility] ([id number]) [Entitic vol] Platelets (Bld) 238 10*3/uL (NEG) 150 - 450 09-11-2019 PEND ING LOCATION [#/Vol] 10*3/uL 04:40-0400 [facility] ([id number]) RBC (Bld) 5.13 10*6/uL (NEG) 4.2 - 6.1 09-11-2019 PENDING L OCATION [#/Vol] 10*6/uL 04:40-0400 [facility] ([id number]) WBC (Bld) 4.9 10*3/uL (NEG) 3.5 - 10.5 09-11-2019 PENDING L OCATION [#/Vol] 10*3/uL 04:40-0400 [facility] ([id number]) not yet categorized on 2019-09-01 no information NAME: (no code) PENDING LOCATIO [facility] ([id number]) ~MED REC#: [id number] ~ ~PHYSICIAN: TAVON MEIER CRNA ~MAC ~Patient Condition ~Mental Status/LOC: Same as Preop ~Cardiovascular: Satisfactory ~Nausea/Vomiting : Absent ~Respiratory: Satisfactory ~Pain: Controlled ~Complications: Absent ~ ~Post Op Complications ~Complications ~None ~ ~Follow Up Care/Instruction s ~Patient Instructions ~None needed. ~ ~Anesthesiology Discharge Order ~Discharge Order ~Patient is doing well, no complaints, stable vital signs, no apparent adverse anesthesia problems. ~ ~No complications reported per nursing. ~ ~ ~ ~TAVON MEIER CRNA September 01, 2019 14:00 ~ ~ ~<Created by TAVON MEIER UNARMED SECURITY OFFICER> ~<Electronically signed by TAVON MEIER UNARMED SECURITY OFFICER> 09/01/19 1400 ~ ~ laboratory on 2019-08-28 Coronavirus Ab Negative (no code) [facility] (S) [facility] ([id number]) Coronavirus Ab Negative (no code) 08-28-2019 PENDING LOC ATION Qn (S) 09:28-0400 [facility] ([id number]) Vital Signs Vital Sign Value Interpretation Reference Date Time Care Prov ider Facility (Normalized) (Normalized) Range Body height 177.8 cm (no code) cm 10-02-2011 [facility] 14:390400 [facility] (Other Phone: of [facility] ) [place] ([id number]) Body weight 91.63 kg (no code) kg 10-31-2011 [facility] 13:19-0400 [facility] ([id number]) Body weight 92.08 kg (no code) kg 10-02-2011 [facility] 14:39-0400 [facility] (Other Phone: of [facility] ) [place] ([id number]) Height 177.8 cm (no code) cm 10-31-2011 [employer] [facility] 13:190400 [facility] ([id number]) Interventions No Information Plan of Treatment The data below is from unstructured sources Discharge Date 05/22/15 9:03am Disposition 01 HOME, SELF-CARE Condition at Discharge Improved Instructions/Education Provided Epil epsy (ED) Prescriptions See Medication Section Referrals GABRIELLE KING MD - [facility] y Care Physician Additional Instructions/Education Co nsider increasing Keppra to 1750 mg twice a day over the weekend. Close follow-up with Dr. frank on Sunday. Return if any problems. All discharge instructions reviewed with patient and/or family. Voiced understanding. Discharge Date 02/07/14 2:30pm Disposition 01 HOME, SELF-CARE Instructions/Education Provided DISC HARGE Forms Provided PDI Medical Prescriptions See Medications Sectio n Referrals (Unspecified) Activity Details Follow Up 6 Months Reason:recall Goals No Information Social History No Information Functional Status The data below is from unstructured sources Query Response Date Kenneth rded Patient Orientation Person May 22, 2015 6:13am Query Response Date Kenneth rded Patient Orientation Person Place Situation February 07, 2014 4:41pm Comprehension Ability Understands Co ncepts February 07, 2014 7:51am Mental Status No Information Encounters Encounter Normalized Encounter Encounter Diagnosis Care Provi sirena Organization Date Type 05-21-2018 (D-HYG/13/A) Hygiene Disorder of teeth and KEV N WEBER (no [facility] - 13 and above supporting structures, phone) [place] [facility] (no phone) 05-21-2018 unspecified - 05-21-2018 02-05-2018 (imm/inj) Encounter for CLARITA PICKARD (no [facility] - Immun[facility]injection immunization phone) (n o phone) 02-05-2018 - 02-05-2018 03-05-2019 [facility] Dental caries, OSWALDO NEARING (no [facility] DENTAL unspecified phone) DENTAL (no phon e) 03-04-2019 [facility] Encounter for dental KEE MARIA INES (no phone) [facility] DENTAL examination and DENTAL (no phone) cleaning without abnormal findings 05-07-2019 [facility] Epilepsy, unspecified, ARYA GOLDSMITH (no [facility] not intractable, phone) (no phone) without status epilepticus 01-20-2019 [facility] Epilepsy, unspecified, ARYA GOLDSMITH (no [facility] not intractable, phone) (no phone) without status epilepticus 09-30-2019 Emergency department no information ARTHUR TOURE DO (no [facility] patient visit phone) [facility] (no phone) 05-22-2015 Emergency department no information LETY DOHERTY MD (no [facility] - patient visit phone) [facility] 05-22-2015 (no phone) 09-17-2019 Evaluation and no information RIKKI BOOTHE DO (no [facility] - management of phone) [facility] 09-20-2019 inpatient (no phone) NEGATED Patient encounter no information no name no or ganization name 09-07-2017 NEGATED Patient encounter no information no name no or ganization name 09-17-2019 Patient encounter no information RIKKI B DELMAN DO ( no [facility] - procedure phone) [facility] 09-20-2019 (no phone) 09-12-2019 Patient encounter no information RIKKI B DELMAN DO ( no [facility] - procedure phone) [facility] 09-12-2019 (no phone) 09-11-2019 Patient encounter no information RIKKI B DELMAN DO ( no [facility] procedure phone) [facility] (no phone) 09-01-2019 Patient encounter no information RIKKI B DELMAN DO ( no [facility] - procedure phone) [facility] 09-01-2019 (no phone) 08-28-2019 Patient encounter no information RIKKI B DELMAN DO ( no [facility] - procedure phone) [facility] 08-28-2019 (no phone) 08-25-2019 Patient encounter no information RIKKI B DELMAN DO ( no [facility] procedure phone) [facility] (no phone) 07-14-2019 Patient encounter no information RIKKI B DELMAN DO ( no [facility] procedure phone) [facility] (no phone) 05-19-2019 Patient encounter Encounter for general ARYA DE LEON RT (no [facility] (no phone) procedure adult medical phone) examination without abnormal findings 05-07-2019 Patient encounter no information no name no or ganization name procedure 03-04-2019 Patient encounter no information no name no or ganization name procedure 01-20-2019 Patient encounter no information no name no or ganization name procedure 05-21-2018 Patient encounter no information no name no or ganization name procedure 05-07-2019 Telephone encounter Epilepsy, unspecified, ARYA NIETO (no [facility] not intractable, phone) (no phone) without status epilepticus 07-15-2019 no information Encounter for other no name (no phone) preprocedural examination no information Encounter for general no name no organ ization name adult medical examination without abnormal findings no information Encounter for other no name (no phone) preprocedural examination no information Encounter for no name (no phone) preprocedural laboratory examination Medical Equipment No Information Payers No Information History general Narrative - Reported Note Type Note Facility History general Narrative - Reported Type Medical seizures History Medical brain surgery to relieve se izures - left temporal lobectomy, Dr Terry at [facility] in 2010 Surgical [facility] to [id number] Clinical [facility] Note Type Note Facility Note NAME: CUAUHTEMOC MARY ~MED R EC#: [id number] ~ ~PHYSICIAN: PENDING RIKKI BOOTHE DO ~Pre-Operative Progress Note ~H P Re viewed ~The H P was LOCATION reviewed, patient examined and no rey es noted. ~Time Seen by Provider: 08:00 [facility] ~Date H P Reviewed: Sep 17, 2019 ~Time H P Reviewed: 0 8:01 ~Pre-Operative ([id number]) Diagnosis: Colon Cancer - Cecum ~ ~ ~ ~ RIKKI BOOTHE DO Sep 17, 2019 08:05 ~ ~ ~<Created by RIKKI BOOTHE DO> ~<Electr onically signed by RIKKI BOOTHE DO> 09/17/19 0805 ~ ~ Summary Purpose eClinicalWorks SubmissioneClinicalWorks Submission Advance Directives Directive Response Recor ded Date/Time Advance Directives No 6:12am Health Care Power of Blend Technician No 05/22/15 6:12am Organ Donor Yes 05/22/15 6:12am Resuscitation Status Full Code 05/22/15 6:12am Directive Response Recor ded Date/Time Advance Directives No 11:40am Health Care Power of Blend Technician No 02/06/14 11:40am Organ Donor Yes 02/06/14 11:40am Resuscitation Status Full Code 02/06/14 11:40am Discharge Instructions No hospital discharge instructions.No hospital discharge instructions. Additional Source Comments This clinical document has been generated using [employer] software that has been certified by the Office of the National Coordinator for Health Information Technology (ONC 15.99.04.3023.Diam.31.00.0.698757) and the National Committee for Alliance Director (NCQA, as an eMeasure certified technology). FOR RECORDS PERTAINING TO PATIENTS WHO ARE OR HAVE BEEN ENROLLED IN A CHEMICAL D EPENDENCY/SUBSTANCE ABUSE PROGRAM, SOME INFORMATION MAY BE OMITTED. This clinica l summary was aggregated from multiple sources. Caution should be exercised in using it in the provision of clinical care. This summary normalizes information from multiple sources, and as a consequence, information in this document may ma terially change the coding, format and clinical context of patient data. In beatriz tion, data may be omitted in some cases. CLINICAL DECISIONS SHOULD BE BASED ON T HE PRIMARY CLINICAL RECORDS. [employer] [facility]. provides no warranty or guara ntee of the accuracy or completeness of information in this document.The followi information is based on time limited clinical information UNRECOGNIZED CONTENT PROVIDED BELOW FOR UNRECOGNIZED SECTION REASON FOR VISIT Flu janel Hernandez Luz Marina RICCIGAZIK-SxeOSB-PbzQIQ-MigEMR-David UNRECOGNIZED CONTENT PROVIDED BELOW FOR UNRECOGNIZED SECTION MEDICAL (GENERAL) HISTORY Type Description Date Medical History seizures Medical History brain surgery to rel ieve seizures Surgical History Brain surgery to re lieve seizures/[facility] 2013 Hospitalization History see above surgery
--- OUTSIDE RECORDS SUMMARY | 2019-09-30 16:22 | XMS REPORT ---
Author Author Ilia Sargent Doctor Organization [facility] Address Unknown Phone Unavailable Care Team Providers Care Life Skills Coordinator Name Role Phone Migration, Doctor Unavailable Unavailable PROBLEMS Type Condition ICD9-CM Code [id number] Code Onset Dates Condition S tatus SNOMED Code Problem Adjustment disorder with mixed anxiety and depressed mood 309.28 Active 28748127 Problem Adjustment disorder with depressed mood 309.0 Active 18751850 Problem Need for prophylactic vaccination and inoculation, Influen za V04.81 Active 494483388 Problem Depressive disorder, not elsewhere classified 311 Active 01650796 Problem Anxiety state, unspecified 300.00 Act opal [id number] ALLERGIES No Information ENCOUNTERS Encounter Location Date Diagnosis [facility] [id number] [place] [address] [id number] May, Oral health maintenance stat us requiring routine preventive dental care K08.9 and Caries K02.9 [facility] [address] [id number] [address] [place] [phone] Jan, Encounter for immunization Z [address] [facility] [address] [id number] [address] [place] [address] [phone] August, Dental examination Z01.20 [facility] [address] [id number] [address] [place] [phone] Mar, Encounter for immunization Z 23 [facility] [address] [id number] [address] [place] [phone] Feb, Encounter for immunization Z [address] [facility] [address] [id number] [address] [place] [address] [phone] Nov, Dental examination V72.[address] [facility] [address] [id number] [address] [place] [address] [id number] August, Dental examination V72.2 [facility] [address] [id number] [address] [place] [phone] 14 Jul, 2014 [facility] [address] [id number] [address] [place] [address], [place] [id number] 13 Jul, 2014 [facility] [address] [id number] [address] [place] [address], [place] [address] Jan, [facility] [address] [id number] [address] [place] [address], [place] [address] Jan, [facility] [address] [id number] [address] [place] [address], [place] [address] Jan, [facility] [address] [id number] [address] [place] [address], [place] [address] Jan, [facility] [address] [id number] [address] [place] [address], [place] [address] 25 Dec, 2011 [facility] [address] [id number] [address] [place] [address], [place] [address] 18 Dec, 2011 [facility] [address] [id number] [address] [place] [address], [place] [address] Dec, [facility] [address] [id number] [address] [place] [address], [place] [address] Nov, [facility] [address] [id number] [address] [place] [address], [place] [address] Nov, [facility] [address] [id number] [address] [place] [address], [place] [address] 31 Oct, 2011 [facility] [address] [id number] [address] [place] [address], [place] [address] 24 Oct, 2011 [facility] [address] [id number] [address] [place] [address], [place] [address] 17 Oct, 2011 [facility] [address] [id number] [address] [place] [address], [place] [address] 10 Oct, 2011 [facility] [address] [id number] [address] [place] [address], [place] [address] Sep, [facility] [address] [id number] [address] [place] [phone] August, [facility] [address] [id number] [address] [place] [id number] August, [facility] [address] [id number] [address] [place] [phone] August, [facility] [address] [id number] [address] [place] [id number] Jul, [facility] [address] [id number] [address] [place] [id number] Jul, [facility] [address] [id number] [address] [place] [phone] Jun, [facility] [address] [id number] [address] [place] [id number] Jun, [facility] [address] [id number] [address] [place] [phone] May, [facility] [address] [id number] [address] [place] [phone] Apr, [facility] [address] [id number] [address] [place] [phone] Apr, [facility] [address] [id number] [address] [place] [phone] Mar, [facility] [address] [id number] [address] [place] [phone] Dec, IMMUNIZATIONS No Known Immunizations SOCIAL HISTORY Never Assessed REASON FOR VISIT EMR-[facility] PLAN OF CARE VITAL SIGNS MEDICATIONS No Known Medications RESULTS No Results PROCEDURES No Known procedures INSTRUCTIONS MEDICATIONS ADMINISTERED No Known Medications MEDICAL (GENERAL) HISTORY Type Description Date Medical History seizures Medical History brain surgery to relieve seizures Surgical History Brain surgery to relieve seizures/[facility] 2013 Hospitalization History see above surgery
--- OUTSIDE RECORDS SUMMARY | 2019-09-30 16:22 | XMS REPORT ---
Author Ilia Manzano [facility] eClinicalWorks Address Unknown Phone Unavailable Care Team Providers Care Corn Chip Maker Name Role Phone AGUILAR PHILLIPS CP Unavailable Allergies No Known Allergies Problems Problem Type Condition Code Onset Dates Condition Statu s Problem Anxiety state, unspecified 300.00 A ctive Problem Depressive disorder, not elsewhere classified 311 Active Problem Adjustment disorder with depressed mood 309.0 Active Assessment Encounter for immunization Z23 A ctive Problem Adjustment disorder with mixed anxiety and depressed m ood 309.28 Active Problem Need for prophylactic vaccination and inoculation, Inf luenza V04.81 Active Medications No Known Medications Procedures Procedure Coding System Code Date SINGLE IMMUNIZATION ADMIN CPT-4 34188 Feb FLUARIX QUAD (3 & UP)-GSK-2014 CPT-4 43900 N 2014 Results No Known Results Immunizations Vaccine Administration Date FLUARIX QUAD (3 & UP)-GSK-2014Feb 15, 2015 Summary Purpose eClinicalWorks Submission
--- OUTSIDE RECORDS SUMMARY | 2019-09-30 16:22 | XMS REPORT ---
Author Author Ilia Sargent Doctor Organization [facility] Address Unknown Phone Unavailable Care Team Providers Care Gusset Stitcher Name Role Phone Migration, Doctor Unavailable Unavailable PROBLEMS Type Condition ICD9-CM Code [id number] Code Onset Dates Condition S tatus SNOMED Code Problem Adjustment disorder with mixed anxiety and depressed mood 309.28 Active 21804444 Problem Adjustment disorder with depressed mood 309.0 Active 27889563 Problem Need for prophylactic vaccination and inoculation, Influen za V04.81 Active 722598360 Problem Depressive disorder, not elsewhere classified 311 Active 75928755 Problem Anxiety state, unspecified 300.00 Act opal [id number] ALLERGIES No Information ENCOUNTERS Encounter Location Date Diagnosis [facility] [id number] [place] [address] [phone] May, Oral health maintenance stat us requiring routine preventive dental care K08.9 and Caries K02.9 [facility] [address] [id number] [address] [place] [phone] Jan, Encounter for immunization Z 23 [facility] [address] [id number] [address] [place] [address] [phone] August, Dental examination Z01.20 [facility] [address] [id number] [address] [place] [phone] Mar, Encounter for immunization Z 23 [facility] [address] [id number] [address] [place] [phone] Feb, Encounter for immunization Z 23 [facility] [address] [id number] [address] [place] [address] [phone] Nov, Dental examination V72.2 [facility] [address] [id number] [address] [place] [address] [id number] August, Dental examination V72.2 [facility] [address] [id number] [address] [place] [phone] 14 Jul, 2014 [facility] [address] [id number] [address] [place] [address], [place] [address] 13 Jul, 2014 [facility] [address] [id number] [address] [place] [address], [place] [address] Jan, [facility] [address] [id number] [address] [place] [address], [place] [address] Jan, [facility] [address] [id number] [address] [place] [address], [place] [address] Jan, [facility] [address] [id number] [address] [place] [address], [place] [address] Jan, [facility] [address] [id number] [address] [place] [address], [place] [address] 25 Dec, 2011 [facility] [address] [id number] [address] [place] [address], [place] [address] 18 Dec, 2011 [facility] [address] [id number] [address] [place] [address], [place] [address] Dec, [facility] [address] [id number] [address] [place] [address], [place] [phone] Nov, [facility] [address] [id number] [address] [place] [address], [place] [address] Nov, [facility] [address] [id number] [address] [place] [address], [place] [address] 31 Oct, 2011 [facility] [address] [id number] [address] [place] [address], [place] [id number] 24 Oct, 2011 [facility] [address] [id number] [address] [place] [address], [place] [id number] 17 Oct, 2011 [facility] [address] [id number] [address] [place] [address], [place] [address] 10 Oct, 2011 [facility] [address] [id number] [address] [place] [address], [place] [address] Sep, [facility] [address] [id number] [address] [place] [phone] August, [facility] [address] [id number] [address] [place] [phone] August, [facility] [address] [id number] [address] [place] [phone] August, [facility] [address] [id number] [address] [place] [phone] Jul, [facility] [address] [id number] [address] [place] [phone] Jul, [facility] [address] [id number] [address] [place] [phone] Jun, [facility] [address] [id number] [address] [place] [phone] Jun, [facility] [address] [id number] [address] [place] [phone] May, [facility] [address] [id number] [address] [place] [id number] Apr, [facility] [address] [id number] [address] [place] [id number] Apr, [facility] [address] [id number] [address] [place] [phone] Mar, [facility] [address] [id number] [address] [place] [id number] Dec, IMMUNIZATIONS No Known Immunizations SOCIAL HISTORY Never Assessed REASON FOR VISIT EMR-[facility] PLAN OF CARE VITAL SIGNS MEDICATIONS No Known Medications RESULTS No Results PROCEDURES No Known procedures INSTRUCTIONS MEDICATIONS ADMINISTERED No Known Medications MEDICAL (GENERAL) HISTORY Type Description Date Medical History seizures Medical History brain surgery to relieve seizures Surgical History Brain surgery to relieve seizures/[facility] 2013 Hospitalization History see above surgery
--- OUTSIDE RECORDS SUMMARY | 2019-09-30 16:22 | XMS REPORT ---
Author Author Ilia PICKARD Organization [facility] Address [address] [place] [address] Care Team Providers Care Supervisor Securities Vault Name Role Phone CLARITA PICKARD Unavailable PROBLEMS Type Condition ICD9-CM Code NQU26-YL Code Onset Dates Condition S tatus SNOMED Code Problem Adjustment disorder with depressed mood 309.0 Active 30321573 Problem Adjustment disorder with mixed anxiety and depressed mood 309.28 Active 72834304 Problem Need for prophylactic vaccination and inoculation, Influen za V04.81 Active 111483890 Problem Anxiety state, unspecified 300.00 Act opal [id number] Problem Depressive disorder, not elsewhere classified 311 Active 55634660 ALLERGIES No Information ENCOUNTERS Encounter Location Date Diagnosis [facility] [address] [id number] [address] [place] [phone] Jan, Encounter for immunization Z 23 [facility] [address] [id number] [address] [place] [address] [id number] August, Dental examination Z01.20 [facility] [address] [id number] [address] [place] [phone] Mar, Encounter for immunization Z 23 [facility] [address] [id number] [address] [place] [address] Feb, Encounter for immunization Z 23 [facility] [address] [id number] [address] [place] [address] [id number] Nov, Dental examination V72.2 [facility] [address] [id number] [address] [place] [id number] August, Dental examination V72.2 [facility] [address] [id number] [address] [place] [phone] Jul, [facility] [address] [id number] [address] [place] [address], [place] [address] Jul, [facility] [address] [id number] [address] [place] [address], [place] [address] Jan, [facility] [address] [id number] [address] [place] [address], [place] [address] Jan, [facility] [address] [id number] [address] [place] [address], [place] [address] Jan, [facility] [address] [id number] [address] [place] [address], [place] [address] Jan, [facility] [address] [id number] [address] [place] [address], [place] [address] Dec, [facility] [address] [id number] [address] [place] [address], [place] [address] Dec, [facility] [address] [id number] [address] [place] [address], [place] [address] Dec, [facility] [address] [id number] [address] [place] [address], [place] [address] Nov, [facility] [address] [id number] [address] [place] [address], [place] [address] Nov, [facility] [address] [id number] [address] [place] [address], [place] [address] Oct, [facility] [address] [id number] [address] [place] [address], [place] [address] Oct, [facility] [address] [id number] [address] [place] [address], [place] [address] Oct, [facility] [address] [id number] [address] [place] [address], [place] [address] Oct, [facility] [address] [id number] [address] [place] [address], [place] [address] Sep, [facility] [address] [id number] [address] [place] [address], [place] [address] August, [facility] [address] [id number] [address] [place] [phone] August, [facility] [address] [id number] [address] [place] [phone] August, [facility] [address] [id number] [address] [place] [phone] Jul, [facility] [address] [id number] [address] [place] [phone] Jul, [facility] [address] [id number] [address] [place] [address] Jun, [facility] [address] [id number] [address] [place] [phone] Jun, [facility] [address] [id number] [address] [place] [phone] May, [facility] [address] [id number] [address] [place] [phone] Apr, [facility] [address] [id number] [address] [place] [phone] Apr, [facility] [address] [id number] [address] [place] [phone] Mar, [facility] [address] [id number] [address] [place] [address] Dec, IMMUNIZATIONS Vaccine Route Administration Date Status FLULAVAL QUAD 0.5ML (6 MO & UP) 2017 IM Intramuscular Feb 05 Administered SOCIAL HISTORY Never Assessed REASON FOR VISIT Flu shot Mary Raza MA PLAN OF CARE VITAL SIGNS MEDICATIONS Unknown Medications RESULTS No Results PROCEDURES Procedure Date Ordered Result Body Site FLULAVAL QUAD 0.5ML (6 MO & UP) 2017Feb 05, 2018 ADMN FLU VAC NO FEE SCHED SAME DAY Feb 05, 2018 SINGLE IMMUNIZATION ADMIN Feb 05, 2018 INSTRUCTIONS MEDICATIONS ADMINISTERED No Known Medications
--- OUTSIDE RECORDS SUMMARY | 2019-09-30 16:22 | XMS REPORT ---
Author Author Ilia Sargent Doctor Organization [facility] Address Unknown Phone Unavailable Care Team Providers Care Ice Carver Name Role Phone Migration, Doctor Unavailable Unavailable PROBLEMS Type Condition ICD9-CM Code NCT02-CQ Code Onset Dates Condition S tatus SNOMED Code Problem Adjustment disorder with mixed anxiety and depressed mood 309.28 Active 11681454 Problem Adjustment disorder with depressed mood 309.0 Active 03691108 Problem Need for prophylactic vaccination and inoculation, Influen za V04.81 Active 213266135 Problem Depressive disorder, not elsewhere classified 311 Active 53664079 Problem Anxiety state, unspecified 300.00 Act opal [id number] ALLERGIES No Information ENCOUNTERS Encounter Location Date Diagnosis [facility] [id number] [place] [address] [id number] May, Oral health maintenance stat us requiring routine preventive dental care K08.9 and Caries K02.9 [facility] [address] [id number] [address] [place] [phone] Jan, Encounter for immunization Z 23 [facility] [address] [id number] [address] [place] [address] [id number] August, Dental examination Z01.20 [facility] [address] [id number] [address] [place] [phone] Mar, Encounter for immunization Z 23 [facility] [address] [id number] [address] [place] [phone] Feb, Encounter for immunization Z 23 [facility] [address] [id number] [address] [place] [address] [id number] Nov, Dental examination V72.2 [facility] [address] [id number] [address] [place] [address] [id number] August, Dental examination V72.2 [facility] [address] [id number] [address] [place] [id number] 14 Jul, 2014 [facility] [address] [id number] [address] [place] [address], [place] [address] 13 Jul, 2014 [facility] [address] [id number] [address] [place] [address], [place] [address] Jan, [facility] [address] [id number] [address] [place] [address], [place] [address] Jan, [facility] [address] [id number] [address] [place] [address], [place] [address] Jan, [facility] [address] [id number] [address] [place] [address], [place] [address] Jan, [facility] [address] [id number] [address] [place] [address], [place] [address] 25 Dec, 2011 [facility] [address] [id number] [address] [place] [address], [place] [address] 18 Dec, 2011 [facility] [address] [id number] [address] [place] [address], [place] [address] Dec, [facility] [address] [id number] [address] [place] [address], [place] [address] Nov, [facility] [address] [id number] [address] [place] [address], [place] [address] Nov, [facility] [address] [id number] [address] [place] [address], [place] [address] 31 Oct, 2011 [facility] [address] [id number] [address] [place] [address], [place] [address] 24 Oct, 2011 [facility] [address] [id number] [address] [place] [address], [place] [address] 17 Oct, 2011 [facility] [address] [id number] [address] [place] [address], [place] [address] 10 Oct, 2011 [facility] [address] [id number] [address] [place] [address], [place] [address] Sep, [facility] [address] [id number] [address] [place] [phone] August, [facility] [address] [id number] [address] [place] [phone] August, [facility] [address] [id number] [address] [place] [phone] August, [facility] [address] [id number] [address] [place] [phone] Jul, [facility] [address] [id number] [address] [place] [phone] Jul, [facility] [address] [id number] [address] [place] [phone] Jun, [facility] [address] [id number] [address] [place] [phone] Jun, [facility] [address] [id number] [address] [place] [phone] May, [facility] [address] [id number] [address] [place] [phone] Apr, [facility] [address] [id number] [address] [place] [phone] Apr, [facility] [address] [id number] [address] [place] [phone] Mar, [facility] [address] [id number] [address] [place] [phone] Dec, IMMUNIZATIONS No Known Immunizations SOCIAL HISTORY Never Assessed REASON FOR VISIT EMR-[facility] PLAN OF CARE VITAL SIGNS MEDICATIONS No Known Medications RESULTS No Results PROCEDURES No Known procedures INSTRUCTIONS MEDICATIONS ADMINISTERED No Known Medications MEDICAL (GENERAL) HISTORY Type Description Date Medical History seizures Medical History brain surgery to relieve seizures Surgical History Brain surgery to relieve seizures/Yoan goodman 2013 Hospitalization History see above surgery
--- OUTSIDE RECORDS SUMMARY | 2019-09-30 16:22 | XMS REPORT ---
Author Author Ilia LEDEZMA Organization [facility] Address [address] [place] [address] Care Team Providers Care Television Servicer Name Role Phone SUZIE LEDEZMA Unavailable PROBLEMS Type Condition ICD9-CM Code XGZ17-HN Code Onset Dates Condition S tatus SNOMED Code Problem Adjustment disorder with mixed anxiety and depressed mood 309.28 Active 77151931 Problem Adjustment disorder with depressed mood 309.0 Active 61433023 Problem Need for prophylactic vaccination and inoculation, Influen za V04.81 Active 422678882 Problem Depressive disorder, not elsewhere classified 311 Active 61497452 Problem Anxiety state, unspecified 300.00 Act opal 520236612 ALLERGIES No Information ENCOUNTERS Encounter Location Date Diagnosis [facility] [address] [id number] [place] [address] [id number] May, Oral health maintenance stat us requiring routine preventive dental care K08.9 and Caries K02.9 [facility] [address] [id number] [address] [place] [phone] Jan, Encounter for immunization Z 23 [facility] [address] [id number] [place] [address] [id number] August, Dental examination Z01.20 [facility] [address] [id number] [address] [place] [phone] Mar, Encounter for immunization Z 23 [facility] [address] [facility] [id number] [address] [place] [phone] Feb, Encounter for immunization Z 23 [facility] [address] [id number] [address] [place] [address] [id number] Nov, Dental examination V72.2 [facility] [address] [id number] [place] [address] [id number] August, Dental examination V72.2 [facility] [address] [id number] [address] [place] [address], [place] [address] Jul, [facility] [address] [id number] [address] [place] [address], [place] [address] Jul, [facility] [address] [id number] [address] [place] [address], [place] [address] Jan, [facility] [address] [id number] [address] [place] [address], [place] [address] Jan, [facility] [address] [id number] [address] [place] [address], [place] [address] Jan, [facility] [address] [id number] [address] [place] [address], [place] [address] Jan, [facility] [address] [id number] [address] [place] [address], [place] [address] Dec, [facility] [address] [id number] [address] [place] [address], [place] [phone] 18 Dec, 2011 [facility] [address] [id number] [address] [place] [address], [place] [address] Dec, [facility] [address] [id number] [address] [place] [address], [place] [address] Nov, [facility] [address] [id number] [address] [place] [phone] Nov, [facility] [address] [id number] [address] [place] [phone] Oct, [facility] [address] [id number] [address] [place] [address], [place] [address] Oct, [facility] [address] [id number] [address] [place] [phone] 17 Oct, 2011 [facility] [address] [id number] [address] [place] [address], [place] [address] Oct, [facility] [address] [id number] [address] [place] [phone] Sep, [facility] [address] [id number] [address] [place] [phone] August, [facility] [address] [id number] [address] [place] [phone] August, [facility] [address] [id number] [address] [place] [phone] August, [facility] [address] [id number] [address] [place] [phone] Jul, [facility] [address] [id number] [address] [place] [phone] Jul, [facility] [address] [id number] [address] [place] [phone] Jun, [facility] [address] [id number] [address] [place] [phone] Jun, [facility] [address] [id number] [address] [place] [phone] May, [facility] [address] [id number] [address] [place] [phone] Apr, [facility] [address] [id number] [address] [place] [phone] Apr, [facility] [address] [id number] [address] [place] [phone] Mar, [facility] [address] [id number] [address] [place] [phone] Dec, IMMUNIZATIONS No Known Immunizations SOCIAL HISTORY Never Assessed REASON FOR VISIT PLAN OF CARE VITAL SIGNS MEDICATIONS No Known Medications RESULTS No Results PROCEDURES No Known procedures INSTRUCTIONS MEDICATIONS ADMINISTERED No Known Medications MEDICAL (GENERAL) HISTORY Type Description Date Medical History seizures Medical History brain surgery to relieve seizures Surgical History Brain surgery to relieve seizures/Yoan goodman 2013 Hospitalization History see above surgery
--- OUTSIDE RECORDS SUMMARY | 2019-09-30 16:22 | XMS REPORT ---
Author Author Ilia PICKARD Organization [facility] Address [address] [place] [address] Care Team Providers Care Rn Licensed Practical Name Role Phone CLARITA PICKARD Unavailable PROBLEMS Type Condition ICD9-CM Code JYL54-EZ Code Onset Dates Condition S tatus SNOMED Code Problem Adjustment disorder with depressed mood 309.0 Active 68985965 Problem Adjustment disorder with mixed anxiety and depressed mood 309.28 Active 60534963 Problem Need for prophylactic vaccination and inoculation, Influen za V04.81 Active 671806587 Problem Anxiety state, unspecified 300.00 Act opal 462136175 Problem Depressive disorder, not elsewhere classified 311 Active 44297081 ALLERGIES No Information ENCOUNTERS Encounter Location Date Diagnosis [facility] [address] [id number] [address] [place] [address] [id number] August, Dental examination Z01.20 [facility] [address] [facility] [id number] [place] [phone] Mar, Encounter for immunization Z 23 [facility] [address] [facility] [id number] [address] [place] [phone] Feb, Encounter for immunization Z 23 [facility] [address] [id number] [address] [place] [address] [id number] Nov, Dental examination V72.2 [facility] [address] [id number] [address] [place] [address] [id number] August, Dental examination V72.2 [facility] [address] [id number] [address] [place] [phone] Jul, [facility] [address] [id number] [address] [place] [phone] Jul, [facility] [address] [facility] [id number] [address] [place] [phone] Jan, [facility] [address] [id number] [address] [place] [address], [place] [address] Jan, [facility] [address] [id number] [address] [place] [address], [place] [address] Jan, [facility] [address] [id number] [address] [place] [address], [place] [address] Jan, [facility] [address] [id number] [address] [place] [address], [place] [address] 25 Dec, 2011 [facility] [address] [id number] [address] [place] [address], [place] [address] 18 Dec, 2011 [facility] [address] [id number] [address] [place] [address], [place] [address] Dec, [facility] [address] [id number] [address] [place] [address], [place] [address] Nov, [facility] [address] [id number] [address] [place] [address], [place] [address] Nov, [facility] [address] [id number] [address] [place] [address], [place] [address] Oct, [facility] [address] [id number] [address] [place] [address], [place] [address] Oct, [facility] [address] [id number] [address] [place] [address], [place] [address] Oct, [facility] [address] [id number] [address] [place] [address], [place] [address] Oct, [facility] [address] [id number] [address] [place] [address], [place] [address] Sep, [facility] [address] [id number] [address] [place] [address], [place] [address] August, [facility] [address] [id number] [address] [place] [address], [place] [address] August, [facility] [address] [id number] [address] [place] [phone] August, [facility] [address] [id number] [address] [place] [phone] Jul, [facility] [address] [id number] [address] [place] [address] Jul, [facility] [address] [id number] [address] [place] [phone] Jun, [facility] [address] [id number] [address] [place] [phone] Jun, [facility] [address] [id number] [address] [place] [phone] May, [facility] [address] [id number] [address] [place] [phone] Apr, [facility] [address] [id number] [address] [place] [address] Apr, [facility] [address] [id number] [address] [place] [phone] Mar, [facility] [address] [id number] [address] [place] [phone] Dec, IMMUNIZATIONS Vaccine Route Administration Date Status FLULAVAL QUAD (6 MO AND UP) 2016 IM Intramuscular Apr 03, 2017 Administered SOCIAL HISTORY Never Assessed REASON FOR VISIT Flu shot-[facility] PLAN OF CARE VITAL SIGNS MEDICATIONS No Known Medications RESULTS No Results PROCEDURES Procedure Date Ordered Result Body Site FLULAVAL QUAD (6 MO AND UP) 2017 Apr 03, 2017 SINGLE IMMUNIZATION ADMIN Apr 03, 2017 INSTRUCTIONS MEDICATIONS ADMINISTERED No Known Medications
--- OUTSIDE RECORDS SUMMARY | 2019-09-30 16:22 | XMS REPORT ---
Author Author Ilia RUIZ Organization [employer] Address Unknown Phone Unavailable Care Team Providers Care Public Message Service Supervisor Name Role Phone RODRICK RUIZ CP Unavailable Allergies No Known Allergies Problems Problem Type Condition ICD-9 Code Onset Dates Condition Statu s Problem Anxiety state, unspecified 300.00 A ctive Problem Depressive disorder, not elsewhere classified 311 Active Problem Adjustment disorder with depressed mood 309.0 Active Assessment Dental examination V72.2 Active Problem Adjustment disorder with mixed anxiety and depressed m ood 309.28 Active Problem Need for prophylactic vaccination and inoculation, Inf luenza V04.81 Active Medications No Known Medications Procedures Procedure Coding System Code Date RESIN COMPOS - 3 SURFACES ANTERIOR CPT-4 D2332 Dec 09, 2014 Results No Known Results Summary Purpose [employer] Submission
--- OUTSIDE RECORDS SUMMARY | 2019-09-30 16:22 | XMS REPORT ---
Author Author Ilia VIVAS Organization [facility] Address [address] [place] [address] Care Team Providers Care Fur Blowing Machine Attendant Name Role Phone CHRYSTAL VIVAS Unavailable PROBLEMS Type Condition ICD9-CM Code [id number] Code Onset Dates Condition S tatus SNOMED Code Problem Adjustment disorder with mixed anxiety and depressed mood 309.28 Active 98185623 Problem Adjustment disorder with depressed mood 309.0 Active 01522512 Problem Need for prophylactic vaccination and inoculation, Influen za V04.81 Active 570765235 Problem Depressive disorder, not elsewhere classified 311 Active 82660072 Problem Anxiety state, unspecified 300.00 Act opal [id number] ALLERGIES No Information ENCOUNTERS Encounter Location Date Diagnosis [facility] [address] [id number] [place] [address] [phone] May, Oral health maintenance stat us requiring routine preventive dental care K08.9 and Caries K02.9 [facility] [id number] [place] [phone] Jan, Encounter for immunization Z 23 [facility] [address] [id number] [address] [place] [address] [id number] August, Dental examination Z01.20 [facility] [address] [facility] [id number] [address] [place] [phone] Mar, Encounter for immunization Z 23 [facility] [address] [facility] [id number] [address] [place] [phone] Feb, Encounter for immunization Z 23 [facility] [address] [id number] [address] [place] [address] [id number] Nov, Dental examination V72.2 [facility] [address] [id number] [address] [place] [address] [id number] May, 2015 Dental examination V72.2 [facility] [address] [id number] [address] [place] [address], [place] [phone] 14 Jul, 2014 [facility] [address] [id number] [address] [place] [address], [place] [phone] 13 Jul, 2014 [facility] [address] [id number] [address] [place] [address], [place] [phone] Jan, [facility] [address] [id number] [address] [place] [address], [place] [phone] Jan, [facility] [address] [id number] [address] [place] [address], [place] [phone] Jan, [facility] [address] [id number] [address] [place] [address], [place] [address] Jan, [facility] [address] [id number] [address] [place] [address], [place] [address] Dec, [facility] [address] [id number] [address] [place] [phone] 18 Dec, 2011 [facility] [address] [id number] [address] [place] [address], [place] [phone] Dec, [facility] [address] [id number] [address] [place] [phone] Nov, [facility] [address] [id number] [address] [place] [phone] Nov, [facility] [address] [id number] [address] [place] [phone] Oct, [facility] [address] [id number] [address] [place] [address], [place] [phone] 24 Oct, 2011 [facility] [address] [id number] [address] [place] [phone] 17 Oct, 2011 [facility] [address] [id number] [address] [place] [phone] 10 Oct, 2011 [facility] [address] [id number] [address] [place] [phone] Sep, [facility] [address] [id number] [address] [place] [phone] August, [facility] [address] [id number] [address] [place] [phone] August, [facility] [address] [id number] [address] [place] [phone] August, [facility] [address] [id number] [address] [place] [phone] Jul, [facility] [address] [id number] [address] [place] [phone] Jul, [facility] [address] [id number] [address] [place] [phone] Jun, [facility] [address] [id number] [address] [place] [phone] Jun, [facility] [address] [id number] [address] [place] [phone] May, [facility] [address] [id number] [address] [place] [phone] Apr, [facility] [address] [id number] [address] [place] [phone] Apr, [facility] [address] [id number] [address] [place] [phone] Mar, [facility] [address] [id number] [address] [place] [phone] Dec, IMMUNIZATIONS No Known Immunizations SOCIAL HISTORY [...]
--- OUTSIDE RECORDS SUMMARY | 2019-09-30 16:22 | XMS REPORT ---
Author Author Ilia Sargent Doctor Organization [facility] Address Unknown Phone Unavailable Care Team Providers Care State Director Name Role Phone Migration, Doctor Unavailable Unavailable PROBLEMS Type Condition ICD9-CM Code [id number] Code Onset Dates Condition S tatus SNOMED Code Problem Adjustment disorder with mixed anxiety and depressed mood 309.28 Active 61182049 Problem Adjustment disorder with depressed mood 309.0 Active 96833247 Problem Need for prophylactic vaccination and inoculation, Influen za V04.81 Active 602879153 Problem Depressive disorder, not elsewhere classified 311 Active 42162759 Problem Anxiety state, unspecified 300.00 Act opal [id number] ALLERGIES No Information ENCOUNTERS Encounter Location Date Diagnosis [facility] [address] [id number] [place] [address] [id number] May, Oral health maintenance stat us requiring routine preventive dental care K08.9 and Caries K02.9 [facility] [address] [id number] [address] [place] [phone] Jan, Encounter for immunization Z 23 [facility] [address] [id number] [address] [place] [address] [id number] August, Dental examination Z01.20 [facility] [address] [id number] [address] [place] [phone] Mar, Encounter for immunization Z 23 [facility] [address] [id number] [address] [place] [phone] Feb, Encounter for immunization Z 23 [facility] [address] [id number] [address] [place] [address] [id number] Nov, Dental examination V72.2 [facility] [address] [id number] [address] [place] [address] [id number] August, Dental examination V72.2 [facility] [address] [id number] [address] [place] [phone] 14 Jul, 2014 [facility] [address] [id number] [address] [place] [address], [place] [phone] 13 Jul, 2014 [facility] [address] [id number] [address] [place] [address], [place] [phone] Jan, [facility] [address] [id number] [address] [place] [address], [place] [id number] Jan, [facility] [address] [id number] [address] [place] [address], [place] [phone] Jan, [facility] [address] [id number] [address] [place] [address], [place] [phone] Jan, [facility] [address] [id number] [address] [place] [address], [place] [phone] 25 Dec, 2011 [facility] [address] [id number] [address] [place] [address], [place] [phone] 18 Dec, 2011 [facility] [address] [id number] [address] [place] [address], [place] [address] Dec, [facility] [address] [id number] [address] [place] [address], [place] [phone] Nov, [facility] [address] [id number] [address] [place] [address], [place] [phone] Nov, [facility] [address] [id number] [address] [place] [address], [place] [phone] 31 Oct, 2011 [facility] [address] [id number] [address] [place] [address], [place] [phone] 24 Oct, 2011 [facility] [address] [id number] [address] [place] [address], [place] [phone] 17 Oct, 2011 [facility] [address] [id number] [address] [place] [address], [place] [phone] 10 Oct, 2011 [facility] [address] [id number] [address] [place] [address], [place] [phone] Sep, [facility] [address] [id number] [address] [place] [phone] August, [facility] [address] [id number] [address] [place] [phone] August, [facility] [address] [id number] [address] [place] [phone] August, [facility] [address] [id number] [address] [place] [phone] Jul, [facility] [address] [id number] [address] [place] [phone] Jul, [facility] [address] [id number] [address] [place] [phone] Jun, [facility] [address] [id number] [address] [place] [phone] Jun, [facility] [address] [id number] [address] [place] [phone] May, [facility] [address] [id number] [address] [place] [phone] Apr, [facility] [address] [id number] [address] [place] [phone] Apr, [facility] [address] [id number] [address] [place] [phone] Mar, [facility] [address] [id number] [address] [place] [phone] Dec, IMMUNIZATIONS No Known Immunizations SOCIAL HISTORY Never Assessed REASON FOR VISIT EMR-[facility] PLAN OF CARE VITAL SIGNS MEDICATIONS Medication Instructions Dosage Frequency Start Date End Date Duration S tatus Diazepam 20 mg PRNseizure Jun, A ctive Lorazepam 1 mg PRNanxiety Jun, A ctive Vimpat 200 mg 1 Tablet by Oral route 2 times per day Jun, Active Remeron by Oral routePRNinsomnia Jun, Active Lamictal 150 mg 1 Tablet by Oral route 2 times per day 0 Jun, Active RESULTS No Results PROCEDURES No Known procedures INSTRUCTIONS MEDICATIONS ADMINISTERED No Known Medications MEDICAL (GENERAL) HISTORY Type Description Date Medical History seizures Medical History brain surgery to relieve seizures Surgical History Brain surgery to relieve seizures/Yoan goodman 2013 Hospitalization History see above surgery
--- OUTSIDE RECORDS SUMMARY | 2019-09-30 16:22 | XMS REPORT ---
Author Author Ilia Brown [facility] Address [address] [place] [address] Care Team Providers Care Commissary Agent Name Role Phone SARAH Brown Unavailable PROBLEMS Type Condition ICD9-CM Code [id number] Code Onset Dates Condition S tatus SNOMED Code Problem Adjustment disorder with mixed anxiety and depressed mood 309.28 Active 51306786 Problem Adjustment disorder with depressed mood 309.0 Active 11055737 Problem Need for prophylactic vaccination and inoculation, Influen za V04.81 Active 502769972 Problem Depressive disorder, not elsewhere classified 311 Active 98825356 Problem Anxiety state, unspecified 300.00 Act opal 118234393 ALLERGIES No Information ENCOUNTERS Encounter Location Date Diagnosis [facility] [address] [id number] May, Oral health maintenance stat us requiring routine preventive dental care K08.9 and Caries K02.9 [facility] [address] [id number] [address] [place] [phone] Jan, Encounter for immunization Z 23 [facility] [address] [id number] [place] [address] [id number] August, Dental examination Z01.20 [facility] [address] [facility] [id number] [address] [place] [phone] Mar, Encounter for immunization Z 23 [facility] [address] [facility] [id number] [address] [place] [phone] Feb, Encounter for immunization Z 23 [facility] [address] [id number] [address] [place] [address] [id number] Nov, Dental examination V72.2 [facility] [address] [id number] [place] [address] [id number] August, Dental examination V72.2 [facility] [address] [id number] [address] [place] [address], [place] [address] Jul, [facility] [address] [id number] [address] [place] [phone] Jul, [facility] [address] [id number] [address] [place] [address], [place] [address] Jan, [facility] [address] [id number] [address] [place] [phone] Jan, [facility] [address] [id number] [address] [place] [address], [place] [address] Jan, [facility] [address] [id number] [address] [place] [phone] Jan, [facility] [address] [id number] [address] [place] [address], [place] [address] Dec, [facility] [address] [id number] [address] [place] [phone] Dec, [facility] [address] [id number] [address] [place] [phone] Dec, [facility] [address] [id number] [address] [place] [phone] Nov, [facility] [address] [id number] [address] [place] [phone] Nov, [facility] [address] [id number] [address] [place] [phone] Oct, [facility] [address] [id number] [address] [place] [address], [place] [address] Oct, [facility] [address] [id number] [address] [place] [phone] 17 Oct, 2011 [facility] [address] [id number] [address] [place] [phone] Oct, [facility] [address] [id number] [address] [place] [phone] Sep, [facility] [address] [id number] [address] [place] [phone] August, [facility] [address] [id number] [address] [place] [phone] August, [facility] [address] [id number] [address] [place] [phone] August, [facility] [address] [id number] [address] [place] [phone] Jul, [facility] [address] [id number] [address] [place] [phone] Jul, [facility] [address] [id number] [address] [place] [phone] Jun, [facility] [address] [id number] [address] [place] [phone] Jun, [facility] [address] [id number] [address] [place] [phone] May, [facility] [address] [id number] [address] [place] [phone] Apr, [facility] [address] [id number] [address] [place] [phone] Apr, [facility] [address] [id number] [address] [place] [phone] Mar, [facility] [address] [id number] [address] [place] [phone] Dec, IMMUNIZATIONS No Known Immunizations SOCIAL HISTORY Never Assessed REASON FOR VISIT PLAN OF CARE VITAL SIGNS Height 70 in 2011-10-31 Weight 202 lbs 2011-10-31 Heart Rate 92 bpm 2011-10-31 Blood pressure systolic 128 mmHg 2011-10-31 Blood pressure diastolic 68 mmHg 2011-10-31 MEDICATIONS No Known Medications RESULTS No Results PROCEDURES No Known procedures INSTRUCTIONS MEDICATIONS ADMINISTERED No Known Medications MEDICAL (GENERAL) HISTORY Type Description Date Medical History seizures Medical History brain surgery to relieve seizures Surgical History Brain surgery to relieve seizures/Yoan goodman 2013 Hospitalization History see above surgery
--- OUTSIDE RECORDS SUMMARY | 2019-09-30 16:22 | XMS REPORT ---
Author Author Ilia SAHU [facility] Address [address] [place] [address] Phone Unavailable Care Team Providers Care Recovery Engineer Name Role Phone SHELBY SAHU Unavailable Unavailable PROBLEMS Type Condition ICD9-CM Code [id number] Code Onset Dates Condition S tatus SNOMED Code Problem Adjustment disorder with depressed mood 309.0 Active 36423823 Problem Adjustment disorder with mixed anxiety and depressed mood 309.28 Active 06300723 Problem Need for prophylactic vaccination and inoculation, Influen za V04.81 Active 120689791 Problem Anxiety state, unspecified 300.00 Act opal 396329409 Problem Depressive disorder, not elsewhere classified 311 Active 33060408 ALLERGIES No Known Allergies ENCOUNTERS Encounter Location Date Diagnosis [facility] [address] [facility] [id number] [place] [address] [id number] August, Dental examination Z01.20 [facility] [address] [facility] [id number] [address] [place] [phone] Mar, Encounter for immunization Z 23 [facility] [address] [facility] [id number] [address] [place] [phone] Feb, Encounter for immunization Z 23 [facility] [address] [id number] [address] [place] [address] [id number] Nov, Dental examination V72.2 [facility] [address] [id number] [address] [place] [address] [id number] August, Dental examination V72.2 [facility] [address] [facility] [id number] [address] [place] [phone] Jul, [facility] [address] [facility] [id number] [address] [place] [phone] Jul, [facility] [address] [facility] [id number] [address] [place] [phone] Jan, [facility] [address] [id number] [address] [place] [address], [place] [address] Jan, [facility] [address] [id number] [address] [place] [address], [place] [address] Jan, [facility] [address] [id number] [address] [place] [address], [place] [address] Jan, [facility] [address] [id number] [address] [place] [address], [place] [address] Dec, [facility] [address] [id number] [address] [place] [address], [place] [address] Dec, [facility] [address] [id number] [address] [place] [address], [place] [address] Dec, [facility] [address] [id number] [address] [place] [address], [place] [address] Nov, [facility] [address] [id number] [address] [place] [address], [place] [address] Nov, [facility] [address] [id number] [address] [place] [address], [place] [address] Oct, [facility] [address] [id number] [address] [place] [address], [place] [address] Oct, [facility] [address] [id number] [address] [place] [address], [place] [address] Oct, [facility] [address] [id number] [address] [place] [address], [place] [address] Oct, [facility] [address] [id number] [address] [place] [address], [place] [address] Sep, [facility] [address] [id number] [address] [place] [address], [place] [address] August, [facility] [address] [id number] [address] [place] [address], [place] [address] August, [facility] [address] [id number] [address] [place] [phone] August, [facility] [address] [id number] [address] [place] [phone] Jul, [facility] [address] [id number] [address] [place] [phone] Jul, [facility] [address] [id number] [address] [place] [phone] Jun, [facility] [address] [id number] [address] [place] [phone] Jun, [facility] [address] [id number] [address] [place] [phone] May, [facility] [address] [id number] [address] [place] [phone] Apr, [facility] [address] [id number] [address] [place] [phone] Apr, [facility] [address] [id number] [address] [place] [phone] Mar, [facility] [address] [id number] [address] [place] [phone] Dec, IMMUNIZATIONS No Known Immunizations SOCIAL HISTORY Never Assessed REASON FOR VISIT prophy PLAN OF CARE Activity Details Follow Up 6 Months Reason:recall VITAL SIGNS Blood pressure systolic 112 mmHg 2017-09-07 Blood pressure diastolic 69 mmHg 2017-09-07 MEDICATIONS Medication Instructions Dosage Frequency Start Date End Date Duration S tatus Diazepam 20 mg Jun, Acti ve Vimpat 200 mg 1 Tablet by Oral route 2 times per day Jun, Active Lamictal 150 mg 1 Tablet by Oral route 2 times per day 0 Jun, Active Remeron by Oral routePRNinsomnia Jun, Active Lorazepam 1 mg Jun, Acti ve RESULTS No Results PROCEDURES Procedure Date Ordered Result Body Site COMP ORAL EVALUATION - NEW/EST PT September 07, 2017 INTRAORL-PERIAPICAL 1 FILM [id number] September 07, 2017 TOPICAL FLUORIDE VARNISH September 07, 2017 INTRAORL-PERIAPICAL EA ADD FILM September 07, 2017 INTRAORL-PERIAPICAL EA ADD FILM September 07, 2017 PROPHYLAXIS - ADULT September 07, 2017 BITEWINGS - FOUR FILMS September 07, 2017 INSTRUCTIONS MEDICATIONS ADMINISTERED No Known Medications
--- OUTSIDE RECORDS SUMMARY | 2019-09-30 16:22 | XMS REPORT ---
Author Author Ilia Brown [facility] Address [address] [place] [address] Care Team Providers Care Spectacle Truer Name Role Phone SARAH Brown Unavailable PROBLEMS Type Condition ICD9-CM Code [id number] Code Onset Dates Condition S tatus SNOMED Code Problem Seizure disorder G40.909 Active 128 [id number] ALLERGIES No Information ENCOUNTERS Encounter Location Date Diagnosis [facility] [id number] [place] [address] [phone] May, Encounter for Medicare annual wellness exam Z00.00 ; Seizure disorder G40.909 ; Encounter for immunization Z23 ; Epilepsy, unspecified, not intractable, without status epilepticus G40.909 and Screening for colon cancer Z12.11 [facility] [address] [id number] [address] [place] [id number] Apr, Seizure disorder G40.909 [facility] [address] [id number] [address] [place] [phone] Apr, Seizure disorder G40.909 [facility] [address] [id number] [address] [place] [address] [id number] Feb, Caries K02.9 [facility] [address] [id number] [address] [place] [address] [id number] Feb, Dental examination Z01.20 ; Oral health maintenance status requiring routine preventive dental care K08.9 and Caries K02.9 [facility] [address] [facility] [id number] [address] [place] [phone] Jan, Seizure disorder G40.909 and Encounter for immunization Z23 [facility] [address] [id number] [address] [place] [address] [id number] May, Oral health maintenance stat us requiring routine preventive dental care K08.9 and Caries K02.9 [facility] [address] [id number] [address] [place] [id number] Jan, Encounter for immunization Z 23 [facility] [address] [id number] [address] [place] [address] [id number] August, Dental examination Z01.20 [facility] [address] [id number] [address] [place] [phone] Mar, Encounter for immunization Z 23 [facility] [address] [id number] [address] [place] [phone] Feb, Encounter for immunization Z 23 [facility] [address] [id number] [address] [place] [address] [id number] Nov, Dental examination V72.2 [facility] [address] [id number] [address] [place] [address] [id number] August, Dental examination V72.2 [facility] [address] [id number] [address] [place] [phone] Jul, [facility] [address] [id number] [address] [place] [phone] Jul, [facility] [address] [id number] [address] [place] [id number] Jan, [facility] [address] [id number] [address] [place] [phone] Jan, [facility] [address] [id number] [address] [place] [phone] Jan, [facility] [address] [id number] [address] [place] [phone] Jan, [facility] [address] [id number] [address] [place] [phone] Dec, [facility] [address] [id number] [address] [place] [phone] Dec, [facility] [address] [id number] [address] [place] [address], [place] [address] Dec, [facility] [address] [id number] [address] [place] [address], [place] [address] Nov, [facility] [address] [id number] [address] [place] [address], [place] [address] Nov, [facility] [address] [id number] [address] [place] [address], [place] [address] Oct, [facility] [address] [id number] [address] [place] [address], [place] [address] Oct, [facility] [address] [id number] [address] [place] [address], [place] [address] Oct, [facility] [address] [id number] [address] [place] [address], [place] [address] Oct, [facility] [address] [id number] [address] [place] [address], [place] [address] Sep, [facility] [address] [id number] [address] [place] [address], [place] [address] August, [facility] [address] [id number] [address] [place] [address], [place] [address] August, [facility] [address] [id number] [address] [place] [address], [place] [address] August, [facility] [address] [id number] [address] [place] [address], [place] [address] Jul, [facility] [address] [id number] [address] [place] [address], [place] [address] Jul, [facility] [address] [id number] [address] [place] [address], [place] [address] Jun, [facility] [address] [id number] [address] [place] [address], [place] [address] Jun, [facility] [address] [id number] [address] [place] [phone] 10 May, 2011 [facility] [address] [facility] [id number] [address] [place] [phone] Apr, [facility] [address] [facility] [id number] [address] [place] [phone] Apr, [facility] [address] [facility] [id number] [address] [place] [phone] Mar, [facility] [address] [facility] [id number] [address] [place] [phone] Dec, IMMUNIZATIONS No Known Immunizations SOCIAL HISTORY Never Assessed REASON FOR VISIT PLAN OF CARE VITAL SIGNS Height 70 in 2011-10-02 Weight 203 lbs 2011-10-02 Heart Rate 80 bpm 2011-10-02 Respiratory Rate 20 2011-10-02 Blood pressure systolic 112 mmHg 2011-10-02 Blood pressure diastolic 86 mmHg 2011-10-02 MEDICATIONS No Known Medications RESULTS No Results PROCEDURES No Known procedures INSTRUCTIONS MEDICATIONS ADMINISTERED No Known Medications MEDICAL (GENERAL) HISTORY Type Description Date Medical History seizures Medical History brain surgery to relieve sei zures - left temporal lobectomy, Dr Terry at [facility] in 2010 Surgical History Brain surgery to relieve seizures/Yoan goodman 2013 Hospitalization History see above surgery
--- OUTSIDE RECORDS SUMMARY | 2019-09-30 16:22 | XMS REPORT ---
Author Author Ilia Sargent Doctor Organization [facility] Address Unknown Phone Unavailable Care Team Providers Care Calender Feeder Name Role Phone Migration, Doctor Unavailable Unavailable PROBLEMS Type Condition ICD9-CM Code [id number] Code Onset Dates Condition S tatus SNOMED Code Problem Seizure disorder G40.909 Active 128 [id number] ALLERGIES No Information ENCOUNTERS Encounter Location Date Diagnosis [facility] [id number] [place] [address] [phone] May, 2019 Encounter for Medicare annual wellness exam Z00.00 ; Seizure disorder G40.909 ; Encounter for immunization Z23 ; Epilepsy, unspecified, not intractable, without status epilepticus G40.909 and Screening for colon cancer Z12.11 [facility] [address] [facility] [id number] [address] [place] [id number] 22 Apr, 2019 Seizure disorder G40.909 [facility] [address] [facility] [id number] [address] [place] [id number] 22 Apr, 2019 Seizure disorder G40.909 [facility] [address] [id number] [address] [place] [address] [id number] Feb, Caries K02.9 [facility] [address] [id number] [address] [place] [address] [id number] Feb, Dental examination Z01.20 ; Oral health maintenance status requiring routine preventive dental care K08.9 and Caries K02.9 [facility] [address] [facility] [id number] [address] [place] [phone] Jan, Seizure disorder G40.909 and Encounter for immunization Z23 [facility] [address] [facility] [id number] [address] [place] [address] [id number] May, Oral health maintenance stat us requiring routine preventive dental care K08.9 and Caries K02.9 [facility] [address] [id number] [address] [place] [id number] Jan, Encounter for immunization Z 23 [facility] [address] [id number] [address] [place] [address] [id number] August, Dental examination Z01.20 [facility] [address] [id number] [address] [place] [phone] Mar, Encounter for immunization Z 23 [facility] [address] [id number] [address] [place] [phone] Feb, Encounter for immunization Z 23 [facility] [address] [id number] [address] [place] [address] [id number] Nov, Dental examination V72.2 [facility] [address] [id number] [address] [place] [address] [id number] August, Dental examination V72.2 [facility] [address] [id number] [address] [place] [phone] Jul, [facility] [address] [id number] [address] [place] [phone] Jul, [facility] [address] [id number] [address] [place] [phone] Jan, [facility] [address] [id number] [address] [place] [phone] Jan, [facility] [address] [id number] [address] [place] [phone] Jan, [facility] [address] [id number] [address] [place] [id number] Jan, [facility] [address] [id number] [address] [place] [phone] Dec, [facility] [address] [id number] [address] [place] [phone] 18 Dec, 2011 [facility] [address] [id number] [address] [place] [phone] Dec, [facility] [address] [id number] [address] [place] [address], [place] [address] Nov, [facility] [address] [id number] [address] [place] [address], [place] [address] Nov, [facility] [address] [id number] [address] [place] [address], [place] [address] Oct, [facility] [address] [id number] [address] [place] [address], [place] [address] Oct, [facility] [address] [id number] [address] [place] [address], [place] [address] Oct, [facility] [address] [id number] [address] [place] [address], [place] [address] Oct, [facility] [address] [id number] [address] [place] [address], [place] [address] Sep, [facility] [address] [id number] [address] [place] [address], [place] [address] August, [facility] [address] [id number] [address] [place] [address], [place] [address] August, [facility] [address] [id number] [address] [place] [address], [place] [address] August, [facility] [address] [id number] [address] [place] [address], [place] [address] Jul, [facility] [address] [id number] [address] [place] [address], [place] [address] Jul, [facility] [address] [id number] [address] [place] [address], [place] [address] Jun, [facility] [address] [id number] [address] [place] [address], [place] [address] Jun, [facility] [address] [id number] [address] [place] [address], [place] [address] May, [facility] [address] [id number] [address] [place] [phone] Apr, [facility] [address] [facility] [id number] [address] [place] [phone] Apr, [facility] [address] [facility] [id number] [address] [place] [phone] Mar, [facility] [address] [facility] [id number] [address] [place] [phone] Dec, IMMUNIZATIONS No Known Immunizations SOCIAL HISTORY Never Assessed REASON FOR VISIT PLAN OF CARE VITAL SIGNS MEDICATIONS No Known Medications RESULTS No Results PROCEDURES Procedure Date Ordered Result Body Site ADMN FLU VAC NO FEE SCHED SAME DAY Feb 04, 2013 INSTRUCTIONS MEDICATIONS ADMINISTERED No Known Medications MEDICAL (GENERAL) HISTORY Type Description Date Medical History seizures Medical History brain surgery to relieve sei zures - left temporal lobectomy, Dr Terry at [facility] in 2010 Surgical History Brain surgery to relieve seizures/Yoan goodman 2013 Hospitalization History see above surgery
--- OUTSIDE RECORDS SUMMARY | 2019-09-30 16:23 | XMS REPORT | Continuity of Care Document ---
Author Organization Unknown Address Unknown Phone Unavailable Allergies Active Description Code Type Severity Reaction Onset Reported/Identified Relationship to Patient Clinical Status Yes No Known Drug Allergies [id number] Drug Allergy Unknown N/A 09/11/2019 Medications There is no data. Problems Date Dx Coded Attending Type Code Diagnosis Diagnosed By 03/15/1432 RIKKI BOOTHE DO Ot C18.9 MALIGNANT NEOPLASM OF COLON, UNSPECIFIED 03/15/1432 RIKKI BOOTHE DO B Ot Z01.8 12 ENCOUNTER FOR PREPROCEDURAL LABORATORY E 03/15/1432 RIKKI BOOTHE DO B Ot Z11.5 9 ENCOUNTER FOR SCREENING FOR OTHER VIRAL 03/15/1624 RIKKI BOOTHE DO B Ot Z01.8 12 ENCOUNTER FOR PREPROCEDURAL LABORATORY E 03/15/1624 AHSAN BOOTHE DOIC B Ot Z01.8 18 ENCOUNTER FOR OTHER PREPROCEDURAL EXAMIN 03/15/1624 SHYANN CURTIS RIKKI B Ot Z12.1 1 ENCOUNTER FOR SCREENING FOR MALIGNANT NE 01/02/2009 AGUILAR PHILLIPS DO 477.0 ALLERGIC RHINITIS DUE TO POLLEN 03/28/2011 AGUILAR PHILLIPS DO 294.9 OR COG DIS NOS 03/28/2011 AGUILAR PHILLIPS DO 309.9 AD ADJ D/O NOS 04/28/2011 AGUILAR PHILLIPS DO 309.28 AD ADJ D/O W ANX DEP MOOD 05/26/2011 AGUILAR PHILLIPS DO 300.00 AN ANXIETY UNSPEC 06/20/2011 AGUILAR PHILLIPS DO 309.0 AD ADJ D/O W DEPRESSED 07/26/2011 AGUILAR PHILLIPS DO 311 MO DEPRESS NOS 02/04/2013 AGUILAR PHILLIPS DO V04.81 FLU SHOT 02/07/2014 CHRISTINE HERBERT, GABRIELLE Decker Ot 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 9 RENAL URETERAL DIS NOS 05/22/2015 BESSY HERBERT, LETY Olson Ot G40.909 EPILEPSY, UNSP, NOT INTRACTABLE, WITHOUT 05/22/2015 BESSY HERBERT, LETY Olson Ot S00.81XA ABRASION OF OTHER PART OF HEAD, INITIAL 05/22/2015 BESSY HERBETR, LETY Wesley Ot W01.198A FALL SAME LEV FROM SLIP/TRIP W STRIKE AG 05/22/2015 BESSY HERBERT, LETY Olson Ot Y92.012 BATHROOM OF SINGLE-FAMILY (PRIVATE) HOUS 05/22/2015 LETY DOHERTY MD Ot Y99. 8 OTHER EXTERNAL CAUSE STATUS 05/22/2015 BESSY HERBERT, LETY Olson Ot Z79.899 OTHER CARE HOME (CURRENT) DRUG THERAPY 07/15/2019 DELMAN DO, RIKKI B Ot Z01.8 18 ENCOUNTER FOR OTHER PREPROCEDURAL EXAMIN 08/28/2019 DELMAN DO, RIKKI B Ot Z01.8 12 ENCOUNTER FOR PREPROCEDURAL LABORATORY E 08/28/2019 DELMAN DO, RIKKI B Ot Z01.8 18 ENCOUNTER FOR OTHER PREPROCEDURAL EXAMIN 08/28/2019 DELMAN DO, RIKKI B Ot Z12.1 1 ENCOUNTER FOR SCREENING FOR MALIGNANT NE 09/01/2019 DELMAN DO, RIKKI B Ot Z01.8 18 ENCOUNTER FOR OTHER PREPROCEDURAL EXAMIN 09/01/2019 DELMAN DO, RIKKI B Ot 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 09/01/2019 DELMAN DO, RIKKI B Ot D12.3 BENIGN NEOPLASM OF TRANSVERSE COLON 09/01/2019 DELMAN DO, RIKKI B Ot G40.9 09 EPILEPSY, UNSP, NOT INTRACTABLE, WITHOUT 09/01/2019 DELMAN DO, RIKKI B Ot K21.9 GASTRO-ESOPHAGEAL REFLUX DISEASE WITHOUT 09/01/2019 DELMAN DO, RIKKI B Ot K63.8 9 OTHER SPECIFIED DISEASES OF INTESTINE 09/01/2019 DELMAN DO, RIKKI B Ot K64.8 OTHER HEMORRHOIDS 09/01/2019 DELMAN DO, RIKKI B Ot Z79.8 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 09/04/2019 DELMAN DO, RIKKI B Ot 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 09/04/2019 DELMAN DO, RIKKI B Ot D12.3 BENIGN NEOPLASM OF TRANSVERSE COLON 09/04/2019 DELMAN DO, RIKKI B Ot G40.9 09 EPILEPSY, UNSP, NOT INTRACTABLE, WITHOUT 09/04/2019 SHYANN DO, RIKKI B Ot K21.9 GASTRO-ESOPHAGEAL REFLUX DISEASE WITHOUT 09/04/2019 [place] DO, RIKKI B Ot K63.8 9 OTHER SPECIFIED DISEASES OF INTESTINE 09/04/2019 [place], RIKKI B Ot K64.8 OTHER HEMORRHOIDS 09/04/2019 [place] DO, RIKKI B Ot Z79.8 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 09/12/2019 [place] DO, RIKKI B Ot C18.9 MALIGNANT NEOPLASM OF COLON, UNSPECIFIED 09/12/2019 [place] DO, RIKKI B Ot Z01.8 12 ENCOUNTER FOR PREPROCEDURAL LABORATORY E 09/12/2019 DELFLORENTIN CURTIS, RIKKI B Ot Z11.5 9 ENCOUNTER FOR SCREENING FOR OTHER VIRAL 09/20/2019 [place] DO, RIKKI B Ot 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 09/20/2019 [facility], RIKKI B Ot K64.0 FIRST DEGREE HEMORRHOIDS 09/20/2019 [place] , RIKKI B Ot R33.9 RETENTION OF URINE, UNSPECIFIED 09/20/2019 [facility] , RIKKI B Ot R56.9 UNSPECIFIED CONVULSIONS 09/25/2019 [place] , RIKKI B Ot Z01.8 18 ENCOUNTER FOR OTHER PREPROCEDURAL EXAMIN Procedures Code Description Performed By Per formed On G0008 FLU ADMINISTRATION (MEDICARE ONLY) 02/04/2013 [id number] RE SECTION OF RIGHT LARGE INTESTINE, OPEN 09/17/2019 Results Test Result Range Coronavirus SARS-CoV-2 SO 2018 - 0 13:28 Coronavirus Ab [Units/volume] in Serum Negative Negative Complete blood count (CBC) with automate d white blood cell (WBC) differential - 09/11/19 08:40 Blood leukocytes automated count (number/volume) 4.9 10*3/uL 4.3-11.0 Blood erythrocytes automated count (number/volume) 5.13 10*6/uL 4.35-5.85 Venous blood hemoglobin measurement (mass/volume) 15.6 g/dL 13.3-17.7 Blood hematocrit (volume fraction) 45 % 40-54 Automated erythrocyte mean corpuscular volume 88 [ foz_us] 80-99 Automated erythrocyte mean corpuscular h emoglobin (mass per erythrocyte) 30 pg 25-34 Automated erythrocyte mean corpuscular h emoglobin concentration measurement (mass/volume) 35 g/dL 32-36 Automated erythrocyte distribution width ratio 12. 5 % 10.0- 14.5 Automated blood platelet count (count/volume) 238 10*3/uL 130-400 Automated blood platelet mean volume measurement 9.5 [foz_us] 7.4-10.4 Automated blood neutrophils/100 leukocytes 64 % 42-75 Automated blood lymphocytes/100 leukocytes 25 % 12-44 Blood monocytes/100 leukocytes 9 % 0-12 Automated blood eosinophils/100 leukocytes 1 % 0-10 Automated blood basophils/100 leukocytes 0 % 0-10 Blood neutrophils automated count (number/volume) 3.1 10*3 1.8-7.8 Blood lymphocytes automated count (number/volume) 1.2 10*3 1.0-4.0 Blood monocytes automated count (number/volume) 0. 5 10*3 0.0-1.0 Automated eosinophil count 0.1 10*3/uL 0 .0-0.3 Automated blood basophil count (count/volume) 0.0 10*3/uL 0.0-0.1 Blood type T Indirect antibody screen [facility] - 09/11/19 08:40 ABO+Rh group ABP NRG Blood group antibody screen NEGATIVE NR G Methicillin resistant Staphylococcus aur eus (MRSA) screening culture - 09/11/19 08:40 Methicillin resistant Staphylococcus aureus (MRSA) scr eening culture NEG NRG Coronavirus SARS-CoV-2 SO 2018 - 0 13:09 Coronavirus Ab [Units/volume] in Serum Negative Negative Blood type T Indirect antibody screen [facility] - 09/17/19 08:05 WRISTBAND NUMBER [id number] NRG ABO+Rh group ABP NRG Blood group antibody screen NEGATIVE NR G Serum or plasma creatinine measurement ( mass/volume) - 09/18/19 08:05 Serum or plasma creatinine measurement (mass/volume) 1.09 mg/dL 0.60-1.30 Complete blood count (CBC) with automate d white blood cell (WBC) differential - 09/30/19 14:15 Blood leukocytes automated count (number/volume) 3.8 10*3/uL 4.3-11.0 Blood erythrocytes automated count (number/volume) 5.14 10*6/uL 4.35-5.85 Venous blood hemoglobin measurement (mass/volume) 15.6 g/dL 13.3-17.7 Blood hematocrit (volume fraction) 46 % 40-54 Automated erythrocyte mean corpuscular volume 90 [ foz_us] 80-99 Automated erythrocyte mean corpuscular h emoglobin (mass per erythrocyte) 30 pg 25-34 Automated erythrocyte mean corpuscular h emoglobin concentration measurement (mass/volume) 34 g/dL 32-36 Automated erythrocyte distribution width ratio 13. 2 % 10.0- 14.5 Automated blood platelet count (count/volume) 279 10*3/uL 130-400 Automated blood platelet mean volume measurement 8.6 [foz_us] 7.4-10.4 Automated blood neutrophils/100 leukocytes 78 % 42-75 Automated blood lymphocytes/100 leukocytes 12 % 12-44 Blood monocytes/100 leukocytes 10 % 0-12 Automated blood eosinophils/100 leukocytes 0 % 0-10 Automated blood basophils/100 leukocytes 0 % 0-10 Blood neutrophils automated count (number/volume) 2.9 10*3 1.8-7.8 Blood lymphocytes automated count (number/volume) 0.5 10*3 1.0-4.0 Blood monocytes automated count (number/volume) 0. 4 10*3 0.0-1.0 Automated eosinophil count 0.0 10*3/uL 0 .0-0.3 Automated blood basophil count (count/volume) 0.0 10*3/uL 0.0-0.1 PT panel in platelet poor plasma by coag ulation assay - 09/30/19 14:15 Prothrombin time (PT) in platelet poor plasma by coagu lation assay 12.7 s 12.2-14.7 INR in platelet poor plasma or blood by coagulation as say 0.9 0.8-1.4 Activated partial thromboplastin time (a PTT) in platelet poor plasma bycoagulation assay - 09/30/19 14:15 Activated partial thromboplastin time (a PTT) in platelet poor plasma bycoagulation assay 25 s 24-35 Comprehensive metabolic panel - 09/30/19 14:15 Serum or plasma sodium measurement (moles/volume) 140 mmol/L 135-145 Serum or plasma potassium measurement (moles/volume) 5.1 mmol/L 3.6-5.0 Serum or plasma chloride measurement (moles/volume) 105 mmol/L 98-107 Carbon dioxide 23 mmol/L 21-32 Serum or plasma anion gap determination (moles/volume) 12 mmol/L 5-14 Serum or plasma urea nitrogen measurement (mass/volume ) 34 mg/dL 7-18 Serum or plasma creatinine measurement (mass/volume) 1.67 mg/dL 0.60-1.30 Serum or plasma urea nitrogen/creatinine mass ratio 20 NRG Serum or plasma creatinine measurement w ith calculation of estimated glomerular filtration rate 42 NRG Serum or plasma glucose measurement (mass/volume) 119 mg/dL 70-105 Serum or plasma calcium measurement (mass/volume) 10.1 mg/dL 8.5-10.1 Serum or plasma total bilirubin measurement (mass/volu me) 0.2 mg/dL 0.1-1.0 Serum or plasma alkaline phosphatase ximena surement (enzymatic activity/volume) 72 U/L 40-136 Serum or plasma aspartate aminotransfera se measurement (enzymatic activity/volume) 38 U/L 5-34 Serum or plasma alanine aminotransferase measurement (enzymatic activity/volume) 70 U/L 0-55 Serum or plasma protein measurement (mass/volume) 6.9 g/dL 6.4-8.2 Serum or plasma albumin measurement (mass/volume) 4.2 g/dL 3.2-4.5 CALCIUM CORRECTED 9.9 mg/dL 8.5-10.1 Magnesium - 09/30/19 14:15 Magnesium 2.4 mg/dL 1.6-2.4 Serum or plasma creatine kinase measurem ent (enzymatic activity/volume) - 09/30/19 14:15 Serum or plasma creatine kinase measurem ent (enzymatic activity/volume) 186 U/L 30-200 Serum or plasma creatine kinase MB measu rement (enzymatic activity/volume) - 09/30/19 14:15 Serum or plasma creatine kinase MB measu rement (enzymatic activity/volume) 2.7 ng/mL <6.6 Myoglobin, serum - 09/30/19 14:15 Myoglobin, serum 246.9 ng/mL 10.0-92.0 Serum or plasma ethanol measurement (mas s/volume) - 09/30/19 14:15 Serum or plasma ethanol measurement (mass/volume) < mg/dL <10 Blood lactic acid measurement (moles/vol ume) - 09/30/19 14:15 Blood lactic acid measurement (moles/volume) 2.62 mmol/L 0.50-2.00 PROCALCITONIN (PCT) - 09/30/19 14:15 PROCALCITONIN (PCT) 0.19 ng/mL <0.10 Encounters ACCT No. Visit Date/Time Discharge Status Pt. Type Provider Facility Loc./Unit Complaint [id number] 02/04/2013 16:55:00 02/04/2013 23:59: 59 CLS Outpatient AGUILAR PHILLIPS DO [id number] 09/17/2019 07:33:00 11:56:00 DIS Inpatient SHYANN CURTIS RIKKI B [facility] 4TH COLON CANCER [id number] 09/12/2019 08:11:00 14:33:00 DIS Outpatient SHYANN CURTIS RIKKI B [facility] PREOP COLON CANCER [id number] 09/01/2019 08:22:00 11:35:00 DIS Outpatient SHYANN CURTIS RIKKI B [facility] ENDO +COLOGUARD [id number] 08/28/2019 08:24:00 16:25:00 DIS Outpatient SHYANN CURTISAHSANIC B [facility] PREOP COLONOSCOPY [id number] 07/14/2019 05:35:00 23:59:59 CLS Outpatient SHYANN CURTIS RIKKI B [facility] PREOP COLONOSCOPY [id number] 05/22/2015 06:11:00 016 09:03:00 DIS Emergency BESSY HERBERT, LETY Olson [facility] ER SEIZURE [id number] 02/06/2014 10:49:00 014 14:30:00 DIS Inpatient CHRISTINE HERBERT, GABRIELLE R [facility] 4TH MULTIPLE TOXIC CLONIC S EIZURE COMPLEX PARTIAL SEIZ [id number] 10/15/2019 15:32:00 P EN Preadmit PATEL HERBERT, ILENE [facility] ONC [id number] 09/30/2019 14:33:00 Document Registration [id number] 05/07/2019 12:40:00 05/07/2019 23:59:5 9 CLS Outpatient CLARITA PICKARD APRN [facility]
--- NOTE | 2019-09-30 16:33 | NUR ---
CUAUHTEMOC MARY admitted to room CU5-1, with an admitting diagnosis of Pneumonia, on 09/30/19 from AM via cart, accompanied by staff.CUAUHTEMOC MARY introduced to surroundings, call light, bed controls, phone, TV, temperature control, lights, meal times, smoking policy, visitor policy, side rail policy, bathrooms and showers. Patient Rights given to patient in the handbook. CUAUHTEMOC MARY verbalizes understanding that [facility] is not responsible for the loss or damage to any personal effects or valuables that are kept in the patients posession during their hospitalization. The following Patient Care Plans were discussed with the pt: Discharge Planning. CUAUHTEMOC MARY verbalizes understanding of Interdisciplinary Patient Education. Patient and/or family were informed about the Rapid Response Team and its purpose.
--- NOTE | 2019-09-30 16:57 | NUR ---
PHARMACY TO DOSE VANCOMYCIN X 3 DAYS: PATIENT WEIGHT 77.2 KG, SCr 1.67, CrCl 51.1; BOLUS DOSE 750MG X 2 BAGS = 1500MG GIVEN IN ED 09/29 @ 1500. MAINT DOSE (15MG/KG X 77.2KG = 1158) ~ 1250MG Q24H X 2 ADDITIONAL DAYS STARTING 09/30 @ 1500.
[2019-09-30 17:26] LABS: BILIRUBIN,URINE NEGATIVE (NEGATIVE); CLARITY,URINE CLEAR; COLOR,URINE YELLOW; GLUCOSE, URINE (UA) NEGATIVE (NEGATIVE); KETONES,URINE NEGATIVE (NEGATIVE); LEUKOCYTE ESTERASE ,URINE NEGATIVE (NEGATIVE); NITRITE,URINE NEGATIVE (NEGATIVE); PH,URINE 5.5 (5-9); PROTEIN,URINE 1+ (NEGATIVE)
[2019-09-30] MEDS ORDERED: RT-ALBUTEROL/IPRATROPIUM 3 ML (DUONEB) VIAL INH PRN (17:30)
[2019-09-30 17:34] LABS: BACTERIA,URINE NEGATIVE /HPF
[2019-09-30 17:45] LABS: AMPHETAMINE SCREEN, URINE NEGATIVE (NEGATIVE); BARBITURATE SCREEN URINE NEGATIVE (NEGATIVE); BENZODIAZEPINES SCREEN URINE NEGATIVE (NEGATIVE); CANNABINOID SCREEN, URINE NEGATIVE (NEGATIVE); COCAINE SCREEN URINE NEGATIVE (NEGATIVE); METHADONE STAT NEGATIVE (NEGATIVE); METHAMPHETAMINE SCREEN URINE S NEGATIVE (NEGATIVE); OPIATE SCREEN URINE NEGATIVE (NEGATIVE); OXYCODONE STAT NEGATIVE (NEGATIVE); PROPOXYPHENE STAT NEGATIVE (NEGATIVE); TRICYCLIC ANTIDEPRESSANTS SCRE NEGATIVE (NEGATIVE)
[2019-09-30] MEDS ORDERED: ONDANSETRON 4 MG/2 ML (SDV) Z0FRAN IVP PRN (18:00)
[2019-09-30 18:07] LABS: ABG BASE EXCESS -1.6 MMOL/L (-2.5-2.5); ABG OXYGEN SATURATION 73 % (94-100); ABG PCO2 43 MMHG (35-45); ABG PH 7.35 (7.37-7.43); ABG PO2 47 MMHG (79-93); ABG TCO2 24.4 MMOL/L (21.0-31.0)
[2019-09-30 18:12] LABS: ALLENS TEST POS; PATIENT TEMP 37.4; VENTILATOR NO
[2019-09-30] MEDS: D5 1/2 NS 1000 ML IV SOLUTION 1,000 ML IV SCH ×2 (18:23→23:51)
[2019-09-30] MEDS: ENOXAPARIN 40 MG/0.4 ML (LOVENOX) SYR SC SCH (18:23)
[2019-09-30] MEDS ORDERED: DIAZ1KIT RC (18:40)
[2019-09-30] MEDS ORDERED: PATIENT MAY USE OWN MEDS, ALL MC SCH (18:45)
[2019-09-30] MEDS: ACETAMINOPHEN 500 MG TAB (TYLENOL) PO PRN (19:56)
[2019-09-30 20:00] VITALS: BP 114/74
[2019-09-30] MEDS: LEVETIRACETAM 500 MG (KEPPRA) TAB PO SCH (21:05)
[2019-09-30] MEDS: LAMOTRIGINE PO SCH (21:07)
[2019-09-30 22:00] VITALS: BP 123/74
[2019-09-30] MEDS: MIRTAZAPINE 15 MG PO PRN (22:26)
[2019-09-30] MEDS: PIPERACILLIN/TAZO 4.5 GM/NS 100 ML IV SCH ×2 (23:04)
[2019-10-01] VITALS (15 sets, daily range): BP systolic 100–136; BP diastolic 60–81
[2019-10-01] MEDS: ACETAMINOPHEN 500 MG TAB (TYLENOL) PO PRN ×3 (01:39→23:16)
[2019-10-01] MEDS: D5 1/2 NS 1000 ML IV SOLUTION 1,000 ML IV SCH (01:40)
[2019-10-01 03:19] LABS: BASOPHILS % (AUTO) 0 % (0-10); EOSINOPHILS % (AUTO) 0 % (0-10); HEMATOCRIT 38 % (40-54); HEMOGLOBIN 12.8 G/DL (13.3-17.7); LYMPHOCYTES # (AUTO) 0.4 X 10^3 (1.0-4.0); LYMPHOCYTES % (AUTO) 11 % (12-44); MEAN CORPUSCULAR HEMOGLOBIN 31 PG (25-34); MEAN CORPUSCULAR HGB CONC 34 G/DL (32-36); MEAN CORPUSCULAR VOLUME 90 FL (80-99); MEAN PLATELET VOLUME 9.2 FL (7.4-10.4); MONOCYTES # (AUTO) 0.4 X 10^3 (0.0-1.0); MONOCYTES % (AUTO) 9 % (0-12); NEUTROPHILS # (AUTO) 3.1 X 10^3 (1.8-7.8); NEUTROPHILS % (AUTO) 80 % (42-75); PLATELET COUNT 203 10^3/uL (130-400); WHITE BLOOD COUNT 3.9 10^3/uL (4.3-11.0)
[2019-10-01 03:28] LABS: ALBUMIN 3.3 GM/DL (3.2-4.5); POTASSIUM 4.3 MMOL/L (3.6-5.0)
[2019-10-01 03:29] LABS: CALCIUM 8.4 MG/DL (8.5-10.1)
[2019-10-01 03:30] LABS: TOTAL PROTEIN 5.2 GM/DL (6.4-8.2)
[2019-10-01 03:32] LABS: BILIRUBIN,TOTAL 0.6 MG/DL (0.1-1.0)
[2019-10-01 03:34] LABS: CREATININE SERUM 1.39 MG/DL (0.60-1.30); PHOSPHORUS 4.6 MG/DL (2.3-4.7)
[2019-10-01 03:37] LABS: MAGNESIUM 1.8 MG/DL (1.6-2.4)
--- NOTE | 2019-10-01 05:48 | Pulmonary Consultation ---
History of Present Illness History of Present Illness Date Seen by Provider: Oct 01, 2019 Time Seen by Provider: 05:43 Date of Admission Allergies and Home Medications Allergies Coded Allergies: No Known Drug Allergies (Unverified , 09/11/19) Home Medications Diazepam 1 Each Kit, 1 EACH RC PRN PRN for SEIZURE ACTIVITY Prescribed by: AGUILAR PERES on 09/30/19 1840 Docusate Sodium 100 Mg Capsule, 100 MG PO DAILY, (Reported) Lacosamide 200 Mg Tablet, 200 MG PO BID, (Reported) Lacosamide 50 Mg Tablet, 50 MG PO BID, (Reported) Lamotrigine 150 Mg Tablet, 150 MG PO DAILY, (Reported) Lamotrigine 150 Mg Tablet, 225 MG PO HS, (Reported) Levetiracetam 500 Mg Tablet, 1,500 MG PO BID, (Reported) Mirtazapine 15 Mg Tablet, 15 MG PO HS PRN for INSOMNIA, (Reported) Past Prvwrms-Kjkrjr-Msbqem Hx Past Med/Social Hx: Reviewed and Corrections made Patient Social History Alcohol Use: Denies Use Recreational Drug Use: No Smoking Status: Never a Smoker 2nd Hand Smoke Exposure: No Recent Foreign Travel: No Contact w/Someone Who Travel: No Recent Infectious Disease Expo: No Recent Hopitalizations: No Immunizations Up To Date Tetanus Booster (TDap): Unknown PED Vaccines UTD: Yes Date of Pneumonia Vaccine: Apr 16, 2010 Date of Influenza Vaccine: Jan 20, 2019 Seasonal Allergies Seasonal Allergies: No Past Medical History Surgeries: Yes (LEFT TEMPORAL LOBECTOMY-2010; COLONOSCOPY; RIGHT HEMICOLECTOMY 09/17/19) Abdominal, Bowel Surgery, Neurological, Tonsillectomy Respiratory: No Currently Using CPAP: No Currently Using BIPAP: No Cardiac: No Neurological: Yes Seizure Disorder Reproductive Disorders: No Sexually Transmitted Disease: No HIV/AIDS: No Genitourinary: No Gastrointestinal: Yes (MILD REFLUX; DX COLON CANCER 09/17/19--S/P RIGHT HEMICOLECTOMY) Gastroesophageal Reflux, Chronic Constipation Musculoskeletal: No Endocrine: No HEENT: Yes (READING GLASSES) Loss of Vision: Denies Hearing Impairment: Denies Cancer: Yes (COLON CANCER -RIGHT HEMICOLECTOMY 09/17/19) Colon Did You Recieve Any Treatments: Yes What Type of Treatment Did You: Surgical Intervention Psychosocial: Yes Sleep Difficulties, Anxiety Integumentary: No Blood Disorders: No Adverse Reaction/Blood Tranf: No (N/A) Family Medical History Cardiovascular disease 19 MOTHER Cataracts 19 MOTHER Completed stroke 19 FATHER Dementia 19 MOTHER Hypertension 19 MOTHER Seizure disorder (cousin) Sepsis Event Evaluation Height, Weight, BMI Height: 5'10" Weight: 180lbs. 2.0oz. 81.774924yc; 23.82 BMI Method:Actual Exam Exam Vital Signs Date Time Temp Pulse Resp B/P (MAP) Pulse Ox O2 Delivery O2 Flow Rate FiO2 10/01/19 04:00 96 Nasal Cannula 2.00 10/01/19 04:00 80 100/62 (75) 92 Nasal Cannula 2.00 10/01/19 02:00 81 103/64 (77) 94 Nasal Cannula 2.00 10/01/19 01:00 85 10/01/19 00:00 97 Nasal Cannula 2.00 10/01/19 00:00 86 111/60 (77) 93 Nasal Cannula 2.00 09/30/19 23:00 37.8 09/30/19 22:00 38.4 09/30/19 22:00 86 33 123/74 (90) 94 Nasal Cannula 2.00 09/30/19 21:00 96 Nasal Cannula 2.00 09/30/19 20:00 96 Nasal Cannula 2.00 09/30/19 20:00 87 26 114/74 (87) 95 Nasal Cannula 2.00 09/30/19 19:56 38.6 09/30/19 19:52 38.3 09/30/19 19:00 91 09/30/19 16:37 Nasal Cannula 2.00 09/30/19 16:17 81 09/30/19 16:15 82 31 116/72 (87) 97 Nasal Cannula 2.00 09/30/19 16:05 36.3 82 20 113/69 (84) 96 Nasal Cannula 2.00 09/30/19 16:05 37.4 09/30/19 16:00 97 Nasal Cannula 2.00 09/30/19 16:00 Nasal Cannula 2.00 09/30/19 13:50 36.3 79 20 115/69 (84) 92 Room Air I & O 10/01/19 07:00 Intake Total 1300 ml Output Total 500 ml Balance 800 ml Height & Weight Height: 5'10" Weight: 180lbs. 2.0oz. 81.381773wk; 23.82 BMI Method:Actual General Appearance: No Apparent Distress, WD/WN, Other (NO VOMITIUS NOTED ON PT. PT FREQUENTLY CLEARING THROAT AND LIGHT UPPER AIRWAY COUGH; SOMEWHAT LETH ARGIC, KEEPS EYES CLOSED. ) HEENT: PERRL/EOMI, Other (POOR DENTITION) Neck: Normal Inspection Respiratory: Normal Breath Sounds, No Accessory Muscle Use, No Respiratory Distress, Other (VERY MILDLY DYSPNEIC--RESPIRATIONS MILDLY SHALLOW AND MILDLY ELEVATED RATE. ) Cardiovascular: Regular Rate, Rhythm, No Edema, No JVD, No Murmur, Normal Peripheral Pulses Capillary Refill: Less Than 3 Seconds Extremity: Normal Capillary Refill, Normal Inspection, Normal Range of Motion, Non Tender, No Calf Tenderness, No Pedal Edema Neurologic/Psychiatric: Alert, Oriented x3, No Motor/Sensory Deficits, barrel assembler II- XII Norm as Tested Skin: Normal Color, Warm/Dry Results Lab Laboratory Tests 09/30/19 14:15 10/01/19 02:37 Assessment/Plan Assessment/Plan RLL PNA- probable aspiration -TM 101.4 -Check COVID -Continue Zosyn and Vanco -Check Influenza and -Currently using 2liters NC -IVF D51/2 NS at 150 - change to LR at 100cc/hr Metabolic lactic acidosis -IVF Seizure disorder -Keppra -Seizure precautions Leukopenia -Monitor Acute renal insuff -Monitor -IVF Anemia -Monitor Hx of colon cancer s/p recent hemicolectomy -no chemo/radiation thus far OREN JARQUIN DO Oct 01, 2019 05:48
[2019-10-01] MEDS: LACTATED RINGERS 1,000 ML IV SCH ×2 (07:08→16:40)
[2019-10-01] MEDS: PIPERACILLIN/TAZO 4.5 GM/NS 100 ML IV SCH ×6 (07:08→23:11)
--- NOTE | 2019-10-01 08:24 | Diagnostic Imaging Report ---
INDICATION: Pneumonia, follow-up. TECHNIQUE: Single view chest 3:34 AM. CORRELATION STUDY: 09/30/2019 FINDINGS: Improvement in aeration to the lung mccoy. Residual infiltrate at the right mid and lower lung field does persist and perhaps slightly more consolidated. Heart size within normal limits. Vasculature is improved and near normal at follow-up. IMPRESSION: 1. Improved aeration to the lung mccoy. Residual infiltrate at the right lung base, may be slightly more consolidated. Dictated by: Dictated on workstation # [id number]
[2019-10-01] MEDS: LAMOTRIGINE 150 MG PO SCH (08:50)
[2019-10-01] MEDS: LEVETIRACETAM 500 MG (KEPPRA) TAB PO SCH ×2 (08:51→21:04)
[2019-10-01] MEDS: DOCUSATE SODIUM 100 MG (COLACE) CAP PO SCH (08:53)
[2019-10-01] MEDS ORDERED: RT-ALBUTEROL INHALER HFA (VENTOLIN HFA) 8 GM IH PRN ×2 (09:45→16:00)
--- NOTE | 2019-10-01 10:27 | History & Physical-Hospitalist ---
History of Present Illness HPI/Chief Complaint CC: Right lower lobe pneumonia aspiration type occurred during seizure HPI: This is a 59yoWM clinic pt of [facility] who presents following a seizure with constant coughing and the thought that he has aspirated when he fell off his sofa when he was having a seizure. He is found to have a right lower lobe pneumonia. He was placed on broad spectrum antibiotics, placed in cardiac stepdown unit and at this current time pt is showing more evidence of tachypnea and respiratory distress, vapotherm may be required. ABG in ER showed 7.35/43/47, procalcitonin was 0.19, and elevated D-dimer of 3.39. Will monitor this closely. He is a Covid-19 swab person under investigation and will be monitored closely. Date Seen 10/01/19 Time Seen by a Provider: 10:00 Attending Physician Kina Rubio DO [facility] Referring Physician Date of Admission Sep 30, 2019 at 14:50 Home Medications & Allergies Home Medications Reviewed patient Home Medication Reconciliation performed by pharmacy medication reconciliations microfilm technician and/or nursing. Patients Allergies have been reviewed. Allergies Allergies Coded Allergies No Known Drug Allergies (Unverified09/11/19) Past Gxauzap-Ulodvj-Etjvav Hx Past Med/Social Hx: Reviewed Nursing Past Med/Soc Hx, Reviewed and Corrections made Patient Social History Marrital Status: single Employed/Student: unemployed Alcohol Use: Denies Use Recreational Drug Use: No Smoking Status: Never a Smoker 2nd Hand Smoke Exposure: No Recent Foreign Travel: No Contact w/other who traveled: No Recent Hopitalizations: No Recent Infectious Disease Expo: No Immunizations Up To Date Tetanus Booster (TDap): Unknown Pediatric: Yes Date of Pneumonia Vaccine: Apr 16, 2010 Date of Influenza Vaccine: Jan 20, 2019 Seasonal Allergies Seasonal Allergies: No Past Medical History Surgeries: Abdominal, Bowel Surgery, Neurological, Tonsillectomy Currently Using CPAP: No Currently Using BIPAP: No Neurological: Seizure Disorder Reproductive: No Sexually Transmitted Disease: No HIV/AIDS: No Gastrointestinal: Gastroesophageal Reflux, Chronic Constipation Loss of Vision: Denies Hearing Impairment: Denies Cancer: Colon Did You Recieve Any Treatments: Yes What Type of Treatment Did You: Surgical Intervention Psychosocial: Sleep Difficulties, Anxiety History of Blood Disorders: No Adverse Reaction to Blood Friedman: No (N/A) Family History Cardiovascular disease 19 MOTHER Cataracts 19 MOTHER Completed stroke 19 FATHER Dementia 19 MOTHER Hypertension 19 MOTHER Seizure disorder (cousin) Review of Systems Constitutional: see HPI Respiratory: cough, dyspnea on exertion, short of breath Physical Exam Physical Exam Vital Signs Vital Signs - First Documented 09/30/19 10/01/19 13:50 12:30 Temp 36.3 Pulse 79 Resp 20 B/P (MAP) 115/69 (84) Pulse Ox 92 O2 Delivery Room Air FiO2 30 Capillary Refill : Less Than 3 Seconds Height, Weight, BMI Height: 5'10" Weight: 180lbs. 2.0oz. 81.098109bh; 23.82 BMI Method:Actual General Appearance: Chronically ill, Mild Distress Eyes: Right Eye Normal Inspection, Right Eye PERRL HEENT: PERRL/EOMI, Normal ENT Inspection, Pharynx Normal, Moist Mucous Membranes Neck: Full Range of Motion, Normal Inspection, Non Tender Respiratory: Chest Non Tender, Lungs Clear, No Respiratory Distress, Accessory Muscle Use, Decreased Breath Sounds, Rales Cardiovascular: Regular Rate, Rhythm, No Edema, No Gallop, No JVD, No Murmur, Normal Peripheral Pulses Gastrointestinal: Normal Bowel Sounds, No Organomegaly, No Pulsatile Mass, Non Tender, Soft Back: Normal Inspection, No CVA Tenderness, No Vertebral Tenderness Extremity: Normal Capillary Refill, Normal Inspection, Normal Range of Motion, Non Tender, No Calf Tenderness, No Pedal Edema Neurologic/Psychiatric: Alert, Oriented x3, No Motor/Sensory Deficits, Normal Mood/Affect Skin: Normal Color, Warm/Dry Lymphatic: No Adenopathy Results Results/Procedures Labs Laboratory Tests 09/30/19 14:15 10/01/19 02:37 Patient resulted labs reviewed. Assessment/Plan Admission Diagnosis Assessment: Aspiration PNA Respi insufficiency Seizure d/o COVID-19 swabbed Plan: IV abx Monitor hypoxia Admission Status: Inpatient Order (span 2 midnights) Reason for Inpatient Admission: aspiration pna Diagnosis/Problems Diagnosis/Problems (1) Aspiration pneumonia (2) Seizure disorder Status: Acute Clinical Quality Measures DVT/VTE Risk/Contraindication: Risk Factor Score Per Nursin RFS Level Per Nursing on Admit: 2=Moderate KINA RUBIO DO Oct 01, 2019 10:27
[2019-10-01 10:45] LABS: ABG BASE EXCESS -1.9 MMOL/L (-2.5-2.5); ABG OXYGEN SATURATION 99 % (94-100); ABG PCO2 36 MMHG (35-45); ABG PO2 139 MMHG (79-93); ABG TCO2 23.4 MMOL/L (21.0-31.0)
[2019-10-01 10:46] LABS: ALLENS TEST YES-POS; INSPIRED O2 8; PATIENT TEMP 36.1; VENTILATOR NO
--- NOTE | 2019-10-01 11:24 | NUR ---
I SPOKE TO THE PATIENT, SPOKE WITH PATIENT'S , CALLED [facility], AND REVIEWED EXTERNAL MED HISTORY TO COMPLETE THE MED REC. LAMICTAL 150 MG- TAKES 1 AM AND 1.5 HS. FILLED 06/30/19 #225 90 DAY SUPPLY OTC- STOOL SOFTENER PRN
[2019-10-01] MEDS: RT-ALBUTEROL INHALER HFA (VENTOLIN HFA) 8 GM IH SCH ×3 (14:47→22:49)
[2019-10-01] MEDS ORDERED: VANCOMYCIN 1250 MG/NS 250 ML IVPB IV SCH ×2 (15:00)
[2019-10-01] MEDS: ENOXAPARIN 40 MG/0.4 ML (LOVENOX) SYR SC SCH (16:41)
[2019-10-01] MEDS: LAMOTRIGINE PO SCH (21:01)
[2019-10-01] MEDS: MIRTAZAPINE 15 MG PO PRN (21:03)
[2019-10-02] VITALS (12 sets, daily range): BP systolic 99–115; BP diastolic 59–74
[2019-10-02] MEDS: RT-ALBUTEROL INHALER HFA (VENTOLIN HFA) 8 GM IH SCH ×6 (02:15→20:59)
[2019-10-02] MEDS: LACTATED RINGERS 1,000 ML IV SCH (03:17)
[2019-10-02 03:18] LABS: BASOPHILS % (AUTO) 0 % (0-10); EOSINOPHILS % (AUTO) 1 % (0-10); HEMATOCRIT 34 % (40-54); HEMOGLOBIN 11.5 G/DL (13.3-17.7); LYMPHOCYTES # (AUTO) 0.6 X 10^3 (1.0-4.0); LYMPHOCYTES % (AUTO) 14 % (12-44); MEAN CORPUSCULAR HEMOGLOBIN 31 PG (25-34); MEAN CORPUSCULAR HGB CONC 33 G/DL (32-36); MEAN CORPUSCULAR VOLUME 92 FL (80-99); MONOCYTES # (AUTO) 0.5 X 10^3 (0.0-1.0); MONOCYTES % (AUTO) 13 % (0-12); NEUTROPHILS # (AUTO) 2.8 X 10^3 (1.8-7.8); NEUTROPHILS % (AUTO) 72 % (42-75); PLATELET COUNT 154 10^3/uL (130-400); RED CELL DISTRIBUTION WIDTH 13.2 % (10.0-14.5); WHITE BLOOD COUNT 3.9 10^3/uL (4.3-11.0)
[2019-10-02 03:45] LABS: CALCIUM 8.4 MG/DL (8.5-10.1); CREATININE SERUM 1.41 MG/DL (0.60-1.30); MAGNESIUM 2.2 MG/DL (1.6-2.4); PHOSPHORUS 3.1 MG/DL (2.3-4.7); POTASSIUM 4.3 MMOL/L (3.6-5.0)
--- NOTE | 2019-10-02 05:27 | Pulmonary Progress Note ---
Subjective Time Seen by a Provider: 05:23 Subjective/Events-last exam No complications noted. Sepsis Event Evaluation Height, Weight, BMI Height: 5'10" Weight: 180lbs. 2.0oz. [id number]; 23.82 BMI Method:Actual Focused Exam Lactate Level 09/30/19 14:15: Lactic Acid Level 2.62*H 09/30/19 17:50: Lactic Acid Level 1.72 Exam Exam Vital Signs Date Time Temp Pulse Resp B/P (MAP) Pulse Ox O2 Delivery O2 Flow Rate FiO2 10/02/19 03:20 98 High Flow N/C 3.00 10/02/19 03:18 36.6 10/02/19 03:00 82 26 99/72 (81) 97 Nasal Cannula 3.00 10/02/19 02:15 98 High Flow N/C 3.00 10/02/19 02:00 80 26 100/67 (78) 97 Nasal Cannula 3.00 10/02/19 01:00 80 10/02/19 01:00 80 23 107/63 (78) 96 Nasal Cannula 3.00 10/02/19 00:00 87 22 112/69 (83) 94 Nasal Cannula 3.00 10/01/19 23:50 37.4 10/01/19 23:21 Nasal Cannula 3.00 10/01/19 23:16 38.2 10/01/19 23:15 95 Vapotherm 40.00 24 10/01/19 23:13 38.2 10/01/19 23:00 88 22 136/81 (99) 95 Vapotherm 40.00 24.00 10/01/19 22:49 95 Vapotherm 40.00 24 10/01/19 22:00 85 20 133/78 (96) 95 Vapotherm 40.00 24.00 10/01/19 21:00 86 15 123/77 (92) 95 Vapotherm 40.00 24.00 10/01/19 20:00 87 20 122/78 (93) 96 Vapotherm 40.00 24.00 10/01/19 19:30 96 Vapotherm 40.00 24 10/01/19 19:30 37.1 18 Vapotherm 40.00 24.00 10/01/19 19:20 37.1 10/01/19 19:00 95 10/01/19 19:00 92 97 Vapotherm 40.00 24.00 10/01/19 18:58 96 Vapotherm 40.00 24 10/01/19 18:00 101 106/66 (79) 95 Vapotherm 40.00 24.00 10/01/19 17:49 Vapotherm 40.00 24.00 10/01/19 16:40 38.0 10/01/19 16:30 93 Vapotherm 40.00 24 10/01/19 16:00 93 110/69 (83) 95 Vapotherm 40.00 30.00 10/01/19 14:47 96 Vapotherm 40.00 30 10/01/19 14:00 89 100/62 (75) 97 Vapotherm 40.00 30.00 10/01/19 13:20 37.8 86 98 50 10/01/19 12:49 82 10/01/19 12:30 97 Vapotherm 40.00 30 10/01/19 12:00 86 116/80 (92) 98 Vapotherm 40.00 30.00 10/01/19 10:56 Vapotherm 40.00 50.00 10/01/19 10:18 91 High Flow N/C 8.00 10/01/19 10:00 87 105/68 (80) 90 High Flow N/C 8.00 10/01/19 10:00 High Flow N/C 8.00 10/01/19 09:05 Nasal Cannula 6.00 10/01/19 08:30 88 Nasal Cannula 6.00 10/01/19 08:00 95 100/60 (73) 87 Nasal Cannula 2.00 10/01/19 06:47 85 10/01/19 06:00 82 105/65 (78) 92 Nasal Cannula 2.00 I & O 10/02/19 07:00 Intake Total 4302.5 ml Output Total 1400 ml Balance 2902.5 ml Height & Weight Height: 5'10" Weight: 180lbs. 2.0oz. [id number]; 23.82 BMI Method:Actual General Appearance: Chronically ill, Mild Distress HEENT: PERRL/EOMI, Normal ENT Inspection, Pharynx Normal, Moist Mucous Membranes Neck: Full Range of Motion, Normal Inspection, Non Tender Respiratory: Chest Non Tender, Lungs Clear, No Respiratory Distress, Accessory Muscle Use, Decreased Breath Sounds, Rales Cardiovascular: Regular Rate, Rhythm, No Edema, No Gallop, No JVD, No Murmur, Normal Peripheral Pulses Capillary Refill: Less Than 3 Seconds Extremity: Normal Capillary Refill, Normal Inspection, Normal Range of Motion, Non Tender, No Calf Tenderness, No Pedal Edema Neurologic/Psychiatric: Alert, Oriented x3, No Motor/Sensory Deficits, Normal Mood/Affect Skin: Normal Color, Warm/Dry Lymphatic: No Adenopathy Results Lab Laboratory Tests 09/30/19 14:15 10/01/19 02:37 10/02/19 03:10 Assessment/Plan Assessment/Plan RLL PNA- probable aspiration -COVID - is negative -Secondary to strong suspicion will repeat testing and persistent fevers. -Continue isolation for now. -Continue Zosyn and Vanco for now - Influenza -- Negative -Currently using 2liters NC Seizure disorder -Keppra -Seizure precautions Leukopenia -Monitor Acute renal insuff -Monitor -IVF Anemia -Monitor Hx of colon cancer s/p recent hemicolectomy -no chemo/radiation thus far OREN JARQUIN DO Oct 02, 2019 05:27
[2019-10-02] MEDS: PIPERACILLIN/TAZO 4.5 GM/NS 100 ML IV SCH ×6 (06:01→23:49)
--- NOTE | 2019-10-02 07:18 | Progress Note - Hospitalist ---
Subjective HPI/CC On Admission Date Seen by Provider: Oct 02, 2019 Time Seen by Provider: 10:00 CC: Right lower lobe pneumonia aspiration type occurred during seizure HPI: This is a 59yoWM clinic pt of [facility] who presents following a seizure with constant coughing and the thought that he has aspirated when he fell off his sofa when he was having a seizure. He is found to have a right lower lobe pneumonia. He was placed on broad spectrum antibiotics, placed in cardiac stepdown unit and at this current time pt is showing more evidence of tachypnea and respiratory distress, vapotherm may be required. ABG in ER showed 7. 35/43/47, procalcitonin was 0.19, and elevated D-dimer of 3.39. Will monitor this closely. He is a Covid-19 swab person under investigation and will be monitored closely. Subjective/Events-last exam Pt transferring to fourth floor Re-swabbing for COVID-19 COVID-19 antibody negative Pt feels much better on room air IS counseled Had an isolated fever last night, Tylenol took care of that and no further fever Review of Systems General: Fatigue Pulmonary: Dyspnea, Cough Focused Exam Lactate Level 09/30/19 14:15: Lactic Acid Level 2.62*H 09/30/19 17:50: Lactic Acid Level 1.72 Objective Exam Vital Signs Vital Signs Date Time Temp Pulse Resp B/P (MAP) Pulse Ox O2 Delivery O2 Flow Rate FiO2 10/02/19 19:13 37.1 78 20 109/65 (80) 95 Room Air 10/02/19 08:51 3.00 10/01/19 23:15 24 Capillary Refill : Less Than 3 Seconds General Appearance: No Apparent Distress, WD/WN, Chronically ill Respiratory: No Accessory Muscle Use, No Respiratory Distress, Decreased Breath Sounds Cardiovascular: Regular Rate, Rhythm, No Edema, No Gallop, No JVD, No Murmur, Normal Peripheral Pulses Neurologic/Psychiatric: Alert, Oriented x3, No Motor/Sensory Deficits, Normal Mood/Affect Results/Procedures Lab Laboratory Tests 10/02/19 03:10 Patient resulted labs reviewed. Assessment/Plan Assessment and Plan Assess & Plan/Chief Complaint Assessment: Aspiration PNA Respi insufficiency Seizure d/o COVID-19 swabbed negative but reswabbed again today Plan: IV abx Monitor hypoxia Transfer to 4th floor Diagnosis/Problems Diagnosis/Problems (1) Aspiration pneumonia (2) Seizure disorder Status: Acute Clinical Quality Measures DVT/VTE Risk/Contraindication: Risk Factor Score Per Nursin RFS Level Per Nursing on Admit: 2=Moderate BRICE GARSIA DO Oct 02, 2019 07:18
[2019-10-02] MEDS: DOCUSATE SODIUM 100 MG (COLACE) CAP PO SCH (09:20)
[2019-10-02] MEDS: LAMOTRIGINE 150 MG PO SCH (09:21)
[2019-10-02] MEDS: LEVETIRACETAM 500 MG (KEPPRA) TAB PO SCH ×2 (09:25→20:59)
--- NOTE | 2019-10-02 11:10 | Physician Query Clarification ---
"Physician Query-General Query to Physician: The medical record reflects the following clinical scenario: History/Risk factors: Aspiration pneumonia, Recent seizure Clinical Findings: RR increased to 30s, Nursing Documentation of SOA with exertion, 02 Sat down to 87% Treatment: Vapotherm with O2 at 50%, Breathing RX and ABX Question: What condition best reflects the above clinical scenario? Please document response in the Progress notes or Discharge Summary. 1. Acute Mild Hypoxic Respiratory failure 2. Respiratory insufficiency/Hypoxia (as currently documented) 3. Other , with explanation of the clinical findings 4. Clinically undetermined, no explanation for the clinical findings Please remember a lack of response to the above will prompt a phone page by CDI/coding staff In responding to this query, please exercise your independent professional judgment. The purpose of this communication is to more accurately reflect the complexity of your patients condition. The fact that a question is asked does not imply that any particular answer is desired or expected. Thank you for timely response to this clarification. Cass Meier, MSN, RN RN Specialist-Clinical Doc Improvement CD -[facility] [address] [facility] t: [phone] | f: [phone] If you are unable to reach me at my extension, I may be working from home. Please contact me at [phone] PHYSICIAN RESPONSE: Based on the clinical findings in the record, please respond to the query above on this document as an addendum. Physician Response: Physician Response 2 If you have questions please contact: Hand Paster: Ext: Thank you for your time and cooperation. Clinical Design Technology Professor/Hand Paster This is a permanent part of the medical record CASS MEIER Oct 02, 2019 11:10 BRICE GARSIA DO Oct 02, 2019 21:12"
--- NOTE | 2019-10-02 15:00 | NUR ---
REPORT GIVEN TO RACQUEL SIN RN. PATIENT AND BELONGINGS MOVED TO ROOM 422. HOME MEDICATIONS PLACED IN DENTURE FINISHER ROOM.
[2019-10-02] MEDS: ACETAMINOPHEN 500 MG TAB (TYLENOL) PO PRN (16:21)
[2019-10-02] MEDS: ENOXAPARIN 40 MG/0.4 ML (LOVENOX) SYR SC SCH (16:21)
[2019-10-02] MEDS: MIRTAZAPINE 15 MG PO PRN (20:58)
[2019-10-02] MEDS: LAMOTRIGINE PO SCH (20:59)
[2019-10-03 03:00] VITALS: BP 106/82
[2019-10-03] MEDS: RT-ALBUTEROL INHALER HFA (VENTOLIN HFA) 8 GM IH SCH ×6 (03:24→21:19)
[2019-10-03] MEDS: PIPERACILLIN/TAZO 4.5 GM/NS 100 ML IV SCH ×4 (07:56→14:56)
[2019-10-03] MEDS: LEVETIRACETAM 500 MG (KEPPRA) TAB PO SCH ×2 (09:09→21:12)
[2019-10-03] MEDS: LAMOTRIGINE 150 MG PO SCH (09:09)
[2019-10-03] MEDS: DOCUSATE SODIUM 100 MG (COLACE) CAP PO SCH (09:10)
--- NOTE | 2019-10-03 10:26 | NUR ---
Report to Ya LÓPEZ, patient to room 404 with all belongings.
--- NOTE | 2019-10-03 11:37 | Progress Note - Hospitalist ---
Subjective HPI/CC On Admission Date Seen by Provider: Oct 03, 2019 Time Seen by Provider: 10:00 CC: Right lower lobe pneumonia aspiration type occurred during seizure HPI: This is a 59yoWM clinic pt of [facility] who presents following a seizure with constant coughing and the thought that he has aspirated when he fell off his sofa when he was having a seizure. He is found to have a right lower lobe pneumonia. He was placed on broad spectrum antibiotics, placed in cardiac stepdown unit and at this current time pt is showing more evidence of tachypnea and respiratory distress, vapotherm may be required. ABG in ER showed 7. 35/43/47, procalcitonin was 0.19, and elevated D-dimer of 3.39. Will monitor this closely. He is a Covid-19 swab person under investigation and will be monitored closely. Subjective/Events-last exam Patient doing much better Feels relieved with the COVID-19 negative results Denies any pain Appears to be very anxious but appears to be baseline No seizures reported Still requiring oxygen so ordered a home O2 evaluation We will have physical therapy and occupational therapy see him today No significant concerns per patient Drawing labs to check renal insufficiency and white count Review of Systems General: Fatigue Pulmonary: Cough Focused Exam Lactate Level Objective Exam Vital Signs Vital Signs Date Time Temp Pulse Resp B/P (MAP) Pulse Ox O2 Delivery O2 Flow Rate FiO2 10/03/19 19:48 37.4 81 20 109/71 (84) 96 Nasal Cannula 1.00 10/01/19 23:15 24 Capillary Refill : Less Than 3 Seconds General Appearance: No Apparent Distress, WD/WN, Anxious, Chronically ill, Thin Respiratory: Chest Non Tender, No Accessory Muscle Use, No Respiratory Distress, Crackles, Decreased Breath Sounds Cardiovascular: Regular Rate, Rhythm, No Edema, No Gallop, No JVD, No Murmur, Normal Peripheral Pulses Neurologic/Psychiatric: Alert, Oriented x3, No Motor/Sensory Deficits, Normal Mood/Affect Results/Procedures Lab Laboratory Tests 10/03/19 12:05 Patient resulted labs reviewed. Assessment/Plan Assessment and Plan Assess & Plan/Chief Complaint Assessment: Aspiration PNA Respi insufficiency Seizure d/o COVID-19 swabbed negative x 2 ARF now resolved Plan: IV abx Monitor hypoxia Transfer to 4th floor DC home tomorrow? Home O2? PT OT Diagnosis/Problems Diagnosis/Problems (1) Aspiration pneumonia (2) Seizure disorder Status: Acute Clinical Quality Measures DVT/VTE Risk/Contraindication: Risk Factor Score Per Nursin RFS Level Per Nursing on Admit: 2=Moderate BRICE GARSIA DO Oct 03, 2019 11:37
[2019-10-03] MEDS ORDERED: SENNA W/DOCUSATE (SENOKOT S) TABLET PO NR (11:45)
[2019-10-03] MEDS ORDERED: LACTULOSE SYRUP 10GM/15ML (ENULOSE) 30ML UDC PO NR (11:45)
[2019-10-03 12:11] LABS: BASOPHILS % (AUTO) 0 % (0-10); EOSINOPHILS # (AUTO) 0.1 10^3/uL (0.0-0.3); EOSINOPHILS % (AUTO) 1 % (0-10); HEMATOCRIT 35 % (40-54); HEMOGLOBIN 11.4 G/DL (13.3-17.7); LYMPHOCYTES # (AUTO) 0.5 X 10^3 (1.0-4.0); LYMPHOCYTES % (AUTO) 10 % (12-44); MEAN CORPUSCULAR HEMOGLOBIN 31 PG (25-34); MEAN CORPUSCULAR HGB CONC 33 G/DL (32-36); MEAN CORPUSCULAR VOLUME 93 FL (80-99); MEAN PLATELET VOLUME 9.1 FL (7.4-10.4); MONOCYTES # (AUTO) 0.6 X 10^3 (0.0-1.0); MONOCYTES % (AUTO) 12 % (0-12); NEUTROPHILS # (AUTO) 3.8 X 10^3 (1.8-7.8); NEUTROPHILS % (AUTO) 76 % (42-75); PLATELET COUNT 168 10^3/uL (130-400); RED CELL DISTRIBUTION WIDTH 12.4 % (10.0-14.5); WHITE BLOOD COUNT 4.9 10^3/uL (4.3-11.0)
[2019-10-03 12:23] LABS: ALBUMIN 3.3 GM/DL (3.2-4.5); CHLORIDE 107 MMOL/L (98-107); POTASSIUM 3.9 MMOL/L (3.6-5.0); SODIUM 140 MMOL/L (135-145)
[2019-10-03 12:24] LABS: CALCIUM 8.6 MG/DL (8.5-10.1)
[2019-10-03 12:25] LABS: GLUCOSE 105 MG/DL (70-105); TOTAL PROTEIN 5.8 GM/DL (6.4-8.2)
[2019-10-03 12:26] LABS: CARBON DIOXIDE 25 MMOL/L (21-32)
[2019-10-03 12:27] LABS: BILIRUBIN,TOTAL 0.6 MG/DL (0.1-1.0)
[2019-10-03 12:29] LABS: ALKALINE PHOSPHATASE 64 U/L (40-136); GFR ESTIMATED > 60
[2019-10-03 12:30] LABS: BUN/CREATININE RATIO 15
[2019-10-03 12:32] VITALS: BP 99/64
[2019-10-03 12:32] LABS: ALANINE AMINOTRANSFERASE 30 U/L (0-55)
--- NOTE | 2019-10-03 13:19 | Physical Therapy Evaluation ---
PT Evaluation-General Medical Diagnosis Admission Date Sep 30, 2019 at 14:50 Medical Diagnosis: pneumonia/suspected aspiration Onset Date: Sep 30, 2019 Therapy Diagnosis Therapy Diagnosis: debility Height/Weight Height (Feet): 5 Height (Inches): 10 Weight (Pounds): 180 Weight (Ounces): 2.0 Precautions Precautions/Isolations: Droplet Isolation, Seizure, Standard Precautions Weight Bear Status Right Lower Extremity: Right Full Weight Bearing Left Lower Extremity: Left Full Weight Bearing Referral Physician: Joanne Reason for Referral: Evaluation/Treatment Medical History Additional Medical History seizures/colon cancer Current History EMS secondary to seizure and vomiting with possible aspiration Reviewed History: Yes Social History Home: Single Level Current Living Status: Spouse Prior Prior Level of Function SCALE: Activities may be completed with or without assistive devices. 3-Mwihswiuna-zvhacyq completes the activity by him/herself with no assistance from a helper. 5-Set-up or Clean-up Assistance-helper sets up or cleans up; patient completes activity. [place] assists only prior to or following the activity. 4-Supervision or Touching Assistance-helper provides verbal cues and/or touching/steadying and/or contact guard assistance as patient completes activity. Assistance may be provided throughout the activity or intermittently. 3-Partial/Moderate Assistance-helper does LESS THAN HALF the effort. [place] lifts, holds or supports trunk or limbs, but provides less than half the effort. 2-Substantial/Maximal Assistance-helper does MORE THAN HALF the effort. [place] lifts or holds trunk or limbs and provides more than half the effort. 2-Caysrqbwy-pkvjpc does ALL the effort. Patient does none of the effort to complete the activity. Or, the assistance of 2 or more helpers is required for the patient to complete the activity. If activity was not attempted, code reason: 7-Patient Refused. 9-Not Applicable-not attempted and the patient did not perform the activity before the current illness, exacerbation or injury. 10-Not Attempted due to Environmental Limitations-(lack of equipment, weather restraints, etc.). 88-Not Attempted due to Medical Conditions or Safety Concerns. Bed Mobility: 6 Transfers (B,C,W/C): 6 Gait: 6 Stairs: 6 Indoor Mobility (Ambulation): Independent Stairs: Independent Prior Devices Use: None PT Evaluation-Current Subjective Patient agrees to PT. No c/o. Pain Numeric Pain Scale: 0-No Pain Location: No Pain Reported Objective Patient Orientation: Person, Time, Situation Attachments: Oxygen (1L) ROM/Strength ROM Lower Extremities bilateral LE WFL Strength Lower Extremities 5/5 grossly bilateral LE Integumentary/Posture Integumentary refer to nursing notes Bowel Incontinence: No Bladder Incontinence: No Posture WFL Neuromuscular (Tone, Coordination, Reflexes) grossly intact Sensory Vision: Functional Hearing: Functional Sensation Right Lower Extremit: Intact Sensation Left Lower Extremity: Intact Transfers Roll Left to Right (QC): 6 Sit to Lying (QC): 6 Lying to Sitting/Side of Bed(Q: 6 Sit to Stand (QC): 6 Chair/Rmd-je-Halkx Xfer(QC): 6 Gait Does the Patient Walk?: Yes Mode of Locomotion: Walk Anticipated Mode of Locomotion: Walk Walk 10 feet (QC): 6 Walk 50 ft with 2 Turns(QC): 6 Walk 150 ft (QC): 6 Distance: 800' Gait Assistive Device: None Comments/Gait Description safe and functional with rapid pace Balance Sitting Static: Normal Sitting Dynamic: Normal Standing Static: Normal Standing Dynamic: Normal Assessment/Needs 59 y.o. male, is currently at [facility] with all gross motor skills and does not require skilled therapy intervention. Rehab Potential: Fair PT Plan Treatment/Plan Treatment Plan: Discontinue PT, goals met Treatment Duration: Oct 03, 2019 Frequency: 1 time per week Estimated Hrs Per Day: .25 hour per day Patient and/or Family Agrees t: Yes Time/GCodes Time In: 1257 Time Out: 1310 Total Billed Treatment Time: 13 Total Billed Treatment 1 visit [facility] 13 min ALEE SANCHEZ PT Oct 03, 2019 13:19
--- NOTE | 2019-10-03 13:49 | Occupational Therapy Eval ---
OT Evaluation-General/PLF Medical Diagnosis Admission Date Sep 30, 2019 at 14:50 Medical Diagnosis: pneumonia/suspected aspiration Onset Date: Sep 30, 2019 Therapy Diagnosis Therapy Diagnosis: Decreased ADL status Height/Weight Height (Feet): 5 Height (Inches): 10 Weight (Pounds): 180 Weight (Ounces): 2.0 Precautions Precautions/Isolations: Droplet Isolation, Seizure, Standard Precautions Weight Bear Status Weight Bearing Restriction: Full Weight Bearing Referral Physician: Joanne Referral Reason: Activity Tolerance, Self Care, Evaluation/Treatment, Strengthening/ROM Medical History Additional Medical History abdominal bowel surgery (s/p R hemicolectomy 09/16); neurological surgery, seizure disorder, GERD, colon ca, anxiety Current History Pt had seizure 09/29, cough preent post-seizure and suspected aspiration. Brought in by EMS, RLL PNA. Reviewed History: Yes Social History Home: Single Level Current Living Status: Spouse Steps Inside Home: 12 ADL-Prior Level of Function SCALE: Activities may be completed with or without assistive devices. 2-Opbsgtrcnm-iyaylat completes the activity by him/herself with no assistance from a helper. 5-Set-up or Clean-up Assistance-helper sets up or cleans up; patient completes activity. [place] assists only prior to or following the activity. 4-Supervision or Touching Assistance-helper provides verbal cues and/or touching/steadying and/or contact guard assistance as patient completes activity. Assistance may be provided throughout the activity or intermittently. 3-Partial/Moderate Assistance-helper does LESS THAN HALF the effort. [place] lifts, holds or supports trunk or limbs, but provides less than half the effort. 2-Substantial/Maximal Assistance-helper does MORE THAN HALF the effort. [place] lifts or holds trunk or limbs and provides more than half the effort. 0-Offdffkih-ihlsqq does ALL the effort. Patient does none of the effort to complete the activity. Or, the assistance of 2 or more helpers is required for the patient to complete the activity. If activity was not attempted, code reason: 7-Patient Refused. 9-Not Applicable-not attempted and the patient did not perform the activity before the current illness, exacerbation or injury. 10-Not Attempted due to Environmental Limitations-(lack of equipment, weather restraints, etc.). 88-Not Attempted due to Medical Conditions or Safety Concerns. ADL PLOF Comments Pt IND with ADL tasks, receives assist with IADLs from Self Care: Independent Functional Cognition: Independent DME/Equipment: Tub/Shower Occupation: unemployed per charts Drive Self: No OT Current Status Subjective Pt seen in recliner chair with food in front of him, currently eating. Pt agrees to OT tx session, denies current pain. Ox3. Mental Status/Objective Patient Orientation: Person, Place, Situation Attachments: Oxygen Current Hand Dominance: Right Upper Extremity ROM WFL BUE Upper Extremity Coordination WFL BUE Upper Extremity Sensation WFL BUE Upper Extremity Strength WFL BUE ADL-Treatment Eating (QC): 6 (Pt eats with IND.) Toileting Hygiene (QC): 7 Other Treatments Pt states hx, states has been semi-shaky. Does not interfere with eating. Pt completes UE MMT/ ROM WFL. Pt states no need for bathroom, states ability to complete tasks with PLOF. Pt denies SOB/ dizziness when up/ pain at this time. Pt requests nursing be notified of urszula in abdomen and potentially get them taken out. Pt does not require skilled OT at this time, d/c. Nursing notified of pt's request. Education OT Patient Education: Purpose of tx/functional activities Teaching Recipient: Patient Teaching Methods: Demonstration, Discussion Response to Teaching: Verbalize Understanding, Return Demonstration OT [employer] Goals Automation Application Engineer Goals 1=Demonstrate adherence to instructed precautions during ADL tasks. 2=Patient will verbalize/demonstrate understanding of assistive devices/modifications for ADL. 3=Patient will improve strength/tolerance for activity to enable patient to perform ADL's. OT Education/Plan Problem List/Assessment Assessment: No Skilled OT Needs ID'd Discharge Recommendations Plan/Recommendations: Discharge/Goals Met Therapy Discharge Recommendati: Home & Family Treatment Plan/Plan of Care Treatment,Training & Education: Yes No skilled OT required as pt states at PLOF. Plan of Care: OTHER (eval only) Treatment Duration: Oct 03, 2019 Frequency: 1 time per week (eval only) Rehab Potential: Fair Time/GCodes Start Time: 13:28 Stop Time: 13:36 Total Time Billed (hr/min): 8 Billed Treatment Time 1, EVL d/c. SHAYY MARTINI OTR Oct 03, 2019 13:49
[2019-10-03 16:07] VITALS: BP 105/71
[2019-10-03] MEDS: ENOXAPARIN 40 MG/0.4 ML (LOVENOX) SYR SC SCH (17:21)
[2019-10-03 19:48] VITALS: BP 109/71
[2019-10-03 20:32] VITALS: BP 123/72
[2019-10-03] MEDS: LACTULOSE SYRUP 10GM/15ML (ENULOSE) 30ML UDC PO SCH (21:04)
[2019-10-03] MEDS: SENNA W/DOCUSATE (SENOKOT S) TABLET PO SCH (21:07)
[2019-10-03] MEDS: LAMOTRIGINE PO SCH (21:09)
[2019-10-03] MEDS: MIRTAZAPINE 15 MG PO PRN (21:10)
[2019-10-03 23:49] VITALS: BP 117/76
[2019-10-04] MEDS: PIPERACILLIN/TAZO 4.5 GM/NS 100 ML IV SCH ×4 (00:14→06:47)
[2019-10-04] MEDS: RT-ALBUTEROL INHALER HFA (VENTOLIN HFA) 8 GM IH SCH ×3 (01:57→10:32)
[2019-10-04 03:57] VITALS: BP 108/71
[2019-10-04 06:04] LABS: BASOPHILS % (AUTO) 0 % (0-10); EOSINOPHILS # (AUTO) 0.2 10^3/uL (0.0-0.3); EOSINOPHILS % (AUTO) 3 % (0-10); HEMATOCRIT 33 % (40-54); LYMPHOCYTES # (AUTO) 0.8 X 10^3 (1.0-4.0); LYMPHOCYTES % (AUTO) 17 % (12-44); MEAN CORPUSCULAR HEMOGLOBIN 31 PG (25-34); MEAN CORPUSCULAR HGB CONC 33 G/DL (32-36); MEAN CORPUSCULAR VOLUME 93 FL (80-99); MEAN PLATELET VOLUME 9.3 FL (7.4-10.4); MONOCYTES # (AUTO) 0.6 X 10^3 (0.0-1.0); MONOCYTES % (AUTO) 13 % (0-12); NEUTROPHILS # (AUTO) 3.1 X 10^3 (1.8-7.8); NEUTROPHILS % (AUTO) 66 % (42-75); PLATELET COUNT 194 10^3/uL (130-400); RED CELL DISTRIBUTION WIDTH 12.4 % (10.0-14.5); WHITE BLOOD COUNT 4.7 10^3/uL (4.3-11.0)
[2019-10-04 06:12] LABS: ALBUMIN 3.2 GM/DL (3.2-4.5); CHLORIDE 109 MMOL/L (98-107); POTASSIUM 3.9 MMOL/L (3.6-5.0); SODIUM 143 MMOL/L (135-145)
[2019-10-04 06:13] LABS: CALCIUM 8.6 MG/DL (8.5-10.1)
[2019-10-04 06:14] LABS: GLUCOSE 89 MG/DL (70-105)
[2019-10-04 06:15] LABS: TOTAL PROTEIN 5.7 GM/DL (6.4-8.2)
[2019-10-04 06:16] LABS: BILIRUBIN,TOTAL 0.5 MG/DL (0.1-1.0); CARBON DIOXIDE 25 MMOL/L (21-32)
[2019-10-04 06:18] LABS: ALKALINE PHOSPHATASE 161 U/L (40-136); CREATININE SERUM 1.13 MG/DL (0.60-1.30); GFR ESTIMATED > 60
[2019-10-04 06:19] LABS: BUN/CREATININE RATIO 16
[2019-10-04 06:21] LABS: ALANINE AMINOTRANSFERASE 35 U/L (0-55)
[2019-10-04 08:00] VITALS: BP 104/65
[2019-10-04] MEDS: LACTULOSE SYRUP 10GM/15ML (ENULOSE) 30ML UDC PO SCH (08:33)
[2019-10-04] MEDS: DOCUSATE SODIUM 100 MG (COLACE) CAP PO SCH (08:33)
[2019-10-04] MEDS: SENNA W/DOCUSATE (SENOKOT S) TABLET PO SCH (08:33)
[2019-10-04] MEDS: LEVETIRACETAM 500 MG (KEPPRA) TAB PO SCH (08:34)
[2019-10-04] MEDS: LAMOTRIGINE 150 MG PO SCH (08:35)
--- NOTE | 2019-10-04 10:43 | NUR ---
CHARTING ON BEHALF OF COOPER FUENTES 6MIN WALK. RESTING ROOM AIR SP02 96 AFTER 3MINS OF WALKING SP02 DECREASED TO 86% 02 VIA NC WAS APPLIED AT 2LPM. SP02 RETURNED TO 95% AFTER 3 MINS. Addendum: 10/04/19 at 1045 by IRVING HUDSON RT Amended: Links added.
[2019-10-04] MEDS ORDERED: AMOX-358 PO (11:57)
--- NOTE | 2019-10-04 11:58 | Discharge Summary ---
Discharge Summary Hospital Course Was the Problem List Reviewed?: Yes Problems/Dx: (1) Aspiration pneumonia (2) Seizure disorder Status: Acute Hospital Course Date of Admission: Sep 30, 2019 at 14:50 Admission Diagnosis : Family Physician/Provider: [facility] Date of Discharge: 10/04/19 Discharge Diagnosis: PNA aspiration type, seizure d/o acute on chronic, ARF, COVID-19 negative swab Hospital Course: Patient had a standard course after admitted for cough and fever following aspiration after falling off couch during a seizure. COVID-19 swab negative. Abx coverage maintained and ARF resolved. Seizure meds maintained and he remained seizure free the entire stay. Home O2 was needed on exertion and that order was placed and arranged and abx sent into [facility]. Labs and Pending Lab Test: Laboratory Tests 10/03/19 12:05: White Blood Count 4.9, Red Blood Count 3.74L, Hemoglobin 11.4L, Hematocrit 35L, Mean Corpuscular Volume 93, Mean Corpuscular Hemoglobin 31, Mean Corpuscular Hemoglobin Concent 33, Red Cell Distribution Width 12.4, Platelet Count 168, Mean Platelet Volume 9.1, Neutrophils (%) (Auto) 76H, Lymphocytes (%) (Auto) 10L , Monocytes (%) (Auto) 12, Eosinophils (%) (Auto) 1, Basophils (%) (Auto) 0, Neutrophils # (Auto) 3.8, Lymphocytes # (Auto) 0.5L, Monocytes # (Auto) 0.6, Eosinophils # (Auto) 0.1, Basophils # (Auto) 0.0, Sodium Level 140, Potassium Level 3.9, Chloride Level 107, Carbon Dioxide Level 25, Anion Gap 8, Blood Urea Nitrogen 16, Creatinine 1.10, Estimat Glomerular Filtration Rate > 60, BUN/Creatinine Ratio 15, Glucose Level 105, Calcium Level 8.6, Corrected Calcium 9.2, Total Bilirubin 0.6, Aspartate Amino Transf (AST/SGOT) 17, Alanine Am inotransferase (ALT/SGPT) 30, Alkaline Phosphatase 64, Total Protein 5.8L, Albumin 3.3 10/04/19 05:30: White Blood Count 4.7, Red Blood Count 3.61L, Hemoglobin 11.0L, Hematocrit 33L, Mean Corpuscular Volume 93, Mean Corpuscular Hemoglobin 31, Mean Corpuscular Hemoglobin Concent 33, Red Cell Distribution Width 12.4, Platelet Count 194, Mean Platelet Volume 9.3, Neutrophils (%) (Auto) 66, Lymphocytes (%) (Auto) 17, Monocytes (%) (Auto) 13H, Eosinophils (%) (Auto) 3, Basophils (%) (Auto) 0, Neutrophils # (Auto) 3.1, Lymphocytes # (Auto) 0.8L, Monocytes # (Auto) 0.6, Eosinophils # (Auto) 0.2, Basophils # (Auto) 0.0, Sodium Level 143, Potassium Level 3.9, Chloride Level 109H, Carbon Dioxide Level 25, Anion Gap 9, Blood Urea Nitrogen 18, Creatinine 1.13, Estimat Glomerular Filtration Rate > 60, BUN/Creatinine Ratio 16, Glucose Level 89, Calcium Level 8.6, Corrected Calcium 9.2, Total Bilirubin 0.5, Aspartate Amino Transf (AST/SGOT) 22, Alanine Aminotransferase (ALT/SGPT) 35, Alkaline Phosphatase 161H, Total Protein 5.7L, Albumin 3.2 Microbiology 10/01/19 Influenza Types A,B Antigen ([facility]) - Final, Complete 09/30/19 Blood Culture - Preliminary, Resulted No growth Home Meds Active Augmentin 875-125 Tablet (Amoxicillin/Potassium Clav) 1 Each Tablet 1 Each PO BID Diastat Acudial (Diazepam) 1 Each Kit 1 Each RC PRN PRN 30 Days Reported Stool Softener (Docusate Sodium) 100 Mg Capsule 100 Mg PO DAILY PRN Mirtazapine 15 Mg Tablet 15 Mg PO HS PRN Lamictal (Lamotrigine) 150 Mg Tablet 225 Mg PO HS TAKES 1 & (150MG) TABS Lamictal (Lamotrigine) 150 Mg Tablet 150 Mg PO DAILY Vimpat (Lacosamide) 50 Mg Tablet 50 Mg PO BID Vimpat (Lacosamide) 200 Mg Tablet 200 Mg PO BID Keppra (Levetiracetam) 500 Mg Tablet 1,500 Mg PO BID TAKES 3 (500MG) TABS TO EQUAL 1500MG TWICE DAILY Assessment/Pt Instructions [facility] this week and Dr Khalil for staple removal Discharge Planning: <30 minutes discharge planning Discharge Physical Examination Vital Signs Vital Signs Date Time Temp Pulse Resp B/P (MAP) Pulse Ox O2 Delivery O2 Flow Rate FiO2 10/04/19 10:32 92 Room Air 0.00 10/04/19 08:00 36.8 75 20 104/65 (78) 10/01/19 23:15 24 General Appearance: No Apparent Distress, WD/WN Respiratory: Chest Non Tender, Lungs Clear, Normal Breath Sounds, No Accessory Muscle Use, No Respiratory Distress Neurologic/Psychiatric: Alert, Oriented x3, No Motor/Sensory Deficits, Normal Mood/Affect Allergies: Coded Allergies: No Known Drug Allergies (Unverified , 09/11/19) Discharge Summary Date of Admission Sep 30, 2019 at 14:50 Date of Discharge Discharge Date: Oct 04, 2019 Admission Diagnosis Assessment: Aspiration PNA Respi insufficiency Seizure d/o COVID-19 swabbed Plan: IV abx Monitor hypoxia Discharge Diagnosis Assessment: Aspiration PNA Respi insufficiency Seizure d/o COVID-19 swabbed negative x 2 ARF now resolved Plan: IV abx Monitor hypoxia Transfer to 4th floor DC home tomorrow? Home O2? PT OT (1) Aspiration pneumonia (2) Seizure disorder Status: Acute Clinical Quality Measures DVT/VTE Risk/Contraindication: Risk Factor Score Per Nursin RFS Level Per Nursing on Admit: 2=Moderate BRICE GARSIA DO Oct 04, 2019 11:57
[2019-10-04 12:00] VITALS: BP 116/71
--- NOTE | 2019-10-04 12:55 | NUR ---
[facility] -- CALLED AND O2 ORDER WAS FAXED TO THEM AND HE WILL BE OUT IN ONE HOUR OR SO
[2019-10-04 14:26] VITALS: BP 116/71
== END 2019-10-04 14:47 | disposition home or self-care (01) | DRG 178 ==
LOC: EDUNIT# 13:49 → ER 13:55 → ICU 14:50 → ER 16:05 → 4TH 10-02 10:30
PROVIDERS: ADMIT Internal Medicine; ATTEND Internal Medicine
DX: J69.0 Pneumonitis due to inhalation of food and vomit (principal); N17.9 Acute kidney failure, unspecified; G40.909 Epilepsy, unspecified, not intractable, without status epilepticus; R06.89 Other abnormalities of breathing; R09.02 Hypoxemia; K21.9 Gastro-esophageal reflux disease without esophagitis; K59.09 Other constipation; F41.9 Anxiety disorder, unspecified; Z90.89 Acquired absence of other organs; Z85.038 Personal history of other malignant neoplasm of large intestine; Z20.828 Contact with and (suspected) exposure to other viral communicable diseases
CPT/HCPCS: 36415; 71045; 80048; 80053; 80306; 80320; 81000; 82550; 82553; 82728; 82805; 83605; 83735; 83874; 84100; 84145; 85025; 85379; 85610; 85730; 86769; 87040; 87070; 87081; 87205; 87635; 87804; 93041; 94640; 94664; 94760; 94761

== ENCOUNTER 2019-11-04 15:07 | Outpatient (RCR) | payer MEDICARE ==
[2019-10-15 13:56] LABS: BASOPHILS % (AUTO) 1 % (0-10); EOSINOPHILS # (AUTO) 0.1 10^3/uL (0.0-0.3); EOSINOPHILS % (AUTO) 1 % (0-10); HEMATOCRIT 41 % (40-54); HEMOGLOBIN 14.2 G/DL (13.3-17.7); LYMPHOCYTES # (AUTO) 1.3 X 10^3 (1.0-4.0); LYMPHOCYTES % (AUTO) 20 % (12-44); MEAN CORPUSCULAR HEMOGLOBIN 30 PG (25-34); MEAN CORPUSCULAR HGB CONC 34 G/DL (32-36); MEAN CORPUSCULAR VOLUME 89 FL (80-99); MEAN PLATELET VOLUME 8.7 FL (7.4-10.4); MONOCYTES # (AUTO) 0.7 X 10^3 (0.0-1.0); MONOCYTES % (AUTO) 11 % (0-12); NEUTROPHILS # (AUTO) 4.5 X 10^3 (1.8-7.8); NEUTROPHILS % (AUTO) 68 % (42-75); PLATELET COUNT 370 10^3/uL (130-400); WHITE BLOOD COUNT 6.6 10^3/uL (4.3-11.0)
[2019-10-15 14:31] LABS: ALBUMIN 4.1 GM/DL (3.2-4.5); BILIRUBIN,TOTAL 0.3 MG/DL (0.1-1.0); CALCIUM 8.8 MG/DL (8.5-10.1); CREATININE SERUM 1.23 MG/DL (0.60-1.30); POTASSIUM 4.3 MMOL/L (3.6-5.0); TOTAL PROTEIN 6.9 GM/DL (6.4-8.2)
[~2019-11-04 15:07] MED LIST changes: +AMOX-358 PO; +DIAZ1KIT RC
== END 2020-01-13 | disposition home or self-care (01) ==
LOC: ONC 15:07
PROVIDERS: ATTEND Internal Medicine Hematology & Oncology
DX: C18.2 Malignant neoplasm of ascending colon (principal); G40.909 Epilepsy, unspecified, not intractable, without status epilepticus; Z90.49 Acquired absence of other specified parts of digestive tract
CPT/HCPCS: 80053; 82378; 85025; G0463; 99213; 99214

== ENCOUNTER → 2019-11-06 | Outpatient (CLI) | payer MEDICARE ==
[~2019-11-06] MED LIST changes: +HOLD METFORMIN - RECEIVED CONTRAST 20 ML VIAL IV SCH; +IOHEXOL 350 MG/ML 100 ML (OMNIPAQUE 350) VIAL IV ONE; +NS 100 ML (IVPB) BAG IV ONE
--- NOTE | 2019-11-06 14:04 | Diagnostic Imaging Report ---
EXAMINATION: CT Chest and Abdomen with intravenous contrast. TECHNIQUE: Multiple contiguous axial images were obtained through the chest and abdomen after the uneventful administration of intravenous contrast. All CT scans use one or more of the following dose optimizing techniques: automated exposure control, MA and/or KvP adjustment based on a patient size and exam type, or iterative reconstruction. HISTORY: Cecal neoplasm COMPARISON: None available. FINDINGS: There is no edema or pneumonia. No pleural effusion. No pneumothorax. No suspicious nodules. Heart size is normal. There are no coronary artery calcifications. No pericardial effusion. Aorta is normal in caliber. There is no axillary or supraclavicular lymphadenopathy. There is no mediastinal lymphadenopathy. The liver is normal without focal lesion. There is no biliary ductal dilation. Gallbladder is normal. Pancreas is normal. Spleen is normal. Adrenal glands are normal. The kidneys are normal. There is no hydronephrosis. Visualized bowel is normal in caliber without obstruction or inflammation. Right colon resection is partially imaged. No free fluid or air. No abdominal lymphadenopathy. Aorta is normal in caliber without aneurysm. There are no suspicious osseus lesions. IMPRESSION: 1. No metastatic disease seen in the chest or abdomen. Dictated by: Dictated on workstation # [id number]
== END ==
LOC: RAD 12:40
PROVIDERS: ATTEND Internal Medicine Hematology & Oncology
DX: C18.0 Malignant neoplasm of cecum (principal)
CPT/HCPCS: 71260; 74160

== ENCOUNTER 2020-04-27 13:07 | Outpatient (RCR) | payer MEDICARE ==
[~2020-04-27 13:07] MED LIST changes: -HOLD METFORMIN - RECEIVED CONTRAST 20 ML VIAL IV SCH; -IOHEXOL 350 MG/ML 100 ML (OMNIPAQUE 350) VIAL IV ONE; -NS 100 ML (IVPB) BAG IV ONE
[2020-04-27 13:23] LABS: BASOPHILS % (AUTO) 0 % (0-10); EOSINOPHILS # (AUTO) 0.1 10^3/uL (0.0-0.3); EOSINOPHILS % (AUTO) 1 % (0-10); HEMATOCRIT 47 % (40-54); HEMOGLOBIN 16.1 g/dL (13.3-17.7); LYMPHOCYTES # (AUTO) 1.4 10^3/uL (1.0-4.0); LYMPHOCYTES % (AUTO) 24 % (12-44); MEAN CORPUSCULAR HEMOGLOBIN 31 pg (25-34); MEAN CORPUSCULAR HGB CONC 34 g/dL (32-36); MEAN CORPUSCULAR VOLUME 90 fL (80-99); MEAN PLATELET VOLUME 9.3 fL (9.0-12.2); MONOCYTES # (AUTO) 0.5 10^3/uL (0.0-1.0); MONOCYTES % (AUTO) 8 % (0-12); NEUTROPHILS # (AUTO) 3.7 10^3/uL (1.8-7.8); NEUTROPHILS % (AUTO) 66 % (42-75); PLATELET COUNT 257 10^3/uL (130-400); WHITE BLOOD COUNT 5.6 10^3/uL (4.3-11.0)
[2020-04-27 13:44] LABS: ALBUMIN 4.3 GM/DL (3.2-4.5); BILIRUBIN,TOTAL 0.3 MG/DL (0.1-1.0); CALCIUM 9.1 MG/DL (8.5-10.1); CREATININE SERUM 1.37 MG/DL (0.60-1.30); POTASSIUM 4.3 MMOL/L (3.6-5.0); TOTAL PROTEIN 6.7 GM/DL (6.4-8.2)
== END 2020-07-26 | disposition home or self-care (01) ==
LOC: ONC 13:07
PROVIDERS: ATTEND Internal Medicine Hematology & Oncology
DX: C18.7 Malignant neoplasm of sigmoid colon (principal); G40.909 Epilepsy, unspecified, not intractable, without status epilepticus; Z90.49 Acquired absence of other specified parts of digestive tract
CPT/HCPCS: 80053; 82378; 85025; G0463; 99213

== ENCOUNTER 2020-10-14 06:40 | Outpatient (CLI) | payer MEDICARE ==
[~2020-10-14] VITALS: Ht 180.3 cm; Wt 75.3 kg
[~2020-10-14 06:40] MED LIST changes: -DOCU-238 PO; +DOCU-26 PO; +MIRT-68 PO
== END 2020-10-14 16:25 | disposition home or self-care (01) ==
LOC: PREOP 06:40
PROVIDERS: ATTEND Surgery
DX: Z01.818 Encounter for other preprocedural examination (principal)

== ENCOUNTER 2020-10-25 09:48 | Day surgery (SDC) | payer MEDICARE ==
[~2020-10-25] VITALS: Ht 180 cm; Wt 75.3 kg
[2020-10-25] VITALS (7 sets, daily range): BP systolic 107–128; BP diastolic 63–95
[2020-10-25] MEDS ORDERED: LACTATED RINGERS 1,000 ML IV ONE (09:58)
[2020-10-25] MEDS ORDERED: MIDAZOLAM 2 MG/2 ML (VERSED) VIAL ONE (10:08)
[2020-10-25] MEDS ORDERED: proPOfol 200 MG/20 ML (DIPRIVAN) VIAL IV ONE (10:08)
[2020-10-25] MEDS ORDERED: LACTATED RINGERS 1,000 ML IV STA (10:16)
--- NOTE | 2020-10-25 11:02 | Progress Note-Post Operative ---
Post-Operative Progess Note Surgeon (s)/Packing Supervisor (s) Surgeon RIKKI BOOTHE DO Packing Supervisor: none Pre-Operative Diagnosis Hx of Colon Cancer - Cecum Post-Operative Diagnosis same plus internal hemorrhoids Procedure & Operative Findings Date of Procedure 10/25/20 Procedure Performed/Findings PROCEDURE NOTE: After informed consent was obtained, the patient was brought to the endoscopy suite, placed in bed in left lateral decubitus position. He was administered IV sedation by the OUTSIDE PRODUCTION INSPECTOR who then monitored his vitals the entire time, heart rate, blood pressure and pulse ox and the scope was inserted, pushed all the way to about 140 cm and pushed to the anastomosis, took a picture of anastomosis and then the ileum. Slowly withdrew the scope insufflating to look circumferentially at the gutierrez starting in the remaining portion of right colon, up to the hepatic flexure, then down the transverse colon, splenic flexure, into the descending colon down in the sigmoid and then into the rectal vault and retroflexed the scope. Took picture of the internal hemorrhoids. The patient tolerated the procedure. He was recovered in endoscopy suite. Anesthesia Type IV sedation by OUTSIDE PRODUCTION INSPECTOR Estimated Blood Loss Estimated blood loss (mL): none Specimens/Packing Specimens Removed none RIKKI BOOTHE DO Oct 25, 2020 11:02
--- NOTE | 2020-10-25 11:03 | Endoscopy Discharge Instruct ---
Endo Procedure/Findings Findings 1.: Internal Hemorrhoids Discharge Instructions - Activity: You might feel a little sleepy until tomorrow. This is due to the me dicine you received to relax you. Until tomorrow, you should: NOT drive a car, operate machinery or power tools. NOT drink any alcoholic beverages. NOT make any important decisions or sign importortant papers. Do not return to work until tomorrow, unless otherwise instructed. Resume previous activities tomorrow. Diet: Start by taking liquids. If you tolerate liquids, advance to solid food. 1.: Colonoscopy in 1 year Notify Physician - If you experience excessive bleeding, unusual abdominal pain, fever, or chest pain, contact your doctor immediately. RIKKI BOOTHE DO Oct 25, 2020 11:03
--- NOTE | 2020-10-25 13:08 | Anesthesia-General Post-Op ---
MAC Patient Condition Mental Status/LOC: Same as Preop Cardiovascular: Satisfactory Nausea/Vomiting: Absent Respiratory: Satisfactory Pain: Controlled Complications: Absent Post Op Complications Complications None Follow Up Care/Instructions Patient Instructions None needed. Anesthesiology Discharge Order Discharge Order Patient is doing well, no complaints, stable vital signs, no apparent adverse anesthesia problems. No complications reported per nursing. TAVON MEIER CRNA Oct 25, 2020 13:08
== END 2020-10-25 12:05 | disposition home or self-care (01) ==
LOC: ENDO 09:48
PROVIDERS: ATTEND Surgery
DX: Z12.11 Encounter for screening for malignant neoplasm of colon (principal); K64.8 Other hemorrhoids; K21.9 Gastro-esophageal reflux disease without esophagitis; R56.9 Unspecified convulsions; F41.9 Anxiety disorder, unspecified; Z98.0 Intestinal bypass and anastomosis status; Z85.038 Personal history of other malignant neoplasm of large intestine; Z79.899 Other long term (current) drug therapy; Z82.49 Family history of ischemic heart disease and other diseases of the circulatory system
CPT/HCPCS: G0105

== ENCOUNTER → 2020-10-26 | Outpatient (CLI) | payer MEDICARE ==
[2020-10-26 13:35] LABS: BASOPHILS % (AUTO) 1 % (0-10); EOSINOPHILS # (AUTO) 0.1 10^3/uL (0.0-0.3); EOSINOPHILS % (AUTO) 1 % (0-10); HEMATOCRIT 45 % (40-54); HEMOGLOBIN 15.5 g/dL (13.3-17.7); LYMPHOCYTES # (AUTO) 1.4 10^3/uL (1.0-4.0); LYMPHOCYTES % (AUTO) 22 % (12-44); MEAN CORPUSCULAR HEMOGLOBIN 31 pg (25-34); MEAN CORPUSCULAR HGB CONC 35 g/dL (32-36); MEAN CORPUSCULAR VOLUME 90 fL (80-99); MEAN PLATELET VOLUME 9.1 fL (9.0-12.2); MONOCYTES # (AUTO) 0.6 10^3/uL (0.0-1.0); MONOCYTES % (AUTO) 10 % (0-12); NEUTROPHILS # (AUTO) 4.2 10^3/uL (1.8-7.8); NEUTROPHILS % (AUTO) 66 % (42-75); PLATELET COUNT 226 10^3/uL (130-400); WHITE BLOOD COUNT 6.3 10^3/uL (4.3-11.0)
[2020-10-26 14:00] LABS: BILIRUBIN,TOTAL 0.3 MG/DL (0.1-1.0); CALCIUM 8.7 MG/DL (8.5-10.1); CREATININE SERUM 1.29 MG/DL (0.60-1.30); TOTAL PROTEIN 6.4 GM/DL (6.4-8.2)
== END ==
LOC: ONC 13:17
PROVIDERS: ATTEND Internal Medicine Hematology & Oncology
DX: C18.2 Malignant neoplasm of ascending colon (principal); G40.909 Epilepsy, unspecified, not intractable, without status epilepticus; Z90.49 Acquired absence of other specified parts of digestive tract
CPT/HCPCS: 80053; 82378; 85025; G0463; 99213

== ENCOUNTER 2021-04-26 14:21 | Outpatient (RCR) | payer MEDICARE ==
[2021-04-21 14:48] LABS: BASOPHILS % (AUTO) 1 % (0-10); EOSINOPHILS # (AUTO) 0.2 10^3/uL (0.0-0.3); EOSINOPHILS % (AUTO) 3 % (0-10); HEMATOCRIT 46 % (40-54); HEMOGLOBIN 15.8 g/dL (13.3-17.7); LYMPHOCYTES # (AUTO) 1.3 10^3/uL (1.0-4.0); LYMPHOCYTES % (AUTO) 20 % (12-44); MEAN CORPUSCULAR HEMOGLOBIN 32 pg (25-34); MEAN CORPUSCULAR HGB CONC 34 g/dL (32-36); MEAN CORPUSCULAR VOLUME 92 fL (80-99); MEAN PLATELET VOLUME 9.6 fL (9.0-12.2); MONOCYTES # (AUTO) 0.9 10^3/uL (0.0-1.0); MONOCYTES % (AUTO) 14 % (0-12); NEUTROPHILS # (AUTO) 4.1 10^3/uL (1.8-7.8); NEUTROPHILS % (AUTO) 62 % (42-75); PLATELET COUNT 232 10^3/uL (130-400); WHITE BLOOD COUNT 6.5 10^3/uL (4.3-11.0)
[2021-04-21 15:04] LABS: ALBUMIN 4.3 GM/DL (3.2-4.5); BILIRUBIN,TOTAL 0.4 MG/DL (0.1-1.0); CALCIUM 9.3 MG/DL (8.5-10.1); CREATININE SERUM 1.2 MG/DL (0.60-1.30); POTASSIUM 4.4 MMOL/L (3.6-5.0); TOTAL PROTEIN 7.1 GM/DL (6.4-8.2)
== END 2021-05-16 | disposition home or self-care (01) ==
LOC: ONC 14:21
PROVIDERS: ATTEND Internal Medicine Hematology & Oncology
DX: C18.7 Malignant neoplasm of sigmoid colon (principal); G40.909 Epilepsy, unspecified, not intractable, without status epilepticus; Z90.49 Acquired absence of other specified parts of digestive tract
CPT/HCPCS: 80053; 82378; 85025; 99213

== ENCOUNTER 2021-10-12 06:01 | Outpatient (CLI) | payer MEDICARE ==
[~2021-10-12] VITALS: Ht 180.3 cm; Wt 77.6 kg
== END 2021-10-12 09:00 | disposition home or self-care (01) ==
LOC: PREOP 06:01
PROVIDERS: ATTEND Surgery
DX: Z01.818 Encounter for other preprocedural examination (principal)

== ENCOUNTER 2021-10-21 09:47 | Day surgery (SDC) | payer MEDICARE ==
[~2021-10-21] VITALS: Ht 180 cm; Wt 77.6 kg
[2021-10-21] VITALS (7 sets, daily range): BP systolic 93–119; BP diastolic 59–91
[2021-10-21] MEDS ORDERED: LACTATED RINGERS 1,000 ML IV STA (09:56)
--- NOTE | 2021-10-21 10:18 | Progress Note-Pre Operative ---
Pre-Operative Progress Note H&P Reviewed The H&P was reviewed, patient examined and no changes noted. Time Seen by Provider: 10:14 Date H&P Reviewed: Oct 21, 2021 Time H&P Reviewed: 10:14 Pre-Operative Diagnosis: Hx of Colon CA, surveillance colonoscopy RIKKI BOOTHE DO Oct 21, 2021 10:18
[2021-10-21] MEDS ORDERED: PROPOFOL INJECTION 50 ML IV ONE (10:44)
[2021-10-21] MEDS ORDERED: MIDAZOLAM 2 MG/2 ML (VERSED) VIAL ONE (10:44)
--- NOTE | 2021-10-21 11:38 | Progress Note-Post Operative ---
Post-Operative Progess Note Surgeon (s)/Tier Lift Operator (s) Surgeon RIKKI BOOTHE DO Tier Lift Operator: DEBI Vazquez Pre-Operative Diagnosis Hx of Colon CA, surveillance colonoscopy Post-Operative Diagnosis Internal hemorrhoids Procedure & Operative Findings Date of Procedure 10/21/21 Procedure Performed/Findings PROCEDURE NOTE: After informed consent was obtained, the patient was brought to the endoscopy suite, placed in bed in left lateral decubitus position. He was administered IV sedation by the SALES EXECUTIVE who then monitored his vitals the entire time, heart rate, blood pressure and pulse ox and the scope was inserted, pushed all the way to about 130 cm and pushed all the way to the anastomosis, took a picture of this anasomosis and then slowly withdrew the scope insufflating to look circumferentially at the gutierrez starting from the anastomosis, then down the transverse colon to the splenic flexure, into the descending colon, down into the sigmoid and then finally into the rectal vault. Retroflexed the scope. Took picture of the internal hemorrhoids. The patient tolerated the procedure. He was recovered in endoscopy suite. Recommended for repeat colonoscopy in 3 years, because of hx of colon CA. Anesthesia Type IV sedation by SALES EXECUTIVE Estimated Blood Loss Estimated blood loss (mL): none Specimens/Packing Specimens Removed none RIKKI BOOTHE DO Oct 21, 2021 11:38
--- NOTE | 2021-10-21 11:39 | Endoscopy Discharge Instruct ---
Endo Procedure/Findings Findings 1.: Internal Hemorrhoids Discharge Instructions - Activity: You might feel a little sleepy until tomorrow. This is due to the me dicine you received to relax you. Until tomorrow, you should: NOT drive a car, operate machinery or power tools. NOT drink any alcoholic beverages. NOT make any important decisions or sign importortant papers. Do not return to work until tomorrow, unless otherwise instructed. Resume previous activities tomorrow. Diet: Start by taking liquids. If you tolerate liquids, advance to solid food. 1.: Colonscopy in 3 years Notify Physician - If you experience excessive bleeding, unusual abdominal pain, fever, or chest pain, contact your doctor immediately. RIKKI BOOTHE DO Oct 21, 2021 11:39
== END 2021-10-21 12:20 | disposition home or self-care (01) ==
LOC: ENDO 09:47
PROVIDERS: ATTEND Surgery
DX: Z12.11 Encounter for screening for malignant neoplasm of colon (principal); K64.8 Other hemorrhoids; Z85.038 Personal history of other malignant neoplasm of large intestine

== ENCOUNTER 2021-10-31 14:26 | Outpatient (RCR) | payer MEDICARE ==
[2021-10-28 13:57] LABS: BASOPHILS % (AUTO) 0 % (0-10); EOSINOPHILS # (AUTO) 0.1 10^3/uL (0.0-0.3); EOSINOPHILS % (AUTO) 1 % (0-10); HEMATOCRIT 46 % (40-54); HEMOGLOBIN 15.7 g/dL (13.3-17.7); LYMPHOCYTES # (AUTO) 1.4 10^3/uL (1.0-4.0); LYMPHOCYTES % (AUTO) 21 % (12-44); MEAN CORPUSCULAR HEMOGLOBIN 32 pg (25-34); MEAN CORPUSCULAR HGB CONC 34 g/dL (32-36); MEAN CORPUSCULAR VOLUME 92 fL (80-99); MEAN PLATELET VOLUME 9.7 fL (9.0-12.2); MONOCYTES # (AUTO) 0.6 10^3/uL (0.0-1.0); MONOCYTES % (AUTO) 9 % (0-12); NEUTROPHILS # (AUTO) 4.6 10^3/uL (1.8-7.8); NEUTROPHILS % (AUTO) 68 % (42-75); PLATELET COUNT 248 10^3/uL (130-400); WHITE BLOOD COUNT 6.7 10^3/uL (4.3-11.0)
[2021-10-28 14:30] LABS: ALBUMIN 4.3 GM/DL (3.2-4.5); BILIRUBIN,TOTAL 0.3 MG/DL (0.1-1.0); CREATININE SERUM 1.35 MG/DL (0.60-1.30); POTASSIUM 4.2 MMOL/L (3.6-5.0); TOTAL PROTEIN 6.7 GM/DL (6.4-8.2)
== END 2021-11-13 | disposition home or self-care (01) ==
LOC: ONC 14:26
PROVIDERS: ATTEND Internal Medicine Hematology & Oncology
DX: C18.0 Malignant neoplasm of cecum (principal); G40.909 Epilepsy, unspecified, not intractable, without status epilepticus; Z90.49 Acquired absence of other specified parts of digestive tract
CPT/HCPCS: 36415; 80053; 82378; 85025; 99213

== ENCOUNTER 2022-05-01 09:31 | Outpatient (RCR) | payer MEDICARE ==
[2022-05-01 09:59] LABS: BASOPHILS % (AUTO) 1 % (0-10); EOSINOPHILS # (AUTO) 0.1 10^3/uL (0.0-0.3); EOSINOPHILS % (AUTO) 1 % (0-10); HEMATOCRIT 44 % (40-54); HEMOGLOBIN 15.3 g/dL (13.3-17.7); LYMPHOCYTES # (AUTO) 1.2 10^3/uL (1.0-4.0); LYMPHOCYTES % (AUTO) 20 % (12-44); MEAN CORPUSCULAR HEMOGLOBIN 32 pg (25-34); MEAN CORPUSCULAR HGB CONC 35 g/dL (32-36); MEAN CORPUSCULAR VOLUME 92 fL (80-99); MEAN PLATELET VOLUME 9.7 fL (9.0-12.2); MONOCYTES # (AUTO) 0.6 10^3/uL (0.0-1.0); MONOCYTES % (AUTO) 10 % (0-12); NEUTROPHILS # (AUTO) 4.2 10^3/uL (1.8-7.8); NEUTROPHILS % (AUTO) 68 % (42-75); PLATELET COUNT 226 10^3/uL (130-400); WHITE BLOOD COUNT 6.1 10^3/uL (4.3-11.0)
[2022-05-01 10:21] LABS: ALBUMIN 4.3 GM/DL (3.2-4.5); BILIRUBIN,TOTAL 0.6 MG/DL (0.1-1.0); CALCIUM 9.8 MG/DL (8.5-10.1); CREATININE SERUM 1.33 MG/DL (0.60-1.30); POTASSIUM 3.8 MMOL/L (3.6-5.0); TOTAL PROTEIN 6.8 GM/DL (6.4-8.2)
== END 2022-05-16 | disposition home or self-care (01) ==
LOC: ONC 09:31
PROVIDERS: ATTEND Internal Medicine Hematology & Oncology
DX: C18.0 Malignant neoplasm of cecum (principal); G40.909 Epilepsy, unspecified, not intractable, without status epilepticus; Z90.49 Acquired absence of other specified parts of digestive tract
CPT/HCPCS: 80053; 82378; 85025; G0463; 36415; 99213

== ENCOUNTER 2022-10-30 09:54 | Outpatient (RCR) | payer MEDICARE ==
[2022-10-26 10:59] LABS: BASOPHILS % (AUTO) 0 % (0-10); EOSINOPHILS # (AUTO) 0.1 10^3/uL (0.0-0.3); EOSINOPHILS % (AUTO) 1 % (0-10); HEMATOCRIT 45 % (40-54); HEMOGLOBIN 15.6 g/dL (13.3-17.7); LYMPHOCYTES # (AUTO) 1.2 10^3/uL (1.0-4.0); LYMPHOCYTES % (AUTO) 18 % (12-44); MEAN CORPUSCULAR HEMOGLOBIN 31 pg (25-34); MEAN CORPUSCULAR HGB CONC 35 g/dL (32-36); MEAN CORPUSCULAR VOLUME 91 fL (80-99); MEAN PLATELET VOLUME 9.8 fL (9.0-12.2); MONOCYTES # (AUTO) 0.6 10^3/uL (0.0-1.0); MONOCYTES % (AUTO) 10 % (0-12); NEUTROPHILS # (AUTO) 4.8 10^3/uL (1.8-7.8); NEUTROPHILS % (AUTO) 71 % (42-75); PLATELET COUNT 209 10^3/uL (130-400); WHITE BLOOD COUNT 6.8 10^3/uL (4.3-11.0)
[2022-10-26 11:16] LABS: ALBUMIN 4.2 GM/DL (3.2-4.5); BILIRUBIN,TOTAL 0.4 MG/DL (0.1-1.0); CREATININE SERUM 1.23 MG/DL (0.60-1.30); POTASSIUM 4.1 MMOL/L (3.6-5.0); TOTAL PROTEIN 6.4 GM/DL (6.4-8.2)
== END 2022-11-13 | disposition home or self-care (01) ==
LOC: ONC 09:54
PROVIDERS: ATTEND Internal Medicine Hematology & Oncology
DX: C18.7 Malignant neoplasm of sigmoid colon (principal); C18.2 Malignant neoplasm of ascending colon; G40.909 Epilepsy, unspecified, not intractable, without status epilepticus; Z90.49 Acquired absence of other specified parts of digestive tract
CPT/HCPCS: 36415; 80053; 82378; 85025